=== PATIENT | male | born 1955 | race Caucasian/White ===

== ENCOUNTER 2020-11-17 18:41 | Inpatient (IN) | payer MEDICARE ==
[~2020-11-17] VITALS: Ht 175.3 cm; Wt 82.9 kg
[2020-11-17] VITALS (9 sets, daily range): BP systolic 76–121; BP diastolic 55–73
--- NOTE | 2020-11-17 18:48 | PDOC1 ---
History and Physical Date of Admission Date of Admission DATE: 11/17/20 TIME: 18:47 Identification/Chief Complaint Chief Complaint , short of breath , nausea weakness Source Source: Chart review, Patient History of Present Illness History of Present Illness Mr. Galindo, is a 64-year-old male transferred here from [facility], He went there for new dizziness, weakness, short of breath. He now complains of nausea. [facility] Patients son reports that he MIGHT not taken his meds in 2 weeks and is unsure as to why. Patient denies chest pain. Patient has 3+ pitting edema on bilateral legs and reports that his doctor had increased his lasix, and Dave seems positive that he was taking his meds when talkgin to me. . . Patient's feet are cool to the touch, purple, pulses able to be palpable, irreg. . Denies fever, cough. Past Medical History Past Medical History hypertension, CHF, CABG, GERD, hyperlipidemia, A. fib. Family History Family History: Heart Disease Social History Smoke: Quit ALCOHOL: rare Drugs: None Allergies Allergies: Coded Allergies: No Known Drug Allergies (Unverified , 11/17/20) ROS General: YES: Chills, Fatigue, Malaise PSYCHOLOGICAL ROS: YES: Anxiety; No: Behavioral Disorder, Concentration difficultie, Decreased libido, Depression, Disorientation, Hallucinations, Hostility, Irritablity, Memory difficulties, Mood Swings, Obsessive thoughts, Physical abuse, Sexual abuse, Sleep disturbances, Suicidal ideation, Other Eyes: No Blurry vision, No Decreased vision, No Double vision, No Dry eyes, No Excessive tearing, No Eye Pain, No Itchy Eyes, No Loss of vision, No Photophobia, No Scotomata, No Uses contacts, No Uses glasses, No Other HEENT: No: Heacaches, Visual Changes, Hearing change, Nasal congestion, Nasal discharge, Oral lesions, Sinus pain, Sore Throat, Epistaxis, Sneezing, Snoring, Tinnitus, Vertigo, Vocal changes, Other Respiratory: YES: Shortness of breath, SOB with excertion Cardiovascular: yes Chest Pain; No Palpitations, No Orthopnea, No Paroxysmal Noc. Dyspnea, No Edema, No Lt Headedness, No Other Gastrointestinal: Yes Nausea; No Vomiting, No Abdominal Pain, No Diarrhea, No Constipation, No Melena, No Hematochezia, No Other Genitourinary: No Dysuria, No Frequency, No Incontinence, No Hematuria, No Retention, No Discharge, No Urgency, No Pain, No Flank Pain, No Other, No , No , No , No , No , No , No Musculoskeletal: Yes Joint Pain, Yes Joint Stiffness; No Gait Disturbance, No Joint Swelling, No Muscle Pain, No Muscular Weakness, No Pain In:, No Swelling In:, No Other Neurological: No Behavorial Changes, No Bowel/Bladder ControlChng, No Confusion, No Dizziness, No Gait Disturbance, No Headaches, No Impaired Coord/balance, No Memory Loss, No Numbness/Tingling, No Seizures, No Speech Problems, No Tremors, No Visual Changes, No Weakness, No Other Skin: Yes Dry Skin; No Eczema, No Hair Changes, No Lumps, No Mole Changes, No Mottling, No Nail Changes, No Pruritus, No Rash, No Skin Lesion Changes, No Other, No Acne Physical Exam General: Alert, Cooperative, moderate distress HEENT: PERRLA Heart: no murmurs, irregularly irregular, other Abdomen: Normal bowel sounds, No tenderness Rectal Exam: not examined Extremities: Other (4+ edema, cold feet and swollen, pulses palpable but faint, cyanosis, ) Skin: Other Neuro: Normal speech, Sensation intact VTE Prophylaxis Ordered VTE Prophylaxis Devices: No VTE Pharmacological Prophylaxi: Yes Assessment/Plan Assessment/Plan acute bilateral Pulmonary embolism acute pneumonia, SIRS, sepsis acute hypoxic respiratory failure CAD , s/p CABG 1993 acute on chronic systolic CHF with prior known 3+ pitting edema for months, BNP 15k atrial fibrillation, chronic diastolic CHF Medtr[employer] pacer interrogated at [facility] creatinine 1.4 , bili is elevated at 4.6. INR 1.9 PVD, US artery LUE neg at [facility], poor pulses, cool feet, consult vasc, admit to ICU, 40 min Justifications for Admission Other Justification DALI TAYLOR MD November 17, 2020 18:48
[2020-11-17] MEDS: ONDANSETRON PF 4 MG/2 ML VIAL. IVP PRN (19:40)
[2020-11-18] VITALS (24 sets, daily range): BP systolic 94–115; BP diastolic 55–78
--- NOTE | 2020-11-18 04:23 | RAD ---
XR CHEST 1V Clinical History: Reason: pneumonia 111 / Spl. Instructions: / History: Technique: AP view of the chest was obtained at 11/18/2020 3:54 AM. Comparison: None. Findings: The heart size is not well seen. There is density in the lower left lung and there is hazy opacity in the mid right lung and density along the pleural margin laterally in the right lung base. The pulmon anthony vessels are top normal limits in size. There is left-sided defibrillator and median sternotomy wi res. Impression: Large left effusion with adjacent infiltrate and small right pleural effusion. This could be secondar y to CHF or pneumonia. Electronically signed by: Eduardo Ramos III, MD (11/18/2020 4:20 AM) [facility]ESS[facility]
[2020-11-18 05:58] LABS: BASO % 0 % (0-3); EOS % 0 % (0-3); HEMATOCRIT 49.4 % (39.0-53.0); HEMOGLOBIN 15.4 g/dL (13.0-17.5); LYMPH # 0.3 x10^3/uL (1.0-4.8); LYMPH % 3 % (24-48); MEAN CORPUSCULAR HEMOGLOBIN 28 pg (25-35); MEAN CORPUSCULAR HGB CONC 31 g/dL (31-37); MEAN CORPUSCULAR VOLUME 90 fL (79-100); MONO % 10 % (0-9); NEUT # 8.4 x10^3/uL (1.8-7.7); NEUT % 87 % (31-73); PLATELET COUNT 199 x10^3/uL (140-400); RED BLOOD COUNT 5.52 x10^6/uL (4.30-5.70); RED CELL DISTRIBUTION WIDTH 20.3 % (11.5-14.5); WHITE BLOOD COUNT 9.7 x10^3/uL (4.0-11.0)
[2020-11-18 06:17] LABS: ALBUMIN 3.4 g/dL (3.4-5.0); ALBUMIN/GLOBULIN RATIO 1.4 (1.0-1.7); CALCIUM 8.4 mg/dL (8.5-10.1); CREATININE 1.5 mg/dL (0.7-1.3); GFR 47.4; POTASSIUM 4.7 mmol/L (3.5-5.1); TOTAL BILIRUBIN 4.1 mg/dL (0.2-1.0); TOTAL PROTEIN 5.8 g/dL (6.4-8.2)
[2020-11-18 06:20] LABS: PROTHROMBIN TIME PATIENT 23.8 SEC (11.7-14.0)
--- NOTE | 2020-11-18 08:39 | PDOC ---
[employer] PROGRESS NOTE Date of Service DOS: DATE: 11/18/20 TIME: 08:35 Chief Complaint Chief Complaint A/P: acute bilateral Pulmonary embolism acute pneumonia Sepsis Acute hypoxic respiratory failure CAD , s/p CABG 1993 Acute on chronic systolic CHF with prior known 3+ pitting edema for months, B [employer]IAN 15k. S/p AICD Atrial fibrillation - Medtronic pacer interrogated at [facility] DOE - creatinine 1.4 - likely vasomotor nephropathy Transaminits - likely congestive hepatopathy, no ETOH or cirrhosis per patient. Bilirubin is elevated at 4.6. INR 1.9 PVD, US artery LUE neg at [facility], poor pulses, cool feet, consult vasc, Nausea and vomiting - KUB ordered. NGT offered FEN - Cardiac PPX - lovenox FULL CODE Dispo - ICU CC time 42 minutes History of Present Illness History of Present Illness Mr Galindo is a 64-year-old male visiting from [place] w/ PMHx A-Fib, GERD, High Cholesterol, Hypertension, Hypothyroid, CHF s/p AICD placement presents with dizziness, weakness, short of breath. Patient son brought him in and he has been staying with his son. Son states patient has not taken his medications for 2 weeks. Patient denies chest pain. Patient states "I feel like my pacemaker is firing". Patient has 3+ pitting edema on bilateral legs. Patient's left arm is cool to the touch, red. Denies fever, cough. Found on CTPA with multiple left lower lobe pulmonary emboli and moderate large pleural effusion on left and multifocal pneumonia. Accepted for transfer to ICU [facility]. Afebrile. Vomiting this morning. States he feels a little better today. Bilirubin up to 4. INR 2.1. COVID negative. BP low Vitals/I&O Vitals/I&O: Vital Signs Date Time Temp Pulse Resp B/P (MAP) Pulse Ox O2 Delivery O2 Flow Rate FiO2 11/18/20 07:00 67 26 101/59 (73) 100 Nasal Cannula 2.0 11/18/20 05:00 97.6 97.6 I & O 11/17/20 11/17/20 11/18/20 15:00 23:00 07:00 Output Total 180 ml 235 ml Balance -180 ml -235 ml Physical Exam General: Alert, Cooperative, moderate distress Abdomen: Normal bowel sounds, No tenderness Extremities: Other (4+ edema, cold feet and swollen, pulses palpable but faint, cyanosis, ) Skin: Other Labs Labs: Laboratory Tests Test 11/18/20 05:30 White Blood Count 9.7 x10^3/uL (4.0-11.0) Red Blood Count 5.52 x10^6/uL (4.30-5.70) Hemoglobin 15.4 g/dL (13.0-17.5) Hematocrit 49.4 % (39.0-53.0) Mean Corpuscular Volume 90 fL (79-100) Mean Corpuscular Hemoglobin 28 pg (25-35) Mean Corpuscular Hemoglobin Concent 31 g/dL (31-37) Red Cell Distribution Width 20.3 % (11.5-14.5) Platelet Count 199 x10^3/uL (140-400) Neutrophils (%) (Auto) 87 % (31-73) Lymphocytes (%) (Auto) 3 % (24-48) Monocytes (%) (Auto) 10 % (0-9) Eosinophils (%) (Auto) 0 % (0-3) Basophils (%) (Auto) 0 % (0-3) Neutrophils # (Auto) 8.4 x10^3/uL (1.8-7.7) Lymphocytes # (Auto) 0.3 x10^3/uL (1.0-4.8) Monocytes # (Auto) 1.0 x10^3/uL (0.0-1.1) Eosinophils # (Auto) 0.0 x10^3/uL (0.0-0.7) Basophils # (Auto) 0.0 x10^3/uL (0.0-0.2) Prothrombin Time 23.8 SEC (11.7-14.0) Prothromb Time International Ratio 2.1 (0.8-1.1) Sodium Level 137 mmol/L (136-145) Potassium Level 4.7 mmol/L (3.5-5.1) Chloride Level 99 mmol/L (98-107) Carbon Dioxide Level 27 mmol/L (21-32) Anion Gap 11 (6-14) Blood Urea Nitrogen 27 mg/dL (8-26) Creatinine 1.5 mg/dL (0.7-1.3) Estimated GFR (Cockcroft-Gault) 47.4 BUN/Creatinine Ratio 18 (6-20) Glucose Level 117 mg/dL (70-99) Calcium Level 8.4 mg/dL (8.5-10.1) Total Bilirubin 4.1 mg/dL (0.2-1.0) Aspartate Amino Transf (AST/SGOT) 32 U/L (15-37) Alanine Aminotransferase (ALT/SGPT) 40 U/L (16-63) Alkaline Phosphatase 212 U/L (46-116) Troponin I Quantitative 0.021 ng/mL (0.000-0.055) Total Protein 5.8 g/dL (6.4-8.2) Albumin 3.4 g/dL (3.4-5.0) Albumin/Globulin Ratio 1.4 (1.0-1.7) Comment Review of Relevant I have reviewed the following items florecita (where applicable) has been applied. Medications: Current Medications Medications (Trade) Dose Ordered Sig/Grace Route PRN Reason Start Time Stop Time Status Last Admin Dose Admin Ondansetron HCl (Zofran) 4 mg PRN Q8HRS PRN IVP NAUSEA/VOMITING 11/17/20 19:00 11/17/20 19:40 Enoxaparin Sodium (Lovenox 100mg Syringe) 90 mg Q12H SQ 11/18/20 06:00 11/18/20 06:04 Images: CT angiography of the chest, abdomen and pelvis with intravenous contrast. Chest: There are left lower lobe, lingular and right middle lobe pulmonary emboli. There may also be distal right lower lobe pulmonary emboli, difficult to confirm given respiratory motion in this location. There are moderate bilateral pleural effusions. There is associated fluid tracking within the pleural fissures. There is partial left lower lobe consolidation with surrounding groundglass infiltrate. There is right basilar interstitial infiltrate. There is partially consolidated lingular and medial right middle lobe infiltrate with superimposed pleural parenchymal scarring. There is cardiomegaly. There is evidence of prior CABG. There is a cardiac pacemaker. There are prominent mediastinal and hilar lymph nodes. There is no evidence of right heart strain. There is emphysema. There is body wall edema. There is a small hiatal hernia. There are degenerative changes throughout the spine. Abdomen and pelvis: No hepatic lesion is seen. The gallbladder is absent. The pancreas and spleen are unremarkable. There is a 2.4 cm left adrenal nodule. There is also slight nodular thickening of the nhung of the left adrenal gland, without a discrete nodule. There is bilateral renal cortical thinning and lobulation due to scarring. There is a simple left renal cysts. There is moderate abdominal ascites. There is a 2.4 cm left adrenal nodule. There is also nodular thickening of the nhung of the left adrenal gland. There is a small to moderate abdominal ascites. There is diffuse colonic wall thickening. This can be seen in the setting of ascites. There is diffuse mesenteric stranding. There is no bowel obstruction. There is no lymphadenopathy. The abdominal aorta is normal in caliber. There is partially calcified atherosclerotic plaque within the aorta and main aortic branch vessels. No hemodynamically significant stenosis is seen. There is no aneurysm or dissection. There is mild bladder wall thickening. The prostate is mildly enlarged. There is body wall edema. There are degenerative changes throughout the spine. There is no acute osseous finding. IMPRESSION: 1. Left lower lobe, lingular, right middle lobe and possibly right lower lobe pu lmonary emboli. No saddle embolus is seen. 2. Multifocal consolidated infiltrate primarily involving the left lower lobe, medial right middle lobe and lingula. The superimposed on diffuse interstitial infiltrate. Follow-up to confirm resolution. 3. Moderate pleural effusions. 4. Small moderate ascites. 5. Emphysema. 6. Colonic wall thickening. This can be seen in the presence of ascites. Correlate with symptomatology to exclude colitis. 7. Mild prostatomegaly. 8. 2.4 cm left adrenal nodule. This can be better assessed with adrenal protocol CT or MRI. 9. Simple appearing left renal cyst. Follow-up is not routinely performed for simple cysts. 10. Cardiomegaly. 11. Prominent mediastinal and hilar lymph nodes, likely reactive in etiology. US DPLX VENOUS EXTREMITY UPPER LT Degraded evaluation due to difficult mobility. The subcutaneous edema. Patent left internal jugular, subclavian, axilla, brachial, ulnar and radial veins. Patent basilic and cephalic veins. No definite thrombus. IMPRESSION: 1. No evidence of left upper extremity deep venous thrombosis. Chest Radiograph: A frontal view of the chest is obtained. There are small bilateral pleural effusions. There is diffuse interstitial infiltrate. There is an enlarged cardiac silhouette. There is no pneumothorax. There are findings consistent with CABG. There is a cardiac pacemaker defibrillator in expected position. IMPRESSION: 1. Diffuse interstitial infiltrate with small pleural effusions. 2. Prominent cardiac silhouette and postoperative mediastinal changes. Justifications for Admission Other Justification MARIO LAST MD November 18, 2020 08:39
[2020-11-18] MEDS ORDERED: AZITHROMYCIN 250 MG TABLET. PO SCH (09:00)
[2020-11-18] MEDS ORDERED: DOXYCYCLINE HYCLATE 100 MG TABLET PO SCH (09:00)
[2020-11-18] MEDS ORDERED: PANTOPRAZOLE 40 MG TABLET.DR. PO SCH (09:00)
[2020-11-18] MEDS: ONDANSETRON PF 4 MG/2 ML VIAL. IVP PRN (09:05)
[2020-11-18] MEDS: DOXYCYCLINE HYCLATE 100 MG in IV DEXTROSE 5% 100ML 100 ML IV SCH ×2 (09:28→20:37)
--- NOTE | 2020-11-18 09:29 | CONS ---
REASON FOR CONSULTATION: I was asked to see this 64-year-old gentleman for acute respiratory failure, pulmonary embolism. HISTORY OF PRESENT ILLNESS: He does have history of [id number] smoking, continues to smoke about 1 pack per day. He lives in [place]. He has been in his son's for the past 2 weeks in [facility]. He has not taken his medication. He has significant history of heart disease including AICD; atrial fibrillation, on Eliquis, although he has not taken it for the past 2 weeks; coronary artery disease, CABG; and COPD. He stated that he has not taken his medication for the past 2 weeks, including Eliquis. He has had increased shortness of breath, lower extremity edema. He presented to [facility] and had a CT angiogram, which did show pulmonary embolism. He was transferred to [facility] for further evaluation and treatment. He has shortness of breath, lower extremity edema. He appears tachypneic. He denies chest pain. He has been tired, has felt dizzy and weak. Has had nausea. PAST MEDICAL HISTORY: COPD, CHF, CABG, gastroesophageal reflux disease, atrial fibrillation, hypertension. ALLERGIES: No known drug allergies. MEDICATIONS: Currently, he is on Rocephin, azithromycin, Lovenox. SOCIAL HISTORY: History of [id number] smoking, continues to smoke 1 pack per day. FAMILY HISTORY: Hypertension. REVIEW OF SYSTEMS: As mentioned as above. He does have sleep apnea, does not use his CPAP machine. Other systems otherwise negative. PHYSICAL EXAMINATION: GENERAL: This is an overweight gentleman. He appears tachypneic. His O2 saturation on 2 liters of oxygen is 98%, respiratory rate 26, heart rate 67, blood pressure 101/59, temperature 97.6. HEENT: Normocephalic, atraumatic. Pupils equal, round, reactive to light. Throat is clear. There is shallow oropharynx. Nose is clear. NECK: Positive JVD. No lymphadenopathy. CARDIOVASCULAR: Irregular rate and rhythm. Chest inspection, he appears tachypneic. LUNGS: There are bibasilar crackles, dullness at the bases. ABDOMEN: Obese. Bowel sounds are good. EXTREMITIES: There is 3-4+ edema. SKIN: Chronic changes. NEUROLOGIC: Alert and oriented. LABORATORY DATA: I reviewed the following lab data. Chest x-ray done here showed bilateral effusion, left more than right; bilateral infiltrate. His CT did show left lower lobe lingula, right middle lobe and possibly right lower lobe pulmonary embolism. No saddle embolism. Multifocal consolidation, bilateral pleural effusion, moderate ascites, COPD changes, colonic wall thickening, mild prostatomegaly, adrenal nodule, renal cyst, cardiomegaly, mediastinal and hilar lymphadenopathy. Left upper extremity venous Doppler did not show DVT. Sodium 137, potassium 4.7, chloride 99, CO2 of 27, BUN 27, creatinine 1.5. Troponin 0.021. WBC 9.7, hemoglobin 15.4, platelet 199. INR 2.1. AST 32, ALT 40. IMPRESSION: 1. Acute hypoxemic respiratory failure, multifactorial in etiology including acute pulmonary embolism; acute congestive heart failure, systolic versus diastolic; COPD, rule out pneumonia; rule out COVID infection. 2. Abnormal chest x-ray. 3. Acute ulmonary embolism. 4. Chronic obstructive pulmonary disease. 5. Acute systolic versus diastolic congestive heart failure. 6. Obstructive sleep apnea/hypopnea syndrome. 7. Tobacco habituation. 8. Atrial fibrillation. 9. Coronary artery disease, status post CABG. PLAN AND RECOMMENDATIONS: 1. I had a long discussion with him regarding smoking cessation. I have advised him to stop smoking forever. 2. Monitor in ICU for now. 3. Lower extremity venous Doppler. 4. Continue Lovenox. 5. Add Protonix for stress ulcer prophylaxis. 6. Start bronchodilator and inhaled corticosteroid. 7. Continue antibiotic. 8. COVID testing. 9. Consider Cardiology consultation and echocardiogram. 10. Continue Lovenox. 11. The findings and recommendations were discussed with the patient, RN and Dr. Mary, attending physician. Thank you very much for allowing me to participate in care of this very nice gentleman. TELMA/HALIMA DR: Jaspreet TID: [id number] ANUP
[2020-11-18] MEDS ORDERED: AMINO AC 3%/ELECTROLYTE/GLYCER 1,000 ML IV ONE (09:30)
[2020-11-18] MEDS ORDERED: BUDESONIDE 0.5 MG/2 ML NEBU. NEB ONE (09:30)
[2020-11-18] MEDS: PANTOPRAZOLE IV PUSH 40 MG VIAL. IVP SCH (09:43)
[2020-11-18] MEDS: FUROSEMIDE 100 MG/10 ML VIAL. IVP SCH (10:37)
[2020-11-18 10:52] LABS: % LYMPHS 7 % (24-48); % MONOS 4 % (0-10); % SEGS 89 % (35-66); PLT ESTIMATE ADEQUATE (ADEQUATE)
[2020-11-18] MEDS ORDERED: LACTULOSE 20 GM/30 ML SOLUTION. PO PRN (11:00)
[2020-11-18] MEDS ORDERED: ONDANSETRON PF 4 MG/2 ML VIAL. IVP PRN (11:30)
[2020-11-18] MEDS ORDERED: METOCLOPRAMIDE HCL 10 MG/2 ML VIAL. IVP PRN (11:30)
[2020-11-18] MEDS: IPRATRPIUM/ALBUTEROL 0.5/2.5MG 3 ML NEBU. NEB SCH ×3 (12:39→20:24)
--- NOTE | 2020-11-18 12:48 | PDOC2 ---
CONSULT Date of Consult Date of Consult DATE: 11/18/20 TIME: 12:41 Reason for Consult Reason for Consult: Pulmonary embolism, heart failure Referring Physician Referring Physician: Dr. Perez Identification/Chief Complaint Chief Complaint Shortness of breath and weakness Source Source: Chart review, Patient History of Present Illness Reason for Visit: The patient is a 64-year-old male who initially presented to [facility] with chief complaints of increasing shortness of breath and weakness. His work- up there included a CTA of the chest that showed bilateral pulmonary emboli. The patient was started on anticoagulation and transferred to [facility]. He has an extensive medical history including previous bypass surgery, hypertension, heart failure, a probable AICD and atrial fibrillation. The patient had been on Eliquis but by family report he is not taking his medications for least 2 weeks. After evaluation here the patient was continued on anticoagulation. He is also being treated for probable pneumonia as well as heart failure. This morning he reports feeling better. He is mildly lethargic. He reports his shortness of breath has improved. He denies chest pain. Past Medical History Cardiovascular: AFIB, CAD, CHF, HTN, Hyperlipidemia, Other (Probable AICD) Pulmonary: Bronchitis, COPD GI: GERD Musculoskeletal: Osteoarthritis Past Surgical History Past Surgical History: CABG, Other (AICD.) Family History Family History: Heart Disease Social History Quit ALCOHOL: occassional Drugs: None Current Medications Current Medications Current Medications Enoxaparin Sodium (Lovenox Per Pharmacy Treatment Dosing) 1 each PRN DAILY PRN MC SEE COMMENTS; Start 11/17/20 at 19:00 Ondansetron HCl (Zofran) 4 mg PRN Q8HRS PRN IVP NAUSEA/VOMITING Last administered on 11/18/20at 09:05; Start 11/17/20 at 19:00; Stop 11/18/20 at 11:29; Status DC Ceftriaxone Sodium (Rocephin) 2 gm Q24H IVP ; Start 11/18/20 at 14:00 Azithromycin (Zithromax) 250 mg DAILY PO ; Start 11/18/20 at 09:00; Stop 11/18/20 at 08:37; Status DC Enoxaparin Sodium (Lovenox 100mg Syringe) 90 mg Q12H SQ Last administered on 11/18/20at 06:04; Start 11/18/20 at 06:00 Doxycycline Hyclate (Vibra-Tab) 100 mg BID PO ; Start 11/18/20 at 09:00; Stop 11/18/20 at 09:13; Status DC Pantoprazole Sodium (Protonix) 40 mg DAILYAC PO ; Start 11/18/20 at 09:00; Stop 11/18/20 at 09:21; Status DC Albuterol/ Ipratropium (Duoneb) 3 ml RTQID NEB ; Start 11/18/20 at 12:00 Budesonide (Pulmicort) 0.5 mg RTBID NEB ; Start 11/18/20 at 20:00 Budesonide (Pulmicort) 0.5 mg 1X ONCE NEB ; Start 11/18/20 at 09:30; Stop 11/18/20 at 09:31; Status DC Doxycycline Hyclate 100 mg/ Dextrose 100 ml @ 50 mls/hr Q12HR IV Last administered on 11/18/20at 09:28; Start 11/18/20 at 10:00 Pantoprazole Sodium (PROTONIX VIAL for IV PUSH) 40 mg DAILYAC IVP Last administered on 11/18/20at 09:43; Start 11/18/20 at 10:00 Amino Acids/ Glycerin/ Electrolytes 1,000 ml @ 80 mls/hr [id number] ONCE IV Last administered on 11/18/20at 09:44; Start 11/18/20 at 09:30; Stop 11/18/20 at 21:59 Furosemide (Lasix) 80 mg DAILY IVP Last administered on 11/18/20at 10:37; Start 11/18/20 at 11:00 Lactulose (Lactulose) 20 gm PRN DAILY PRN PO CONSTIPATION; Start 11/18/20 at 11:00 Metoclopramide HCl (Reglan Vial) 10 mg PRN Q6HRS PRN IVP NAUSEA/VOMITING Last administered on 11/18/20at 11:40; Start 11/18/20 at 11:30 Ondansetron HCl (Zofran) 4 mg PRN Q4HRS PRN IVP NAUSEA/VOMITING; Start 11/18/20 at 11:30 Allergies Allergies: Coded Allergies: No Known Drug Allergies (Unverified , 11/17/20) ROS General: YES: Fatigue, Malaise Respiratory: YES: Shortness of breath, SOB with excertion Physical Exam General: mild distress HEENT: Atraumatic Lungs: Other (Decreased breath sounds) Heart: Other (Irregularly irregular) Abdomen: Normal bowel sounds Vitals VITALS Vital Signs Date Time Temp Pulse Resp B/P (MAP) Pulse Ox O2 Delivery O2 Flow Rate FiO2 11/18/20 12:00 Nasal Cannula 2.0 11/18/20 12:00 97.8 65 22 105/67 (80) 100 97.8 Labs Labs Laboratory Tests Test 11/18/20 05:30 11/18/20 08:41 White Blood Count 9.7 x10^3/uL (4.0-11.0) Red Blood Count 5.52 x10^6/uL (4.30-5.70) Hemoglobin 15.4 g/dL (13.0-17.5) Hematocrit 49.4 % (39.0-53.0) Mean Corpuscular Volume 90 fL (79-100) Mean Corpuscular Hemoglobin 28 pg (25-35) Mean Corpuscular Hemoglobin Concent 31 g/dL (31-37) Red Cell Distribution Width 20.3 % (11.5-14.5) Platelet Count 199 x10^3/uL (140-400) Neutrophils (%) (Auto) 87 % (31-73) Lymphocytes (%) (Auto) 3 % (24-48) Monocytes (%) (Auto) 10 % (0-9) Eosinophils (%) (Auto) 0 % (0-3) Basophils (%) (Auto) 0 % (0-3) Neutrophils # (Auto) 8.4 x10^3/uL (1.8-7.7) Lymphocytes # (Auto) 0.3 x10^3/uL (1.0-4.8) Monocytes # (Auto) 1.0 x10^3/uL (0.0-1.1) Eosinophils # (Auto) 0.0 x10^3/uL (0.0-0.7) Basophils # (Auto) 0.0 x10^3/uL (0.0-0.2) Segmented Neutrophils % 89 % (35-66) Lymphocytes % 7 % (24-48) Monocytes % 4 % (0-10) Platelet Estimate Adequate (ADEQUATE) Prothrombin Time 23.8 SEC (11.7-14.0) Prothromb Time International Ratio 2.1 (0.8-1.1) Sodium Level 137 mmol/L (136-145) Potassium Level 4.7 mmol/L (3.5-5.1) Chloride Level 99 mmol/L (98-107) Carbon Dioxide Level 27 mmol/L (21-32) Anion Gap 11 (6-14) Blood Urea Nitrogen 27 mg/dL (8-26) Creatinine 1.5 mg/dL (0.7-1.3) Estimated GFR (Cockcroft-Gault) 47.4 BUN/Creatinine Ratio 18 (6-20) Glucose Level 117 mg/dL (70-99) Calcium Level 8.4 mg/dL (8.5-10.1) Total Bilirubin 4.1 mg/dL (0.2-1.0) Aspartate Amino Transf (AST/SGOT) 32 U/L (15-37) Alanine Aminotransferase (ALT/SGPT) 40 U/L (16-63) Alkaline Phosphatase 212 U/L (46-116) Troponin I Quantitative 0.021 ng/mL (0.000-0.055) Total Protein 5.8 g/dL (6.4-8.2) Albumin 3.4 g/dL (3.4-5.0) Albumin/Globulin Ratio 1.4 (1.0-1.7) SARS-CoV-2 Antigen (Rapid) Negative (NEGATIVE) Laboratory Tests Test 11/18/20 05:30 11/18/20 08:41 White Blood Count 9.7 x10^3/uL (4.0-11.0) Red Blood Count 5.52 x10^6/uL (4.30-5.70) Hemoglobin 15.4 g/dL (13.0-17.5) Hematocrit 49.4 % (39.0-53.0) Mean Corpuscular Volume 90 fL (79-100) Mean Corpuscular Hemoglobin 28 pg (25-35) Mean Corpuscular Hemoglobin Concent 31 g/dL (31-37) Red Cell Distribution Width 20.3 % (11.5-14.5) Platelet Count 199 x10^3/uL (140-400) Neutrophils (%) (Auto) 87 % (31-73) Lymphocytes (%) (Auto) 3 % (24-48) Monocytes (%) (Auto) 10 % (0-9) Eosinophils (%) (Auto) 0 % (0-3) Basophils (%) (Auto) 0 % (0-3) Neutrophils # (Auto) 8.4 x10^3/uL (1.8-7.7) Lymphocytes # (Auto) 0.3 x10^3/uL (1.0-4.8) Monocytes # (Auto) 1.0 x10^3/uL (0.0-1.1) Eosinophils # (Auto) 0.0 x10^3/uL (0.0-0.7) Basophils # (Auto) 0.0 x10^3/uL (0.0-0.2) Segmented Neutrophils % 89 % (35-66) Lymphocytes % 7 % (24-48) Monocytes % 4 % (0-10) Platelet Estimate Adequate (ADEQUATE) Prothrombin Time 23.8 SEC (11.7-14.0) Prothromb Time International Ratio 2.1 (0.8-1.1) Sodium Level 137 mmol/L (136-145) Potassium Level 4.7 mmol/L (3.5-5.1) Chloride Level 99 mmol/L (98-107) Carbon Dioxide Level 27 mmol/L (21-32) Anion Gap 11 (6-14) Blood Urea Nitrogen 27 mg/dL (8-26) Creatinine 1.5 mg/dL (0.7-1.3) Estimated GFR (Cockcroft-Gault) 47.4 BUN/Creatinine Ratio 18 (6-20) Glucose Level 117 mg/dL (70-99) Calcium Level 8.4 mg/dL (8.5-10.1) Total Bilirubin 4.1 mg/dL (0.2-1.0) Aspartate Amino Transf (AST/SGOT) 32 U/L (15-37) Alanine Aminotransferase (ALT/SGPT) 40 U/L (16-63) Alkaline Phosphatase 212 U/L (46-116) Troponin I Quantitative 0.021 ng/mL (0.000-0.055) Total Protein 5.8 g/dL (6.4-8.2) Albumin 3.4 g/dL (3.4-5.0) Albumin/Globulin Ratio 1.4 (1.0-1.7) SARS-CoV-2 Antigen (Rapid) Negative (NEGATIVE) Images Images Chest x-ray with a large left effusion. Outside CTA showed multiple pulmonary emboli. Assessment/Plan Assessment/Plan 1. Pulmonary emboli, acute. Outside studies show multiple areas of PEs. Patient has been started on anticoagulation. He had been on Eliquis for his atrial fibrillation but by report has not taken it for over 2 weeks. We will continue present medications. Pulmonary is evaluating the patient. 2. Pneumonia. Pulmonary treatments and antibiotics as per the primary service. 3. History of bypass surgery. Probable superimposed heart failure. No significant elevation thus far in troponin. We will continue baseline medications and attempt to obtain old records. Echo for LV function and right- sided pressures. 4. Atrial fibrillation. Had been on Eliquis but no medications for 2 weeks. Anticoagulation as above restart and adjust rate control medications as needed. 5. Hypertension. Continuing medical treatment. JIM GRAFF MD November 18, 2020 12:48
--- NOTE | 2020-11-18 13:03 | RAD ---
Portable AP supine view of the abdomen Clinical indications: Vomiting. FINDINGS: No obstructive bowel pattern is seen. Air is seen within small bowel and colon and down int o the rectosigmoid region. There are mildly dilated loops of small bowel which may be seen with enter itis. Cholecystectomy clips are apparent. IMPRESSION: No obstructive bowel pattern. Mildly dilated loops of small bowel which may be seen with enteritis. Small right-sided pleural effusion is seen. There is left lung base consolidation which could be due to pleural effusion and/or lung infiltrate. Electronically signed by: Dru Callahan MD (11/18/2020 1:01 PM) [id number]
[2020-11-18] MEDS: cefTRIAXone IV Push 2 GM VIAL. IVP SCH (14:16)
--- NOTE | 2020-11-18 16:19 | NUR ---
PICC Pre-Insertion: Allergies and reactions NKDA INR 2.1 BUN 27 Cr 1.5 Platelets 199 Blood culture done n/a blood culture results Order Verified yes Consent signed yes Previous PICC placement unknown Past Medical/Surgical history and current diagnosis reviewed yes Patient Medical /Surgical History Related to PICC line placement Arrhythmias Automatic Implantable Cardioverter Defibrillator (AICD) Pacemaker Pulmonary Embolism (PE) Special considerations for PICC line placement Anticoagulation therapy PICC placement indication intermission coordinator antibiotic usage, Multiple/ Frequent blood draws, PICC Nurse Maria De Jesus Sandoval RN Addendum: 11/18/20 at 1713 by MAI SANDOVAL RN Amended: Links added.
--- NOTE | 2020-11-18 16:50 | RAD ---
Bilateral lower extremity venous duplex study 11/18/2020 Clinical History: Bilateral leg swelling.. Technique: Using a combination of real time ultrasound imaging and color-flow and pulse Doppler imagi ng techniques along with graded compression and augmentation, duplex evaluation of the deep venous sy stem of the both lower extremities was performed. Multiple images were obtained. Findings: The study is limited due to diffuse bilateral leg edema. Partially occlusive thrombus is seen involving the posterior tibial veins within the right calf. The right popliteal, superficial femoral and common femoral veins are patent. There is no sonographic evidence of deep venous thrombosis involving the visualized deep venous struc tures of the left lower extremity. IMPRESSION: Partially occlusive DVT is seen involving the posterior tibial veins within the right matteo f. Electronically signed by: Anoop Benitez MD (11/18/2020 4:47 PM) [id number]
--- NOTE | 2020-11-18 16:52 | NUR ---
PICC Insertion Note Procedure: Following complete explanation of the PICC procedure including the indications, risks, and potential complications, informed consent was obtained. The possibility for infection was discussed along with signs, symptoms, and prevention. All the questions were answered. Written and verbal patient education was provided. Hand hygiene performed. Standardized central line checklist was utilized. The patient was placed in the supine position, the arm was prepped with chlorhexidine and patient draped with maximum sterile barrier. 3 mL 1% lidocaine was infiltrated into the skin to provide local anesthesia. A thorough assessment of right upper extremity completed. Using real-time ultrasound guidance and standardized micro puncture set, the brachial vein was punctured and a peel away sheath was placed using the modified Seldinger technique. A tip location device was used to ensure adequate catheter placement. The catheter was secured using a securement device and an antimicrobial patch was applied directly on the insertion site followed by a transparent dressing. All ports withdraw blood and flush without resistance. Patient tolerated the procedure without apparent complication(s). Double Lumen Power PICC placement successful and uncomplicated. Placement verified by EKG tip confirmation system and/or chest x-ray. Tip located in the CAJ/SVC. Complications: none Catheter trimmed at 39cm with 0cm visible at insertion site.
--- NOTE | 2020-11-18 17:21 | RAD ---
XR CHEST 1V Clinical History: Reason: line placement / Spl. Instructions: / History: Technique: AP view of the chest was obtained at 11/18/2020 4:53 PM. Comparison: 4:03 AM. Findings: There is been interval placement of right PICC with its tip directed downward in the mid SVC. The lef t-sided defibrillator and median sternotomy wires are again seen. The heart is moderately enlarged. There is increased reticular opacities of the lungs and there is friedman zy opacity in the left lung base and obscuration left hemidiaphragm. Mild patchy opacities bilaterall y appear improved. The pulmonary vessels appear normal. IMPRESSION: 1. Right PICC well-positioned. 2. Moderate left effusion and bilateral infiltrates likely secondary to CHF appears mildly improved. Electronically signed by: Eduardo Ramos III, MD (11/18/2020 5:19 PM) [email or web address]
[2020-11-18] MEDS: BUDESONIDE 0.5 MG/2 ML NEBU. NEB SCH (20:24)
[2020-11-18] MEDS: LACTOBACILLUS RHAMNOSUS GG 1 CAPSULE. PO SCH (20:32)
[2020-11-18] MEDS ORDERED: AMINO AC 3%/ELECTROLYTE/GLYCER 1,000 ML IV SCH (22:15)
[2020-11-19] VITALS (24 sets, daily range): BP systolic 92–114; BP diastolic 56–79
[2020-11-19] MEDS: BUDESONIDE 0.5 MG/2 ML NEBU. NEB SCH ×2 (07:55→20:29)
[2020-11-19] MEDS: IPRATRPIUM/ALBUTEROL 0.5/2.5MG 3 ML NEBU. NEB SCH ×4 (07:55→20:29)
[2020-11-19] MEDS: FUROSEMIDE 100 MG/10 ML VIAL. IVP SCH (08:05)
[2020-11-19] MEDS: PANTOPRAZOLE IV PUSH 40 MG VIAL. IVP SCH (08:05)
[2020-11-19] MEDS: LACTOBACILLUS RHAMNOSUS GG 1 CAPSULE. PO SCH ×2 (08:05→20:52)
[2020-11-19] MEDS: DOXYCYCLINE HYCLATE 100 MG in IV DEXTROSE 5% 100ML 100 ML IV SCH ×2 (09:00→20:53)
--- NOTE | 2020-11-19 09:07 | PDOC ---
[employer] PROGRESS NOTE Date of Service DOS: DATE: 11/19/20 TIME: 08:55 Chief Complaint Chief Complaint A/P: Acute bilateral Pulmonary embolism - will transition from lovenox to heparin GTT in anticipation of consideration of thoracentesis Acute pneumonia - rocephin + doxy Sepsis - due to above Acute hypoxic respiratory failure - due to PE, CHF CAD s/p CABG 1993 Acute on chronic systolic CHF with prior known 3+ pitting edema for months, BNP 15k. S/p AICD - cont diuresis Atrial fibrillation - [employer] pacer interrogated at [facility]. Was on eliquis but had been off for 2 weeks prior to admit DOE - creatinine 1.4 - likely vasomotor nephropathy Transaminits - likely congestive hepatopathy, no ETOH or cirrhosis per patient. Bilirubin is elevated at 4.6. INR 1.9 PVD, US artery LUE neg at [facility], poor pulses, cool feet, consult vasc, Nausea and vomiting - KUB ordered, no SBO, reglan helped FEN - Cardiac PPX - lovenox FULL CODE Dispo - ICU CC time 42 minutes History of Present Illness History of Present Illness Mr Galindo is a 64-year-old male visiting from [place] w/ PMHx A-Fib, GERD, High Cholesterol, Hypertension, Hypothyroid, CHF s/p AICD placement presents with dizziness, weakness, short of breath. Patient son brought him in and he has been staying with his son. Son states patient has not taken his medications for 2 weeks. Patient denies chest pain. Patient states "I feel like my pacemaker is firing". Patient has 3+ pitting edema on bilateral legs. Patient's left arm is cool to the touch, red. Denies fever, cough. Found on CTPA with multiple left lower lobe pulmonary emboli and moderate large pleural effusion on left and multifocal pneumonia. Accepted for transfer to ICU [facility]. 11/18: Afebrile. Vomiting this morning. States he feels a little better today. Bilirubin up to 4. INR 2.1. COVID negative. BP low Afebrile. Still weak. Sitting in chair. PICC placed for IV access. K 4.7, BUN 27, Cr 1.5, Alk phos 21, Bili 4.1. BP improved. Vitals/I&O Vitals/I&O: Vital Signs Date Time Temp Pulse Resp B/P (MAP) Pulse Ox O2 Delivery O2 Flow Rate FiO2 11/19/20 08:00 98.0 80 30 107/73 (84) 100 Nasal Cannula 3.0 98.0 I & O 11/18/20 11/18/20 11/19/20 14:59 22:59 06:59 Intake Total 300 ml 562 ml 1175 ml Output Total 275 ml 570 ml 235 ml Balance 25 ml -8 ml 940 ml Physical Exam General: Alert, Oriented X3, Cooperative, mild distress Heart: Other (Irregularly irregular) Lungs: Wheezing Abdomen: Normal bowel sounds Extremities: Other (4+ edema, cold feet and swollen, pulses palpable but faint, cyanosis, ) Skin: Other Comment Review of Relevant I have reviewed the following items florecita (where applicable) has been applied. Medications: Current Medications Medications (Trade) Dose Ordered Sig/Grace Route PRN Reason Start Time Stop Time Status Last Admin Dose Admin Ceftriaxone Sodium (Rocephin) 2 gm Q24H IVP 11/18/20 14:00 11/18/20 14:16 Albuterol/ Ipratropium (Duoneb) 3 ml RTQID NEB 11/18/20 12:00 11/19/20 07:55 Budesonide (Pulmicort) 0.5 mg RTBID NEB 11/18/20 20:00 11/19/20 07:55 Budesonide (Pulmicort) 0.5 mg 1X ONCE NEB 11/18/20 09:30 11/18/20 09:31 DC 11/18/20 12:39 Doxycycline Hyclate 100 mg/ Dextrose 100 ml @ 50 mls/hr Q12HR IV 11/18/20 10:00 11/18/20 20:37 Pantoprazole Sodium (PROTONIX VIAL for IV PUSH) 40 mg DAILYAC IVP 11/18/20 10:00 11/19/20 08:05 Amino Acids/ Glycerin/ Electrolytes 1,000 ml @ 80 mls/hr [id number] ONCE IV 11/18/20 09:30 11/18/20 21:59 DC 11/18/20 09:44 Furosemide (Lasix) 80 mg DAILY IVP 11/18/20 11:00 11/19/20 08:05 Metoclopramide HCl (Reglan Vial) 10 mg PRN Q6HRS PRN IVP NAUSEA/VOMITING, 2ND CHOICE 11/18/20 11:30 11/18/20 11:40 Enoxaparin Sodium (Lovenox 80mg Syringe) 80 mg Q12HR SQ 11/18/20 21:00 11/19/20 08:05 Lactobacillus Rhamnosus (Culturelle) 1 cap BID PO 11/18/20 21:00 11/19/20 08:05 Amino Acids/ Glycerin/ Electrolytes 1,000 ml @ 80 mls/hr [id number] IV 11/18/20 22:15 11/18/20 23:04 Justifications for Admission Other Justification MARIO LAST MD November 19, 2020 09:07
--- NOTE | 2020-11-19 09:33 | PDOC ---
PULMONARY PROGRESS NOTES DATE: 11/19/20 TIME: 09:23 Subjective on 02 2 lpm. didnt tolerate bipap sob better has cough no sputum Vitals Vital Signs Date Time Temp Pulse Resp B/P (MAP) Pulse Ox O2 Delivery O2 Flow Rate FiO2 11/19/20 08:00 98.0 80 30 107/73 (84) 100 Nasal Cannula 3.0 98.0 Comments ros as mentioned as above other sys otherwise neg ROS: No Nausea, No Chest Pain General: Alert, Oriented X4 HEENT: Other (nc at perrl nose throat clear neck no lad no thyromegaly ) Lungs: Wheezing, Crackles, Other (dull at bases ) Cardiovascular: S1, S2 Abdomen: Soft, Non-tender, Other (obese no mass) Neuro Exam: Alert Extremities: Other (edema ) Skin: Warm Labs Laboratory Tests Test 11/18/20 05:30 11/18/20 08:41 White Blood Count 9.7 x10^3/uL (4.0-11.0) Red Blood Count 5.52 x10^6/uL (4.30-5.70) Hemoglobin 15.4 g/dL (13.0-17.5) Hematocrit 49.4 % (39.0-53.0) Mean Corpuscular Volume 90 fL (79-100) Mean Corpuscular Hemoglobin 28 pg (25-35) Mean Corpuscular Hemoglobin Concent 31 g/dL (31-37) Red Cell Distribution Width 20.3 % (11.5-14.5) Platelet Count 199 x10^3/uL (140-400) Neutrophils (%) (Auto) 87 % (31-73) Lymphocytes (%) (Auto) 3 % (24-48) Monocytes (%) (Auto) 10 % (0-9) Eosinophils (%) (Auto) 0 % (0-3) Basophils (%) (Auto) 0 % (0-3) Neutrophils # (Auto) 8.4 x10^3/uL (1.8-7.7) Lymphocytes # (Auto) 0.3 x10^3/uL (1.0-4.8) Monocytes # (Auto) 1.0 x10^3/uL (0.0-1.1) Eosinophils # (Auto) 0.0 x10^3/uL (0.0-0.7) Basophils # (Auto) 0.0 x10^3/uL (0.0-0.2) Segmented Neutrophils % 89 % (35-66) Lymphocytes % 7 % (24-48) Monocytes % 4 % (0-10) Platelet Estimate Adequate (ADEQUATE) Prothrombin Time 23.8 SEC (11.7-14.0) Prothromb Time International Ratio 2.1 (0.8-1.1) Sodium Level 137 mmol/L (136-145) Potassium Level 4.7 mmol/L (3.5-5.1) Chloride Level 99 mmol/L (98-107) Carbon Dioxide Level 27 mmol/L (21-32) Anion Gap 11 (6-14) Blood Urea Nitrogen 27 mg/dL (8-26) Creatinine 1.5 mg/dL (0.7-1.3) Estimated GFR (Cockcroft-Gault) 47.4 BUN/Creatinine Ratio 18 (6-20) Glucose Level 117 mg/dL (70-99) Calcium Level 8.4 mg/dL (8.5-10.1) Total Bilirubin 4.1 mg/dL (0.2-1.0) Aspartate Amino Transf (AST/SGOT) 32 U/L (15-37) Alanine Aminotransferase (ALT/SGPT) 40 U/L (16-63) Alkaline Phosphatase 212 U/L (46-116) Troponin I Quantitative 0.021 ng/mL (0.000-0.055) Total Protein 5.8 g/dL (6.4-8.2) Albumin 3.4 g/dL (3.4-5.0) Albumin/Globulin Ratio 1.4 (1.0-1.7) SARS-CoV-2 Antigen (Rapid) Negative (NEGATIVE) Comments 11/18 cxr reviewed Moderate left effusion and bilateral infiltrates likely secondary to CHF appears mildly improved. Impression . IMPRESSION: 1. Acute hypoxemic respiratory failure, multifactorial in etiology including acute pulmonary embolism; acute congestive heart failure, systolic versus diastolic; COPD, rule out pneumonia; rule out COVID infection. 2. Abnormal chest x-ray. 3. Acute pulmonary embolism. 4. Chronic obstructive pulmonary disease. 5. Acute systolic versus diastolic congestive heart failure. 6. Obstructive sleep apnea/hypopnea syndrome. 7. Tobacco habituation. 8. Atrial fibrillation. 9. Coronary artery disease, status post CABG. Plan . PLAN AND RECOMMENDATIONS: 1. I had a long discussion with him regarding smoking cessation. I have advised him to stop smoking forever. 2. 02 titration 3. Lower extremity venous Doppler. Partially occlusive DVT is seen involving the posterior tibial veins within the right calf. 4. Continue Lovenox. 5. Protonix for stress ulcer prophylaxis. 6. bronchodilator and inhaled corticosteroid. 7. Continue antibiotic. 8. COVID testing. neg 9. Cardiology consulted and echocardiogram ordered 10. agree to change Lovenox to hep gtt for possible thoracentesis cont aggressive chf tx (iv lasix) l effusion slightly better, will repeat cxr in am 11. The findings and recommendations were discussed with the patient, RN and Dr. Mary, attending physician. HOA ALLEN MD November 19, 2020 09:33
--- NOTE | 2020-11-19 13:18 | PDOC ---
PROGRESS NOTES Date of Service DATE: 11/19/20 TIME: 13:15 Subjective Subjective Patient seen and examined Objective Objective Vital Signs Date Time Temp Pulse Resp B/P (MAP) Pulse Ox O2 Delivery O2 Flow Rate FiO2 11/19/20 12:00 Nasal Cannula 3.0 11/19/20 12:00 98.2 79 22 106/74 (85) 100 98.2 Intake and Output 11/19/20 07:00 Intake Total 2037 ml Output Total 1080 ml Balance 957 ml Intake Oral 300 ml IV Total 1275 ml Other 462 ml Output Urine Total 1080 ml Physical Exam Abdomen: Normal bowel sounds Heart: Other (Irregularly irregular) General: mild distress Lungs: Other (Mildly decreased breath sounds) Assessment Assessment 1. Pulmonary emboli, acute. The patient is feeling mildly better. Outside studies show multiple areas of PEs. Patient has been started on anticoagulation which is being modified in case the patient needs a thoracentesis. He had been on Eliquis for his atrial fibrillation but by report has not taken it for over 2 weeks. We will continue other present medications. Echo pending. 2. Pneumonia. Pulmonary treatments and antibiotics as per the primary and pulmonary services. 3. History of bypass surgery. Probable superimposed heart failure. No significant elevation thus far in troponin. We will continue baseline medications and attempt to obtain old records. Echo for LV function and right- sided pressures. 4. Atrial fibrillation. Had been on Eliquis but no medications for 2 weeks. Anticoagulation as above restart and adjust rate control medications as needed. 5. Hypertension. Continuing medical treatment. Comment Review of Relevant I have reviewed the following items florecita (where applicable) has been applied. Labs Laboratory Tests Test 11/18/20 05:30 11/18/20 08:41 White Blood Count 9.7 x10^3/uL (4.0-11.0) Red Blood Count 5.52 x10^6/uL (4.30-5.70) Hemoglobin 15.4 g/dL (13.0-17.5) Hematocrit 49.4 % (39.0-53.0) Mean Corpuscular Volume 90 fL (79-100) Mean Corpuscular Hemoglobin 28 pg (25-35) Mean Corpuscular Hemoglobin Concent 31 g/dL (31-37) Red Cell Distribution Width 20.3 % (11.5-14.5) Platelet Count 199 x10^3/uL (140-400) Neutrophils (%) (Auto) 87 % (31-73) Lymphocytes (%) (Auto) 3 % (24-48) Monocytes (%) (Auto) 10 % (0-9) Eosinophils (%) (Auto) 0 % (0-3) Basophils (%) (Auto) 0 % (0-3) Neutrophils # (Auto) 8.4 x10^3/uL (1.8-7.7) Lymphocytes # (Auto) 0.3 x10^3/uL (1.0-4.8) Monocytes # (Auto) 1.0 x10^3/uL (0.0-1.1) Eosinophils # (Auto) 0.0 x10^3/uL (0.0-0.7) Basophils # (Auto) 0.0 x10^3/uL (0.0-0.2) Segmented Neutrophils % 89 % (35-66) Lymphocytes % 7 % (24-48) Monocytes % 4 % (0-10) Platelet Estimate Adequate (ADEQUATE) Prothrombin Time 23.8 SEC (11.7-14.0) Prothromb Time International Ratio 2.1 (0.8-1.1) Sodium Level 137 mmol/L (136-145) Potassium Level 4.7 mmol/L (3.5-5.1) Chloride Level 99 mmol/L (98-107) Carbon Dioxide Level 27 mmol/L (21-32) Anion Gap 11 (6-14) Blood Urea Nitrogen 27 mg/dL (8-26) Creatinine 1.5 mg/dL (0.7-1.3) Estimated GFR (Cockcroft-Gault) 47.4 BUN/Creatinine Ratio 18 (6-20) Glucose Level 117 mg/dL (70-99) Calcium Level 8.4 mg/dL (8.5-10.1) Total Bilirubin 4.1 mg/dL (0.2-1.0) Aspartate Amino Transf (AST/SGOT) 32 U/L (15-37) Alanine Aminotransferase (ALT/SGPT) 40 U/L (16-63) Alkaline Phosphatase 212 U/L (46-116) Troponin I Quantitative 0.021 ng/mL (0.000-0.055) Total Protein 5.8 g/dL (6.4-8.2) Albumin 3.4 g/dL (3.4-5.0) Albumin/Globulin Ratio 1.4 (1.0-1.7) SARS-CoV-2 Antigen (Rapid) Negative (NEGATIVE) Medications Current Medications Enoxaparin Sodium (Lovenox Per Pharmacy Treatment Dosing) 1 each PRN DAILY PRN MC SEE COMMENTS; Start 11/17/20 at 19:00; Stop 11/19/20 at 09:23; Status DC Ondansetron HCl (Zofran) 4 mg PRN Q8HRS PRN IVP NAUSEA/VOMITING Last administered on 11/18/20at 09:05; Start 11/17/20 at 19:00; Stop 11/18/20 at 11:29; Status DC Ceftriaxone Sodium (Rocephin) 2 gm Q24H IVP Last administered on 11/18/20at 14:16; Start 11/18/20 at 14:00 Azithromycin (Zithromax) 250 mg DAILY PO ; Start 11/18/20 at 09:00; Stop 10/22 03/13 at 08:37; Status DC Enoxaparin Sodium (Lovenox 100mg Syringe) 90 mg Q12H SQ Last administered on 11/18/20at 06:04; Start 11/18/20 at 06:00; Stop 11/18/20 at 13:34; Status DC Doxycycline Hyclate (Vibra-Tab) 100 mg BID PO ; Start 11/18/20 at 09:00; Stop 11/18/20 at 09:13; Status DC Pantoprazole Sodium (Protonix) 40 mg DAILYAC PO ; Start 11/18/20 at 09:00; Stop 11/18/20 at 09:21; Status DC Albuterol/ Ipratropium (Duoneb) 3 ml RTQID NEB Last administered on 11/19/20at 11:52; Start 11/18/20 at 12:00 Budesonide (Pulmicort) 0.5 mg RTBID NEB Last administered on 11/19/20at 07:55; Start 11/18/20 at 20:00 Budesonide (Pulmicort) 0.5 mg 1X ONCE NEB Last administered on 11/18/20at 12:39; Start 11/18/20 at 09:30; Stop 11/18/20 at 09:31; Status DC Doxycycline Hyclate 100 mg/ Dextrose 100 ml @ 50 mls/hr Q12HR IV Last administered on 11/19/20at 09:00; Start 11/18/20 at 10:00 Pantoprazole Sodium (PROTONIX VIAL for IV PUSH) 40 mg DAILYAC IVP Last administered on 11/19/20at 08:05; Start 11/18/20 at 10:00 Amino Acids/ Glycerin/ Electrolytes 1,000 ml @ 80 mls/hr [id number] ONCE IV Last administered on 11/18/20at 09:44; Start 11/18/20 at 09:30; Stop 11/18/20 at 21:59; Status DC Furosemide (Lasix) 80 mg DAILY IVP Last administered on 11/19/20at 08:05; Start 11/18/20 at 11:00 Lactulose (Lactulose) 20 gm PRN DAILY PRN PO CONSTIPATION; Start 11/18/20 at 11:00 Metoclopramide HCl (Reglan Vial) 10 mg PRN Q6HRS PRN IVP NAUSEA/VOMITING, 2ND CHOICE Last administered on 11/18/20at 11:40; Start 11/18/20 at 11:30 Ondansetron HCl (Zofran) 4 mg PRN Q4HRS PRN IVP NAUSEA/VOMITING, 1ST CHOICE; Start 11/18/20 at 11:30 Enoxaparin Sodium (Lovenox 80mg Syringe) 80 mg Q12HR SQ Last administered on 11/19/20at 08:05; Start 11/18/20 at 21:00; Stop 11/19/20 at 09:23; Status DC Lactobacillus Rhamnosus (Culturelle) 1 cap BID PO Last administered on 11/19/20at 08:05; Start 11/18/20 at 21:00 Amino Acids/ Glycerin/ Electrolytes 1,000 ml @ 80 mls/hr [id number] IV Last administered on 11/18/20at 23:04; Start 11/18/20 at 22:15; Stop 11/19/20 at 09:01; Status DC Heparin Sodium/ Dextrose 250 ml @ 0 mls/hr CONT PRN IV PER PROTOCOL; Start 11/19/20 at 21:00 Heparin Sodium (Porcine) (Heparin Sodium) 2,600 unit PRN Q6HRS PRN IV FOR UFH LEVEL LESS THAN 0.2; Start 11/19/20 at 21:00 Heparin Sodium (Porcine) (Heparin Sodium) 1,300 unit PRN Q6HRS PRN IV FOR UFH LEVEL 0.2 - 0.29; Start 11/19/20 at 21:00 Vitals/I & O Vital Sign - Last 24 Hours 11/18/20 11/18/20 11/18/20 11/18/20 14:00 15:00 16:00 16:04 Temp 97.8 97.8 Pulse 62 68 67 Resp 27 26 B/P (MAP) 115/74 (88) 105/66 (79) 106/68 (81) Pulse Ox 99 99 97 O2 Delivery Nasal Cannula Nasal Cannula Nasal Cannula Nasal Cannula O2 Flow Rate 2.0 2.0 2.0 2.0 11/18/20 11/18/20 11/18/20 11/18/20 17:00 17:07 18:00 19:00 Pulse 57 60 63 Resp 28 B/P (MAP) 106/68 (81) 106/69 (81) 113/70 (84) Pulse Ox 96 99 96 O2 Delivery Nasal Cannula Nasal Cannula Nasal Cannula Nasal Cannula O2 Flow Rate 2.0 3.0 2.0 3.0 11/18/20 11/18/20 11/18/20 11/18/20 20:00 20:00 20:24 21:00 Temp 96.7 96.7 Pulse 61 62 Resp 25 B/P (MAP) 110/68 (82) 94/72 (79) Pulse Ox 98 97 100 O2 Delivery Nasal Cannula Nasal Cannula Nasal Cannula Nasal Cannula O2 Flow Rate 3.0 3.0 2.0 3.0 11/18/20 11/18/20 11/18/20 11/19/20 22:00 23:00 23:45 00:00 Pulse 60 61 Resp 28 B/P (MAP) 103/78 (86) 108/70 (83) Pulse Ox 100 97 98 O2 Delivery Nasal Cannula Nasal Cannula BiPAP/CPAP Bi-pap O2 Flow Rate 3.0 3.0 11/19/20 11/19/20 11/19/20 11/19/20 00:00 01:00 02:00 03:00 Temp 98.5 98.5 Pulse 61 68 64 68 Resp 30 26 B/P (MAP) 105/72 (83) 104/71 (82) 103/72 (82) 104/74 (84) Pulse Ox 97 95 99 99 O2 Delivery BiPAP/CPAP Nasal Cannula Nasal Cannula Nasal Cannula O2 Flow Rate 3.0 3.0 3.0 11/19/20 11/19/20 11/19/20 11/19/20 04:00 04:00 05:00 06:00 Temp 97.4 97.4 Pulse 63 78 76 Resp 30 B/P (MAP) 104/56 (72) 107/77 (87) 96/74 (81) Pulse Ox 98 99 100 O2 Delivery Nasal Cannula Nasal Cannula Nasal Cannula Nasal Cannula O2 Flow Rate 3.0 3.0 3.0 3.0 11/19/20 11/19/20 11/19/20 11/19/20 07:00 07:55 08:00 08:00 Temp 98.0 98.0 Pulse 76 80 Resp 30 B/P (MAP) 112/79 (90) 107/73 (84) Pulse Ox 100 97 100 O2 Delivery Nasal Cannula Nasal Cannula Nasal Cannula Nasal Cannula O2 Flow Rate 3.0 3.0 3.0 3.0 11/19/20 11/19/20 11/19/20 11/19/20 09:00 10:00 11:00 11:52 Pulse 76 73 78 Resp B/P (MAP) 106/68 (81) 105/78 (87) 100/75 (83) Pulse Ox 100 100 100 97 O2 Delivery Nasal Cannula Nasal Cannula Nasal Cannula Nasal Cannula O2 Flow Rate 3.0 3.0 3.0 3.0 11/19/20 11/19/20 12:00 12:00 Temp 98.2 98.2 Pulse 79 Resp 22 B/P (MAP) 106/74 (85) Pulse Ox 100 O2 Delivery Nasal Cannula Nasal Cannula O2 Flow Rate 3.0 3.0 Intake and Output 0 11/18/20 11/18/20 11/19/20 15:00 23:00 07:00 Intake Total 300 ml 1112 ml 625 ml Output Total 275 ml 570 ml 235 ml Balance 25 ml 542 ml 390 ml Justifications for Admission Other Justification JIM GRAFF MD November 19, 2020 13:18
[2020-11-19] MEDS: cefTRIAXone IV Push 2 GM VIAL. IVP SCH (14:00)
--- NOTE | 2020-11-19 14:48 | CARD ---
MR#: [id number] Date of Study: 11/19/2020 Ordering Physician: JIM MA, Referring Physician: JIM MA, Tech: Diamante Anderson, [facility] APPROVED REPORT EXAM: Two-dimensional and M-mode echocardiogram with Doppler and color Doppler. Other Information Quality : AverageHR: 82bpm INDICATION Dizziness and Vertigo Dyspnea Atrial Fibrillation Congestive Heart Failure Surgery/Intervention ICD/Pacemaker: RISK FACTORS Hyperlipidemia 2D DIMENSIONS Left Atrium(2D)4.1 (1.6-4.0cm)IVSd1.0 (0.7-1.1cm) Aortic Root(2D)3.2 (2.0-3.7cm)LVDd5.4 (3.9-5.9cm) LVOT Diameter2.0 (1.8-2.4cm)PWd1.2 (0.7-1.1cm) LVDs4.7 (2.5-4.0cm)FS (%) 12.8 % SV38.4 ml Aortic Valve AoV Peak Don.120.1cm/sAoV VTI13.0cm AO Peak GR.5.8mmHgLVOT VTI 6.18cm AO Mean GR.2mmHg Mitral Valve MV E Peak Gr.68mmHg TDI Lateral E' P. V9.87cm/sMedial E' P. V4.57cm/s Tricuspid Valve TR P. [id number] TR Peak [id number] LEFT VENTRICLE The Left Ventricle is borderline dilated. There is borderline to mild concentric left ventricular hyp ertrophy. The systolic function is severely impaired. The Ejection Fraction is estimated at 20%. Ther e is severe global hypokinesis of the left ventricle. Diastology indeterminent due to atrial fibrilat ion RIGHT VENTRICLE The right ventricle is mildly dilated. There is normal right ventricular wall thickness. Systolic fun ction is mildly reduced. There is a device lead in the right ventricle. ATRIA The left atrium is mild to moderately dilated. The right atrium is mild to moderately dilated. The in teratrial septum is intact with no evidence for an atrial septal defect or patent foramen ovale as no naomi on 2-D or Doppler imaging. AORTIC VALVE The aortic valve is normal in structure and function. Doppler and Color Flow revealed no significant aortic regurgitation. There is no significant aortic valvular stenosis. Calculated aortic valve area is 1.47 cm2 with maximum pressure gradient of 5 mmHg and mean pressure gradient of 3 mmHg. MITRAL VALVE The mitral valve is normal in structure and function. There is no evidence of mitral valve prolapse. There is no mitral valve stenosis. Doppler and Color-flow revealed mild mitral regurgitation. TRICUSPID VALVE The tricuspid valve is normal in structure and function. Doppler and Color Flow revealed mild tricusp id regurgitation with an estimated PAP of 46 mmHg. There is no tricuspid valve stenosis. PULMONIC VALVE The pulmonic valve is not well visualized. Doppler and Color Flow revealed trace pulmonic valvular re gurgitation. GREAT VESSELS The aortic root is normal in size. The IVC is normal in size and collapses <50% with inspiration. PERICARDIAL EFFUSION There is a trace pericardial effusion. Critical Notification Critical Value: No <Conclusion> The Left Ventricle is borderline dilated. The systolic function is severely impaired. The Ejection Fraction is estimated at 20%. There is severe global hypokinesis of the left ventricle. There is borderline to mild concentric left ventricular hypertrophy. There is a device lead in the right ventricle. Doppler and Color Flow revealed no significant aortic regurgitation. There is no significant aortic valvular stenosis. Doppler and Color-flow revealed mild mitral regurgitation. Doppler and Color Flow revealed mild tricuspid regurgitation with an estimated PAP of 46 mmHg. Signed by : Jim Ma MD Electronically Approved : 11/19/2020 14:48:20
[2020-11-19] MEDS: AMINO AC 3%/ELECTROLYTE/GLYCER 1,000 ML IV SCH (17:39)
[2020-11-19] MEDS ORDERED: HEPARIN for IV BOLUS 10,000 UNIT/10 ML VIAL. IV PRN (21:00)
[2020-11-19] MEDS: HEPARIN 25,000UTS/250ML PREMIX 250 ML IV PRN (21:03)
[2020-11-20] VITALS (24 sets, daily range): BP systolic 97–131; BP diastolic 69–88
[2020-11-20] MEDS: AMINO AC 3%/ELECTROLYTE/GLYCER 1,000 ML IV SCH ×2 (05:46→18:15)
[2020-11-20 05:57] LABS: BASO % 0 % (0-3); EOS % 0 % (0-3); HEMATOCRIT 45.9 % (39.0-53.0); HEMOGLOBIN 14.8 g/dL (13.0-17.5); LYMPH # 0.2 x10^3/uL (1.0-4.8); LYMPH % 2 % (24-48); MEAN CORPUSCULAR HEMOGLOBIN 28 pg (25-35); MEAN CORPUSCULAR HGB CONC 32 g/dL (31-37); MEAN CORPUSCULAR VOLUME 87 fL (79-100); MONO # 0.9 x10^3/uL (0.0-1.1); MONO % 9 % (0-9); NEUT # 8.5 x10^3/uL (1.8-7.7); NEUT % 89 % (31-73); PLATELET COUNT 160 x10^3/uL (140-400); RED BLOOD COUNT 5.29 x10^6/uL (4.30-5.70); RED CELL DISTRIBUTION WIDTH 19.6 % (11.5-14.5); WHITE BLOOD COUNT 9.6 x10^3/uL (4.0-11.0)
[2020-11-20 06:12] LABS: CALCIUM 8.2 mg/dL (8.5-10.1); CREATININE 1.3 mg/dL (0.7-1.3); GFR 55.9; POTASSIUM 3.6 mmol/L (3.5-5.1)
--- NOTE | 2020-11-20 07:31 | RAD ---
XR CHEST 1V INDICATION: Reason: please do up right fu effusion 111 / Spl. Instructions: / History: . COMPARISON STUDY: 11/18/2020. FINDINGS: Life Support Devices: Stable right PICC. Left pectoral ICD/pacemaker. Lungs: Low lung volume. Stable patchy bilateral opacities. Pleura: Stable large left pleural effusion. Heart and Mediastinum: Stable cardiomediastinal silhouette and great vessels. IMPRESSION: 1. Stable life support devices. 2. Stable patchy bilateral opacities. 3. Stable large left pleural effusion. Electronically signed by: Vijay Wellington MD (11/20/2020 7:29 AM) [id number]
[2020-11-20] MEDS: BUDESONIDE 0.5 MG/2 ML NEBU. NEB SCH ×2 (07:45→20:00)
[2020-11-20] MEDS: IPRATRPIUM/ALBUTEROL 0.5/2.5MG 3 ML NEBU. NEB SCH ×4 (07:45→20:00)
--- NOTE | 2020-11-20 08:37 | PDOC ---
PROGRESS NOTES Date of Service: DATE: 11/20/20 TIME: 08:37 Chief Complaint Chief Complaint impression Acute bilateral Pulmonary embolism - will transition from lovenox to heparin GTT in anticipation of consideration of thoracentesis Acute pneumonia - rocephin + doxy acute metabolic encephalopathy Sepsis - due to above Acute hypoxic respiratory failure - due to PE, CHF Stable large left pleural effusion CAD s/p CABG 1993 Acute on chronic systolic CHF with prior known 3+ pitting edema for months, BNP 15k. S/p AICD - cont diuresis Atrial fibrillation - [employer] pacer interrogated at [facility]. Was on eliquis but had been off for 2 weeks prior to admit DOE - creatinine 1.4 - likely vasomotor nephropathy Transaminits - likely congestive hepatopathy, no ETOH or cirrhosis per patient. Bilirubin is elevated at 4.6. INR 1.9 PVD, US artery LUE neg at [facility], poor pulses, cool feet, consult vasc, Nausea and vomiting - KUB ordered, no SBO, reglan helped microhematuria FEN - Cardiac PPX - lovenox FULL CODE Dispo - ICU pulm consult renal sono CC time 42 minutes History of Present Illness History of Present Illness Mr Silver is a 64-year-old male visiting from [place] w/ PMHx A-Fib, GERD, High Cholesterol, Hypertension, Hypothyroid, CHF s/p AICD placement presents with dizziness, weakness, short of breath. Patient son brought him in and he has been staying with his son. Son states patient has not taken his medications for 2 weeks. Patient denies chest pain. Patient states "I feel like my pacemaker is firing". Patient has 3+ pitting edema on bilateral legs. Patient's left arm is cool to the touch, red. Denies fever, cough. Found on CTPA with multiple left lower lobe pulmonary emboli and moderate large pleural effusion on left and multifocal pneumonia. Accepted for transfer to ICU [facility]. 11/18: Afebrile. Vomiting this morning. States he feels a little better today. Bilirubin up to 4. INR 2.1. COVID negative. BP low Afebrile. Still weak. Sitting in chair. PICC placed for IV access. K 4.7, BUN 27, Cr 1.5, Alk phos 21, Bili 4.1. BP improved. 5-31 PPX - lovenox FULL CODE Dispo - ICU History of bypass surgery. Probable superimposed heart failure. Acute bilateral Pulmonary embolism - will transition from lovenox to heparin GTT in anticipation of consideration of thoracentesis Acute pneumonia - rocephin + doxy Sepsis - due to above Acute hypoxic respiratory failure - due to PE, CHF CAD s/p CABG 1993 pulm consult elevated lft's , sono and GI consult PSA Acute on chronic systolic CHF with prior known 3+ pitting edema for months, BNP 15k. S/p AICD - cont diuresis Atrial fibrillation - [employer] pacer interrogated at [facility]. Was on eliquis but had been off for 2 weeks prior to admit, cardiology consulted DOE - creatinine 1.4 - likely vasomotor nephropathy microhematuria , renal sono, follow ua The Ejection Fraction is estimated at 20%. severe global hypokinesis of the left ventricle. mild concentric left ventricular hypertrophy. mild tricuspid regurg itation with an estimated PAP of 46 mmHg. H/o biliary stone disease so retained stone possible. ABD SONO PENDING CC time 34 minutes Vitals Vitals Vital Signs Date Time Temp Pulse Resp B/P (MAP) Pulse Ox O2 Delivery O2 Flow Rate FiO2 11/20/20 07:46 97 Nasal Cannula 3.0 11/20/20 07:00 88 29 109/73 (85) 11/20/20 04:00 97.4 97.4 Physical Exam Physical Exam HEENT: PERRLA Heart: no murmurs, irregularly irregular, other Abdomen: Normal bowel sounds, No tenderness Rectal Exam: not examined Extremities: Other (4+ edema, cold feet and swollen, pulses palpable but faint, cyanosis, ) Skin: Other Neuro: Normal speech, Sensation intact General: Alert, Oriented X3, Cooperative, mild distress, Other (mild confusion ) Heart: Other (Irregularly irregular) Lungs: Wheezing, Crackles, Other (dull at bases ) Abdomen: Normal bowel sounds, No tenderness Extremities: Other (4+ edema, cold feet and swollen, pulses palpable but faint, cyanosis, ) Skin: Other Labs LABS Signed PATIENT: EZEQUIEL SILVER ACCOUNT: [id number] : 1955 LOCATION: 1 WEST ICU AGE: 64 SEX: M EXAM STATUS: ADM IN ORD. PHYSICIAN: MICHELLE KANG MD REASON: transaminitis; micro hematuria PROCEDURE: ABDOMEN COMPLETE STUDY: US Abdomen Complete INDICATION: Transaminitis. Microhematuria. COMPARISON: CT abdomen/pelvis 11/17/2020 TECHNIQUE: Real-time grayscale and color Doppler sonographic evaluation of the abdomen. Findings: Technically difficult study. Poorly evaluated pancreas Pancreas: Incompletely assessed. Liver: Within normal limits for size at 15 cm longitudinal. No focal parenchymal abnormality. Aorta/IVC/Main Portal Vein: The proximal aorta is nonaneurysmal. Normal caliber of the IVC at the liver. The main portal vein is patent. Hepatofugal flow within the hepatic veins. Gall Bladder: Surgically absent. Common Bile Duct: Nondilated at 0.3 cm. Right Kidney: Measures 11 cm in length. No complex cyst or mass. No hydronephrosis. Left Kidney: Measures 11 cm in length. Simple cyst at the lower aspect of the kidney measuring up to 3.3 cm by ultrasound. No hydronephrosis. Spleen: Within normal limits for size at 10 cm. Miscellaneous: Bilateral pleural effusions. Small volume ascites. Impression: 1. No focal sonographic abnormality of the liver. Patent hepatic vasculature. 2. Surgically absent gallbladder. Unremarkable common duct. 3. No hydronephrosis. Simple left renal cyst. 4. Bilateral pleural effusions and somewhat small volume ascites. 5. Incompletely evaluated pancreas. Electronically signed by: JENNY GUTIERREZ MD (11/20/2020 5:05 PM) [id number] DICTATED and SIGNED BY: JENNY GUTIERREZ MD DATE: 11/20/20 [id number] 0 XR CHEST 1V INDICATION: Reason: please do up right fu effusion 111 / Spl. Instructions: / History: . COMPARISON STUDY: 11/18/2020. FINDINGS: Life Support Devices: Stable right PICC. Left pectoral ICD/pacemaker. Lungs: Low lung volume. Stable patchy bilateral opacities. Pleura: Stable large left pleural effusion. Heart and Mediastinum: Stable cardiomediastinal silhouette and great vessels. IMPRESSION: 1. Stable life support devices. 2. Stable patchy bilateral opacities. 3. Stable large left pleural effusion. Electronically signed by: Jt Douglas MD (11/20/2020 7:29 AM) [id number] DICTATED and SIGNED BY: JT DOUGLAS MD DATE: 11/20/20 [id number] 0 Portable AP supine view of the abdomen Clinical indications: Vomiting. FINDINGS: No obstructive bowel pattern is seen. Air is seen within small bowel and colon and down into the rectosigmoid region. There are mildly dilated loops of small bowel which may be seen with enteritis. Cholecystectomy clips are apparent. IMPRESSION: No obstructive bowel pattern. Mildly dilated loops of small bowel which may be seen with enteritis. Small right-sided pleural effusion is seen. There is left lung base consolidation which could be due to pleural effusion and/or lung infiltrate. Electronically signed by: Dru Callahan MD (11/18/2020 1:01 PM) [id number] DICTATED and SIGNED BY: DRU CALLAHAN MD DATE: 11/18/20 [id number] Mitral Valve MV E Peak Gr. 68mmHg TDI Lateral E' P. V 9.87cm/s Medial E' P. V 4.57cm/s Tricuspid Valve TR P. Velocity 326cm/s RAP ESTIMATE 3mmHg TR Peak Gr. 43mmHg RVSP 46mmHg LEFT VENTRICLE The Left Ventricle is borderline dilated. There is borderline to mild concentric left ventricular hypertrophy. The systolic function is severely impaired. The Ejection Fraction is estimated at 20%. There is severe global hypokinesis of the left ventricle. Diastology indeterminent due to atrial fibrilation RIGHT VENTRICLE The right ventricle is mildly dilated. There is normal right ventricular wall thickness. Systolic function is mildly reduced. There is a device lead in the right ventricle. ATRIA The left atrium is mild to moderately dilated. The right atrium is mild to moderately dilated. The interatrial septum is intact with no evidence for an atrial septal defect or patent foramen ovale as noted on 2-D or Doppler imaging. AORTIC VALVE The aortic valve is normal in structure and function. Doppler and Color Flow revealed no significant aortic regurgitation. There is no significant aortic valvular stenosis. Calculated aortic valve area is 1.47 cm2 with maximum pressure gradient of 5 mmHg and mean pressure gradient of 3 mmHg. MITRAL VALVE The mitral valve is normal in structure and function. There is no evidence of mitral valve prolapse. There is no mitral valve stenosis. Doppler and Color-flow revealed mild mitral regurgitation. TRICUSPID VALVE The tricuspid valve is normal in structure and function. Doppler and Color Flow revealed mild tricuspid regurgitation with an estimated PAP of 46 mmHg. There is no tricuspid valve stenosis. PULMONIC VALVE The pulmonic valve is not well visualized. Doppler and Color Flow revealed trace pulmonic valvular regurgitation. GREAT VESSELS The aortic root is normal in size. The IVC is normal in size and collapses <50% with inspiration. PERICARDIAL EFFUSION There is a trace pericardial effusion. Critical Notification Critical Value: No <Conclusion> The Left Ventricle is borderline dilated. The systolic function is severely impaired. The Ejection Fraction is estimated at 20%. There is severe global hypokinesis of the left ventricle. There is borderline to mild concentric left ventricular hypertrophy. There is a device lead in the right ventricle. Doppler and Color Flow revealed no significant aortic regurgitation. There is no significant aortic valvular stenosis. Doppler and Color-flow revealed mild mitral regurgitation. Doppler and Color Flow revealed mild tricuspid regurgitation with an estimated PAP of 46 mmHg. Signed by : Jim Ma MD Electronically Approved : 11/19/2020 14:48:20 DICTATED and SIGNED BY: JIM MA MD DATE: 11/19/20 [id number] 0 Laboratory Tests Test 11/20/20 03:00 11/20/20 05:35 Heparin Anti-Xa Act, Unfractionated > 1.10 IU/mL (0.30-0.70) White Blood Count 9.6 x10^3/uL (4.0-11.0) Red Blood Count 5.29 x10^6/uL (4.30-5.70) Hemoglobin 14.8 g/dL (13.0-17.5) Hematocrit 45.9 % (39.0-53.0) Mean Corpuscular Volume 87 fL (79-100) Mean Corpuscular Hemoglobin 28 pg (25-35) Mean Corpuscular Hemoglobin Concent 32 g/dL (31-37) Red Cell Distribution Width 19.6 % (11.5-14.5) Platelet Count 160 x10^3/uL (140-400) Neutrophils (%) (Auto) 89 % (31-73) Lymphocytes (%) (Auto) 2 % (24-48) Monocytes (%) (Auto) 9 % (0-9) Eosinophils (%) (Auto) 0 % (0-3) Basophils (%) (Auto) 0 % (0-3) Neutrophils # (Auto) 8.5 x10^3/uL (1.8-7.7) Lymphocytes # (Auto) 0.2 x10^3/uL (1.0-4.8) Monocytes # (Auto) 0.9 x10^3/uL (0.0-1.1) Eosinophils # (Auto) 0.0 x10^3/uL (0.0-0.7) Basophils # (Auto) 0.0 x10^3/uL (0.0-0.2) Sodium Level 134 mmol/L (136-145) Potassium Level 3.6 mmol/L (3.5-5.1) Chloride Level 95 mmol/L (98-107) Carbon Dioxide Level 33 mmol/L (21-32) Anion Gap 6 (6-14) Blood Urea Nitrogen 32 mg/dL (8-26) Creatinine 1.3 mg/dL (0.7-1.3) Estimated GFR (Cockcroft-Gault) 55.9 Glucose Level 136 mg/dL (70-99) Calcium Level 8.2 mg/dL (8.5-10.1) Comment Review of Relevant I have reviewed the following items florecita (where applicable) has been applied. Labs Laboratory Tests Test 11/18/20 08:41 11/20/20 03:00 11/20/20 05:35 SARS-CoV-2 Antigen (Rapid) Negative (NEGATIVE) Heparin Anti-Xa Act, Unfractionated > 1.10 IU/mL (0.30-0.70) White Blood Count 9.6 x10^3/uL (4.0-11.0) Red Blood Count 5.29 x10^6/uL (4.30-5.70) Hemoglobin 14.8 g/dL (13.0-17.5) Hematocrit 45.9 % (39.0-53.0) Mean Corpuscular Volume 87 fL (79-100) Mean Corpuscular Hemoglobin 28 pg (25-35) Mean Corpuscular Hemoglobin Concent 32 g/dL (31-37) Red Cell Distribution Width 19.6 % (11.5-14.5) Platelet Count 160 x10^3/uL (140-400) Neutrophils (%) (Auto) 89 % (31-73) Lymphocytes (%) (Auto) 2 % (24-48) Monocytes (%) (Auto) 9 % (0-9) Eosinophils (%) (Auto) 0 % (0-3) Basophils (%) (Auto) 0 % (0-3) Neutrophils # (Auto) 8.5 x10^3/uL (1.8-7.7) Lymphocytes # (Auto) 0.2 x10^3/uL (1.0-4.8) Monocytes # (Auto) 0.9 x10^3/uL (0.0-1.1) Eosinophils # (Auto) 0.0 x10^3/uL (0.0-0.7) Basophils # (Auto) 0.0 x10^3/uL (0.0-0.2) Sodium Level 134 mmol/L (136-145) Potassium Level 3.6 mmol/L (3.5-5.1) Chloride Level 95 mmol/L (98-107) Carbon Dioxide Level 33 mmol/L (21-32) Anion Gap 6 (6-14) Blood Urea Nitrogen 32 mg/dL (8-26) Creatinine 1.3 mg/dL (0.7-1.3) Estimated GFR (Cockcroft-Gault) 55.9 Glucose Level 136 mg/dL (70-99) Calcium Level 8.2 mg/dL (8.5-10.1) Laboratory Tests Test 11/20/20 03:00 11/20/20 05:35 Heparin Anti-Xa Act, Unfractionated > 1.10 IU/mL (0.30-0.70) White Blood Count 9.6 x10^3/uL (4.0-11.0) Red Blood Count 5.29 x10^6/uL (4.30-5.70) Hemoglobin 14.8 g/dL (13.0-17.5) Hematocrit 45.9 % (39.0-53.0) Mean Corpuscular Volume 87 fL (79-100) Mean Corpuscular Hemoglobin 28 pg (25-35) Mean Corpuscular Hemoglobin Concent 32 g/dL (31-37) Red Cell Distribution Width 19.6 % (11.5-14.5) Platelet Count 160 x10^3/uL (140-400) Neutrophils (%) (Auto) 89 % (31-73) Lymphocytes (%) (Auto) 2 % (24-48) Monocytes (%) (Auto) 9 % (0-9) Eosinophils (%) (Auto) 0 % (0-3) Basophils (%) (Auto) 0 % (0-3) Neutrophils # (Auto) 8.5 x10^3/uL (1.8-7.7) Lymphocytes # (Auto) 0.2 x10^3/uL (1.0-4.8) Monocytes # (Auto) 0.9 x10^3/uL (0.0-1.1) Eosinophils # (Auto) 0.0 x10^3/uL (0.0-0.7) Basophils # (Auto) 0.0 x10^3/uL (0.0-0.2) Sodium Level 134 mmol/L (136-145) Potassium Level 3.6 mmol/L (3.5-5.1) Chloride Level 95 mmol/L (98-107) Carbon Dioxide Level 33 mmol/L (21-32) Anion Gap 6 (6-14) Blood Urea Nitrogen 32 mg/dL (8-26) Creatinine 1.3 mg/dL (0.7-1.3) Estimated GFR (Cockcroft-Gault) 55.9 Glucose Level 136 mg/dL (70-99) Calcium Level 8.2 mg/dL (8.5-10.1) Medications Current Medications Enoxaparin Sodium (Lovenox Per Pharmacy Treatment Dosing) 1 each PRN DAILY PRN MC SEE COMMENTS; Start 11/17/20 at 19:00; Stop 11/19/20 at 09:23; Status DC Ondansetron HCl (Zofran) 4 mg PRN Q8HRS PRN IVP NAUSEA/VOMITING Last administered on 11/18/20at 09:05; Start 11/17/20 at 19:00; Stop 11/18/20 at 11:29; Status DC Ceftriaxone Sodium (Rocephin) 2 gm Q24H IVP Last administered on 11/19/20at 14:00; Start 11/18/20 at 14:00 Azithromycin (Zithromax) 250 mg DAILY PO ; Start 11/18/20 at 09:00; Stop 11/18/20 at 08:37; Status DC Enoxaparin Sodium (Lovenox 100mg Syringe) 90 mg Q12H SQ Last administered on 11/18/20at 06:04; Start 11/18/20 at 06:00; Stop 11/18/20 at 13:34; Status DC Doxycycline Hyclate (Vibra-Tab) 100 mg BID PO ; Start 11/18/20 at 09:00; Stop 11/18/20 at 09:13; Status DC Pantoprazole Sodium (Protonix) 40 mg DAILYAC PO ; Start 11/18/20 at 09:00; Stop 11/18/20 at 09:21; Status DC Albuterol/ Ipratropium (Duoneb) 3 ml RTQID NEB Last administered on 11/20/20at 07:45; Start 11/18/20 at 12:00 Budesonide (Pulmicort) 0.5 mg RTBID NEB Last administered on 11/20/20at 07:45; Start 11/18/20 at 20:00 Budesonide (Pulmicort) 0.5 mg 1X ONCE NEB Last administered on 11/18/20at 12:39; Start 11/18/20 at 09:30; Stop 11/18/20 at 09:31; Status DC Doxycycline Hyclate 100 mg/ Dextrose 100 ml @ 50 mls/hr Q12HR IV Last administered on 11/19/20at 20:53; Start 11/18/20 at 10:00 Pantoprazole Sodium (PROTONIX VIAL for IV PUSH) 40 mg DAILYAC IVP Last administered on 11/19/20at 08:05; Start 11/18/20 at 10:00 Amino Acids/ Glycerin/ Electrolytes 1,000 ml @ 80 mls/hr [id number] ONCE IV Last administered on 11/18/20at 09:44; Start 11/18/20 at 09:30; Stop 11/18/20 at 21:59; Status DC Furosemide (Lasix) 80 mg DAILY IVP Last administered on 11/19/20at 08:05; Start 11/18/20 at 11:00 Lactulose (Lactulose) 20 gm PRN DAILY PRN PO CONSTIPATION; Start 11/18/20 at 11:00 Metoclopramide HCl (Reglan Vial) 10 mg PRN Q6HRS PRN IVP NAUSEA/VOMITING, 2ND CHOICE Last administered on 11/18/20at 11:40; Start 11/18/20 at 11:30 Ondansetron HCl (Zofran) 4 mg PRN Q4HRS PRN IVP NAUSEA/VOMITING, 1ST CHOICE; Start 11/18/20 at 11:30 Enoxaparin Sodium (Lovenox 80mg Syringe) 80 mg Q12HR SQ Last administered on 11/19/20at 08:05; Start 11/18/20 at 21:00; Stop 11/19/20 at 09:23; Status DC Lactobacillus Rhamnosus (Culturelle) 1 cap BID PO Last administered on 11/19/20at 20:52; Start 11/18/20 at 21:00 Amino Acids/ Glycerin/ Electrolytes 1,000 ml @ 80 mls/hr [id number] IV Last administered on 11/18/20at 23:04; Start 11/18/20 at 22:15; Stop 11/19/20 at 09:01; Status DC Heparin Sodium/ Dextrose 250 ml @ 0 mls/hr CONT PRN IV PER PROTOCOL Last administered on 11/19/20at 21:03; Start 11/19/20 at 21:00 Heparin Sodium (Porcine) (Heparin Sodium) 2,600 unit PRN Q6HRS PRN IV FOR UFH LEVEL LESS THAN 0.2; Start 11/19/20 at 21:00 Heparin Sodium (Porcine) (Heparin Sodium) 1,300 unit PRN Q6HRS PRN IV FOR UFH LEVEL 0.2 - 0.29; Start 11/19/20 at 21:00 Amino Acids/ Glycerin/ Electrolytes 1,000 ml @ 80 mls/hr [id number] IV Last administered on 11/20/20at 05:46; Start 11/19/20 at 17:15 Vitals/I & O Vital Sign - Last 24 Hours 11/19/20 11/19/20 11/19/20 11/19/20 09:00 10:00 11:00 11:52 Pulse 76 73 78 Resp 30 25 28 B/P (MAP) 106/68 (81) 105/78 (87) 100/75 (83) Pulse Ox 100 100 100 97 O2 Delivery Nasal Cannula Nasal Cannula Nasal Cannula Nasal Cannula O2 Flow Rate 3.0 3.0 3.0 3.0 5/11/19/20 11/19/20 11/19/20 12:00 12:00 13:00 14:00 Temp 98.2 98.2 Pulse 79 84 78 Resp B/P (MAP) 106/74 (85) 114/70 (85) 104/70 (81) Pulse Ox 100 100 100 O2 Delivery Nasal Cannula Nasal Cannula Nasal Cannula Nasal Cannula O2 Flow Rate 3.0 3.0 3.0 3.0 11/19/20 11/19/20 11/19/20 11/19/20 15:00 16:00 16:00 16:12 Temp 98.0 98.0 Pulse 73 73 Resp B/P (MAP) 104/70 (81) 98/62 (74) Pulse Ox 100 100 98 O2 Delivery Nasal Cannula Nasal Cannula Nasal Cannula Nasal Cannula O2 Flow Rate 3.0 3.0 3.0 3.0 11/19/20 11/19/20 11/19/20 11/19/20 17:00 18:00 19:00 20:00 Pulse 100 72 85 Resp B/P (MAP) 103/72 (82) 97/72 (80) 92/75 (81) Pulse Ox 100 100 100 O2 Delivery Nasal Cannula Nasal Cannula Nasal Cannula Nasal Cannula O2 Flow Rate 3.0 3.0 3.0 2.0 11/19/20 11/19/20 11/19/20 11/19/20 20:00 20:29 20:29 21:00 Temp 97.6 97.6 Pulse 82 80 Resp B/P (MAP) 92/68 (76) 111/67 (82) Pulse Ox 96 98 98 98 O2 Delivery Nasal Cannula Nasal Cannula Nasal Cannula Nasal Cannula O2 Flow Rate 2.0 3.0 3.0 2.0 11/19/20 11/19/20 11/20/20 11/20/20 22:00 23:00 00:00 00:00 Temp 98.2 98.2 Pulse 75 78 79 Resp B/P (MAP) 105/69 (81) 101/79 (86) 109/72 (84) Pulse Ox 92 95 97 O2 Delivery Nasal Cannula Nasal Cannula Nasal Cannula Nasal Cannula O2 Flow Rate 3.0 3.0 3.0 3.0 11/20/20 11/20/20 11/20/20 11/20/20 01:00 02:00 03:00 04:00 Pulse 76 76 81 Resp 26 28 B/P (MAP) 102/75 (84) 112/69 (83) 97/74 (82) Pulse Ox 97 98 99 O2 Delivery Nasal Cannula Nasal Cannula Nasal Cannula Nasal Cannula O2 Flow Rate 3.0 3.0 3.0 3.0 11/20/20 11/20/20 11/20/20 11/20/20 04:00 05:00 06:00 07:00 Temp 97.4 97.4 Pulse 76 77 80 88 Resp 24 25 29 B/P (MAP) 100/79 (86) 104/74 (84) 103/69 (80) 109/73 (85) Pulse Ox 98 99 99 97 O2 Delivery Nasal Cannula Nasal Cannula Nasal Cannula Nasal Cannula O2 Flow Rate 3.0 3.0 3.0 3.0 11/20/20 07:46 Pulse Ox 97 O2 Delivery Nasal Cannula O2 Flow Rate 3.0 Intake and Output 11/19/20 11/19/20 11/20/20 15:00 23:00 07:00 Intake Total 900 ml 764 ml Output Total 410 ml 875 ml 665 ml Balance -410 ml 25 ml 99 ml Justicifation of Admission Dx: Justifications for Admission: Justification of Admission Dx: Yes Altered Mental Status: Altered Mental Status MICHELLE KANG MD November 20, 2020 08:37
[2020-11-20] MEDS: PANTOPRAZOLE IV PUSH 40 MG VIAL. IVP SCH (09:23)
[2020-11-20] MEDS: LACTOBACILLUS RHAMNOSUS GG 1 CAPSULE. PO SCH ×2 (09:23→20:34)
[2020-11-20] MEDS: FUROSEMIDE 100 MG/10 ML VIAL. IVP SCH (09:23)
[2020-11-20] MEDS: DOXYCYCLINE HYCLATE 100 MG in IV DEXTROSE 5% 100ML 100 ML IV SCH ×2 (09:23→20:34)
--- NOTE | 2020-11-20 09:31 | PDOC ---
PULMONARY PROGRESS NOTES DATE: 11/20/20 TIME: 09:31 Subjective Patient sitting up in a chair, did not tolerate BiPAP Feels better not short of air appetite is adequate Vitals Vital Signs Date Time Temp Pulse Resp B/P (MAP) Pulse Ox O2 Delivery O2 Flow Rate FiO2 11/20/20 08:00 98.3 79 30 114/83 (93) 98 Nasal Cannula 3.0 98.3 Comments ros as mentioned as above other sys otherwise neg ROS: No Nausea, No Chest Pain, No Abdominal Pain, No Increase Cough General: Alert, Oriented X4 Lungs: Wheezing, Crackles Cardiovascular: S1, S2 Abdomen: Soft, Non-tender, Other (obese no mass) Neuro Exam: Alert Extremities: Other (edema ) Skin: Warm Labs Laboratory Tests Test 11/20/20 03:00 11/20/20 05:35 Heparin Anti-Xa Act, Unfractionated > 1.10 IU/mL (0.30-0.70) White Blood Count 9.6 x10^3/uL (4.0-11.0) Red Blood Count 5.29 x10^6/uL (4.30-5.70) Hemoglobin 14.8 g/dL (13.0-17.5) Hematocrit 45.9 % (39.0-53.0) Mean Corpuscular Volume 87 fL (79-100) Mean Corpuscular Hemoglobin 28 pg (25-35) Mean Corpuscular Hemoglobin Concent 32 g/dL (31-37) Red Cell Distribution Width 19.6 % (11.5-14.5) Platelet Count 160 x10^3/uL (140-400) Neutrophils (%) (Auto) 89 % (31-73) Lymphocytes (%) (Auto) 2 % (24-48) Monocytes (%) (Auto) 9 % (0-9) Eosinophils (%) (Auto) 0 % (0-3) Basophils (%) (Auto) 0 % (0-3) Neutrophils # (Auto) 8.5 x10^3/uL (1.8-7.7) Lymphocytes # (Auto) 0.2 x10^3/uL (1.0-4.8) Monocytes # (Auto) 0.9 x10^3/uL (0.0-1.1) Eosinophils # (Auto) 0.0 x10^3/uL (0.0-0.7) Basophils # (Auto) 0.0 x10^3/uL (0.0-0.2) Sodium Level 134 mmol/L (136-145) Potassium Level 3.6 mmol/L (3.5-5.1) Chloride Level 95 mmol/L (98-107) Carbon Dioxide Level 33 mmol/L (21-32) Anion Gap 6 (6-14) Blood Urea Nitrogen 32 mg/dL (8-26) Creatinine 1.3 mg/dL (0.7-1.3) Estimated GFR (Cockcroft-Gault) 55.9 Glucose Level 136 mg/dL (70-99) Calcium Level 8.2 mg/dL (8.5-10.1) Laboratory Tests Test 11/20/20 03:00 11/20/20 05:35 Heparin Anti-Xa Act, Unfractionated > 1.10 IU/mL (0.30-0.70) White Blood Count 9.6 x10^3/uL (4.0-11.0) Red Blood Count 5.29 x10^6/uL (4.30-5.70) Hemoglobin 14.8 g/dL (13.0-17.5) Hematocrit 45.9 % (39.0-53.0) Mean Corpuscular Volume 87 fL (79-100) Mean Corpuscular Hemoglobin 28 pg (25-35) Mean Corpuscular Hemoglobin Concent 32 g/dL (31-37) Red Cell Distribution Width 19.6 % (11.5-14.5) Platelet Count 160 x10^3/uL (140-400) Neutrophils (%) (Auto) 89 % (31-73) Lymphocytes (%) (Auto) 2 % (24-48) Monocytes (%) (Auto) 9 % (0-9) Eosinophils (%) (Auto) 0 % (0-3) Basophils (%) (Auto) 0 % (0-3) Neutrophils # (Auto) 8.5 x10^3/uL (1.8-7.7) Lymphocytes # (Auto) 0.2 x10^3/uL (1.0-4.8) Monocytes # (Auto) 0.9 x10^3/uL (0.0-1.1) Eosinophils # (Auto) 0.0 x10^3/uL (0.0-0.7) Basophils # (Auto) 0.0 x10^3/uL (0.0-0.2) Sodium Level 134 mmol/L (136-145) Potassium Level 3.6 mmol/L (3.5-5.1) Chloride Level 95 mmol/L (98-107) Carbon Dioxide Level 33 mmol/L (21-32) Anion Gap 6 (6-14) Blood Urea Nitrogen 32 mg/dL (8-26) Creatinine 1.3 mg/dL (0.7-1.3) Estimated GFR (Cockcroft-Gault) 55.9 Glucose Level 136 mg/dL (70-99) Calcium Level 8.2 mg/dL (8.5-10.1) Comments Chest x-ray reviewed bilateral infiltrates stable left-sided opacity questionable effusion Impression . IMPRESSION: 1. Acute hypoxemic respiratory failure, multifactorial 2. Abnormal chest x-ray. Left-sided effusion 3. Acute pulmonary embolism. 4. Chronic obstructive pulmonary disease. 5. Acute systolic versus diastolic congestive heart failure. 6. Obstructive sleep apnea/hypopnea syndrome. 7. Tobacco habituation. 8. Atrial fibrillation. 9. Coronary artery disease, status post CABG. 10. Negative SARS Covid 2 Bilateral lower extremity venous Dopplers 11/18 IMPRESSION: Partially occlusive DVT is seen involving the posterior tibial veins within the right calf. Plan . Updated November 20 Patient currently on IV heparin, scheduled to undergo thoracentesis in the a.m. Continue antibiotics Follow cardiology input Up to chair Advance diet PLAN AND RECOMMENDATIONS: 1. I had a long discussion with him regarding smoking cessation. I have advised him to stop smoking forever. 2. 02 titration 3. Lower extremity venous Doppler. Partially occlusive DVT is seen involving the posterior tibial veins within the right calf. 4. Continue Lovenox. 5. Protonix for stress ulcer prophylaxis. 6. bronchodilator and inhaled corticosteroid. 7. Continue antibiotic. 8. COVID testing. neg 9. Cardiology consulted and echocardiogram ordered 10. agree to change Lovenox to hep gtt for possible thoracentesis cont aggressive chf tx (iv lasix) l effusion slightly better, will repeat cxr in am 11. The findings and recommendations were discussed with the patient, RN and Dr. Mary, attending physician. OMID CLINE MD November 20, 2020 09:31
[2020-11-20 10:11] LABS: BILIRUBIN,URINE SMALL (NEG); CLARITY,URINE CLEAR; COLOR,URINE AMBER; NITRITE,URINE NEGATIVE (NEG); PROTEIN,URINE NEGATIVE (NEG-TRACE)
[2020-11-20 10:22] LABS: BACTERIA,URINE 0 /HPF (0-FEW); RBC,URINE >40 /HPF (0-2); WBC,URINE RARE /HPF (0-4)
[2020-11-20 10:23] LABS: HYALINE CASTS, URINE FEW /HPF
--- NOTE | 2020-11-20 12:03 | PDOC2 ---
GI CONSULT Date of Service: DATE: 11/20/20 TIME: 11:50 Reason For Consult: Jaundice HPI: HPI: 64 y/o male from [place], [place], visiting son and became SOB. Presented to [facility] where bilateral PE's noted and transferred here. Noted to have elevated bilirubin and we are asked to see. Not the best historian, but denies any h/o liver disease. Never big drinker. No IVDU, tattoos. Assume transfused in past as post-CABG. Prior cholecystectomy for stones. Significant cardiac history and stopped meds for 2 weeks prior to presentation. H/o GERD though denies heartburn or dysphagia. No PUD. Thinks he has a hiatal hernia. No EGD he will admit to. No pancreatic history. Smoker. Denies diarrhea, constipation, overt GI bleeding. No prior colonoscopy. On CT C/A/P at [facility], ascites noted as well as generalized anasarca, pleural effusions, cardiomegaly. PMH: PMH: COPD, CAD, Afib, HTN. S/p CABG. Social History: Smoke: Quit (recently?) ALCOHOL: occassional Drugs: None ROS: GEN: Denies fevers, chills, sweats HEENT: Denies blurred vision, sore throat CV: Denies chest pain RESP: Presented with shortness of air, cough GI: Per HPI : Denies hematuria, dysuria ENDO: Denies weight changes NEURO: Denies confusion, dizziness MSK: Denies weakness, joint pain/swelling SKIN: Denies jaundice, pruritus Vitals: Vitals: Vital Signs Date Time Temp Pulse Resp B/P (MAP) Pulse Ox O2 Delivery O2 Flow Rate FiO2 11/20/20 11:42 97 Nasal Cannula 3.0 11/20/20 11:00 84 24 125/87 (100) 11/20/20 08:00 98.3 98.3 Labs: Labs: Laboratory Tests Test 11/20/20 03:00 11/20/20 05:35 11/20/20 09:07 11/20/20 10:30 Heparin Anti-Xa Act, Unfractionated > 1.10 IU/mL (0.30-0.70) > 1.10 IU/mL (0.30-0.70) White Blood Count 9.6 x10^3/uL (4.0-11.0) Red Blood Count 5.29 x10^6/uL (4.30-5.70) Hemoglobin 14.8 g/dL (13.0-17.5) Hematocrit 45.9 % (39.0-53.0) Mean Corpuscular Volume 87 fL (79-100) Mean Corpuscular Hemoglobin 28 pg (25-35) Mean Corpuscular Hemoglobin Concent 32 g/dL (31-37) Red Cell Distribution Width 19.6 % (11.5-14.5) Platelet Count 160 x10^3/uL (140-400) Neutrophils (%) (Auto) 89 % (31-73) Lymphocytes (%) (Auto) 2 % (24-48) Monocytes (%) (Auto) 9 % (0-9) Eosinophils (%) (Auto) 0 % (0-3) Basophils (%) (Auto) 0 % (0-3) Neutrophils # (Auto) 8.5 x10^3/uL (1.8-7.7) Lymphocytes # (Auto) 0.2 x10^3/uL (1.0-4.8) Monocytes # (Auto) 0.9 x10^3/uL (0.0-1.1) Eosinophils # (Auto) 0.0 x10^3/uL (0.0-0.7) Basophils # (Auto) 0.0 x10^3/uL (0.0-0.2) Sodium Level 134 mmol/L (136-145) Potassium Level 3.6 mmol/L (3.5-5.1) Chloride Level 95 mmol/L (98-107) Carbon Dioxide Level 33 mmol/L (21-32) Anion Gap 6 (6-14) Blood Urea Nitrogen 32 mg/dL (8-26) Creatinine 1.3 mg/dL (0.7-1.3) Estimated GFR (Cockcroft-Gault) 55.9 Glucose Level 136 mg/dL (70-99) Calcium Level 8.2 mg/dL (8.5-10.1) Urine Collection Type Unknown Urine Color Earlene Urine Clarity Clear Urine pH 6.0 (<5.0-8.0) Urine Specific [place] 1.025 (1.000-1.030) Urine Protein Negative mg/dL (NEG-TRACE) Urine Glucose (UA) Negative mg/dL (NEG) Urine Ketones (Stick) Negative mg/dL (NEG) Urine Blood Large (NEG) Urine Nitrite Negative (NEG) Urine Bilirubin Small (NEG) Urine Urobilinogen Dipstick 2.0 mg/dL (0.2 mg/dL) Urine Leukocyte Esterase Negative (NEG) Urine RBC >40 /HPF (0-2) Urine WBC Rare /HPF (0-4) Urine Bacteria 0 /HPF (0-FEW) Urine Hyaline Casts Few /HPF Allergies: Coded Allergies: No Known Drug Allergies (Unverified , 11/17/20) Medications: Current Medications Medications (Trade) Dose Ordered Sig/Grace Route PRN Reason Start Time Stop Time Status Last Admin Dose Admin Heparin Sodium/ Dextrose 250 ml @ 0 mls/hr CONT PRN IV PER PROTOCOL 11/19/20 21:00 11/19/20 21:03 Amino Acids/ Glycerin/ Electrolytes 1,000 ml @ 80 mls/hr [id number] IV 11/19/20 17:15 11/20/20 05:46 Imaging: Imaging: No GI imaging here. PE: GEN: NAD HEENT: Atraumatic, PERRLA LUNGS: CTA anteriorly. HEART: IRRR, no murmurs ABD: NABS, S/ND/NT, no masses EXTREMITY: Pitting lower extremity edema SKIN: No rashes, mild jaundice NEURO/PSYCH: A & O 3 A/P: A/P: IMP: Elevated bilirubin with only mildly elevated alk phos and normal transaminases. Likely non-specific and related to other ongoing issues (CHF) or meds. H/o biliary stone disease so retained stone possible. H/o GERD S/p cholecystectomy. CRC screening; apparently none. Ascites; suspect related to general volume overload and not portal HTN. REC: Sonogram. Continue anticoags, diuresis. Monitor bili, LFT's. Hepatitis serologies. Thanks. BRITTANY MCDERMOTT MD November 20, 2020 12:03
--- NOTE | 2020-11-20 12:24 | PDOC ---
PROGRESS NOTES Date of Service DATE: 11/20/20 TIME: 12:20 Subjective Subjective Patient seen and examined Objective Objective Vital Signs Date Time Temp Pulse Resp B/P (MAP) Pulse Ox O2 Delivery O2 Flow Rate FiO2 11/20/20 11:42 97 Nasal Cannula 3.0 11/20/20 11:00 84 24 125/87 (100) 11/20/20 08:00 98.3 98.3 Intake and Output 11/20/20 07:00 Intake Total 1664 ml Output Total 1950 ml Balance -286 ml IV Total 1664 ml Output Urine Total 1950 ml Physical Exam Abdomen: Normal bowel sounds Heart: Regular rate General: mild distress Lungs: Other (Mildly decreased breath sounds) Assessment Assessment 1. Pulmonary emboli, acute. The patient is feeling mildly better. Outside studies show multiple areas of PEs. Patient has been started on anticoagulation which is being modified in case the patient needs a thoracentesis. He had been on Eliquis for his atrial fibrillation but by report has not taken it for over 2 weeks. We will continue other present medications. Echo shows severely decreased LV function with an ejection fraction of 20%, mild mitral regurgitati on and mild tricuspid regurgitation with a pulmonary artery pressure of 46 mmHg. 2. Pneumonia. Pulmonary treatments and antibiotics as per the primary and pulmonary services. 3. History of bypass surgery. LV ejection fraction is above at 20%. We will continue baseline medications and attempt to obtain old records. 4. Atrial fibrillation. Had been on Eliquis but no medications for 2 weeks. Anticoagulation as above restart and adjust rate control medications as needed. 5. Hypertension. Continuing medical treatment. Comment Review of Relevant I have reviewed the following items florecita (where applicable) has been applied. Labs Laboratory Tests Test 11/20/20 03:00 11/20/20 05:35 11/20/20 09:07 11/20/20 10:30 Heparin Anti-Xa Act, Unfractionated > 1.10 IU/mL (0.30-0.70) > 1.10 IU/mL (0.30-0.70) White Blood Count 9.6 x10^3/uL (4.0-11.0) Red Blood Count 5.29 x10^6/uL (4.30-5.70) Hemoglobin 14.8 g/dL (13.0-17.5) Hematocrit 45.9 % (39.0-53.0) Mean Corpuscular Volume 87 fL (79-100) Mean Corpuscular Hemoglobin 28 pg (25-35) Mean Corpuscular Hemoglobin Concent 32 g/dL (31-37) Red Cell Distribution Width 19.6 % (11.5-14.5) Platelet Count 160 x10^3/uL (140-400) Neutrophils (%) (Auto) 89 % (31-73) Lymphocytes (%) (Auto) 2 % (24-48) Monocytes (%) (Auto) 9 % (0-9) Eosinophils (%) (Auto) 0 % (0-3) Basophils (%) (Auto) 0 % (0-3) Neutrophils # (Auto) 8.5 x10^3/uL (1.8-7.7) Lymphocytes # (Auto) 0.2 x10^3/uL (1.0-4.8) Monocytes # (Auto) 0.9 x10^3/uL (0.0-1.1) Eosinophils # (Auto) 0.0 x10^3/uL (0.0-0.7) Basophils # (Auto) 0.0 x10^3/uL (0.0-0.2) Sodium Level 134 mmol/L (136-145) Potassium Level 3.6 mmol/L (3.5-5.1) Chloride Level 95 mmol/L (98-107) Carbon Dioxide Level 33 mmol/L (21-32) Anion Gap 6 (6-14) Blood Urea Nitrogen 32 mg/dL (8-26) Creatinine 1.3 mg/dL (0.7-1.3) Estimated GFR (Cockcroft-Gault) 55.9 Glucose Level 136 mg/dL (70-99) Calcium Level 8.2 mg/dL (8.5-10.1) Urine Collection Type Unknown Urine Color Earlene Urine Clarity Clear Urine pH 6.0 (<5.0-8.0) Urine Specific [place] 1.025 (1.000-1.030) Urine Protein Negative mg/dL (NEG-TRACE) Urine Glucose (UA) Negative mg/dL (NEG) Urine Ketones (Stick) Negative mg/dL (NEG) Urine Blood Large (NEG) Urine Nitrite Negative (NEG) Urine Bilirubin Small (NEG) Urine Urobilinogen Dipstick 2.0 mg/dL (0.2 mg/dL) Urine Leukocyte Esterase Negative (NEG) Urine RBC >40 /HPF (0-2) Urine WBC Rare /HPF (0-4) Urine Bacteria 0 /HPF (0-FEW) Urine Hyaline Casts Few /HPF Laboratory Tests Test 11/20/20 03:00 11/20/20 05:35 11/20/20 09:07 11/20/20 10:30 Heparin Anti-Xa Act, Unfractionated > 1.10 IU/mL (0.30-0.70) > 1.10 IU/mL (0.30-0.70) White Blood Count 9.6 x10^3/uL (4.0-11.0) Red Blood Count 5.29 x10^6/uL (4.30-5.70) Hemoglobin 14.8 g/dL (13.0-17.5) Hematocrit 45.9 % (39.0-53.0) Mean Corpuscular Volume 87 fL (79-100) Mean Corpuscular Hemoglobin 28 pg (25-35) Mean Corpuscular Hemoglobin Concent 32 g/dL (31-37) Red Cell Distribution Width 19.6 % (11.5-14.5) Platelet Count 160 x10^3/uL (140-400) Neutrophils (%) (Auto) 89 % (31-73) Lymphocytes (%) (Auto) 2 % (24-48) Monocytes (%) (Auto) 9 % (0-9) Eosinophils (%) (Auto) 0 % (0-3) Basophils (%) (Auto) 0 % (0-3) Neutrophils # (Auto) 8.5 x10^3/uL (1.8-7.7) Lymphocytes # (Auto) 0.2 x10^3/uL (1.0-4.8) Monocytes # (Auto) 0.9 x10^3/uL (0.0-1.1) Eosinophils # (Auto) 0.0 x10^3/uL (0.0-0.7) Basophils # (Auto) 0.0 x10^3/uL (0.0-0.2) Sodium Level 134 mmol/L (136-145) Potassium Level 3.6 mmol/L (3.5-5.1) Chloride Level 95 mmol/L (98-107) Carbon Dioxide Level 33 mmol/L (21-32) Anion Gap 6 (6-14) Blood Urea Nitrogen 32 mg/dL (8-26) Creatinine 1.3 mg/dL (0.7-1.3) Estimated GFR (Cockcroft-Gault) 55.9 Glucose Level 136 mg/dL (70-99) Calcium Level 8.2 mg/dL (8.5-10.1) Urine Collection Type Unknown Urine Color Earlene Urine Clarity Clear Urine pH 6.0 (<5.0-8.0) Urine Specific [place] 1.025 (1.000-1.030) Urine Protein Negative mg/dL (NEG-TRACE) Urine Glucose (UA) Negative mg/dL (NEG) Urine Ketones (Stick) Negative mg/dL (NEG) Urine Blood Large (NEG) Urine Nitrite Negative (NEG) Urine Bilirubin Small (NEG) Urine Urobilinogen Dipstick 2.0 mg/dL (0.2 mg/dL) Urine Leukocyte Esterase Negative (NEG) Urine RBC >40 /HPF (0-2) Urine WBC Rare /HPF (0-4) Urine Bacteria 0 /HPF (0-FEW) Urine Hyaline Casts Few /HPF Medications Current Medications Enoxaparin Sodium (Lovenox Per Pharmacy Treatment Dosing) 1 each PRN DAILY PRN MC SEE COMMENTS; Start 11/17/20 at 19:00; Stop 11/19/20 at 09:23; Status DC Ondansetron HCl (Zofran) 4 mg PRN Q8HRS PRN IVP NAUSEA/VOMITING Last administered on 11/18/20at 09:05; Start 11/17/20 at 19:00; Stop 11/18/20 at 11:29; Status DC Ceftriaxone Sodium (Rocephin) 2 gm Q24H IVP Last administered on 11/19/20at 14:00; Start 11/18/20 at 14:00 Azithromycin (Zithromax) 250 mg DAILY PO ; Start 11/18/20 at 09:00; Stop 11/18/20 at 08:37; Status DC Enoxaparin Sodium (Lovenox 100mg Syringe) 90 mg Q12H SQ Last administered on 11/18/20at 06:04; Start 11/18/20 at 06:00; Stop 11/18/20 at 13:34; Status DC Doxycycline Hyclate (Vibra-Tab) 100 mg BID PO ; Start 11/18/20 at 09:00; Stop 11/18/20 at 09:13; Status DC Pantoprazole Sodium (Protonix) 40 mg DAILYAC PO ; Start 11/18/20 at 09:00; Stop 11/18/20 at 09:21; Status DC Albuterol/ Ipratropium (Duoneb) 3 ml RTQID NEB Last administered on 11/20/20at 11:41; Start 11/18/20 at 12:00 Budesonide (Pulmicort) 0.5 mg RTBID NEB Last administered on 11/20/20at 07:45; Start 11/18/20 at 20:00 Budesonide (Pulmicort) 0.5 mg 1X ONCE NEB Last administered on 11/18/20at 12:39; Start 11/18/20 at 09:30; Stop 11/18/20 at 09:31; Status DC Doxycycline Hyclate 100 mg/ Dextrose 100 ml @ 50 mls/hr Q12HR IV Last administered on 11/20/20at 09:23; Start 11/18/20 at 10:00 Pantoprazole Sodium (PROTONIX VIAL for IV PUSH) 40 mg DAILYAC IVP Last administered on 11/20/20 09:23; Start 11/18/20 at 10:00 Amino Acids/ Glycerin/ Electrolytes 1,000 ml @ 80 mls/hr [id number] ONCE IV Last administered on 11/18/20at 09:44; Start 11/18/20 at 09:30; Stop 11/18/20 at 21:59; Status DC Furosemide (Lasix) 80 mg DAILY IVP Last administered on 11/20/20at 09:23; Start 11/18/20 at 11:00 Lactulose (Lactulose) 20 gm PRN DAILY PRN PO CONSTIPATION; Start 11/18/20 at 11:00 Metoclopramide HCl (Reglan Vial) 10 mg PRN Q6HRS PRN IVP NAUSEA/VOMITING, 2ND CHOICE Last administered on 11/18/20at 11:40; Start 11/18/20 at 11:30 Ondansetron HCl (Zofran) 4 mg PRN Q4HRS PRN IVP NAUSEA/VOMITING, 1ST CHOICE; Start 11/18/20 at 11:30 Enoxaparin Sodium (Lovenox 80mg Syringe) 80 mg Q12HR SQ Last administered on 11/19/20at 08:05; Start 11/18/20 at 21:00; Stop 11/19/20 at 09:23; Status DC Lactobacillus Rhamnosus (Culturelle) 1 cap BID PO Last administered on 11/20/20at 09:23; Start 11/18/20 at 21:00 Amino Acids/ Glycerin/ Electrolytes 1,000 ml @ 80 mls/hr [id number] IV Last administered on 11/18/20at 23:04; Start 11/18/20 at 22:15; Stop 11/19/20 at 09:01; Status DC Heparin Sodium/ Dextrose 250 ml @ 0 mls/hr CONT PRN IV PER PROTOCOL Last administered on 11/19/20at 21:03; Start 11/19/20 at 21:00 Heparin Sodium (Porcine) (Heparin Sodium) 2,600 unit PRN Q6HRS PRN IV FOR UFH LEVEL LESS THAN 0.2; Start 11/19/20 at 21:00 Heparin Sodium (Porcine) (Heparin Sodium) 1,300 unit PRN Q6HRS PRN IV FOR UFH LEVEL 0.2 - 0.29; Start 11/19/20 at 21:00 Amino Acids/ Glycerin/ Electrolytes 1,000 ml @ 80 mls/hr [id number] IV Last administered on 11/20/20at 05:46; Start 11/19/20 at 17:15 Vitals/I & O Vital Sign - Last 24 Hours 11/19/20 11/19/20 11/19/20 11/19/20 13:00 14:00 15:00 16:00 Pulse 84 78 73 Resp 22 25 25 B/P (MAP) 114/70 (85) 104/70 (81) 104/70 (81) Pulse Ox 100 100 100 O2 Delivery Nasal Cannula Nasal Cannula Nasal Cannula Nasal Cannula O2 Flow Rate 3.0 3.0 3.0 3.0 11/19/20 11/19/20 11/19/20 11/19/20 16:00 16:12 17:00 18:00 Temp 98.0 98.0 Pulse 73 100 72 Resp 25 25 28 B/P (MAP) 98/62 (74) 103/72 (82) 97/72 (80) Pulse Ox 100 98 100 100 O2 Delivery Nasal Cannula Nasal Cannula Nasal Cannula Nasal Cannula O2 Flow Rate 3.0 3.0 3.0 3.0 11/19/20 11/19/20 11/19/20 11/19/20 19:00 20:00 20:00 20:29 Temp 97.6 97.6 Pulse 85 82 Resp 28 B/P (MAP) 92/75 (81) 92/68 (76) Pulse Ox 100 96 98 O2 Delivery Nasal Cannula Nasal Cannula Nasal Cannula Nasal Cannula O2 Flow Rate 3.0 2.0 2.0 3.0 11/19/20 11/19/20 11/19/20 11/19/20 20:29 21:00 22:00 23:00 Temp Pulse 80 75 78 Resp 30 B/P (MAP) 111/67 (82) 105/69 (81) 101/79 (86) Pulse Ox 98 98 92 95 O2 Delivery Nasal Cannula Nasal Cannula Nasal Cannula Nasal Cannula O2 Flow Rate 3.0 2.0 3.0 3.0 11/20/20 11/20/20 11/20/20 11/20/20 00:00 00:00 01:00 02:00 Temp 98.2 98.2 Pulse 79 76 76 Resp 26 B/P (MAP) 109/72 (84) 102/75 (84) 112/69 (83) Pulse Ox 97 97 98 O2 Delivery Nasal Cannula Nasal Cannula Nasal Cannula Nasal Cannula O2 Flow Rate 3.0 3.0 3.0 3.0 11/20/20 11/20/20 11/20/20 11/20/20 03:00 04:00 04:00 05:00 Temp 97.4 97.4 Pulse 81 76 77 Resp 24 B/P (MAP) 97/74 (82) 100/79 (86) 104/74 (84) Pulse Ox 99 98 99 O2 Delivery Nasal Cannula Nasal Cannula Nasal Cannula Nasal Cannula O2 Flow Rate 3.0 3.0 3.0 3.0 11/20/20 11/20/20 11/20/20 11/20/20 06:00 07:00 07:46 08:00 Pulse 80 88 Resp 29 B/P (MAP) 103/69 (80) 109/73 (85) Pulse Ox 99 97 97 O2 Delivery Nasal Cannula Nasal Cannula Nasal Cannula Nasal Cannula O2 Flow Rate 3.0 3.0 3.0 3.0 11/20/20 11/20/20 11/20/20 11/20/20 08:00 09:00 10:00 11:00 Temp 98.3 98.3 Pulse 79 74 84 84 Resp 30 27 24 24 B/P (MAP) 114/83 (93) 109/84 (92) 108/85 (93) 125/87 (100) Pulse Ox 98 98 98 98 O2 Delivery Nasal Cannula Nasal Cannula Nasal Cannula Nasal Cannula O2 Flow Rate 3.0 3.0 3.0 3.0 11/20/20 11:42 Pulse Ox 97 O2 Delivery Nasal Cannula O2 Flow Rate 3.0 Intake and Output 11/19/20 11/19/20 11/20/20 15:00 23:00 07:00 Intake Total 900 ml 764 ml Output Total 410 ml 875 ml 665 ml Balance -410 ml 25 ml 99 ml Justifications for Admission Other Justification JIM GRAFF MD November 20, 2020 12:24
[2020-11-20] MEDS: cefTRIAXone IV Push 2 GM VIAL. IVP SCH (14:42)
--- NOTE | 2020-11-20 15:51 | PDOC2 ---
CONSULT Date of Consult Date of Consult DATE: 11/20/20 TIME: 15:28 Reason for Consult Reason for Consult: DOE Referring Physician Referring Physician: Dr Hyman Source Source: Chart review History of Present Illness Reason for Visit: Pt is a 64-year-old CM , visiting from [place] w/ PMHx A-Fib, GERD, Hypertension, Hypothyroid, CHF s/p AICD placement presents with dizziness, weakness, short of breath admitted on 11/17 . At presentation it was reported by the son that patient did not take his medications for 2 weeks denies chest pain, Patient states "I feel like my pacemaker is firing". No F/C . Per nursing pt has had multiple hospitalizations in [place] for LE edema nephrology Consulted today for DOE- Cr at presentation was 1.5(on 11/18) , today 1.3 , Micr hematuria (Vinson sample, On Heparin) CTPA with multiple left lower lobe pulmonary emboli and moderate large pleural effusion on left and multifocal pneumonia. Past Medical History Cardiovascular: AFIB, CAD, CHF, HTN, Hyperlipidemia, Other (Probable AICD) Pulmonary: Bronchitis, COPD GI: GERD Musculoskeletal: Osteoarthritis Past Surgical History Past Surgical History: CABG, Other (AICD.) Family History Family History: Heart Disease Social History Quit (recently?) ALCOHOL: occassional Drugs: None Current Medications Current Medications Current Medications Enoxaparin Sodium (Lovenox Per Pharmacy Treatment Dosing) 1 each PRN DAILY PRN MC SEE COMMENTS; Start 11/17/20 at 19:00; Stop 11/19/20 at 09:23; Status DC Ondansetron HCl (Zofran) 4 mg PRN Q8HRS PRN IVP NAUSEA/VOMITING Last administered on 11/18/20at 09:05; Start 11/17/20 at 19:00; Stop 11/18/20 at 11:29; Status DC Ceftriaxone Sodium (Rocephin) 2 gm Q24H IVP Last administered on 11/20/20at 14:42; Start 11/18/20 at 14:00 Azithromycin (Zithromax) 250 mg DAILY PO ; Start 11/18/20 at 09:00; Stop 11/18/20 at 08:37; Status DC Enoxaparin Sodium (Lovenox 100mg Syringe) 90 mg Q12H SQ Last administered on 11/18/20at 06:04; Start 11/18/20 at 06:00; Stop 11/18/20 at 13:34; Status DC Doxycycline Hyclate (Vibra-Tab) 100 mg BID PO ; Start 11/18/20 at 09:00; Stop 11/18/20 at 09:13; Status DC Pantoprazole Sodium (Protonix) 40 mg DAILYAC PO ; Start 11/18/20 at 09:00; Stop 11/18/20 at 09:21; Status DC Albuterol/ Ipratropium (Duoneb) 3 ml RTQID NEB Last administered on 11/20/20at 14:52; Start 11/18/20 at 12:00 Budesonide (Pulmicort) 0.5 mg RTBID NEB Last administered on 11/20/20at 07:45; Start 11/18/20 at 20:00 Budesonide (Pulmicort) 0.5 mg 1X ONCE NEB Last administered on 11/18/20at 12:39; Start 11/18/20 at 09:30; Stop 11/18/20 at 09:31; Status DC Doxycycline Hyclate 100 mg/ Dextrose 100 ml @ 50 mls/hr Q12HR IV Last administered on 11/20/20at 09:23; Start 11/18/20 at 10:00 Pantoprazole Sodium (PROTONIX VIAL for IV PUSH) 40 mg DAILYAC IVP Last administered on 11/20/20at 09:23; Start 11/18/20 at 10:00 Amino Acids/ Glycerin/ Electrolytes 1,000 ml @ 80 mls/hr [id number] ONCE IV Last administered on 11/18/20at 09:44; Start 11/18/20 at 09:30; Stop 11/18/20 at 21:59; Status DC Furosemide (Lasix) 80 mg DAILY IVP Last administered on 11/20/20at 09:23; Start 11/18/20 at 11:00 Lactulose (Lactulose) 20 gm PRN DAILY PRN PO CONSTIPATION; Start 11/18/20 at 11:00 Metoclopramide HCl (Reglan Vial) 10 mg PRN Q6HRS PRN IVP NAUSEA/VOMITING, 2ND CHOICE Last administered on 11/18/20at 11:40; Start 11/18/20 at 11:30 Ondansetron HCl (Zofran) 4 mg PRN Q4HRS PRN IVP NAUSEA/VOMITING, 1ST CHOICE; Start 11/18/20 at 11:30 Enoxaparin Sodium (Lovenox 80mg Syringe) 80 mg Q12HR SQ Last administered on 11/19/20at 08:05; Start 11/18/20 at 21:00; Stop 11/19/20 at 09:23; Status DC Lactobacillus Rhamnosus (Culturelle) 1 cap BID PO Last administered on 11/20/20at 09:23; Start 11/18/20 at 21:00 Amino Acids/ Glycerin/ Electrolytes 1,000 ml @ 80 mls/hr [id number] IV Last administered on 11/18/20at 23:04; Start 11/18/20 at 22:15; Stop 11/19/20 at 09:01; Status DC Heparin Sodium/ Dextrose 250 ml @ 0 mls/hr CONT PRN IV PER PROTOCOL Last administered on 11/19/20at 21:03; Start 11/19/20 at 21:00 Heparin Sodium (Porcine) (Heparin Sodium) 2,600 unit PRN Q6HRS PRN IV FOR UFH LEVEL LESS THAN 0.2; Start 11/19/20 at 21:00 Heparin Sodium (Porcine) (Heparin Sodium) 1,300 unit PRN Q6HRS PRN IV FOR UFH LEVEL 0.2 - 0.29; Start 11/19/20 at 21:00 Amino Acids/ Glycerin/ Electrolytes 1,000 ml @ 80 mls/hr [id number] IV Last administered on 11/20/20at 05:46; Start 11/19/20 at 17:15 Allergies Allergies: Coded Allergies: No Known Drug Allergies (Unverified , 11/17/20) ROS Review of System As per HPI, rest of the ROS is negative Physical Exam Physical Exam General NAD HEEN OM moist, On o2 by [place] Neck supple Lungs cta, non labored CV S1S2 Abd soft, NT Neuro Grossly normal, baseline confusion/dementia Skin No rash No CVA or SP tenderness , Vinson + Ext Rooke Boots + , per nursing discolored LE , 3 + Edema (Chronic) Vital Signs Vital Signs Date Time Temp Pulse Resp B/P (MAP) Pulse Ox O2 Delivery O2 Flow Rate FiO2 11/20/20 15:00 79 25 118/80 (93) 94 Nasal Cannula 3.0 11/20/20 12:00 98.3 98.3 Assessment & Plan DOE - ATN,/Sepsis Non oliguric, resolving Cr from 1.5-->1.3 , CTA done at [facility] - bilateral renal cortical thinning and lobulation due to scarring. There is a simple left renal cysts. Supportive care , Avoid nephrotoxins , CKD- suspected , based on Ct Kidney findings, No prior labs Hematuria Microscopic- UA ordered today by primary , Vinson sample ? Trauma, On Heparin as well . No QUIÑONES/Urinary retention at presentation per nursing . Monitor . CT scan mild bladder wall thickening. The prostate is mildly enlarged. US ordered by Dr. Hyman, report pending Acute bilateral Pulmonary embolism - from Lovenox to heparin GTT now . CoVid Negative Acute pneumonia On Abx Sepsis - due to above Acute hypoxic respiratory failure - due to PE, CHF- On o2 by NC , stable CAD s/p CABG 1993 Acute on chronic systolic CHF with prior known 3+ pitting edema for months, S/p AICD , On IV Lasix - management per cardiology Atrial fibrillation - Was on eliquis stopped taking it for 2 weeks prior to admit Transaminits - likely congestive hepatopathy, no ETOH or cirrhosis per patient. Bilirubin is elevated at 4.6. PVD, US artery LUE neg at [facility], poor pulses, cool feet, per vascular Labs Labs Laboratory Tests Test 11/20/20 03:00 11/20/20 05:35 11/20/20 09:07 11/20/20 10:30 Heparin Anti-Xa Act, Unfractionated > 1.10 IU/mL (0.30-0.70) > 1.10 IU/mL (0.30-0.70) White Blood Count 9.6 x10^3/uL (4.0-11.0) Red Blood Count 5.29 x10^6/uL (4.30-5.70) Hemoglobin 14.8 g/dL (13.0-17.5) Hematocrit 45.9 % (39.0-53.0) Mean Corpuscular Volume 87 fL (79-100) Mean Corpuscular Hemoglobin 28 pg (25-35) Mean Corpuscular Hemoglobin Concent 32 g/dL (31-37) Red Cell Distribution Width 19.6 % (11.5-14.5) Platelet Count 160 x10^3/uL (140-400) Neutrophils (%) (Auto) 89 % (31-73) Lymphocytes (%) (Auto) 2 % (24-48) Monocytes (%) (Auto) 9 % (0-9) Eosinophils (%) (Auto) 0 % (0-3) Basophils (%) (Auto) 0 % (0-3) Neutrophils # (Auto) 8.5 x10^3/uL (1.8-7.7) Lymphocytes # (Auto) 0.2 x10^3/uL (1.0-4.8) Monocytes # (Auto) 0.9 x10^3/uL (0.0-1.1) Eosinophils # (Auto) 0.0 x10^3/uL (0.0-0.7) Basophils # (Auto) 0.0 x10^3/uL (0.0-0.2) Sodium Level 134 mmol/L (136-145) Potassium Level 3.6 mmol/L (3.5-5.1) Chloride Level 95 mmol/L (98-107) Carbon Dioxide Level 33 mmol/L (21-32) Anion Gap 6 (6-14) Blood Urea Nitrogen 32 mg/dL (8-26) Creatinine 1.3 mg/dL (0.7-1.3) Estimated GFR (Cockcroft-Gault) 55.9 Glucose Level 136 mg/dL (70-99) Calcium Level 8.2 mg/dL (8.5-10.1) Hepatitis A IgM Antibody Nonreactive (Nonreactive) Hepatitis B Surface Antigen Nonreactive (Nonreactive) Hepatitis B Core IgM Antibody Nonreactive (Nonreactive) Hepatitis C IgG Antibody Nonreactive (Nonreactive) Urine Collection Type Unknown Urine Color Earlene Urine Clarity Clear Urine pH 6.0 (<5.0-8.0) Urine Specific [place] 1.025 (1.000-1.030) Urine Protein Negative mg/dL (NEG-TRACE) Urine Glucose (UA) Negative mg/dL (NEG) Urine Ketones (Stick) Negative mg/dL (NEG) Urine Blood Large (NEG) Urine Nitrite Negative (NEG) Urine Bilirubin Small (NEG) Urine Urobilinogen Dipstick 2.0 mg/dL (0.2 mg/dL) Urine Leukocyte Esterase Negative (NEG) Urine RBC >40 /HPF (0-2) Urine WBC Rare /HPF (0-4) Urine Bacteria 0 /HPF (0-FEW) Urine Hyaline Casts Few /HPF Laboratory Tests Test 11/20/20 03:00 11/20/20 05:35 11/20/20 09:07 11/20/20 10:30 Heparin Anti-Xa Act, Unfractionated > 1.10 IU/mL (0.30-0.70) > 1.10 IU/mL (0.30-0.70) White Blood Count 9.6 x10^3/uL (4.0-11.0) Red Blood Count 5.29 x10^6/uL (4.30-5.70) Hemoglobin 14.8 g/dL (13.0-17.5) Hematocrit 45.9 % (39.0-53.0) Mean Corpuscular Volume 87 fL (79-100) Mean Corpuscular Hemoglobin 28 pg (25-35) Mean Corpuscular Hemoglobin Concent 32 g/dL (31-37) Red Cell Distribution Width 19.6 % (11.5-14.5) Platelet Count 160 x10^3/uL (140-400) Neutrophils (%) (Auto) 89 % (31-73) Lymphocytes (%) (Auto) 2 % (24-48) Monocytes (%) (Auto) 9 % (0-9) Eosinophils (%) (Auto) 0 % (0-3) Basophils (%) (Auto) 0 % (0-3) Neutrophils # (Auto) 8.5 x10^3/uL (1.8-7.7) Lymphocytes # (Auto) 0.2 x10^3/uL (1.0-4.8) Monocytes # (Auto) 0.9 x10^3/uL (0.0-1.1) Eosinophils # (Auto) 0.0 x10^3/uL (0.0-0.7) Basophils # (Auto) 0.0 x10^3/uL (0.0-0.2) Sodium Level 134 mmol/L (136-145) Potassium Level 3.6 mmol/L (3.5-5.1) Chloride Level 95 mmol/L (98-107) Carbon Dioxide Level 33 mmol/L (21-32) Anion Gap 6 (6-14) Blood Urea Nitrogen 32 mg/dL (8-26) Creatinine 1.3 mg/dL (0.7-1.3) Estimated GFR (Cockcroft-Gault) 55.9 Glucose Level 136 mg/dL (70-99) Calcium Level 8.2 mg/dL (8.5-10.1) Hepatitis A IgM Antibody Nonreactive (Nonreactive) Hepatitis B Surface Antigen Nonreactive (Nonreactive) Hepatitis B Core IgM Antibody Nonreactive (Nonreactive) Hepatitis C IgG Antibody Nonreactive (Nonreactive) Urine Collection Type Unknown Urine Color Earlene Urine Clarity Clear Urine pH 6.0 (<5.0-8.0) Urine Specific [place] 1.025 (1.000-1.030) Urine Protein Negative mg/dL (NEG-TRACE) Urine Glucose (UA) Negative mg/dL (NEG) Urine Ketones (Stick) Negative mg/dL (NEG) Urine Blood Large (NEG) Urine Nitrite Negative (NEG) Urine Bilirubin Small (NEG) Urine Urobilinogen Dipstick 2.0 mg/dL (0.2 mg/dL) Urine Leukocyte Esterase Negative (NEG) Urine RBC >40 /HPF (0-2) Urine WBC Rare /HPF (0-4) Urine Bacteria 0 /HPF (0-FEW) Urine Hyaline Casts Few /HPF Review All relevant outside records, renal labs, imaging studies, telemetry/EKG's were reviewed. Images Images XR CHEST 1V INDICATION: Reason: please do up right fu effusion 111 / Spl. Instructions: / History: . COMPARISON STUDY: 11/18/2020. FINDINGS: Life Support Devices: Stable right PICC. Left pectoral ICD/pacemaker. Lungs: Low lung volume. Stable patchy bilateral opacities. Pleura: Stable large left pleural effusion. Heart and Mediastinum: Stable cardiomediastinal silhouette and great vessels. IMPRESSION: 1. Stable life support devices. 2. Stable patchy bilateral opacities. 3. Stable large left pleural effusion. CT angiography of the chest, abdomen and pelvis with intravenous contrast. Chest: There are left lower lobe, lingular and right middle lobe pulmonary emboli. There may also be distal right lower lobe pulmonary emboli, difficult to confirm given respiratory motion in this location. There are moderate bilateral pleural effusions. There is associated fluid tracking within the pleural fissures. There is partial left lower lobe consolidation with surrounding groundglass infiltrate. There is right basilar interstitial infiltrate. There is partially consolidated lingular and medial right middle lobe infiltrate with superimposed pleural parenchymal scarring. There is cardiomegaly. There is evidence of prior CABG. There is a cardiac pacemaker. There are prominent mediastinal and hilar lymph nodes. There is no evidence of right heart strain. There is emphysema. There is body wall edema. There is a small hiatal hernia. There are degenerative changes throughout the spine. Abdomen and pelvis: No hepatic lesion is seen. The gallbladder is absent. The pancreas and spleen are unremarkable. There is a 2.4 cm left adrenal nodule. There is also slight nodular thickening of the nhung of the left adrenal gland, without a discrete nodule. There is bilateral renal cortical thinning and lobulation due to scarring. There is a simple left renal cysts. There is moderate abdominal ascites. There is a 2.4 cm left adrenal nodule. There is also nodular thickening of the nhung of the left adrenal gland. There is a small to moderate abdominal ascites. There is diffuse colonic wall thickening. This can be seen in the setting of ascites. There is diffuse mesenteric stranding. There is no bowel obstruction. There is no lymphadenopathy. The abdominal aorta is normal in caliber. There is partially calcified ather osclerotic plaque within the aorta and main aortic branch vessels. No hemodynamically significant stenosis is seen. There is no aneurysm or dissection. There is mild bladder wall thickening. The prostate is mildly enlarged. There is body wall edema. There are degenerative changes throughout the spine. There is no acute osseous finding. IMPRESSION: 1. Left lower lobe, lingular, right middle lobe and possibly right lower lobe pulmonary emboli. No saddle embolus is seen. 2. Multifocal consolidated infiltrate primarily involving the left lower lobe, medial right middle lobe and lingula. The superimposed on diffuse interstitial infiltrate. Follow-up to confirm resolution. 3. Moderate pleural effusions. 4. Small moderate ascites. 5. Emphysema. 6. Colonic wall thickening. This can be seen in the presence of ascites. Correlate with symptomatology to exclude colitis. 7. Mild prostatomegaly. 8. 2.4 cm left adrenal nodule. This can be better assessed with adrenal protocol CT or MRI. 9. Simple appearing left renal cyst. Follow-up is not routinely performed for simple cysts. 10. Cardiomegaly. 11. Prominent mediastinal and hilar lymph nodes, likely reactive in etiology. US DPLX VENOUS EXTREMITY UPPER LT Degraded evaluation due to difficult mobility. The subcutaneous edema. Patent left internal jugular, subclavian, axilla, brachial, ulnar and radial veins. Patent basilic and cephalic veins. No definite thrombus. IMPRESSION: 1. No evidence of left upper extremity deep venous thrombosis. WOODY ARAGON MD November 20, 2020 15:51
--- NOTE | 2020-11-20 17:07 | RAD ---
STUDY: US Abdomen Complete INDICATION: Transaminitis. Microhematuria. COMPARISON: CT abdomen/pelvis 11/17/2020 TECHNIQUE: Real-time grayscale and color Doppler sonographic evaluation of the abdomen. Findings: Technically difficult study. Poorly evaluated pancreas Pancreas: Incompletely assessed. Liver: Within normal limits for size at 15 cm longitudinal. No focal parenchymal abnormality. Aorta/IVC/Main Portal Vein: The proximal aorta is nonaneurysmal. Normal caliber of the IVC at the melissa er. The main portal vein is patent. Hepatofugal flow within the hepatic veins. Gall Bladder: Surgically absent. Common Bile Duct: Nondilated at 0.3 cm. Right Kidney: Measures 11 cm in length. No complex cyst or mass. No hydronephrosis. Left Kidney: Measures 11 cm in length. Simple cyst at the lower aspect of the kidney measuring up to 3.3 cm by ultrasound. No hydronephrosis. Spleen: Within normal limits for size at 10 cm. Miscellaneous: Bilateral pleural effusions. Small volume ascites. Impression: 1. No focal sonographic abnormality of the liver. Patent hepatic vasculature. 2. Surgically absent gallbladder. Unremarkable common duct. 3. No hydronephrosis. Simple left renal cyst. 4. Bilateral pleural effusions and somewhat small volume ascites. 5. Incompletely evaluated pancreas. Electronically signed by: JENNY GUTIERREZ MD (11/20/2020 5:05 PM) [facility] [place]
[2020-11-21] VITALS (19 sets, daily range): BP systolic 99–123; BP diastolic 69–96
[2020-11-21] MEDS: HEPARIN 25,000UTS/250ML PREMIX 250 ML IV PRN (05:02)
[2020-11-21 05:52] LABS: BASO % 0 % (0-3); EOS % 0 % (0-3); HEMATOCRIT 45.1 % (39.0-53.0); HEMOGLOBIN 14.6 g/dL (13.0-17.5); LYMPH # 0.1 x10^3/uL (1.0-4.8); LYMPH % 2 % (24-48); MEAN CORPUSCULAR HEMOGLOBIN 28 pg (25-35); MEAN CORPUSCULAR HGB CONC 32 g/dL (31-37); MEAN CORPUSCULAR VOLUME 87 fL (79-100); MONO # 0.6 x10^3/uL (0.0-1.1); MONO % 8 % (0-9); NEUT # 6.9 x10^3/uL (1.8-7.7); NEUT % 90 % (31-73); PLATELET COUNT 134 x10^3/uL (140-400); RED BLOOD COUNT 5.19 x10^6/uL (4.30-5.70); RED CELL DISTRIBUTION WIDTH 19.4 % (11.5-14.5); WHITE BLOOD COUNT 7.7 x10^3/uL (4.0-11.0)
[2020-11-21 06:09] LABS: ALBUMIN 2.5 g/dL (3.4-5.0); ALBUMIN/GLOBULIN RATIO 0.8 (1.0-1.7); CALCIUM 8.3 mg/dL (8.5-10.1); CREATININE 1.3 mg/dL (0.7-1.3); GFR 55.9; POTASSIUM 3.4 mmol/L (3.5-5.1); TOTAL BILIRUBIN 2.6 mg/dL (0.2-1.0); TOTAL PROTEIN 5.6 g/dL (6.4-8.2)
[2020-11-21] MEDS: AMINO AC 3%/ELECTROLYTE/GLYCER 1,000 ML IV SCH ×2 (06:16→18:47)
[2020-11-21] MEDS: BUDESONIDE 0.5 MG/2 ML NEBU. NEB SCH ×2 (08:10→20:20)
[2020-11-21] MEDS: IPRATRPIUM/ALBUTEROL 0.5/2.5MG 3 ML NEBU. NEB SCH ×4 (08:10→20:20)
[2020-11-21] MEDS: LACTOBACILLUS RHAMNOSUS GG 1 CAPSULE. PO SCH ×2 (08:24→21:15)
[2020-11-21] MEDS: PANTOPRAZOLE IV PUSH 40 MG VIAL. IVP SCH (08:24)
[2020-11-21] MEDS: DOXYCYCLINE HYCLATE 100 MG in IV DEXTROSE 5% 100ML 100 ML IV SCH ×2 (08:25→21:15)
[2020-11-21] MEDS: FUROSEMIDE 100 MG/10 ML VIAL. IVP SCH (08:25)
--- NOTE | 2020-11-21 09:14 | PDOC ---
DATE OF SERVICE DATE: 11/21/20 TIME: 09:04 SUBJECTIVE ROS No new concerns by nursing, LE edema much better , Urine clear , No gross hematuria OBJECTIVE Vital Signs Vital Signs Date Time Temp Pulse Resp B/P (MAP) Pulse Ox O2 Delivery O2 Flow Rate FiO2 11/21/20 08:04 99 Nasal Cannula 2.0 11/21/20 08:00 96.4 73 25 120/80 (93) 96.4 I & 0 Intake and Output 11/21/20 07:00 Intake Total 2299 ml Output Total 2460 ml Balance -161 ml Intake Oral 70 ml IV Total 2229 ml Output Urine Total 2460 ml PHYSICAL EXAM Physical Exam General NAD HEEN OM moist, On o2 by [place] Neck supple Lungs cta, non labored CV S1S2 Abd soft, NT Neuro Grossly normal, baseline confusion/dementia Skin No rash No CVA or SP tenderness , Vinson + Ext Rooke Boots + , per nursing discolored LE , 3 + Edema (Chronic) DIAGNOSIS/ASSESSMENT Assessment & Plan DOE - ATN,/Sepsis Non oliguric, Stable, Cr from 1.5-->1.3 , CTA done at [facility] - bilateral renal cortical thinning and lobulation due to scarring. There is a simple left renal cysts. Supportive care , Avoid nephrotoxins , CKD- suspected , based on Ct Kidney findings, No prior labs Hyponatremia - Mild, Monitor, currently on Procalamine Hematuria Microscopic- UA ordered on 11/20 per primary , Vinson sample ? Trauma, On Heparin as well . No QUIÑONES/Urinary retention at presentation per nursing . Monitor . CT scan mild bladder wall thickening. The prostate is mildly enlarged. US ordered by Dr. Hyman- Kidneys unremarkable, Bladder not reported Acute bilateral Pulmonary embolism - from Lovenox to heparin GTT now . CoVid Negative Acute pneumonia On Abx Sepsis - due to above Acute hypoxic respiratory failure - due to PE, CHF- On o2 by MA , stable CAD s/p CABG 1993 Acute on chronic systolic CHF with prior known 3+ pitting edema for months, S/p AICD , On IV Lasix - management per cardiology Atrial fibrillation - Was on eliquis stopped taking it for 2 weeks prior to admit Transaminits - likely congestive hepatopathy, no ETOH or cirrhosis per patient. Bilirubin is elevated at 4.6. PVD, US artery LUE neg at [facility], poor pulses, cool feet, per vascular COMMENT/RELEVANT DATA Meds Current Medications Medications (Trade) Dose Ordered Sig/Grace Start Time Stop Time Status Last Admin Dose Admin Albuterol/ Ipratropium (Duoneb) 3 ml RTQID 11/18/20 12:00 11/21/20 08:10 3 ML Amino Acids/ Glycerin/ Electrolytes 1,000 ml @ 80 mls/hr [id number] 11/19/20 17:15 11/21/20 06:16 80 MLS/HR Azithromycin (Zithromax) 250 mg DAILY 11/18/20 09:00 11/18/20 08:37 DC Budesonide (Pulmicort) 0.5 mg 1X ONCE 11/18/20 09:30 11/18/20 09:31 DC 11/18/20 12:39 0.5 MG Ceftriaxone Sodium (Rocephin) 2 gm Q24H 11/18/20 14:00 11/20/20 14:42 2 GM Doxycycline Hyclate (Vibra-Tab) 100 mg BID 11/18/20 09:00 11/18/20 09:13 DC Doxycycline Hyclate 100 mg/ Dextrose 100 ml @ 50 mls/hr Q12HR 11/18/20 10:00 11/21/20 08:25 50 MLS/HR Enoxaparin Sodium (Lovenox 100mg Syringe) 90 mg Q12H 11/18/20 06:00 11/18/20 13:34 DC 11/18/20 06:04 90 MG Enoxaparin Sodium (Lovenox 80mg Syringe) 80 mg Q12HR 11/18/20 21:00 11/19/20 09:23 DC 11/19/20 08:05 80 MG Enoxaparin Sodium (Lovenox Per Pharmacy Treatment Dosing) 1 each PRN DAILY PRN 11/17/20 19:00 11/19/20 09:23 DC Furosemide (Lasix) 80 mg DAILY 11/18/20 11:00 11/21/20 08:25 80 MG Heparin Sodium (Porcine) (Heparin Sodium) 1,300 unit PRN Q6HRS PRN 11/19/20 21:00 Heparin Sodium/ Dextrose 250 ml @ 0 mls/hr CONT PRN 11/19/20 21:00 11/21/20 05:02 4.3 MLS/HR Lactobacillus Rhamnosus (Culturelle) 1 cap BID 11/18/20 21:00 11/21/20 08:24 1 CAP Lactulose (Lactulose) 20 gm PRN DAILY PRN 11/18/20 11:00 Metoclopramide HCl (Reglan Vial) 10 mg PRN Q6HRS PRN 11/18/20 11:30 11/18/20 11:40 10 MG Ondansetron HCl (Zofran) 4 mg PRN Q4HRS PRN 11/18/20 11:30 Pantoprazole Sodium (PROTONIX VIAL for IV PUSH) 40 mg DAILYAC 11/18/20 10:00 11/21/20 08:24 40 MG Pantoprazole Sodium (Protonix) 40 mg DAILYAC 11/18/20 09:00 11/18/20 09:21 DC Lab Laboratory Tests Test 11/20/20 09:07 11/20/20 10:30 11/20/20 16:54 11/20/20 23:00 Urine Collection Type Unknown Urine Color Earlene Urine Clarity Clear Urine pH 6.0 (<5.0-8.0) Urine Specific [place] 1.025 (1.000-1.030) Urine Protein Negative mg/dL (NEG-TRACE) Urine Glucose (UA) Negative mg/dL (NEG) Urine Ketones (Stick) Negative mg/dL (NEG) Urine Blood Large (NEG) Urine Nitrite Negative (NEG) Urine Bilirubin Small (NEG) Urine Urobilinogen Dipstick 2.0 mg/dL (0.2 mg/dL) Urine Leukocyte Esterase Negative (NEG) Urine RBC >40 /HPF (0-2) Urine WBC Rare /HPF (0-4) Urine Bacteria 0 /HPF (0-FEW) Urine Hyaline Casts Few /HPF Heparin Anti-Xa Act, Unfractionated > 1.10 IU/mL (0.30-0.70) 1.07 IU/mL (0.30-0.70) 0.92 IU/mL (0.30-0.70) Test 11/21/20 05:30 White Blood Count 7.7 x10^3/uL (4.0-11.0) Red Blood Count 5.19 x10^6/uL (4.30-5.70) Hemoglobin 14.6 g/dL (13.0-17.5) Hematocrit 45.1 % (39.0-53.0) Mean Corpuscular Volume 87 fL (79-100) Mean Corpuscular Hemoglobin 28 pg (25-35) Mean Corpuscular Hemoglobin Concent 32 g/dL (31-37) Red Cell Distribution Width 19.4 % (11.5-14.5) Platelet Count 134 x10^3/uL (140-400) Neutrophils (%) (Auto) 90 % (31-73) Lymphocytes (%) (Auto) 2 % (24-48) Monocytes (%) (Auto) 8 % (0-9) Eosinophils (%) (Auto) 0 % (0-3) Basophils (%) (Auto) 0 % (0-3) Neutrophils # (Auto) 6.9 x10^3/uL (1.8-7.7) Lymphocytes # (Auto) 0.1 x10^3/uL (1.0-4.8) Monocytes # (Auto) 0.6 x10^3/uL (0.0-1.1) Eosinophils # (Auto) 0.0 x10^3/uL (0.0-0.7) Basophils # (Auto) 0.0 x10^3/uL (0.0-0.2) Heparin Anti-Xa Act, Unfractionated 0.66 IU/mL (0.30-0.70) Sodium Level 132 mmol/L (136-145) Potassium Level 3.4 mmol/L (3.5-5.1) Chloride Level 94 mmol/L (98-107) Carbon Dioxide Level 32 mmol/L (21-32) Anion Gap 6 (6-14) Blood Urea Nitrogen 35 mg/dL (8-26) Creatinine 1.3 mg/dL (0.7-1.3) Estimated GFR (Cockcroft-Gault) 55.9 BUN/Creatinine Ratio 27 (6-20) Glucose Level 136 mg/dL (70-99) Calcium Level 8.3 mg/dL (8.5-10.1) Total Bilirubin 2.6 mg/dL (0.2-1.0) Aspartate Amino Transf (AST/SGOT) 27 U/L (15-37) Alanine Aminotransferase (ALT/SGPT) 32 U/L (16-63) Alkaline Phosphatase 217 U/L (46-116) Total Protein 5.6 g/dL (6.4-8.2) Albumin 2.5 g/dL (3.4-5.0) Albumin/Globulin Ratio 0.8 (1.0-1.7) Results All relevant outside records, renal labs, imaging studies, telemetry/EKG's were reviewed. Justicifation of Admission Dx: Justifications for Admission: Justification of Admission Dx: Yes Altered Mental Status: Altered Mental Status WOODY ARAGON MD Nov 21, 2020 09:14
[2020-11-21] MEDS ORDERED: ANTI-COAG MONITOR BY PHARMACY. MC PRN (09:15)
--- NOTE | 2020-11-21 10:30 | PDOC ---
PULMONARY PROGRESS NOTES DATE: 11/21/20 TIME: 10:24 Subjective Patient is resting comfortably on 2 L nasal cannula, reports some shortness of breath with exertion also reports a nonproductive cough Planned for thoracentesis today Remains on heparin drip Overnight concerns from nursing Vitals Vital Signs Date Time Temp Pulse Resp B/P (MAP) Pulse Ox O2 Delivery O2 Flow Rate FiO2 11/21/20 10:00 87 30 115/81 (92) 95 Nasal Cannula 2.0 11/21/20 08:00 96.4 96.4 Comments ros as mentioned as above other sys otherwise neg ROS: No Nausea, No Chest Pain, No Abdominal Pain, No Increase Cough General: Alert, Oriented X4 Lungs: Wheezing, Crackles Cardiovascular: S1, S2 Abdomen: Soft, Non-tender, Other (obese no mass) Neuro Exam: Alert Extremities: Other (edema, and erythema bilateral lower extremities) Skin: Warm Labs Laboratory Tests Test 11/20/20 03:00 11/20/20 05:35 11/20/20 09:07 11/20/20 10:30 Heparin Anti-Xa Act, Unfractionated > 1.10 IU/mL (0.30-0.70) > 1.10 IU/mL (0.30-0.70) White Blood Count 9.6 x10^3/uL (4.0-11.0) Red Blood Count 5.29 x10^6/uL (4.30-5.70) Hemoglobin 14.8 g/dL (13.0-17.5) Hematocrit 45.9 % (39.0-53.0) Mean Corpuscular Volume 87 fL (79-100) Mean Corpuscular Hemoglobin 28 pg (25-35) Mean Corpuscular Hemoglobin Concent 32 g/dL (31-37) Red Cell Distribution Width 19.6 % (11.5-14.5) Platelet Count 160 x10^3/uL (140-400) Neutrophils (%) (Auto) 89 % (31-73) Lymphocytes (%) (Auto) 2 % (24-48) Monocytes (%) (Auto) 9 % (0-9) Eosinophils (%) (Auto) 0 % (0-3) Basophils (%) (Auto) 0 % (0-3) Neutrophils # (Auto) 8.5 x10^3/uL (1.8-7.7) Lymphocytes # (Auto) 0.2 x10^3/uL (1.0-4.8) Monocytes # (Auto) 0.9 x10^3/uL (0.0-1.1) Eosinophils # (Auto) 0.0 x10^3/uL (0.0-0.7) Basophils # (Auto) 0.0 x10^3/uL (0.0-0.2) Sodium Level 134 mmol/L (136-145) Potassium Level 3.6 mmol/L (3.5-5.1) Chloride Level 95 mmol/L (98-107) Carbon Dioxide Level 33 mmol/L (21-32) Anion Gap 6 (6-14) Blood Urea Nitrogen 32 mg/dL (8-26) Creatinine 1.3 mg/dL (0.7-1.3) Estimated GFR (Cockcroft-Gault) 55.9 Glucose Level 136 mg/dL (70-99) Calcium Level 8.2 mg/dL (8.5-10.1) Hepatitis A IgM Antibody Nonreactive (Nonreactive) Hepatitis B Surface Antigen Nonreactive (Nonreactive) Hepatitis B Core IgM Antibody Nonreactive (Nonreactive) Hepatitis C IgG Antibody Nonreactive (Nonreactive) Urine Collection Type Unknown Urine Color Earlene Urine Clarity Clear Urine pH 6.0 (<5.0-8.0) Urine Specific [place] 1.025 (1.000-1.030) Urine Protein Negative mg/dL (NEG-TRACE) Urine Glucose (UA) Negative mg/dL (NEG) Urine Ketones (Stick) Negative mg/dL (NEG) Urine Blood Large (NEG) Urine Nitrite Negative (NEG) Urine Bilirubin Small (NEG) Urine Urobilinogen Dipstick 2.0 mg/dL (0.2 mg/dL) Urine Leukocyte Esterase Negative (NEG) Urine RBC >40 /HPF (0-2) Urine WBC Rare /HPF (0-4) Urine Bacteria 0 /HPF (0-FEW) Urine Hyaline Casts Few /HPF Test 11/20/20 16:54 11/20/20 23:00 11/21/20 05:30 Heparin Anti-Xa Act, Unfractionated 1.07 IU/mL (0.30-0.70) 0.92 IU/mL (0.30-0.70) 0.66 IU/mL (0.30-0.70) White Blood Count 7.7 x10^3/uL (4.0-11.0) Red Blood Count 5.19 x10^6/uL (4.30-5.70) Hemoglobin 14.6 g/dL (13.0-17.5) Hematocrit 45.1 % (39.0-53.0) Mean Corpuscular Volume 87 fL (79-100) Mean Corpuscular Hemoglobin 28 pg (25-35) Mean Corpuscular Hemoglobin Concent 32 g/dL (31-37) Red Cell Distribution Width 19.4 % (11.5-14.5) Platelet Count 134 x10^3/uL (140-400) Neutrophils (%) (Auto) 90 % (31-73) Lymphocytes (%) (Auto) 2 % (24-48) Monocytes (%) (Auto) 8 % (0-9) Eosinophils (%) (Auto) 0 % (0-3) Basophils (%) (Auto) 0 % (0-3) Neutrophils # (Auto) 6.9 x10^3/uL (1.8-7.7) Lymphocytes # (Auto) 0.1 x10^3/uL (1.0-4.8) Monocytes # (Auto) 0.6 x10^3/uL (0.0-1.1) Eosinophils # (Auto) 0.0 x10^3/uL (0.0-0.7) Basophils # (Auto) 0.0 x10^3/uL (0.0-0.2) Sodium Level 132 mmol/L (136-145) Potassium Level 3.4 mmol/L (3.5-5.1) Chloride Level 94 mmol/L (98-107) Carbon Dioxide Level 32 mmol/L (21-32) Anion Gap 6 (6-14) Blood Urea Nitrogen 35 mg/dL (8-26) Creatinine 1.3 mg/dL (0.7-1.3) Estimated GFR (Cockcroft-Gault) 55.9 BUN/Creatinine Ratio 27 (6-20) Glucose Level 136 mg/dL (70-99) Calcium Level 8.3 mg/dL (8.5-10.1) Total Bilirubin 2.6 mg/dL (0.2-1.0) Aspartate Amino Transf (AST/SGOT) 27 U/L (15-37) Alanine Aminotransferase (ALT/SGPT) 32 U/L (16-63) Alkaline Phosphatase 217 U/L (46-116) Total Protein 5.6 g/dL (6.4-8.2) Albumin 2.5 g/dL (3.4-5.0) Albumin/Globulin Ratio 0.8 (1.0-1.7) Prostate Specific Antigen 0.17 ng/mL (0.00-4.00) Laboratory Tests Test 11/20/20 10:30 11/20/20 16:54 11/20/20 23:00 11/21/20 05:30 Heparin Anti-Xa Act, Unfractionated > 1.10 IU/mL (0.30-0.70) 1.07 IU/mL (0.30-0.70) 0.92 IU/mL (0.30-0.70) 0.66 IU/mL (0.30-0.70) White Blood Count 7.7 x10^3/uL (4.0-11.0) Red Blood Count 5.19 x10^6/uL (4.30-5.70) Hemoglobin 14.6 g/dL (13.0-17.5) Hematocrit 45.1 % (39.0-53.0) Mean Corpuscular Volume 87 fL (79-100) Mean Corpuscular Hemoglobin 28 pg (25-35) Mean Corpuscular Hemoglobin Concent 32 g/dL (31-37) Red Cell Distribution Width 19.4 % (11.5-14.5) Platelet Count 134 x10^3/uL (140-400) Neutrophils (%) (Auto) 90 % (31-73) Lymphocytes (%) (Auto) 2 % (24-48) Monocytes (%) (Auto) 8 % (0-9) Eosinophils (%) (Auto) 0 % (0-3) Basophils (%) (Auto) 0 % (0-3) Neutrophils # (Auto) 6.9 x10^3/uL (1.8-7.7) Lymphocytes # (Auto) 0.1 x10^3/uL (1.0-4.8) Monocytes # (Auto) 0.6 x10^3/uL (0.0-1.1) Eosinophils # (Auto) 0.0 x10^3/uL (0.0-0.7) Basophils # (Auto) 0.0 x10^3/uL (0.0-0.2) Sodium Level 132 mmol/L (136-145) Potassium Level 3.4 mmol/L (3.5-5.1) Chloride Level 94 mmol/L (98-107) Carbon Dioxide Level 32 mmol/L (21-32) Anion Gap 6 (6-14) Blood Urea Nitrogen 35 mg/dL (8-26) Creatinine 1.3 mg/dL (0.7-1.3) Estimated GFR (Cockcroft-Gault) 55.9 BUN/Creatinine Ratio 27 (6-20) Glucose Level 136 mg/dL (70-99) Calcium Level 8.3 mg/dL (8.5-10.1) Total Bilirubin 2.6 mg/dL (0.2-1.0) Aspartate Amino Transf (AST/SGOT) 27 U/L (15-37) Alanine Aminotransferase (ALT/SGPT) 32 U/L (16-63) Alkaline Phosphatase 217 U/L (46-116) Total Protein 5.6 g/dL (6.4-8.2) Albumin 2.5 g/dL (3.4-5.0) Albumin/Globulin Ratio 0.8 (1.0-1.7) Prostate Specific Antigen 0.17 ng/mL (0.00-4.00) Comments Chest x-ray reviewed bilateral infiltrates stable left-sided opacity questionable effusion ECHO <Conclusion> The Left Ventricle is borderline dilated. The systolic function is severely impaired. The Ejection Fraction is estimated at 20%. There is severe global hypokinesis of the left ventricle. There is borderline to mild concentric left ventricular hypertrophy. There is a device lead in the right ventricle. Doppler and Color Flow revealed no significant aortic regurgitation. There is no significant aortic valvular stenosis. Doppler and Color-flow revealed mild mitral regurgitation. Doppler and Color Flow revealed mild tricuspid regurgitation with an estimated PAP of 46 mmHg. Impression . IMPRESSION: 1. Acute hypoxemic respiratory failure, multifactorial 2. Abnormal chest x-ray. Left-sided effusion--plan for thoracentesis today 3. Acute pulmonary embolism. 4. Chronic obstructive pulmonary disease. 5. Acute systolic versus diastolic congestive heart failure. 6. Obstructive sleep apnea/hypopnea syndrome. 7. Tobacco habituation. 8. Atrial fibrillation. 9. Coronary artery disease, status post CABG. 10. Negative SARS Covid 2 Bilateral lower extremity venous Dopplers 11/18 IMPRESSION: Partially occlusive DVT is seen involving the posterior tibial veins within the right calf. Plan . UPDATED 11/21/2020 Continue supplemental oxygen to keep oxygen saturations greater than 92%, currently on 2 L nasal cannula Okay to pause heparin 3 hours prior to left-sided thoracentesis Continue bronchodilators including Pulmicort IR consulted, plan for left-sided thoracentesis today Continue antibiotics: marilyn Lund Follow cardiology recommendations---The Ejection Fraction is estimated at 20%. Follow nephrology recommendations DVT/GI prophylaxis Physical therapy/Occupational Therapy Discussed with RN Updated November 20 Patient currently on IV heparin, scheduled to undergo thoracentesis in the a.m. Continue antibiotics Follow cardiology input Up to chair Advance diet PLAN AND RECOMMENDATIONS: 1. I had a long discussion with him regarding smoking cessation. I have advised him to stop smoking forever. 2. 02 titration 3. Lower extremity venous Doppler. Partially occlusive DVT is seen involving the posterior tibial veins within the right calf. 4. Continue Lovenox. 5. Protonix for stress ulcer prophylaxis. 6. bronchodilator and inhaled corticosteroid. 7. Continue antibiotic. 8. COVID testing. neg 9. Cardiology consulted and echocardiogram ordered 10. agree to change Lovenox to hep gtt for possible thoracentesis cont aggressive chf tx (iv lasix) l effusion slightly better, will repeat cxr in am 11. The findings and recommendations were discussed with the patient, RN and Dr. Mary, attending physician. OMID CLINE MD Nov 21, 2020 10:30
--- NOTE | 2020-11-21 10:41 | PDOC ---
PROGRESS NOTES Date of Service: DATE: 11/21/20 TIME: 10:40 Chief Complaint Chief Complaint impression Acute bilateral Pulmonary embolism - will transition from lovenox to heparin GTT in anticipation of consideration of thoracentesis Acute pneumonia - rocephin + doxy acute metabolic encephalopathy Sepsis - due to above Acute hypoxic respiratory failure - due to PE, CHF Stable large left pleural effusion CAD s/p CABG 1993 Acute on chronic systolic CHF with prior known 3+ pitting edema for months, BNP 15k. S/p AICD - cont diuresis Atrial fibrillation - [employer] pacer interrogated at [facility]. Was on eliquis but had been off for 2 weeks prior to admit DOE - creatinine 1.4 - likely vasomotor nephropathy Transaminits - likely congestive hepatopathy, no ETOH or cirrhosis per patient. Bilirubin is elevated at 4.6. INR 1.9 PVD, US artery LUE neg at [facility], poor pulses, cool feet, consult vasc, Nausea and vomiting - KUB ordered, no SBO, reglan helped microhematuria FEN - Cardiac PPX - lovenox FULL CODE Dispo - ICU pulm consult renal sono CC time 42 minutes History of Present Illness History of Present Illness Mr Galindo is a 64-year-old male visiting from [place] w/ PMHx A-Fib, GERD, High Cholesterol, Hypertension, Hypothyroid, CHF s/p AICD placement presents with dizziness, weakness, short of breath. Patient son brought him in and he has been staying with his son. Son states patient has not taken his medications for 2 weeks. Patient denies chest pain. Patient states "I feel like my pacemaker is firing". Patient has 3+ pitting edema on bilateral legs. Patient's left arm is cool to the touch, red. Denies fever, cough. Found on CTPA with multiple left lower lobe pulmonary emboli and moderate large pleural effusion on left and multifocal pneumonia. Accepted for transfer to ICU [facility]. 11/18: Afebrile. Vomiting this morning. States he feels a little better today. Bilirubin up to 4. INR 2.1. COVID negative. BP low Afebrile. Still weak. Sitting in chair. PICC placed for IV access. K 4.7, BUN 27, Cr 1.5, Alk phos 21, Bili 4.1. BP improved. 5-31 PPX - lovenox FULL CODE Dispo - ICU History of bypass surgery. Probable superimposed heart failure. Acute bilateral Pulmonary embolism - will transition from lovenox to heparin GTT in anticipation of consideration of thoracentesis Acute pneumonia - rocephin + doxy Sepsis - due to above Acute hypoxic respiratory failure - due to PE, CHF CAD s/p CABG 1993 pulm consult elevated lft's , sono and GI consult PSA Acute on chronic systolic CHF with prior known 3+ pitting edema for months, BNP 15k. S/p AICD - cont diuresis Atrial fibrillation - [employer] pacer interrogated at [facility]. Was on eliquis but had been off for 2 weeks prior to admit, cardiology consulted DOE - creatinine 1.4 - likely vasomotor nephropathy microhematuria , renal sono, follow ua The Ejection Fraction is estimated at 20%. severe global hypokinesis of the left ventricle. mild concentric left ventricular hypertrophy. mild tricuspid regurgi tation with an estimated PAP of 46 mmHg. H/o biliary stone disease so retained stone possible. ABD SONO PENDING CC time 34 minutes 11/21 PPX - lovenox FULL CODE Dispo - ICU History of bypass surgery. Probable superimposed heart failure. Acute bilateral Pulmonary embolism - will transition from lovenox to heparin GTT in anticipation of consideration of thoracentesis Acute pneumonia - rocephin + doxy Sepsis - due to above Acute hypoxic respiratory failure - due to PE, CHF CAD s/p CABG 1993 pulm consult elevated lft's , sono and GI consult PSA Acute on chronic systolic CHF with prior known 3+ pitting edema for months, BNP 15k. S/p AICD - cont diuresis Atrial fibrillation - [employer]tr[employer] pacer interrogated at [facility]. Was on eliquis but had been off for 2 weeks prior to admit, cardiology consulted DOE - creatinine 1.4 - likely vasomotor nephropathy microhematuria , renal sono, follow ua The Ejection Fraction is estimated at 20%. severe global hypokinesis of the left ventricle. mild concentric left ventricular hypertrophy. mild tricuspid regurgitation with an estimated PAP of 46 mmHg. H/o biliary stone disease so retained stone possible. ABD SONO reviewed CC time 35 minutes Vitals Vitals Vital Signs Date Time Temp Pulse Resp B/P (MAP) Pulse Ox O2 Delivery O2 Flow Rate FiO2 11/21/20 10:00 87 30 115/81 (92) 95 Nasal Cannula 2.0 11/21/20 08:00 96.4 96.4 Physical Exam Physical Exam HEENT: PERRLA Heart: no murmurs, irregularly irregular, other Abdomen: Normal bowel sounds, No tenderness Rectal Exam: not examined Extremities: Other (4+ edema, cold feet and swollen, pulses palpable but faint, cyanosis, ) Skin: Other Neuro: Normal speech, Sensation intact General: mild distress Heart: Regular rate Lungs: Wheezing, Crackles Abdomen: Normal bowel sounds Extremities: Other (4+ edema, cold feet and swollen, pulses palpable but faint, cyanosis, ) Skin: Other Labs LABS PATIENT: EZEQUIEL GALINDO ACCOUNT: [id number] : 1955 LOCATION: [address] [place] [address] AGE: 64 SEX: M EXAM STATUS: ADM IN ORD. PHYSICIAN: MICHELLE KANG MD REASON: transaminitis; micro hematuria PROCEDURE: ABDOMEN COMPLETE STUDY: US Abdomen Complete INDICATION: Transaminitis. Microhematuria. COMPARISON: CT abdomen/pelvis 11/17/2020 TECHNIQUE: Real-time grayscale and color Doppler sonographic evaluation of the abdomen. Findings: Technically difficult study. Poorly evaluated pancreas Pancreas: Incompletely assessed. Liver: Within normal limits for size at 15 cm longitudinal. No focal parenchymal abnormality. Aorta/IVC/Main Portal Vein: The proximal aorta is nonaneurysmal. Normal caliber of the IVC at the liver. The main portal vein is patent. Hepatofugal flow within the hepatic veins. Gall Bladder: Surgically absent. Common Bile Duct: Nondilated at 0.3 cm. Right Kidney: Measures 11 cm in length. No complex cyst or mass. No hydronephrosis. Left Kidney: Measures 11 cm in length. Simple cyst at the lower aspect of the kidney measuring up to 3.3 cm by ultrasound. No hydronephrosis. Spleen: Within normal limits for size at 10 cm. Miscellaneous: Bilateral pleural effusions. Small volume ascites. Impression: 1. No focal sonographic abnormality of the liver. Patent hepatic vasculature. 2. Surgically absent gallbladder. Unremarkable common duct. 3. No hydronephrosis. Simple left renal cyst. 4. Bilateral pleural effusions and somewhat small volume ascites. 5. Incompletely evaluated pancreas. Electronically signed by: JENNY GUTIERREZ MD (11/20/2020 5:05 PM) [facility] DICTATED and SIGNED BY: JENNY GUTIERREZ MD DATE: 11/20/20 [id number] Laboratory Tests Test 11/20/20 16:54 11/20/20 23:00 11/21/20 05:30 Heparin Anti-Xa Act, Unfractionated 1.07 IU/mL (0.30-0.70) 0.92 IU/mL (0.30-0.70) 0.66 IU/mL (0.30-0.70) White Blood Count 7.7 x10^3/uL (4.0-11.0) Red Blood Count 5.19 x10^6/uL (4.30-5.70) Hemoglobin 14.6 g/dL (13.0-17.5) Hematocrit 45.1 % (39.0-53.0) Mean Corpuscular Volume 87 fL (79-100) Mean Corpuscular Hemoglobin 28 pg (25-35) Mean Corpuscular Hemoglobin Concent 32 g/dL (31-37) Red Cell Distribution Width 19.4 % (11.5-14.5) Platelet Count 134 x10^3/uL (140-400) Neutrophils (%) (Auto) 90 % (31-73) Lymphocytes (%) (Auto) 2 % (24-48) Monocytes (%) (Auto) 8 % (0-9) Eosinophils (%) (Auto) 0 % (0-3) Basophils (%) (Auto) 0 % (0-3) Neutrophils # (Auto) 6.9 x10^3/uL (1.8-7.7) Lymphocytes # (Auto) 0.1 x10^3/uL (1.0-4.8) Monocytes # (Auto) 0.6 x10^3/uL (0.0-1.1) Eosinophils # (Auto) 0.0 x10^3/uL (0.0-0.7) Basophils # (Auto) 0.0 x10^3/uL (0.0-0.2) Sodium Level 132 mmol/L (136-145) Potassium Level 3.4 mmol/L (3.5-5.1) Chloride Level 94 mmol/L (98-107) Carbon Dioxide Level 32 mmol/L (21-32) Anion Gap 6 (6-14) Blood Urea Nitrogen 35 mg/dL (8-26) Creatinine 1.3 mg/dL (0.7-1.3) Estimated GFR (Cockcroft-Gault) 55.9 BUN/Creatinine Ratio 27 (6-20) Glucose Level 136 mg/dL (70-99) Calcium Level 8.3 mg/dL (8.5-10.1) Total Bilirubin 2.6 mg/dL (0.2-1.0) Aspartate Amino Transf (AST/SGOT) 27 U/L (15-37) Alanine Aminotransferase (ALT/SGPT) 32 U/L (16-63) Alkaline Phosphatase 217 U/L (46-116) Total Protein 5.6 g/dL (6.4-8.2) Albumin 2.5 g/dL (3.4-5.0) Albumin/Globulin Ratio 0.8 (1.0-1.7) Prostate Specific Antigen 0.17 ng/mL (0.00-4.00) Comment Review of Relevant I have reviewed the following items florecita (where applicable) has been applied. Labs Laboratory Tests Test 11/20/20 03:00 11/20/20 05:35 11/20/20 09:07 11/20/20 10:30 Heparin Anti-Xa Act, Unfractionated > 1.10 IU/mL (0.30-0.70) > 1.10 IU/mL (0.30-0.70) White Blood Count 9.6 x10^3/uL (4.0-11.0) Red Blood Count 5.29 x10^6/uL (4.30-5.70) Hemoglobin 14.8 g/dL (13.0-17.5) Hematocrit 45.9 % (39.0-53.0) Mean Corpuscular Volume 87 fL (79-100) Mean Corpuscular Hemoglobin 28 pg (25-35) Mean Corpuscular Hemoglobin Concent 32 g/dL (31-37) Red Cell Distribution Width 19.6 % (11.5-14.5) Platelet Count 160 x10^3/uL (140-400) Neutrophils (%) (Auto) 89 % (31-73) Lymphocytes (%) (Auto) 2 % (24-48) Monocytes (%) (Auto) 9 % (0-9) Eosinophils (%) (Auto) 0 % (0-3) Basophils (%) (Auto) 0 % (0-3) Neutrophils # (Auto) 8.5 x10^3/uL (1.8-7.7) Lymphocytes # (Auto) 0.2 x10^3/uL (1.0-4.8) Monocytes # (Auto) 0.9 x10^3/uL (0.0-1.1) Eosinophils # (Auto) 0.0 x10^3/uL (0.0-0.7) Basophils # (Auto) 0.0 x10^3/uL (0.0-0.2) Sodium Level 134 mmol/L (136-145) Potassium Level 3.6 mmol/L (3.5-5.1) Chloride Level 95 mmol/L (98-107) Carbon Dioxide Level 33 mmol/L (21-32) Anion Gap 6 (6-14) Blood Urea Nitrogen 32 mg/dL (8-26) Creatinine 1.3 mg/dL (0.7-1.3) Estimated GFR (Cockcroft-Gault) 55.9 Glucose Level 136 mg/dL (70-99) Calcium Level 8.2 mg/dL (8.5-10.1) Hepatitis A IgM Antibody Nonreactive (Nonreactive) Hepatitis B Surface Antigen Nonreactive (Nonreactive) Hepatitis B Core IgM Antibody Nonreactive (Nonreactive) Hepatitis C IgG Antibody Nonreactive (Nonreactive) Urine Collection Type Unknown Urine Color Earlene Urine Clarity Clear Urine pH 6.0 (<5.0-8.0) Urine Specific [place] 1.025 (1.000-1.030) Urine Protein Negative mg/dL (NEG-TRACE) Urine Glucose (UA) Negative mg/dL (NEG) Urine Ketones (Stick) Negative mg/dL (NEG) Urine Blood Large (NEG) Urine Nitrite Negative (NEG) Urine Bilirubin Small (NEG) Urine Urobilinogen Dipstick 2.0 mg/dL (0.2 mg/dL) Urine Leukocyte Esterase Negative (NEG) Urine RBC >40 /HPF (0-2) Urine WBC Rare /HPF (0-4) Urine Bacteria 0 /HPF (0-FEW) Urine Hyaline Casts Few /HPF Test 11/20/20 16:54 11/20/20 23:00 11/21/20 05:30 Heparin Anti-Xa Act, Unfractionated 1.07 IU/mL (0.30-0.70) 0.92 IU/mL (0.30-0.70) 0.66 IU/mL (0.30-0.70) White Blood Count 7.7 x10^3/uL (4.0-11.0) Red Blood Count 5.19 x10^6/uL (4.30-5.70) Hemoglobin 14.6 g/dL (13.0-17.5) Hematocrit 45.1 % (39.0-53.0) Mean Corpuscular Volume 87 fL (79-100) Mean Corpuscular Hemoglobin 28 pg (25-35) Mean Corpuscular Hemoglobin Concent 32 g/dL (31-37) Red Cell Distribution Width 19.4 % (11.5-14.5) Platelet Count 134 x10^3/uL (140-400) Neutrophils (%) (Auto) 90 % (31-73) Lymphocytes (%) (Auto) 2 % (24-48) Monocytes (%) (Auto) 8 % (0-9) Eosinophils (%) (Auto) 0 % (0-3) Basophils (%) (Auto) 0 % (0-3) Neutrophils # (Auto) 6.9 x10^3/uL (1.8-7.7) Lymphocytes # (Auto) 0.1 x10^3/uL (1.0-4.8) Monocytes # (Auto) 0.6 x10^3/uL (0.0-1.1) Eosinophils # (Auto) 0.0 x10^3/uL (0.0-0.7) Basophils # (Auto) 0.0 x10^3/uL (0.0-0.2) Sodium Level 132 mmol/L (136-145) Potassium Level 3.4 mmol/L (3.5-5.1) Chloride Level 94 mmol/L (98-107) Carbon Dioxide Level 32 mmol/L (21-32) Anion Gap 6 (6-14) Blood Urea Nitrogen 35 mg/dL (8-26) Creatinine 1.3 mg/dL (0.7-1.3) Estimated GFR (Cockcroft-Gault) 55.9 BUN/Creatinine Ratio 27 (6-20) Glucose Level 136 mg/dL (70-99) Calcium Level 8.3 mg/dL (8.5-10.1) Total Bilirubin 2.6 mg/dL (0.2-1.0) Aspartate Amino Transf (AST/SGOT) 27 U/L (15-37) Alanine Aminotransferase (ALT/SGPT) 32 U/L (16-63) Alkaline Phosphatase 217 U/L (46-116) Total Protein 5.6 g/dL (6.4-8.2) Albumin 2.5 g/dL (3.4-5.0) Albumin/Globulin Ratio 0.8 (1.0-1.7) Prostate Specific Antigen 0.17 ng/mL (0.00-4.00) Laboratory Tests Test 11/20/20 16:54 11/20/20 23:00 11/21/20 05:30 Heparin Anti-Xa Act, Unfractionated 1.07 IU/mL (0.30-0.70) 0.92 IU/mL (0.30-0.70) 0.66 IU/mL (0.30-0.70) White Blood Count 7.7 x10^3/uL (4.0-11.0) Red Blood Count 5.19 x10^6/uL (4.30-5.70) Hemoglobin 14.6 g/dL (13.0-17.5) Hematocrit 45.1 % (39.0-53.0) Mean Corpuscular Volume 87 fL (79-100) Mean Corpuscular Hemoglobin 28 pg (25-35) Mean Corpuscular Hemoglobin Concent 32 g/dL (31-37) Red Cell Distribution Width 19.4 % (11.5-14.5) Platelet Count 134 x10^3/uL (140-400) Neutrophils (%) (Auto) 90 % (31-73) Lymphocytes (%) (Auto) 2 % (24-48) Monocytes (%) (Auto) 8 % (0-9) Eosinophils (%) (Auto) 0 % (0-3) Basophils (%) (Auto) 0 % (0-3) Neutrophils # (Auto) 6.9 x10^3/uL (1.8-7.7) Lymphocytes # (Auto) 0.1 x10^3/uL (1.0-4.8) Monocytes # (Auto) 0.6 x10^3/uL (0.0-1.1) Eosinophils # (Auto) 0.0 x10^3/uL (0.0-0.7) Basophils # (Auto) 0.0 x10^3/uL (0.0-0.2) Sodium Level 132 mmol/L (136-145) Potassium Level 3.4 mmol/L (3.5-5.1) Chloride Level 94 mmol/L (98-107) Carbon Dioxide Level 32 mmol/L (21-32) Anion Gap 6 (6-14) Blood Urea Nitrogen 35 mg/dL (8-26) Creatinine 1.3 mg/dL (0.7-1.3) Estimated GFR (Cockcroft-Gault) 55.9 BUN/Creatinine Ratio 27 (6-20) Glucose Level 136 mg/dL (70-99) Calcium Level 8.3 mg/dL (8.5-10.1) Total Bilirubin 2.6 mg/dL (0.2-1.0) Aspartate Amino Transf (AST/SGOT) 27 U/L (15-37) Alanine Aminotransferase (ALT/SGPT) 32 U/L (16-63) Alkaline Phosphatase 217 U/L (46-116) Total Protein 5.6 g/dL (6.4-8.2) Albumin 2.5 g/dL (3.4-5.0) Albumin/Globulin Ratio 0.8 (1.0-1.7) Prostate Specific Antigen 0.17 ng/mL (0.00-4.00) Medications Current Medications Enoxaparin Sodium (Lovenox Per Pharmacy Treatment Dosing) 1 each PRN DAILY PRN MC SEE COMMENTS; Start 11/17/20 at 19:00; Stop 11/19/20 at 09:23; Status DC Ondansetron HCl (Zofran) 4 mg PRN Q8HRS PRN IVP NAUSEA/VOMITING Last administered on 11/18/20at 09:05; Start 11/17/20 at 19:00; Stop 11/18/20 at 11:29; Status DC Ceftriaxone Sodium (Rocephin) 2 gm Q24H IVP Last administered on 11/20/20at 14:42; Start 11/18/20 at 14:00 Azithromycin (Zithromax) 250 mg DAILY PO ; Start 11/18/20 at 09:00; Stop 11/18/20 at 08:37; Status DC Enoxaparin Sodium (Lovenox 100mg Syringe) 90 mg Q12H SQ Last administered on 11/18/20at 06:04; Start 11/18/20 at 06:00; Stop 11/18/20 at 13:34; Status DC Doxycycline Hyclate (Vibra-Tab) 100 mg BID PO ; Start 11/18/20 at 09:00; Stop 11/18/20 at 09:13; Status DC Pantoprazole Sodium (Protonix) 40 mg DAILYAC PO ; Start 11/18/20 at 09:00; Stop 11/18/20 at 09:21; Status DC Albuterol/ Ipratropium (Duoneb) 3 ml RTQID NEB Last administered on 11/21/20at 08:10; Start 11/18/20 at 12:00 Budesonide (Pulmicort) 0.5 mg RTBID NEB Last administered on 11/21/20at 08:10; Start 11/18/20 at 20:00 Budesonide (Pulmicort) 0.5 mg 1X ONCE NEB Last administered on 11/18/20at 12:39; Start 11/18/20 at 09:30; Stop 11/18/20 at 09:31; Status DC Doxycycline Hyclate 100 mg/ Dextrose 100 ml @ 50 mls/hr Q12HR IV Last administered on 11/21/20at 08:25; Start 11/18/20 at 10:00 Pantoprazole Sodium (PROTONIX VIAL for IV PUSH) 40 mg DAILYAC IVP Last administered on 11/21/20at 08:24; Start 11/18/20 at 10:00 Amino Acids/ Glycerin/ Electrolytes 1,000 ml @ 80 mls/hr [id number] ONCE IV Last administered on 11/18/20at 09:44; Start 11/18/20 at 09:30; Stop 11/18/20 at 21:59; Status DC Furosemide (Lasix) 80 mg DAILY IVP Last administered on 11/21/20at 08:25; Start 11/18/20 at 11:00 Lactulose (Lactulose) 20 gm PRN DAILY PRN PO CONSTIPATION; Start 11/18/20 at 11:00 Metoclopramide HCl (Reglan Vial) 10 mg PRN Q6HRS PRN IVP NAUSEA/VOMITING, 2ND CHOICE Last administered on 11/18/20at 11:40; Start 11/18/20 at 11:30 Ondansetron HCl (Zofran) 4 mg PRN Q4HRS PRN IVP NAUSEA/VOMITING, 1ST CHOICE; Start 11/18/20 at 11:30 Enoxaparin Sodium (Lovenox 80mg Syringe) 80 mg Q12HR SQ Last administered on at 08:05; Start 11/18/20 at 21:00; Stop 11/19/20 at 09:23; Status DC Lactobacillus Rhamnosus (Culturelle) 1 cap BID PO Last administered on 11/21/20at 08:24; Start 11/18/20 at 21:00 Amino Acids/ Glycerin/ Electrolytes 1,000 ml @ 80 mls/hr [id number] IV Last administered on 11/18/20at 23:04; Start 11/18/20 at 22:15; Stop 11/19/20 at 09:01; Status DC Heparin Sodium/ Dextrose 250 ml @ 0 mls/hr CONT PRN IV PER PROTOCOL Last administered on 11/21/20at 05:02; Start 11/19/20 at 21:00 Heparin Sodium (Porcine) (Heparin Sodium) 2,600 unit PRN Q6HRS PRN IV FOR UFH LEVEL LESS THAN 0.2; Start 11/19/20 at 21:00 Heparin Sodium (Porcine) (Heparin Sodium) 1,300 unit PRN Q6HRS PRN IV FOR UFH LEVEL 0.2 - 0.29; Start 11/19/20 at 21:00 Amino Acids/ Glycerin/ Electrolytes 1,000 ml @ 80 mls/hr [id number] IV Last administered on 11/21/20at 06:16; Start 11/19/20 at 17:15 Info (Anti-Coagulation Monitoring By Pharmacy) 1 each PRN DAILY PRN MC PER PROTOCOL Last administered on 11/21/20at 09:06; Start 11/21/20 at 09:15 Vitals/I & O Vital Sign - Last 24 Hours 11/20/20 11/20/20 11/20/20 11/20/20 11:00 11:42 12:00 12:00 Temp 98.3 98.3 Pulse 84 84 Resp B/P (MAP) 125/87 (100) 111/84 (93) Pulse Ox 98 97 98 O2 Delivery Nasal Cannula Nasal Cannula Nasal Cannula Nasal Cannula O2 Flow Rate 3.0 3.0 3.0 3.0 11/20/20 11/20/20 11/20/20 11/20/20 13:00 14:00 14:52 15:00 Pulse 88 77 79 Resp B/P (MAP) 131/81 (98) 110/81 (91) 118/80 (93) Pulse Ox 90 94 94 94 O2 Delivery Nasal Cannula Nasal Cannula Nasal Cannula Nasal Cannula O2 Flow Rate 3.0 3.0 3.0 3.0 11/20/20 11/20/20 11/20/20 11/20/20 16:00 16:00 17:00 18:00 Temp 97.8 97.8 Pulse 74 78 72 Resp B/P (MAP) 110/88 (95) 109/77 (88) 104/72 (83) Pulse Ox 92 99 99 O2 Delivery Nasal Cannula Nasal Cannula Nasal Cannula Nasal Cannula O2 Flow Rate 3.0 3.0 3.0 3.0 11/20/20 11/20/20 11/20/20 11/20/20 19:00 20:00 20:00 20:00 Temp 97.6 97.6 Pulse 64 82 Resp B/P (MAP) 108/83 (91) 101/77 (85) Pulse Ox 96 94 94 O2 Delivery Nasal Cannula Nasal Cannula Nasal Cannula Nasal Cannula O2 Flow Rate 2.0 2.0 2.0 2.0 11/20/20 11/20/20 11/20/20 11/21/20 21:00 22:00 23:00 00:00 Pulse 74 80 77 Resp B/P (MAP) 107/74 (85) 104/74 (84) 113/77 (89) Pulse Ox 97 91 92 O2 Delivery Nasal Cannula Nasal Cannula Nasal Cannula Nasal Cannula O2 Flow Rate 2.0 2.0 2.0 2.0 11/21/20 11/21/20 11/21/20 11/21/20 00:00 01:00 02:00 03:00 Temp 97.0 97.0 Pulse 72 75 75 67 Resp 26 26 25 B/P (MAP) 99/78 (85) 108/73 (85) 104/76 (85) 109/77 (88) Pulse Ox 96 96 95 95 O2 Delivery Nasal Cannula Nasal Cannula Nasal Cannula Nasal Cannula O2 Flow Rate 2.0 2.0 2.0 2.0 11/21/20 11/21/20 11/21/20 11/21/20 04:00 04:00 05:00 06:00 Temp 96.4 96.4 Pulse 73 75 67 Resp 28 26 B/P (MAP) 104/75 (85) 114/78 (90) 110/82 (91) Pulse Ox 93 94 94 O2 Delivery Nasal Cannula Nasal Cannula Nasal Cannula Nasal Cannula O2 Flow Rate 2.0 2.0 2.0 2.0 11/21/20 11/21/20 11/21/20 11/21/20 07:00 08:00 08:00 08:04 Temp 96.4 96.4 Pulse 76 73 Resp 27 25 B/P (MAP) 105/73 (84) 120/80 (93) Pulse Ox 94 96 99 O2 Delivery Nasal Cannula Nasal Cannula Nasal Cannula Nasal Cannula O2 Flow Rate 2.0 2.0 2.0 2.0 11/21/20 11/21/20 09:00 10:00 Pulse 82 87 Resp 27 30 B/P (MAP) 123/96 (105) 115/81 (92) Pulse Ox 97 95 O2 Delivery Nasal Cannula Nasal Cannula O2 Flow Rate 2.0 2.0 Intake and Output 11/20/20 11/20/20 11/21/20 15:00 23:00 07:00 Intake Total 20 ml 1113 ml 1166 ml Output Total 775 ml 1370 ml 315 ml Balance -755 ml -257 ml 851 ml Justicifation of Admission Dx: Justifications for Admission: Justification of Admission Dx: Yes Altered Mental Status: Altered Mental Status MICHELLE KANG MD Nov 21, 2020 10:40
[2020-11-21 11:42] LABS: PROTHROMBIN TIME PATIENT 21.2 SEC (11.7-14.0)
--- NOTE | 2020-11-21 13:05 | PDOC ---
Date of Service: DATE: 11/21/20 TIME: 12:58 Subjective: Subjective: Says "nah" to all questions. Objective: Objective: I saw him earlier this morning - d/w nurse - no appetite, on PPN, possible thoracentesis today. Vital Signs: Vital Signs Date Time Temp Pulse Resp B/P (MAP) Pulse Ox O2 Delivery O2 Flow Rate FiO2 11/21/20 12:00 Nasal Cannula 2.0 11/21/20 12:00 97.3 68 25 99/71 (80) 96 97.3 Labs: Laboratory Tests Test 11/20/20 16:54 11/20/20 23:00 11/21/20 05:30 11/21/20 11:15 Heparin Anti-Xa Act, Unfractionated 1.07 IU/mL 0.92 IU/mL 0.66 IU/mL 0.55 IU/mL White Blood Count 7.7 x10^3/uL Red Blood Count 5.19 x10^6/uL Hemoglobin 14.6 g/dL Hematocrit 45.1 % Mean Corpuscular Volume 87 fL Mean Corpuscular Hemoglobin 28 pg Mean Corpuscular Hemoglobin Concent 32 g/dL Red Cell Distribution Width 19.4 % Platelet Count 134 x10^3/uL Neutrophils (%) (Auto) 90 % Lymphocytes (%) (Auto) 2 % Monocytes (%) (Auto) 8 % Eosinophils (%) (Auto) 0 % Basophils (%) (Auto) 0 % Neutrophils # (Auto) 6.9 x10^3/uL Lymphocytes # (Auto) 0.1 x10^3/uL Monocytes # (Auto) 0.6 x10^3/uL Eosinophils # (Auto) 0.0 x10^3/uL Basophils # (Auto) 0.0 x10^3/uL Sodium Level 132 mmol/L Potassium Level 3.4 mmol/L Chloride Level 94 mmol/L Carbon Dioxide Level 32 mmol/L Anion Gap 6 Blood Urea Nitrogen 35 mg/dL Creatinine 1.3 mg/dL Estimated GFR (Cockcroft-Gault) 55.9 BUN/Creatinine Ratio 27 Glucose Level 136 mg/dL Calcium Level 8.3 mg/dL Total Bilirubin 2.6 mg/dL Aspartate Amino Transf (AST/SGOT) 27 U/L Alanine Aminotransferase (ALT/SGPT) 32 U/L Alkaline Phosphatase 217 U/L Total Protein 5.6 g/dL Albumin 2.5 g/dL Albumin/Globulin Ratio 0.8 Prostate Specific Antigen 0.17 ng/mL Prothrombin Time 21.2 SEC Prothromb Time International Ratio 1.9 Imaging: Abd US Impression: 1. No focal sonographic abnormality of the liver. Patent hepatic vasculature. 2. Surgically absent gallbladder. Unremarkable common duct. 3. No hydronephrosis. Simple left renal cyst. 4. Bilateral pleural effusions and somewhat small volume ascites. 5. Incompletely evaluated pancreas. PE: GEN: ill LUNGS: NC 2L, diminished HEART: RR ABD: soft, non-tender SKIN: +jaundice EXTREM: BLE edema NEURO/PSYCH: confused A/P: PEs, DVT, CHF Decreased appetite Elevated bilirubin and Alk Phos - better/stable - Hep panel negative, normal liver and CBD on US, small ascites, s/p angelina GERD - on PPI -- Continue support per GI. Justicifation of Admission Dx: Justifications for Admission: Justification of Admission Dx: Yes Altered Mental Status: Altered Mental Status LUIS MIGUEL HUGHES Nov 21, 2020 13:05
[2020-11-21] MEDS: cefTRIAXone IV Push 2 GM VIAL. IVP SCH (15:04)
--- NOTE | 2020-11-21 15:08 | RAD ---
Left Thoracentesis 11/20/2020 1:52 PM Clinical History: Left pleural effusion. Technique: Relative benefits risks and alternatives were discussed with the patient and/or their rep resentative. Written informed consent was obtained. The patient was placed in seated position. A rosana eout procedure was performed. Sonographic assessment demonstrates a large pleural effusion. A site for skin entry was selected, and subsequently prepped and draped using sterile barrier technique. 1% lidocaine without epinepherine was administered for local anesthesia to the skin and subcutaenous tissues. A 5 Q[place] sheathed needle was passed into the pleural space. Clear yellow fluid was aspirated and t he catheter was connected to a vacuum. Approximately 1.5 liters of fluid were drained. The catheter w as removed and adequate hemostasis was obtained. A sterile dressing was applied. The patient tolerat ed the procedure well, without complications. Impression: Successful ultrasound guided left thoracentesis with removal 1.3 liters of fluid. Electronically signed by: Toni Trinidad MD (11/21/2020 3:06 PM) [id number]
--- NOTE | 2020-11-21 15:12 | PDOC ---
Exam [employer]els [employer] Vivi Pre-Procedure Diagnosis Pre-Procedure Diagnosis Left pleural effusion Post-Procedure Diagnosis Post-Procedure Diagnosis Same Procedure Performed Procedure Performed Left thoracentesis Type of Anesthesia Type of Anesthesia none Estimated Blood Loss EBL: 3 Specimens Specimans Fluid aspirate Drain/Tubes Drains/Tubes none Condition of Patient Condition of Patient critically ill, but unchanged Disposition Disposition ICU YOLI HOLLAND MD Nov 21, 2020 15:12
--- NOTE | 2020-11-21 16:29 | NUR ---
SS following for discharge planning. SS reviewed pt chart and discussed with pt RN. Pt is from home in [place] and was visiting his son and daughter in law and [place]. COVID19 negative. Pt on PPN, IV Rocephin, and IV Doxycycline. Pt on Heparin drip and IV Lasix. Pt had Thoracentesis today. PT/OT recommended longterm unit. Pt is BPCI. SS met with pt and contacted pt's son and provided detailed explanation of BPCI and provided in network provider list. Pt's family requesting referral to [facility], ; fax [phone], at this time. SS phoned and faxed referral as requested. SS will continue to follow for discharge planning.
--- NOTE | 2020-11-21 16:56 | PDOC ---
PROGRESS NOTES Date of Service DATE: 11/21/20 TIME: 16:54 Subjective Subjective Patient seen and examined Objective Objective Vital Signs Date Time Temp Pulse Resp B/P (MAP) Pulse Ox O2 Delivery O2 Flow Rate FiO2 11/21/20 16:00 97.6 75 24 104/74 (84) 94 Nasal Cannula 2.0 97.6 Intake and Output 11/21/20 07:00 Intake Total 2299 ml Output Total 2460 ml Balance -161 ml Intake Oral 70 ml IV Total 2229 ml Output Urine Total 2460 ml Physical Exam Abdomen: Normal bowel sounds Heart: Regular rate General: mild distress Lungs: Other (Decreased breath sounds left greater than right) Assessment Assessment 1. Pulmonary emboli, acute. The patient is feeling mildly better. Outside studies show multiple areas of PEs. The patient continues on anticoagulation. He had been on Eliquis for his atrial fibrillation but by report has not taken it for over 2 weeks. We will continue other present medications. Echo shows severely decreased LV function with an ejection fraction of 20%, mild mitral regurgitation and mild tricuspid regurgitation with a pulmonary artery pressure of 46 mmHg. Thoracentesis pending for later today. 2. Pneumonia. Pulmonary treatments and antibiotics as per the primary and pulmonary services. Thoracentesis as above 3. History of bypass surgery. LV ejection fraction is above at 20%. We will continue baseline medications and attempt to obtain old records. 4. Atrial fibrillation. Had been on Eliquis but no medications for 2 weeks. Anticoagulation as above restart and adjust rate control medications as needed. 5. Hypertension. Continuing medical treatment. Comment Review of Relevant I have reviewed the following items florecita (where applicable) has been applied. Labs Laboratory Tests Test 11/20/20 03:00 11/20/20 05:35 11/20/20 09:07 11/20/20 10:30 Heparin Anti-Xa Act, Unfractionated > 1.10 IU/mL (0.30-0.70) > 1.10 IU/mL (0.30-0.70) White Blood Count 9.6 x10^3/uL (4.0-11.0) Red Blood Count 5.29 x10^6/uL (4.30-5.70) Hemoglobin 14.8 g/dL (13.0-17.5) Hematocrit 45.9 % (39.0-53.0) Mean Corpuscular Volume 87 fL (79-100) Mean Corpuscular Hemoglobin 28 pg (25-35) Mean Corpuscular Hemoglobin Concent 32 g/dL (31-37) Red Cell Distribution Width 19.6 % (11.5-14.5) Platelet Count 160 x10^3/uL (140-400) Neutrophils (%) (Auto) 89 % (31-73) Lymphocytes (%) (Auto) 2 % (24-48) Monocytes (%) (Auto) 9 % (0-9) Eosinophils (%) (Auto) 0 % (0-3) Basophils (%) (Auto) 0 % (0-3) Neutrophils # (Auto) 8.5 x10^3/uL (1.8-7.7) Lymphocytes # (Auto) 0.2 x10^3/uL (1.0-4.8) Monocytes # (Auto) 0.9 x10^3/uL (0.0-1.1) Eosinophils # (Auto) 0.0 x10^3/uL (0.0-0.7) Basophils # (Auto) 0.0 x10^3/uL (0.0-0.2) Sodium Level 134 mmol/L (136-145) Potassium Level 3.6 mmol/L (3.5-5.1) Chloride Level 95 mmol/L (98-107) Carbon Dioxide Level 33 mmol/L (21-32) Anion Gap 6 (6-14) Blood Urea Nitrogen 32 mg/dL (8-26) Creatinine 1.3 mg/dL (0.7-1.3) Estimated GFR (Cockcroft-Gault) 55.9 Glucose Level 136 mg/dL (70-99) Calcium Level 8.2 mg/dL (8.5-10.1) Hepatitis A IgM Antibody Nonreactive (Nonreactive) Hepatitis B Surface Antigen Nonreactive (Nonreactive) Hepatitis B Core IgM Antibody Nonreactive (Nonreactive) Hepatitis C IgG Antibody Nonreactive (Nonreactive) Urine Collection Type Unknown Urine Color Earlene Urine Clarity Clear Urine pH 6.0 (<5.0-8.0) Urine Specific [place] 1.025 (1.000-1.030) Urine Protein Negative mg/dL (NEG-TRACE) Urine Glucose (UA) Negative mg/dL (NEG) Urine Ketones (Stick) Negative mg/dL (NEG) Urine Blood Large (NEG) Urine Nitrite Negative (NEG) Urine Bilirubin Small (NEG) Urine Urobilinogen Dipstick 2.0 mg/dL (0.2 mg/dL) Urine Leukocyte Esterase Negative (NEG) Urine RBC >40 /HPF (0-2) Urine WBC Rare /HPF (0-4) Urine Bacteria 0 /HPF (0-FEW) Urine Hyaline Casts Few /HPF Test 11/20/20 16:54 11/20/20 23:00 11/21/20 05:30 11/21/20 11:15 Heparin Anti-Xa Act, Unfractionated 1.07 IU/mL (0.30-0.70) 0.92 IU/mL (0.30-0.70) 0.66 IU/mL (0.30-0.70) 0.55 IU/mL (0.30-0.70) White Blood Count 7.7 x10^3/uL (4.0-11.0) Red Blood Count 5.19 x10^6/uL (4.30-5.70) Hemoglobin 14.6 g/dL (13.0-17.5) Hematocrit 45.1 % (39.0-53.0) Mean Corpuscular Volume 87 fL (79-100) Mean Corpuscular Hemoglobin 28 pg (25-35) Mean Corpuscular Hemoglobin Concent 32 g/dL (31-37) Red Cell Distribution Width 19.4 % (11.5-14.5) Platelet Count 134 x10^3/uL (140-400) Neutrophils (%) (Auto) 90 % (31-73) Lymphocytes (%) (Auto) 2 % (24-48) Monocytes (%) (Auto) 8 % (0-9) Eosinophils (%) (Auto) 0 % (0-3) Basophils (%) (Auto) 0 % (0-3) Neutrophils # (Auto) 6.9 x10^3/uL (1.8-7.7) Lymphocytes # (Auto) 0.1 x10^3/uL (1.0-4.8) Monocytes # (Auto) 0.6 x10^3/uL (0.0-1.1) Eosinophils # (Auto) 0.0 x10^3/uL (0.0-0.7) Basophils # (Auto) 0.0 x10^3/uL (0.0-0.2) Sodium Level 132 mmol/L (136-145) Potassium Level 3.4 mmol/L (3.5-5.1) Chloride Level 94 mmol/L (98-107) Carbon Dioxide Level 32 mmol/L (21-32) Anion Gap 6 (6-14) Blood Urea Nitrogen 35 mg/dL (8-26) Creatinine 1.3 mg/dL (0.7-1.3) Estimated GFR (Cockcroft-Gault) 55.9 BUN/Creatinine Ratio 27 (6-20) Glucose Level 136 mg/dL (70-99) Calcium Level 8.3 mg/dL (8.5-10.1) Total Bilirubin 2.6 mg/dL (0.2-1.0) Aspartate Amino Transf (AST/SGOT) 27 U/L (15-37) Alanine Aminotransferase (ALT/SGPT) 32 U/L (16-63) Alkaline Phosphatase 217 U/L (46-116) Total Protein 5.6 g/dL (6.4-8.2) Albumin 2.5 g/dL (3.4-5.0) Albumin/Globulin Ratio 0.8 (1.0-1.7) Prostate Specific Antigen 0.17 ng/mL (0.00-4.00) Prothrombin Time 21.2 SEC (11.7-14.0) Prothromb Time International Ratio 1.9 (0.8-1.1) Test 11/21/20 14:10 Body Fluid pH 7.45 Laboratory Tests Test 11/20/20 23:00 11/21/20 05:30 11/21/20 11:15 11/21/20 14:10 Heparin Anti-Xa Act, Unfractionated 0.92 IU/mL (0.30-0.70) 0.66 IU/mL (0.30-0.70) 0.55 IU/mL (0.30-0.70) White Blood Count 7.7 x10^3/uL (4.0-11.0) Red Blood Count 5.19 x10^6/uL (4.30-5.70) Hemoglobin 14.6 g/dL (13.0-17.5) Hematocrit 45.1 % (39.0-53.0) Mean Corpuscular Volume 87 fL (79-100) Mean Corpuscular Hemoglobin 28 pg (25-35) Mean Corpuscular Hemoglobin Concent 32 g/dL (31-37) Red Cell Distribution Width 19.4 % (11.5-14.5) Platelet Count 134 x10^3/uL (140-400) Neutrophils (%) (Auto) 90 % (31-73) Lymphocytes (%) (Auto) 2 % (24-48) Monocytes (%) (Auto) 8 % (0-9) Eosinophils (%) (Auto) 0 % (0-3) Basophils (%) (Auto) 0 % (0-3) Neutrophils # (Auto) 6.9 x10^3/uL (1.8-7.7) Lymphocytes # (Auto) 0.1 x10^3/uL (1.0-4.8) Monocytes # (Auto) 0.6 x10^3/uL (0.0-1.1) Eosinophils # (Auto) 0.0 x10^3/uL (0.0-0.7) Basophils # (Auto) 0.0 x10^3/uL (0.0-0.2) Sodium Level 132 mmol/L (136-145) Potassium Level 3.4 mmol/L (3.5-5.1) Chloride Level 94 mmol/L (98-107) Carbon Dioxide Level 32 mmol/L (21-32) Anion Gap 6 (6-14) Blood Urea Nitrogen 35 mg/dL (8-26) Creatinine 1.3 mg/dL (0.7-1.3) Estimated GFR (Cockcroft-Gault) 55.9 BUN/Creatinine Ratio 27 (6-20) Glucose Level 136 mg/dL (70-99) Calcium Level 8.3 mg/dL (8.5-10.1) Total Bilirubin 2.6 mg/dL (0.2-1.0) Aspartate Amino Transf (AST/SGOT) 27 U/L (15-37) Alanine Aminotransferase (ALT/SGPT) 32 U/L (16-63) Alkaline Phosphatase 217 U/L (46-116) Total Protein 5.6 g/dL (6.4-8.2) Albumin 2.5 g/dL (3.4-5.0) Albumin/Globulin Ratio 0.8 (1.0-1.7) Prostate Specific Antigen 0.17 ng/mL (0.00-4.00) Prothrombin Time 21.2 SEC (11.7-14.0) Prothromb Time International Ratio 1.9 (0.8-1.1) Body Fluid pH 7.45 Medications Current Medications Enoxaparin Sodium (Lovenox Per Pharmacy Treatment Dosing) 1 each PRN DAILY PRN MC SEE COMMENTS; Start 11/17/20 at 19:00; Stop 11/19/20 at 09:23; Status DC Ondansetron HCl (Zofran) 4 mg PRN Q8HRS PRN IVP NAUSEA/VOMITING Last administ ered on 11/18/20at 09:05; Start 11/17/20 at 19:00; Stop 11/18/20 at 11:29; Status DC Ceftriaxone Sodium (Rocephin) 2 gm Q24H IVP Last administered on 11/21/20at 15:04; Start 11/18/20 at 14:00 Azithromycin (Zithromax) 250 mg DAILY PO ; Start 11/18/20 at 09:00; Stop 11/18/20 at 08:37; Status DC Enoxaparin Sodium (Lovenox 100mg Syringe) 90 mg Q12H SQ Last administered on 11/18/20at 06:04; Start 11/18/20 at 06:00; Stop 11/18/20 at 13:34; Status DC Doxycycline Hyclate (Vibra-Tab) 100 mg BID PO ; Start 11/18/20 at 09:00; Stop 11/18/20 at 09:13; Status DC Pantoprazole Sodium (Protonix) 40 mg DAILYAC PO ; Start 11/18/20 at 09:00; Stop 11/18/20 at 09:21; Status DC Albuterol/ Ipratropium (Duoneb) 3 ml RTQID NEB Last administered on 11/21/20at 15:14; Start 11/18/20 at 12:00 Budesonide (Pulmicort) 0.5 mg RTBID NEB Last administered on 11/21/20at 08:10; Start 11/18/20 at 20:00 Budesonide (Pulmicort) 0.5 mg 1X ONCE NEB Last administered on 11/18/20at 12:39; Start 11/18/20 at 09:30; Stop 11/18/20 at 09:31; Status DC Doxycycline Hyclate 100 mg/ Dextrose 100 ml @ 50 mls/hr Q12HR IV Last administered on 11/21/20at 08:25; Start 11/18/20 at 10:00 Pantoprazole Sodium (PROTONIX VIAL for IV PUSH) 40 mg DAILYAC IVP Last administered on 11/21/20at 08:24; Start 11/18/20 at 10:00 Amino Acids/ Glycerin/ Electrolytes 1,000 ml @ 80 mls/hr [id number] ONCE IV Last administered on 11/18/20at 09:44; Start 11/18/20 at 09:30; Stop 11/18/20 at 21:59; Status DC Furosemide (Lasix) 80 mg DAILY IVP Last administered on 11/21/20at 08:25; Start 11/18/20 at 11:00 Lactulose (Lactulose) 20 gm PRN DAILY PRN PO CONSTIPATION; Start 11/18/20 at 11:00 Metoclopramide HCl (Reglan Vial) 10 mg PRN Q6HRS PRN IVP NAUSEA/VOMITING, 2ND CHOICE Last administered on 11/18/20at 11:40; Start 11/18/20 at 11:30 Ondansetron HCl (Zofran) 4 mg PRN Q4HRS PRN IVP NAUSEA/VOMITING, 1ST CHOICE; Start 11/18/20 at 11:30 Enoxaparin Sodium (Lovenox 80mg Syringe) 80 mg Q12HR SQ Last administered on 11/19/20at 08:05; Start 11/18/20 at 21:00; Stop 11/19/20 at 09:23; Status DC Lactobacillus Rhamnosus (Culturelle) 1 cap BID PO Last administered on 11/21/20at 08:24; Start 11/18/20 at 21:00 Amino Acids/ Glycerin/ Electrolytes 1,000 ml @ 80 mls/hr [id number] IV Last administered on 11/18/20at 23:04; Start 11/18/20 at 22:15; Stop 11/19/20 at 09:01; Status DC Heparin Sodium/ Dextrose 250 ml @ 0 mls/hr CONT PRN IV PER PROTOCOL Last administered on 11/21/20at 05:02; Start 11/19/20 at 21:00 Heparin Sodium (Porcine) (Heparin Sodium) 2,600 unit PRN Q6HRS PRN IV FOR UFH LEVEL LESS THAN 0.2; Start 11/19/20 at 21:00 Heparin Sodium (Porcine) (Heparin Sodium) 1,300 unit PRN Q6HRS PRN IV FOR UFH LEVEL 0.2 - 0.29; Start 11/19/20 at 21:00 Amino Acids/ Glycerin/ Electrolytes 1,000 ml @ 80 mls/hr [id number] IV Last administered on 11/21/20at 06:16; Start 11/19/20 at 17:15 Info (Anti-Coagulation Monitoring By Pharmacy) 1 each PRN DAILY PRN MC PER PROTOCOL Last administered on 11/21/20at 09:06; Start 11/21/20 at 09:15 Vitals/I & O Vital Sign - Last 24 Hours 11/20/20 11/20/20 11/20/20 11/20/20 17:00 18:00 19:00 20:00 Pulse 78 72 64 Resp 24 B/P (MAP) 109/77 (88) 104/72 (83) 108/83 (91) Pulse Ox 99 99 96 O2 Delivery Nasal Cannula Nasal Cannula Nasal Cannula Nasal Cannula O2 Flow Rate 3.0 3.0 2.0 2.0 11/20/20 11/20/20 11/20/20 11/20/20 20:00 20:00 21:00 22:00 Temp 97.6 97.6 Pulse 82 74 80 Resp 28 B/P (MAP) 101/77 (85) 107/74 (85) 104/74 (84) Pulse Ox 94 94 97 91 O2 Delivery Nasal Cannula Nasal Cannula Nasal Cannula Nasal Cannula O2 Flow Rate 2.0 2.0 2.0 2.0 11/20/20 11/21/20 11/21/20 11/21/20 23:00 00:00 00:00 01:00 Temp 97.0 97.0 Pulse 77 72 75 Resp 26 B/P (MAP) 113/77 (89) 99/78 (85) 108/73 (85) Pulse Ox 92 96 96 O2 Delivery Nasal Cannula Nasal Cannula Nasal Cannula Nasal Cannula O2 Flow Rate 2.0 2.0 2.0 2.0 11/21/20 11/21/20 11/21/20/1/21 02:00 03:00 04:00 04:00 Temp 96.4 96.4 Pulse 75 67 73 Resp 26 B/P (MAP) 104/76 (85) 109/77 (88) 104/75 (85) Pulse Ox 95 95 93 O2 Delivery Nasal Cannula Nasal Cannula Nasal Cannula Nasal Cannula O2 Flow Rate 2.0 2.0 2.0 2.0 11/21/20 11/21/20 11/21/20 11/21/20 05:00 06:00 07:00 08:00 Pulse 75 67 76 Resp 28 27 B/P (MAP) 114/78 (90) 110/82 (91) 105/73 (84) Pulse Ox 94 94 94 O2 Delivery Nasal Cannula Nasal Cannula Nasal Cannula Nasal Cannula O2 Flow Rate 2.0 2.0 2.0 2.0 11/21/20 11/21/20 11/21/20 11/21/20 08:00 08:04 09:00 10:00 Temp 96.4 96.4 Pulse 73 82 87 Resp 30 B/P (MAP) 120/80 (93) 123/96 (105) 115/81 (92) Pulse Ox 96 99 97 95 O2 Delivery Nasal Cannula Nasal Cannula Nasal Cannula Nasal Cannula O2 Flow Rate 2.0 2.0 2.0 2.0 11/21/20 11/21/20 11/21/20 11/21/20 11:00 11:40 12:00 12:00 Temp 97.3 97.3 Pulse 78 68 Resp 25 B/P (MAP) 116/84 (95) 99/71 (80) Pulse Ox 96 96 O2 Delivery Nasal Cannula Nasal Cannula Nasal Cannula Nasal Cannula O2 Flow Rate 2.0 2.0 2.0 2.0 11/21/20 11/21/20 11/21/20 11/21/20 13:00 14:00 15:00 15:14 Pulse 70 74 70 Resp 22 25 B/P (MAP) 105/72 (83) 99/76 (84) 106/71 (83) Pulse Ox 97 94 100 O2 Delivery Nasal Cannula Nasal Cannula Nasal Cannula Nasal Cannula O2 Flow Rate 2.0 2.0 2.0 2.0 11/21/20 11/21/20 16:00 16:00 Temp 97.6 97.6 Pulse 75 Resp 24 B/P (MAP) 104/74 (84) Pulse Ox 94 O2 Delivery Nasal Cannula Nasal Cannula O2 Flow Rate 2.0 2.0 Intake and Output 11/20/20 11/20/20 11/21/20 15:00 23:00 07:00 Intake Total 20 ml 1113 ml 1166 ml Output Total 775 ml 1370 ml 315 ml Balance -755 ml -257 ml 851 ml Justifications for Admission Other Justification Nutrition Consultation Dietary Evaluation: Recommendations by RD: Dietary education by RD, PPN/TPN Comments: continue Cardiac diet, honor food preferencs and offer snacks/ supplements from unit prn. REC continue PPN for short term non - oral nutrition until appetite/ po intake improves Expected Outcomes/Goals: to meet >50% est nutr needs via po intake Malnutrition Findings: Weight Status: Appropriate Fluid Accumulation (Non-Severe: Mild depletion JIM GRAFF MD Nov 21, 2020 16:56
[2020-11-22] VITALS (7 sets, daily range): BP systolic 97–104; BP diastolic 66–81
[2020-11-22 04:08] LABS: CREATININE 1.1 mg/dL (0.7-1.3); GFR 67.8
[2020-11-22] MEDS: AMINO AC 3%/ELECTROLYTE/GLYCER 1,000 ML IV SCH ×2 (07:29→19:27)
[2020-11-22] MEDS: PANTOPRAZOLE IV PUSH 40 MG VIAL. IVP SCH (07:29)
[2020-11-22] MEDS: BUDESONIDE 0.5 MG/2 ML NEBU. NEB SCH ×2 (07:58→20:35)
[2020-11-22] MEDS: IPRATRPIUM/ALBUTEROL 0.5/2.5MG 3 ML NEBU. NEB SCH ×4 (07:58→20:35)
[2020-11-22] MEDS: DOXYCYCLINE HYCLATE 100 MG in IV DEXTROSE 5% 100ML 100 ML IV SCH ×2 (08:44→20:30)
[2020-11-22] MEDS: LACTOBACILLUS RHAMNOSUS GG 1 CAPSULE. PO SCH ×2 (08:45→20:31)
[2020-11-22] MEDS: POTASSIUM CHLORIDE 20MEQ 100 ML IV SCH ×4 (09:43→14:05)
--- NOTE | 2020-11-22 09:56 | PDOC ---
PROGRESS NOTES Date of Service: DATE: 11/22/20 TIME: 09:55 Chief Complaint Chief Complaint impression Acute bilateral Pulmonary embolism - will transition from lovenox to heparin GTT in anticipation of consideration of thoracentesis Acute pneumonia - rocephin + doxy acute metabolic encephalopathy Sepsis - due to above Acute hypoxic respiratory failure - due to PE, CHF Stable large left pleural effusion CAD s/p CABG 1993 Acute on chronic systolic CHF with prior known 3+ pitting edema for months, BNP 15k. S/p AICD - cont diuresis Atrial fibrillation - [employer] pacer interrogated at [facility]. Was on eliquis but had been off for 2 weeks prior to admit DOE - creatinine 1.4 - likely vasomotor nephropathy Transaminits - likely congestive hepatopathy, no ETOH or cirrhosis per patient. Bilirubin is elevated at 4.6. INR 1.9 PVD, US artery LUE neg at [facility], poor pulses, cool feet, consult vasc, Nausea and vomiting - KUB ordered, no SBO, reglan helped microhematuria FEN - Cardiac PPX - lovenox FULL CODE Dispo - ICU pulm consult renal sono CC time 42 minutes History of Present Illness History of Present Illness Mr Galindo is a 64-year-old male visiting from [place] w/ PMHx A-Fib, GERD, High Cholesterol, Hypertension, Hypothyroid, CHF s/p AICD placement presents with dizziness, weakness, short of breath. Patient son brought him in and he has been staying with his son. Son states patient has not taken his medications for 2 weeks. Patient denies chest pain. Patient states "I feel like my pacemaker is firing". Patient has 3+ pitting edema on bilateral legs. Patient's left arm is cool to the touch, red. Denies fever, cough. Found on CTPA with multiple left lower lobe pulmonary emboli and moderate large pleural effusion on left and multifocal pneumonia. Accepted for transfer to ICU [facility]. 11/18: Afebrile. Vomiting this morning. States he feels a little better today. Bilirubin up to 4. INR 2.1. COVID negative. BP low Afebrile. Still weak. Sitting in chair. PICC placed for IV access. K 4.7, BUN 27, Cr 1.5, Alk phos 21, Bili 4.1. BP improved. 5-31 PPX - lovenox FULL CODE Dispo - ICU History of bypass surgery. Probable superimposed heart failure. Acute bilateral Pulmonary embolism - will transition from lovenox to heparin GTT in anticipation of consideration of thoracentesis Acute pneumonia - rocephin + doxy Sepsis - due to above Acute hypoxic respiratory failure - due to PE, CHF CAD s/p CABG 1993 pulm consult elevated lft's , sono and GI consult PSA Acute on chronic systolic CHF with prior known 3+ pitting edema for months, BNP 15k. S/p AICD - cont diuresis Atrial fibrillation - [employer] pacer interrogated at [facility]. Was on eliquis but had been off for 2 weeks prior to admit, cardiology consulted DOE - creatinine 1.4 - likely vasomotor nephropathy microhematuria , renal sono, follow ua The Ejection Fraction is estimated at 20%. severe global hypokinesis of the left ventricle. mild concentric left ventricular hypertrophy. mild tricuspid regurgi tation with an estimated PAP of 46 mmHg. H/o biliary stone disease so retained stone possible. ABD SONO PENDING CC time 34 minutes 11/21 PPX - lovenox FULL CODE Dispo - ICU History of bypass surgery. Probable superimposed heart failure. Acute bilateral Pulmonary embolism - will transition from lovenox to heparin GTT in anticipation of consideration of thoracentesis Acute pneumonia - rocephin + doxy Sepsis - due to above Acute hypoxic respiratory failure - due to PE, CHF CAD s/p CABG 1993 pulm consult elevated lft's , sono and GI consult PSA Acute on chronic systolic CHF with prior known 3+ pitting edema for months, BNP 15k. S/p AICD - cont diuresis Atrial fibrillation - [employer] pacer interrogated at [facility]. Was on eliquis but had been off for 2 weeks prior to admit, cardiology consulted DOE - creatinine 1.4 - likely vasomotor nephropathy microhematuria , renal sono, follow ua The Ejection Fraction is estimated at 20%. severe global hypokinesis of the left ventricle. mild concentric left ventricular hypertrophy. mild tricuspid regurgitation with an estimated PAP of 46 mmHg. H/o biliary stone disease so retained stone possible. ABD SONO reviewed CC time 35 minutes 11/22 PPX - lovenox FULL CODE Dispo - ICU History of bypass surgery. Probable superimposed heart failure. Acute bilateral Pulmonary embolism - will transition from lovenox to heparin GTT in anticipation of consideration of thoracentesis Acute pneumonia - rocephin + doxy Sepsis - due to above Acute hypoxic respiratory failure - due to PE, CHF CAD s/p CABG 1993 pulm consult elevated lft's , sono and GI consult PSA Acute on chronic systolic CHF with prior known 3+ pitting edema for months, BNP 15k. S/p AICD - cont diuresis Atrial fibrillation - [employer] pacer interrogated at [facility]. Was on eliquis but had been off for 2 weeks prior to admit, cardiology consulted DOE - creatinine 1.4 - likely vasomotor nephropathy microhematuria , renal sono, follow ua The Ejection Fraction is estimated at 20%. severe global hypokinesis of the left ventricle. mild concentric left ventricular hypertrophy. mild tricuspid regurgitation with an estimated PAP of 46 mmHg. H/o biliary stone disease so retained stone possible. ABD SONO reviewed CC time 33 minutes Vitals Vitals Vital Signs Date Time Temp Pulse Resp B/P (MAP) Pulse Ox O2 Delivery O2 Flow Rate FiO2 11/22/20 08:00 Nasal Cannula 2.0 11/22/20 07:58 96 11/22/20 07:00 98.0 65 27 98/67 (77) 98.0 Physical Exam Physical Exam HEENT: PERRLA Heart: no murmurs, irregularly irregular, other Abdomen: Normal bowel sounds, No tenderness Rectal Exam: not examined Extremities: Other (4+ edema, cold feet and swollen, pulses palpable but faint, cyanosis, ) Skin: Other Neuro: Normal speech, Sensation intact General: mild distress Heart: Regular rate Lungs: Wheezing, Crackles Abdomen: Normal bowel sounds Extremities: Other (4+ edema, cold feet and swollen, pulses palpable but faint, cyanosis, ) Skin: Other Labs LABS Signed PATIENT: EZEQUIEL GALINDO ACCOUNT: [id number] : 1955 LOCATION: [address] [place] [address] AGE: 64 SEX: M EXAM STATUS: ADM IN ORD. PHYSICIAN: MICHELLE KANG MD REASON: transaminitis; micro hematuria PROCEDURE: ABDOMEN COMPLETE STUDY: US Abdomen Complete INDICATION: Transaminitis. Microhematuria. COMPARISON: CT abdomen/pelvis 11/17/2020 TECHNIQUE: Real-time grayscale and color Doppler sonographic evaluation of the abdomen. Findings: Technically difficult study. Poorly evaluated pancreas Pancreas: Incompletely assessed. Liver: Within normal limits for size at 15 cm longitudinal. No focal parenchymal abnormality. Aorta/IVC/Main Portal Vein: The proximal aorta is nonaneurysmal. Normal caliber of the IVC at the liver. The main portal vein is patent. Hepatofugal flow within the hepatic veins. Gall Bladder: Surgically absent. Common Bile Duct: Nondilated at 0.3 cm. Right Kidney: Measures 11 cm in length. No complex cyst or mass. No hydronephrosis. Left Kidney: Measures 11 cm in length. Simple cyst at the lower aspect of the kidney measuring up to 3.3 cm by ultrasound. No hydronephrosis. Spleen: Within normal limits for size at 10 cm. Miscellaneous: Bilateral pleural effusions. Small volume ascites. Impression: 1. No focal sonographic abnormality of the liver. Patent hepatic vasculature. 2. Surgically absent gallbladder. Unremarkable common duct. 3. No hydronephrosis. Simple left renal cyst. 4. Bilateral pleural effusions and somewhat small volume ascites. 5. Incompletely evaluated pancreas. Electronically signed by: JENNY GUTIERREZ MD (11/20/2020 5:05 PM) [facility] Laboratory Tests Test 11/21/20 11:15 11/21/20 14:10 11/21/20 21:15 11/22/20 03:35 Prothrombin Time 21.2 SEC (11.7-14.0) Prothromb Time International Ratio 1.9 (0.8-1.1) Heparin Anti-Xa Act, Unfractionated 0.55 IU/mL (0.30-0.70) 0.36 IU/mL (0.30-0.70) 0.34 IU/mL (0.30-0.70) Body Fluid pH 7.45 Sodium Level 135 mmol/L (136-145) Potassium Level 3.0 mmol/L (3.5-5.1) Chloride Level 93 mmol/L (98-107) Carbon Dioxide Level 37 mmol/L (21-32) Anion Gap 5 (6-14) Blood Urea Nitrogen 34 mg/dL (8-26) Creatinine 1.1 mg/dL (0.7-1.3) Estimated GFR (Cockcroft-Gault) 67.8 Glucose Level 120 mg/dL (70-99) Calcium Level 8.0 mg/dL (8.5-10.1) Comment Review of Relevant I have reviewed the following items florecita (where applicable) has been applied. Labs Laboratory Tests Test 11/20/20 10:30 11/20/20 16:54 11/20/20 23:00 11/21/20 05:30 Heparin Anti-Xa Act, Unfractionated > 1.10 IU/mL (0.30-0.70) 1.07 IU/mL (0.30-0.70) 0.92 IU/mL (0.30-0.70) 0.66 IU/mL (0.30-0.70) White Blood Count 7.7 x10^3/uL (4.0-11.0) Red Blood Count 5.19 x10^6/uL (4.30-5.70) Hemoglobin 14.6 g/dL (13.0-17.5) Hematocrit 45.1 % (39.0-53.0) Mean Corpuscular Volume 87 fL (79-100) Mean Corpuscular Hemoglobin 28 pg (25-35) Mean Corpuscular Hemoglobin Concent 32 g/dL (31-37) Red Cell Distribution Width 19.4 % (11.5-14.5) Platelet Count 134 x10^3/uL (140-400) Neutrophils (%) (Auto) 90 % (31-73) Lymphocytes (%) (Auto) 2 % (24-48) Monocytes (%) (Auto) 8 % (0-9) Eosinophils (%) (Auto) 0 % (0-3) Basophils (%) (Auto) 0 % (0-3) Neutrophils # (Auto) 6.9 x10^3/uL (1.8-7.7) Lymphocytes # (Auto) 0.1 x10^3/uL (1.0-4.8) Monocytes # (Auto) 0.6 x10^3/uL (0.0-1.1) Eosinophils # (Auto) 0.0 x10^3/uL (0.0-0.7) Basophils # (Auto) 0.0 x10^3/uL (0.0-0.2) Sodium Level 132 mmol/L (136-145) Potassium Level 3.4 mmol/L (3.5-5.1) Chloride Level 94 mmol/L (98-107) Carbon Dioxide Level 32 mmol/L (21-32) Anion Gap 6 (6-14) Blood Urea Nitrogen 35 mg/dL (8-26) Creatinine 1.3 mg/dL (0.7-1.3) Estimated GFR (Cockcroft-Gault) 55.9 BUN/Creatinine Ratio 27 (6-20) Glucose Level 136 mg/dL (70-99) Calcium Level 8.3 mg/dL (8.5-10.1) Total Bilirubin 2.6 mg/dL (0.2-1.0) Aspartate Amino Transf (AST/SGOT) 27 U/L (15-37) Alanine Aminotransferase (ALT/SGPT) 32 U/L (16-63) Alkaline Phosphatase 217 U/L (46-116) Total Protein 5.6 g/dL (6.4-8.2) Albumin 2.5 g/dL (3.4-5.0) Albumin/Globulin Ratio 0.8 (1.0-1.7) Prostate Specific Antigen 0.17 ng/mL (0.00-4.00) Test 11/21/20 11:15 11/21/20 14:10 11/21/20 21:15 11/22/20 03:35 Prothrombin Time 21.2 SEC (11.7-14.0) Prothromb Time International Ratio 1.9 (0.8-1.1) Heparin Anti-Xa Act, Unfractionated 0.55 IU/mL (0.30-0.70) 0.36 IU/mL (0.30-0.70) 0.34 IU/mL (0.30-0.70) Body Fluid pH 7.45 Sodium Level 135 mmol/L (136-145) Potassium Level 3.0 mmol/L (3.5-5.1) Chloride Level 93 mmol/L (98-107) Carbon Dioxide Level 37 mmol/L (21-32) Anion Gap 5 (6-14) Blood Urea Nitrogen 34 mg/dL (8-26) Creatinine 1.1 mg/dL (0.7-1.3) Estimated GFR (Cockcroft-Gault) 67.8 Glucose Level 120 mg/dL (70-99) Calcium Level 8.0 mg/dL (8.5-10.1) Laboratory Tests Test 11/21/20 11:15 11/21/20 14:10 11/21/20 21:15 11/22/20 03:35 Prothrombin Time 21.2 SEC (11.7-14.0) Prothromb Time International Ratio 1.9 (0.8-1.1) Heparin Anti-Xa Act, Unfractionated 0.55 IU/mL (0.30-0.70) 0.36 IU/mL (0.30-0.70) 0.34 IU/mL (0.30-0.70) Body Fluid pH 7.45 Sodium Level 135 mmol/L (136-145) Potassium Level 3.0 mmol/L (3.5-5.1) Chloride Level 93 mmol/L (98-107) Carbon Dioxide Level 37 mmol/L (21-32) Anion Gap 5 (6-14) Blood Urea Nitrogen 34 mg/dL (8-26) Creatinine 1.1 mg/dL (0.7-1.3) Estimated GFR (Cockcroft-Gault) 67.8 Glucose Level 120 mg/dL (70-99) Calcium Level 8.0 mg/dL (8.5-10.1) Medications Current Medications Enoxaparin Sodium (Lovenox Per Pharmacy Treatment Dosing) 1 each PRN DAILY PRN MC SEE COMMENTS; Start 11/17/20 at 19:00; Stop 11/19/20 at 09:23; Status DC Ondansetron HCl (Zofran) 4 mg PRN Q8HRS PRN IVP NAUSEA/VOMITING Last administered on 11/18/20at 09:05; Start 11/17/20 at 19:00; Stop 11/18/20 at 11: 29; Status DC Ceftriaxone Sodium (Rocephin) 2 gm Q24H IVP Last administered on 11/21/20at 15:04; Start 11/18/20 at 14:00 Azithromycin (Zithromax) 250 mg DAILY PO ; Start 11/18/20 at 09:00; Stop 11/18/20 at 08:37; Status DC Enoxaparin Sodium (Lovenox 100mg Syringe) 90 mg Q12H SQ Last administered on 11/18/20at 06:04; Start 11/18/20 at 06:00; Stop 11/18/20 at 13:34; Status DC Doxycycline Hyclate (Vibra-Tab) 100 mg BID PO ; Start 11/18/20 at 09:00; Stop 11/18/20 at 09:13; Status DC Pantoprazole Sodium (Protonix) 40 mg DAILYAC PO ; Start 11/18/20 at 09:00; Stop 11/18/20 at 09:21; Status DC Albuterol/ Ipratropium (Duoneb) 3 ml RTQID NEB Last administered on 11/22/20at 07:58; Start 11/18/20 at 12:00 Budesonide (Pulmicort) 0.5 mg RTBID NEB Last administered on 11/22/20at 07:58; Start 11/18/20 at 20:00 Budesonide (Pulmicort) 0.5 mg 1X ONCE NEB Last administered on 11/18/20at 12:39; Start 11/18/20 at 09:30; Stop 11/18/20 at 09:31; Status DC Doxycycline Hyclate 100 mg/ Dextrose 100 ml @ 50 mls/hr Q12HR IV Last ad ministered on 11/22/20at 08:44; Start 11/18/20 at 10:00 Pantoprazole Sodium (PROTONIX VIAL for IV PUSH) 40 mg DAILYAC IVP Last ad ministered on 11/22/20at 07:29; Start 11/18/20 at 10:00 Amino Acids/ Glycerin/ Electrolytes 1,000 ml @ 80 mls/hr [id number] ONCE IV Last administered on 11/18/20at 09:44; Start 11/18/20 at 09:30; Stop 11/18/20 at 21:59; Status DC Furosemide (Lasix) 80 mg DAILY IVP Last administered on 11/21/20at 08:25; Start 11/18/20 at 11:00 Lactulose (Lactulose) 20 gm PRN DAILY PRN PO CONSTIPATION; Start 11/18/20 at 11:00 Metoclopramide HCl (Reglan Vial) 10 mg PRN Q6HRS PRN IVP NAUSEA/VOMITING, 2ND CHOICE Last administered on 11/18/20at 11:40; Start 11/18/20 at 11:30 Ondansetron HCl (Zofran) 4 mg PRN Q4HRS PRN IVP NAUSEA/VOMITING, 1ST CHOICE; Start 11/18/20 at 11:30 Enoxaparin Sodium (Lovenox 80mg Syringe) 80 mg Q12HR SQ Last administered on 11/19/20at 08:05; Start 11/18/20 at 21:00; Stop 11/19/20 at 09:23; Status DC Lactobacillus Rhamnosus (Culturelle) 1 cap BID PO Last administered on 11/22/20at 08:45; Start 11/18/20 at 21:00 Amino Acids/ Glycerin/ Electrolytes 1,000 ml @ 80 mls/hr [id number] IV Last administered on 11/18/20at 23:04; Start 11/18/20 at 22:15; Stop 11/19/20 at 09:01; Status DC Heparin Sodium/ Dextrose 250 ml @ 0 mls/hr CONT PRN IV PER PROTOCOL Last administered on 11/21/20at 05:02; Start 11/19/20 at 21:00 Heparin Sodium (Porcine) (Heparin Sodium) 2,600 unit PRN Q6HRS PRN IV FOR UFH LEVEL LESS THAN 0.2; Start 11/19/20 at 21:00 Heparin Sodium (Porcine) (Heparin Sodium) 1,300 unit PRN Q6HRS PRN IV FOR UFH LEVEL 0.2 - 0.29; Start 11/19/20 at 21:00 Amino Acids/ Glycerin/ Electrolytes 1,000 ml @ 80 mls/hr [id number] IV Last administered on 11/22/20at 07:29; Start 11/19/20 at 17:15 Info (Anti-Coagulation Monitoring By Pharmacy) 1 each PRN DAILY PRN MC PER PROTOCOL Last administered on 11/21/20at 09:06; Start 11/21/20 at 09:15 Potassium Chloride/Water 100 ml @ 100 mls/hr Q1H IV Last administered on 11/22/20at 09:43; Start 11/22/20 at 10:00; Stop 11/22/20 at 13:59 Vitals/I & O Vital Sign - Last 24 Hours 11/21/20 11/21/20 11/21/20 11/21/20 10:00 11:00 11:40 12:00 Temp 97.3 97.3 Pulse 87 78 68 Resp 30 24 25 B/P (MAP) 115/81 (92) 116/84 (95) 99/71 (80) Pulse Ox 95 96 96 O2 Delivery Nasal Cannula Nasal Cannula Nasal Cannula Nasal Cannula O2 Flow Rate 2.0 2.0 2.0 2.0 11/21/20 11/21/20 11/21/20 11/21/20 12:00 13:00 14:00 15:00 Pulse 70 74 70 Resp 27 22 25 B/P (MAP) 105/72 (83) 99/76 (84) 106/71 (83) Pulse Ox 97 94 100 O2 Delivery Nasal Cannula Nasal Cannula Nasal Cannula Nasal Cannula O2 Flow Rate 2.0 2.0 2.0 2.0 11/21/20 11/21/20 11/21/20 11/21/20 15:14 16:00 16:00 19:00 Temp 97.6 96.6 97.6 96.6 Pulse 75 65 Resp 24 18 B/P (MAP) 104/74 (84) 105/72 (83) Pulse Ox 94 93 O2 Delivery Nasal Cannula Nasal Cannula Nasal Cannula Nasal Cannula O2 Flow Rate 2.0 2.0 2.0 2.0 11/21/20 11/21/20 11/21/20 11/22/20 20:00 20:19 23:00 03:00 Temp 97.7 97.8 97.7 97.8 Pulse 62 67 Resp 24 24 B/P (MAP) 100/69 (79) 98/69 (79) Pulse Ox 94 94 96 O2 Delivery Nasal Cannula Nasal Cannula Nasal Cannula Nasal Cannula O2 Flow Rate 2.0 2.0 2.0 2.0 11/22/20 11/22/20 11/22/20 07:00 07:58 08:00 Temp 98.0 98.0 Pulse 65 Resp 27 B/P (MAP) 98/67 (77) Pulse Ox 95 96 O2 Delivery Nasal Cannula Nasal Cannula Nasal Cannula O2 Flow Rate 2.0 2.0 2.0 Intake and Output 11/21/20 11/21/20 11/22/20 15:00 23:00 07:00 Intake Total 100 ml 997 ml 1120 ml Output Total 2300 ml 790 ml 435 ml Balance -2200 ml 207 ml 685 ml Nutrition Consultation Dietary Evaluation: Recommendations by RD: Dietary education by RD, PPN/TPN Comments: continue Cardiac diet, honor food preferencs and offer snacks/ supplements from unit prn. REC continue PPN for short term non - oral nutrition until appetite/ po intake improves Expected Outcomes/Goals: to meet >50% est nutr needs via po intake Malnutrition Findings: Weight Status: Appropriate Fluid Accumulation (Non-Severe: Mild depletion Justicifation of Admission Dx: Justifications for Admission: Justification of Admission Dx: Yes Altered Mental Status: Altered Mental Status MICHELLE KANG MD Nov 22, 2020 09:55
--- NOTE | 2020-11-22 10:05 | PDOC ---
DATE OF SERVICE DATE: 11/22/20 TIME: 10:00 SUBJECTIVE ROS stable , s/p Thoracentesis Lt Poor appetite OBJECTIVE Vital Signs Vital Signs Date Time Temp Pulse Resp B/P (MAP) Pulse Ox O2 Delivery O2 Flow Rate FiO2 11/22/20 08:00 Nasal Cannula 2.0 11/22/20 07:58 96 11/22/20 07:00 98.0 65 27 98/67 (77) 98.0 I & 0 Intake and Output 11/22/20 07:00 Intake Total 2217 ml Output Total 3525 ml Balance -1308 ml Intake Oral 0 ml IV Total 2217 ml Output Urine Total 2275 ml Drainage Total 1250 ml PHYSICAL EXAM Physical Exam General NAD HEEN OM moist, On o2 by [facility] Neck supple Lungs cta, non labored CV S1S2 Abd soft, NT Neuro Grossly normal, baseline confusion/dementia Skin No rash No CVA or SP tenderness , Vinson + Ext Rooke Boots + discolored LE , 2 + Edema (Chronic) DIAGNOSIS/ASSESSMENT Assessment & Plan DOE - ATN,/Sepsis Non oliguric, Improving renal function , CTA done at [facility] - bilateral renal cortical thinning and lobulation due to scarring. There is a simple left renal cysts.Supportive care , Avoid nephrotoxins , CKD- suspected , based on Ct Kidney findings, No prior labs Hyponatremia - Mild, Monitor, currently on Procalamine Hematuria Microscopic- UA ordered on 11/20 per primary , Vinson sample ? Trauma, On Heparin as well . No QUIÑONES/Urinary retention at presentation per nursing . Monitor . CT scan mild bladder wall thickening. The prostate is mildly enlarged. US ordered by Dr. Hyman- Kidneys unremarkable, Bladder not reported Acute bilateral Pulmonary embolism - from Lovenox to heparin GTT now . CoVid Negative Acute pneumonia On Abx Sepsis - due to above Acute hypoxic respiratory failure - due to PE, CHF- On o2 by [facility] , stable S/P Lt thoracentesis 11/21-1.3 lts drained CAD s/p CABG 1993 Acute on chronic systolic CHF with prior known 3+ pitting edema for months, S/p AICD , On IV Lasix - management per cardiology Atrial fibrillation - Was on eliquis stopped taking it for 2 weeks prior to admit Transaminits - likely congestive hepatopathy, no ETOH or cirrhosis per patient. Bilirubin is elevated at 4.6. PVD, US artery LUE neg at [facility], poor pulses, cool feet, per vascular COMMENT/RELEVANT DATA Meds Current Medications Medications (Trade) Dose Ordered Sig/Grace Start Time Stop Time Status Last Admin Dose Admin Albuterol/ Ipratropium (Duoneb) 3 ml RTQID 11/18/20 12:00 11/22/20 07:58 3 ML Amino Acids/ Glycerin/ Electrolytes 1,000 ml @ 80 mls/hr [id number] 11/19/20 17:15 11/22/20 07:29 80 MLS/HR Azithromycin (Zithromax) 250 mg DAILY 11/18/20 09:00 11/18/20 08:37 DC Budesonide (Pulmicort) 0.5 mg 1X ONCE 11/18/20 09:30 11/18/20 09:31 DC 11/18/20 12:39 0.5 MG Ceftriaxone Sodium (Rocephin) 2 gm Q24H 11/18/20 14:00 11/21/20 15:04 2 GM Doxycycline Hyclate (Vibra-Tab) 100 mg BID 11/18/20 09:00 11/18/20 09:13 DC Doxycycline Hyclate 100 mg/ Dextrose 100 ml @ 50 mls/hr Q12HR 11/18/20 10:00 11/22/20 08:44 50 MLS/HR Enoxaparin Sodium (Lovenox 100mg Syringe) 90 mg Q12H 11/18/20 06:00 11/18/20 13:34 DC 11/18/20 06:04 90 MG Enoxaparin Sodium (Lovenox 80mg Syringe) 80 mg Q12HR 11/18/20 21:00 11/19/20 09:23 DC 11/19/20 08:05 80 MG Enoxaparin Sodium (Lovenox Per Pharmacy Treatment Dosing) 1 each PRN DAILY PRN 11/17/20 19:00 11/19/20 09:23 DC Furosemide (Lasix) 80 mg DAILY 11/18/20 11:00 11/21/20 08:25 80 MG Heparin Sodium (Porcine) (Heparin Sodium) 1,300 unit PRN Q6HRS PRN 11/19/20 21:00 Heparin Sodium/ Dextrose 250 ml @ 0 mls/hr CONT PRN 11/19/20 21:00 11/21/20 05:02 4.3 MLS/HR Info (Anti-Coagulation Monitoring By Pharmacy) 1 each PRN DAILY PRN 11/21/20 09:15 11/21/20 09:06 1 EACH Lactobacillus Rhamnosus (Culturelle) 1 cap BID 11/18/20 21:00 11/22/20 08:45 1 CAP Lactulose (Lactulose) 20 gm PRN DAILY PRN 11/18/20 11:00 Metoclopramide HCl (Reglan Vial) 10 mg PRN Q6HRS PRN 11/18/20 11:30 11/18/20 11:40 10 MG Ondansetron HCl (Zofran) 4 mg PRN Q4HRS PRN 11/18/20 11:30 Pantoprazole Sodium (PROTONIX VIAL for IV PUSH) 40 mg DAILYAC 11/18/20 10:00 11/22/20 07:29 40 MG Pantoprazole Sodium (Protonix) 40 mg DAILYAC 11/18/20 09:00 11/18/20 09:21 DC Potassium Chloride/Water 100 ml @ 100 mls/hr Q1H 11/22/20 10:00 11/22/20 13:59 11/22/20 09:43 100 MLS/HR Lab Laboratory Tests Test 11/21/20 11:15 11/21/20 14:10 11/21/20 21:15 11/22/20 03:35 Prothrombin Time 21.2 SEC (11.7-14.0) Prothromb Time International Ratio 1.9 (0.8-1.1) Heparin Anti-Xa Act, Unfractionated 0.55 IU/mL (0.30-0.70) 0.36 IU/mL (0.30-0.70) 0.34 IU/mL (0.30-0.70) Body Fluid pH 7.45 Sodium Level 135 mmol/L (136-145) Potassium Level 3.0 mmol/L (3.5-5.1) Chloride Level 93 mmol/L (98-107) Carbon Dioxide Level 37 mmol/L (21-32) Anion Gap 5 (6-14) Blood Urea Nitrogen 34 mg/dL (8-26) Creatinine 1.1 mg/dL (0.7-1.3) Estimated GFR (Cockcroft-Gault) 67.8 Glucose Level 120 mg/dL (70-99) Calcium Level 8.0 mg/dL (8.5-10.1) Results All relevant outside records, renal labs, imaging studies, telemetry/EKG's were reviewed. Justicifation of Admission Dx: Justifications for Admission: Justification of Admission Dx: Yes Altered Mental Status: Altered Mental Status WOODY ARAGON MD Nov 22, 2020 10:05
--- NOTE | 2020-11-22 10:27 | PDOC ---
Date of Service: DATE: 11/22/20 TIME: 10:23 Subjective: Subjective: Didn't eat breakfast because wasn't hungry. Objective: Objective: D/w nurse - stable GI-urias - not eating much, on PPN. S/p thoracentesis yesterday. Vital Signs: Vital Signs Date Time Temp Pulse Resp B/P (MAP) Pulse Ox O2 Delivery O2 Flow Rate FiO2 11/22/20 08:00 Nasal Cannula 2.0 11/22/20 07:58 96 11/22/20 07:00 98.0 65 27 98/67 (77) 98.0 Labs: Laboratory Tests Test 11/21/20 11:15 11/21/20 14:10 11/21/20 21:15 11/22/20 03:35 Prothrombin Time 21.2 SEC Prothromb Time International Ratio 1.9 Heparin Anti-Xa Act, Unfractionated 0.55 IU/mL 0.36 IU/mL 0.34 IU/mL Body Fluid pH 7.45 Sodium Level 135 mmol/L Potassium Level 3.0 mmol/L Chloride Level 93 mmol/L Carbon Dioxide Level 37 mmol/L Anion Gap 5 Blood Urea Nitrogen 34 mg/dL Creatinine 1.1 mg/dL Estimated GFR (Cockcroft-Gault) 67.8 Glucose Level 120 mg/dL Calcium Level 8.0 mg/dL PE: GEN: ill-appearing LUNGS: diminished HEART: RR ABD: non-tender, soft EXTREMITY: upper and lower extrem edema NEURO/PSYCH: confused A/P: PEs, DVT, CHF Decreased appetite Elevated bilirubin and Alk Phos - better/stable w/ treatment of CHF, etc. Hypokalemia GERD - on PPI COVID negative -- Seems could change to PO PPI. Encouraged PO. Can recheck LFTs tomorrow. Justicifation of Admission Dx: Justifications for Admission: Justification of Admission Dx: Yes Altered Mental Status: Altered Mental Status LUIS MIGUEL HUGHES Nov 22, 2020 10:27
--- NOTE | 2020-11-22 10:28 | PDOC ---
PULMONARY PROGRESS NOTES DATE: 11/22/20 TIME: 10:28 Subjective Patient is resting comfortably on 2 L nasal cannula, mild confusion today on exam working with PT/OT S/P thoracentesis 11/21/20 Vitals Vital Signs Date Time Temp Pulse Resp B/P (MAP) Pulse Ox O2 Delivery O2 Flow Rate FiO2 11/22/20 08:00 Nasal Cannula 2.0 11/22/20 07:58 96 11/22/20 07:00 98.0 65 27 98/67 (77) 98.0 ROS: No Nausea, No Chest Pain, No Abdominal Pain, No Increase Cough General: Alert, Oriented X4 Lungs: Crackles Cardiovascular: S1, S2 Abdomen: Soft, Non-tender, Other (obese no mass) Neuro Exam: Alert Extremities: Other (edema, and erythema bilateral lower extremities) Skin: Warm Labs Laboratory Tests Test 11/20/20 10:30 11/20/20 16:54 11/20/20 23:00 11/21/20 05:30 Heparin Anti-Xa Act, Unfractionated > 1.10 IU/mL (0.30-0.70) 1.07 IU/mL (0.30-0.70) 0.92 IU/mL (0.30-0.70) 0.66 IU/mL (0.30-0.70) White Blood Count 7.7 x10^3/uL (4.0-11.0) Red Blood Count 5.19 x10^6/uL (4.30-5.70) Hemoglobin 14.6 g/dL (13.0-17.5) Hematocrit 45.1 % (39.0-53.0) Mean Corpuscular Volume 87 fL (79-100) Mean Corpuscular Hemoglobin 28 pg (25-35) Mean Corpuscular Hemoglobin Concent 32 g/dL (31-37) Red Cell Distribution Width 19.4 % (11.5-14.5) Platelet Count 134 x10^3/uL (140-400) Neutrophils (%) (Auto) 90 % (31-73) Lymphocytes (%) (Auto) 2 % (24-48) Monocytes (%) (Auto) 8 % (0-9) Eosinophils (%) (Auto) 0 % (0-3) Basophils (%) (Auto) 0 % (0-3) Neutrophils # (Auto) 6.9 x10^3/uL (1.8-7.7) Lymphocytes # (Auto) 0.1 x10^3/uL (1.0-4.8) Monocytes # (Auto) 0.6 x10^3/uL (0.0-1.1) Eosinophils # (Auto) 0.0 x10^3/uL (0.0-0.7) Basophils # (Auto) 0.0 x10^3/uL (0.0-0.2) Sodium Level 132 mmol/L (136-145) Potassium Level 3.4 mmol/L (3.5-5.1) Chloride Level 94 mmol/L (98-107) Carbon Dioxide Level 32 mmol/L (21-32) Anion Gap 6 (6-14) Blood Urea Nitrogen 35 mg/dL (8-26) Creatinine 1.3 mg/dL (0.7-1.3) Estimated GFR (Cockcroft-Gault) 55.9 BUN/Creatinine Ratio 27 (6-20) Glucose Level 136 mg/dL (70-99) Calcium Level 8.3 mg/dL (8.5-10.1) Total Bilirubin 2.6 mg/dL (0.2-1.0) Aspartate Amino Transf (AST/SGOT) 27 U/L (15-37) Alanine Aminotransferase (ALT/SGPT) 32 U/L (16-63) Alkaline Phosphatase 217 U/L (46-116) Total Protein 5.6 g/dL (6.4-8.2) Albumin 2.5 g/dL (3.4-5.0) Albumin/Globulin Ratio 0.8 (1.0-1.7) Prostate Specific Antigen 0.17 ng/mL (0.00-4.00) Test 11/21/20 11:15 11/21/20 14:10 11/21/20 21:15 11/22/20 03:35 Prothrombin Time 21.2 SEC (11.7-14.0) Prothromb Time International Ratio 1.9 (0.8-1.1) Heparin Anti-Xa Act, Unfractionated 0.55 IU/mL (0.30-0.70) 0.36 IU/mL (0.30-0.70) 0.34 IU/mL (0.30-0.70) Body Fluid pH 7.45 Sodium Level 135 mmol/L (136-145) Potassium Level 3.0 mmol/L (3.5-5.1) Chloride Level 93 mmol/L (98-107) Carbon Dioxide Level 37 mmol/L (21-32) Anion Gap 5 (6-14) Blood Urea Nitrogen 34 mg/dL (8-26) Creatinine 1.1 mg/dL (0.7-1.3) Estimated GFR (Cockcroft-Gault) 67.8 Glucose Level 120 mg/dL (70-99) Calcium Level 8.0 mg/dL (8.5-10.1) Laboratory Tests Test 11/21/20 11:15 11/21/20 14:10 11/21/20 21:15 11/22/20 03:35 Prothrombin Time 21.2 SEC (11.7-14.0) Prothromb Time International Ratio 1.9 (0.8-1.1) Heparin Anti-Xa Act, Unfractionated 0.55 IU/mL (0.30-0.70) 0.36 IU/mL (0.30-0.70) 0.34 IU/mL (0.30-0.70) Body Fluid pH 7.45 Sodium Level 135 mmol/L (136-145) Potassium Level 3.0 mmol/L (3.5-5.1) Chloride Level 93 mmol/L (98-107) Carbon Dioxide Level 37 mmol/L (21-32) Anion Gap 5 (6-14) Blood Urea Nitrogen 34 mg/dL (8-26) Creatinine 1.1 mg/dL (0.7-1.3) Estimated GFR (Cockcroft-Gault) 67.8 Glucose Level 120 mg/dL (70-99) Calcium Level 8.0 mg/dL (8.5-10.1) Comments Chest x-ray reviewed bilateral infiltrates stable left-sided opacity questionable effusion ECHO <Conclusion> The Left Ventricle is borderline dilated. The systolic function is severely impaired. The Ejection Fraction is estimated at 20%. There is severe global hypokinesis of the left ventricle. There is borderline to mild concentric left ventricular hypertrophy. There is a device lead in the right ventricle. Doppler and Color Flow revealed no significant aortic regurgitation. There is no significant aortic valvular stenosis. Doppler and Color-flow revealed mild mitral regurgitation. Doppler and Color Flow revealed mild tricuspid regurgitation with an estimated PAP of 46 mmHg. Impression . IMPRESSION: 1. Acute hypoxemic respiratory failure, multifactorial 2. Abnormal chest x-ray. Left-sided effusion--S/P thoracentesis 11/21 3. Acute pulmonary embolism. 4. Chronic obstructive pulmonary disease. 5. Acute systolic versus diastolic congestive heart failure. 6. Obstructive sleep apnea/hypopnea syndrome. 7. Tobacco habituation. 8. Atrial fibrillation. 9. Coronary artery disease, status post CABG. 10. Negative SARS Covid 2 Bilateral lower extremity venous Dopplers 11/18 IMPRESSION: Partially occlusive DVT is seen involving the posterior tibial veins within the right calf. Plan . UPDATED 11/22/2020 Continue supplemental oxygen to keep oxygen saturations greater than 92%, currently on 2 L nasal cannula S/P left thoracentesis with removal 1.3 liters of fluid on 11/21/20 Continue bronchodilators including Pulmicort Continue antibiotics: Rocephin, doxy Follow cardiology recommendations---The Ejection Fraction is estimated at 20%. Follow nephrology recommendations DVT/GI prophylaxis Physical therapy/Occupational Therapy Discussed with RN UPDATED 11/21/2020 Continue supplemental oxygen to keep oxygen saturations greater than 92%, currently on 2 L nasal cannula Okay to pause heparin 3 hours prior to left-sided thoracentesis Continue bronchodilators including Pulmicort IR consulted, plan for left-sided thoracentesis today Continue antibiotics: Rocephin, doxy Follow cardiology recommendations---The Ejection Fraction is estimated at 20%. Follow nephrology recommendations DVT/GI prophylaxis Physical therapy/Occupational Therapy Discussed with RN Updated November 20 Patient currently on IV heparin, scheduled to undergo thoracentesis in the a.m. Continue antibiotics Follow cardiology input Up to chair Advance diet PLAN AND RECOMMENDATIONS: 1. I had a long discussion with him regarding smoking cessation. I have advised him to stop smoking forever. 2. 02 titration 3. Lower extremity venous Doppler. Partially occlusive DVT is seen involving the posterior tibial veins within the right calf. 4. Continue Lovenox. 5. Protonix for stress ulcer prophylaxis. 6. bronchodilator and inhaled corticosteroid. 7. Continue antibiotic. 8. COVID testing. neg 9. Cardiology consulted and echocardiogram ordered 10. agree to change Lovenox to hep gtt for possible thoracentesis cont aggressive chf tx (iv lasix) l effusion slightly better, will repeat cxr in am 11. The findings and recommendations were discussed with the patient, RN and Dr. Mary, attending physician. OMID CLINE MD Nov 22, 2020 10:28
--- NOTE | 2020-11-22 13:40 | PDOC ---
FRAN GALVAN CEMENT FINISHING SUPERVISOR 11/22/20 1340: CARDIO Progress Notes Date and Time Date of Service 11/22/20 Time of Evaluation 1300 Subjective Subjective: No Chest Pain, No shortness of breath, No Palpitations Vitals Vitals Vital Signs Date Time Temp Pulse Resp B/P (MAP) Pulse Ox O2 Delivery O2 Flow Rate FiO2 11/22/20 13:13 88 Nasal Cannula 2.0 11/22/20 11:00 97.2 80 26 97/81 (86) 97.2 Weight Weight [ ] Input and Output Intake and Output Intake and Output 11/22/20 06:59 Intake Total 2217 ml Output Total 3525 ml Balance -1308 ml Intake Oral 0 ml IV Total 2217 ml Output Urine Total 2275 ml Drainage Total 1250 ml Laboratory Labs Laboratory Tests Test 11/21/20 14:10 11/21/20 21:15 11/22/20 03:35 Body Fluid pH 7.45 Heparin Anti-Xa Act, Unfractionated 0.36 IU/mL (0.30-0.70) 0.34 IU/mL (0.30-0.70) Sodium Level 135 mmol/L (136-145) Potassium Level 3.0 mmol/L (3.5-5.1) Chloride Level 93 mmol/L (98-107) Carbon Dioxide Level 37 mmol/L (21-32) Anion Gap 5 (6-14) Blood Urea Nitrogen 34 mg/dL (8-26) Creatinine 1.1 mg/dL (0.7-1.3) Estimated GFR (Cockcroft-Gault) 67.8 Glucose Level 120 mg/dL (70-99) Calcium Level 8.0 mg/dL (8.5-10.1) Microbiology Micro Microbiology 11/21/20 Gram Stain - Final, Resulted 11/21/20 Aerobic and Anaerobic Culture, Resulted Pending Physical Exam HEENT: Neck Supple W Full Motion Chest: Symmetric LUNGS: Other (diminished ) Heart: irregularly irregular Abdomen: Soft N/T Extremities: Other (anasarca ) Neurology: alert, oriented, follow commands Assessment Assessment 1. Acute respiratory failure; multifactorial with acute PE, A/c CHF, and pleural effusion- s/p thoracentesis with 1.3L off 2. PAFIB; on Eliquis at home, but has reportedly not taken the last couple of weeks. presently AFIB with controlled rate 3. Acute on chronic systolic CHF 4. Ischemic cardiomyopathy; s/p AICD (Medtronic). Device shows normal function. No VT. Echo with LVEF 20% 5. CAD s/p CABG; Follows with [facility] [place] 6. Hypertension; low end 7. SHILPI 8. DOE; Cr improved 9. Tobaccoism; discussed/ encouraged cessation 10. Hypokalemia, hypomagnesemia Recommendations Secondary prevention ASA- monitor PLTs Lasix therapy Add BB and ACEi when BP consistently adequate Replace Mg Obtain previous cardiac records from the [place] Lung optimization, treatment of PE as per pulm Supportive care Justicifation of Admission Dx: Justifications for Admission: Justification of Admission Dx: Yes Altered Mental Status: Altered Mental Status JIM GRAFF MD 11/22/20 1633: CARDIO Progress Notes Assessment Assessment Patient seen and examined I agree with our nurse practitioners assessment and plan. Acute respiratory failure; multifactorial with acute PE, A/c CHF, and pleural effusion- s/p thoracentesis with 1.3L off. Feeling mildly better. Followed by pulmonary. PAFIB; on Eliquis at home, but has reportedly not taken the last couple of weeks. presently AFIB with controlled rate Acute on chronic systolic CHF Ischemic cardiomyopathy; s/p AICD (Medtronic). Device shows normal function. No VT. Echo with LVEF 20% CAD s/p CABG; Follows with [facility] [place] Hypertension SHILPI DOE; Cr improved FRAN GALVAN APRN Nov 22, 2020 13:40 JIM GRAFF MD Nov 22, 2020 16:33
[2020-11-22] MEDS: cefTRIAXone IV Push 2 GM VIAL. IVP SCH (14:35)
[2020-11-22] MEDS ORDERED: MAGNESIUM SULFATE 2GM 50 ML IV ONE (15:00)
[2020-11-22] MEDS: FUROSEMIDE 100 MG/10 ML VIAL. IVP SCH (15:33)
--- NOTE | 2020-11-22 15:43 | NUR ---
SS following up with discharge planning. SS reviewed pt chart and discussed with pt RN. Pt is currently requiring oxygen at two liters nasal canula. COVID19 negative. Pt on PPN, IV Doxycycline, IV Rocephin, and IV Lasix. Pt on Heparin drip. PT/OT recommended assisted unit. Pt accepted at [facility], ; fax [phone]. Pt transferring to room 244. SS will continue to follow for discharge planning.
--- NOTE | 2020-11-22 16:00 | NUR ---
Patient report called to STEFANO Martinez. Patient to be transferred to [facility] via bed. Patient belongings accounted for.
--- NOTE | 2020-11-22 16:50 | NUR ---
Patient transported via bed with personal belongings, IV Pump, by Bryanna Dudley RN
[2020-11-22] MEDS: ATORVASTATIN CALCIUM 40 MG TABLET. PO SCH (20:31)
[2020-11-23 02:02] VITALS: BP 100/70
[2020-11-23 05:32] LABS: BASO % 1 % (0-3); EOS % 0 % (0-3); HEMATOCRIT 47.8 % (39.0-53.0); HEMOGLOBIN 15.3 g/dL (13.0-17.5); LYMPH # 0.2 x10^3/uL (1.0-4.8); LYMPH % 3 % (24-48); MEAN CORPUSCULAR HEMOGLOBIN 28 pg (25-35); MEAN CORPUSCULAR HGB CONC 32 g/dL (31-37); MEAN CORPUSCULAR VOLUME 86 fL (79-100); MONO # 0.7 x10^3/uL (0.0-1.1); MONO % 9 % (0-9); NEUT # 6.5 x10^3/uL (1.8-7.7); NEUT % 87 % (31-73); PLATELET COUNT 126 x10^3/uL (140-400); RED BLOOD COUNT 5.53 x10^6/uL (4.30-5.70); RED CELL DISTRIBUTION WIDTH 19.4 % (11.5-14.5); WHITE BLOOD COUNT 7.4 x10^3/uL (4.0-11.0)
[2020-11-23 05:47] LABS: CALCIUM 8.4 mg/dL (8.5-10.1); CREATININE 1.1 mg/dL (0.7-1.3); GFR 67.8; POTASSIUM 4.4 mmol/L (3.5-5.1)
[2020-11-23] MEDS: HEPARIN for IV BOLUS 10,000 UNIT/10 ML VIAL. IV PRN (06:38)
[2020-11-23 07:00] VITALS: BP 102/76
[2020-11-23] MEDS: BUDESONIDE 0.5 MG/2 ML NEBU. NEB SCH ×2 (07:28→20:08)
[2020-11-23] MEDS: IPRATRPIUM/ALBUTEROL 0.5/2.5MG 3 ML NEBU. NEB SCH ×4 (07:28→20:08)
[2020-11-23] MEDS: LACTOBACILLUS RHAMNOSUS GG 1 CAPSULE. PO SCH ×2 (08:52→20:29)
[2020-11-23] MEDS: ASPIRIN ENTERIC COATED 81 MG TABLET.DR. PO SCH (08:52)
[2020-11-23] MEDS: PANTOPRAZOLE IV PUSH 40 MG VIAL. IVP SCH (08:52)
[2020-11-23] MEDS: DOXYCYCLINE HYCLATE 100 MG in IV DEXTROSE 5% 100ML 100 ML IV SCH ×2 (08:53→20:29)
[2020-11-23] MEDS: FUROSEMIDE 100 MG/10 ML VIAL. IVP SCH (08:54)
[2020-11-23] MEDS: AMINO AC 3%/ELECTROLYTE/GLYCER 1,000 ML IV SCH (09:02)
--- NOTE | 2020-11-23 09:32 | PDOC ---
FRAN GALVAN PERSONNEL ASSOCIATE 11/23/20 0932: CARDIO Progress Notes Date and Time Date of Service 11/23/20 Time of Evaluation 1015 Subjective Subjective: No Chest Pain, No shortness of breath, No Palpitations Vitals Vitals Vital Signs Date Time Temp Pulse Resp B/P (MAP) Pulse Ox O2 Delivery O2 Flow Rate FiO2 11/23/20 07:29 90 Nasal Cannula 3.5 11/23/20 07:00 96.1 81 22 102/76 (85) 96.1 Weight Weight [ ] Input and Output Intake and Output Intake and Output 11/23/20 07:00 Intake Total 1020 ml Output Total 925 ml Balance 95 ml Intake Oral 570 ml IV Total 450 ml Output Urine Total 925 ml Laboratory Labs Laboratory Tests Test 11/23/20 05:15 White Blood Count 7.4 x10^3/uL (4.0-11.0) Red Blood Count 5.53 x10^6/uL (4.30-5.70) Hemoglobin 15.3 g/dL (13.0-17.5) Hematocrit 47.8 % (39.0-53.0) Mean Corpuscular Volume 86 fL (79-100) Mean Corpuscular Hemoglobin 28 pg (25-35) Mean Corpuscular Hemoglobin Concent 32 g/dL (31-37) Red Cell Distribution Width 19.4 % (11.5-14.5) Platelet Count 126 x10^3/uL (140-400) Neutrophils (%) (Auto) 87 % (31-73) Lymphocytes (%) (Auto) 3 % (24-48) Monocytes (%) (Auto) 9 % (0-9) Eosinophils (%) (Auto) 0 % (0-3) Basophils (%) (Auto) 1 % (0-3) Neutrophils # (Auto) 6.5 x10^3/uL (1.8-7.7) Lymphocytes # (Auto) 0.2 x10^3/uL (1.0-4.8) Monocytes # (Auto) 0.7 x10^3/uL (0.0-1.1) Eosinophils # (Auto) 0.0 x10^3/uL (0.0-0.7) Basophils # (Auto) 0.0 x10^3/uL (0.0-0.2) Heparin Anti-Xa Act, Unfractionated 0.17 IU/mL (0.30-0.70) Sodium Level 130 mmol/L (136-145) Potassium Level 4.4 mmol/L (3.5-5.1) Chloride Level 92 mmol/L (98-107) Carbon Dioxide Level 35 mmol/L (21-32) Anion Gap 3 (6-14) Blood Urea Nitrogen 38 mg/dL (8-26) Creatinine 1.1 mg/dL (0.7-1.3) Estimated GFR (Cockcroft-Gault) 67.8 Glucose Level 138 mg/dL (70-99) Calcium Level 8.4 mg/dL (8.5-10.1) Microbiology Micro Microbiology 11/21/20 Gram Stain - Final, Resulted 11/21/20 Aerobic and Anaerobic Culture, Resulted Pending Physical Exam HEENT: Neck Supple W Full Motion Chest: Symmetric LUNGS: Other (diminished bases) Heart: irregularly irregular Abdomen: Soft N/T Extremities: Other (anasarca) Neurology: alert, oriented, follow commands Assessment Assessment 1. Acute respiratory failure; multifactorial with acute PE, A/c CHF, and pleural effusion- s/p thoracentesis with 1.3L off 2. PAFIB; on Eliquis at home, but has not taken recently. presently AFIB with controlled rate. per record review, previously on Amiodarone for rhythm maintenance, but has not taken in a couple of months 3. Acute on chronic systolic CHF 4. Ischemic cardiomyopathy; s/p AICD (Medtronic). Device shows normal function. No VT. Echo with LVEF 20%. Per record review, echo 02/08 with LVEF 20-25% 5. CAD s/p CABG 1994; Follows with [facility]. Cath 08/31 with Patent SVG to RCA, SVG to diagonal, and BENJAMIN to LAD. SVG to circ occluded, which was known 6. Hypertension; low end 7. SHILPI; non compliant with CPAP 8. DOE on CKD; Cr improved 9. Tobaccoism; discussed/ encouraged cessation 10. Hypokalemia, hypomagnesemia 11. H/o SDH secondary to fall in 2017. 12. Hypothyroidism; has been off therapy Recommendations Check TSH Resume thyroid replacement as per IM Resume amiodarone therapy Secondary prevention ASA- monitor PLTs Lasix therapy Add BB and ACEi when BP consistently adequate Check Mg and replace as warranted Lung optimization, treatment of PE as per pulm Supportive care Justicifation of Admission Dx: Justifications for Admission: Justification of Admission Dx: Yes Altered Mental Status: Altered Mental Status JIM GRAFF MD 11/23/201915: CARDIO Progress Notes Assessment Assessment Patient seen and examined I agree with our nurse practitioners assessment and plan. Acute respiratory failure; multifactorial with acute PE, A/c CHF, and pleural effusion- s/p thoracentesis with 1.3L off . Anticoagulation as per pulmonary. PAFIB; on Eliquis at home, but has not taken recently. presently AFIB with controlled rate. per record review, previously on Amiodarone for rhythm maintenance. We will restart. Acute on chronic systolic CHF. Improved Ischemic cardiomyopathy; s/p AICD ([employer]). Device shows normal function. No VT. Echo with LVEF 20%. Per record review, echo 02/08 with LVEF 20-25% CAD s/p CABG 1994; Follows with [facility]. Cath 08/31 with Patent SVG to RCA, SVG to diagonal, and BENJAMIN to LAD. SVG to circ occluded, which was known SHILPI; non compliant with CPAP DOE on CKD; Cr improved H/o SDH secondary to fall in 2017. FRAN GALVAN APRN Nov 23, 2020 09:32 JIM GRAFF MD Nov 23, 2020 19:16
--- NOTE | 2020-11-23 09:41 | PDOC ---
DATE OF SERVICE DATE: 11/23/20 TIME: 09:38 SUBJECTIVE ROS stable , No SOB at rest OBJECTIVE Vital Signs Vital Signs Date Time Temp Pulse Resp B/P (MAP) Pulse Ox O2 Delivery O2 Flow Rate FiO2 11/23/20 07:29 90 Nasal Cannula 3.5 11/23/20 07:00 96.1 81 22 102/76 (85) 96.1 I & 0 Intake and Output 11/23/20 07:00 Intake Total 1020 ml Output Total 925 ml Balance 95 ml Intake Oral 570 ml IV Total 450 ml Output Urine Total 925 ml PHYSICAL EXAM Physical Exam General NAD HEEN OM moist, On o2 by [facility] Neck supple Lungs cta, non labored CV S1S2 Abd soft, NT Neuro Grossly normal, baseline confusion/dementia Skin No rash No CVA or SP tenderness , Vinson + Ext Rooke Boots + discolored LE , 2 + Edema (Chronic) DIAGNOSIS/ASSESSMENT Assessment & Plan DOE - ATN,/Sepsis Non oliguric, resolved CTA done at [facility] - bilateral renal cortical thinning and lobulation due to scarring. There is a simple left renal cysts.Supportive care , Avoid nephrotoxins , CKD- suspected , based on Ct Kidney findings, No prior labs Hyponatremia - Mild, Monitor, currently on Procalamine. On Lasix 80 mg IV , card managing Hematuria Microscopic- UA ordered on 11/20 per primary , Vinson sample ? Trauma, On Heparin as well . No QUIÑONES/Urinary retention at presentation per nursing . Monitor . CT scan mild bladder wall thickening. The prostate is mildly enlarged. US - Kidneys unremarkable, Bladder not reported . Repeat UA few days after after Folet Dced, If persistent Consult urology Acute bilateral Pulmonary embolism - from Lovenox to heparin GTT now . CoVid Negative Acute pneumonia On Abx Sepsis - due to above Acute hypoxic respiratory failure - due to PE, CHF- [facility] o2 by [facility] , stable S/P Lt thoracentesis 11/21-1.3 lts drained CAD s/p CABG 1993 Acute on chronic systolic CHF with prior known 3+ pitting edema for months, S/p AICD , On IV Lasix - management per cardiology Atrial fibrillation - Was on eliquis stopped taking it for 2 weeks prior to admit Transaminits - likely congestive hepatopathy, no ETOH or cirrhosis per patient. Bilirubin is elevated at 4.6. PVD, US artery LUE neg at [facility], poor pulses, cool feet, per vascular COMMENT/RELEVANT DATA Meds Current Medications Medications (Trade) Dose Ordered Sig/Grace Start Time Stop Time Status Last Admin Dose Admin Albuterol/ Ipratropium (Duoneb) 3 ml RTQID 11/18/20 12:00 11/23/20 07:28 3 ML Amino Acids/ Glycerin/ Electrolytes 1,000 ml @ 80 mls/hr [id number] 11/19/20 17:15 11/23/20 09:02 80 MLS/HR Aspirin (Ecotrin) 81 mg [id number] 11/23/20 08:00 11/23/20 08:52 81 MG Atorvastatin Calcium (Lipitor) 40 mg QHS 11/22/20 21:00 11/22/20 20:31 40 MG Azithromycin (Zithromax) 250 mg DAILY 11/18/20 09:00 11/18/20 08:37 DC Budesonide (Pulmicort) 0.5 mg 1X ONCE 11/18/20 09:30 11/18/20 09:31 DC 11/18/20 12:39 0.5 MG Ceftriaxone Sodium (Rocephin) 2 gm Q24H 11/18/20 14:00 11/22/20 14:35 2 GM Doxycycline Hyclate (Vibra-Tab) 100 mg BID 11/18/20 09:00 11/18/20 09:13 DC Doxycycline Hyclate 100 mg/ Dextrose 100 ml @ 50 mls/hr Q12HR 11/18/20 10:00 11/23/20 08:53 50 MLS/HR Enoxaparin Sodium (Lovenox 100mg Syringe) 90 mg Q12H 11/18/20 06:00 11/18/20 13:34 DC 11/18/20 06:04 90 MG Enoxaparin Sodium (Lovenox 80mg Syringe) 80 mg Q12HR 11/18/20 21:00 11/19/20 09:23 DC 11/19/20 08:05 80 MG Enoxaparin Sodium (Lovenox Per Pharmacy Treatment Dosing) 1 each PRN DAILY PRN 11/17/20 19:00 11/19/20 09:23 DC Furosemide (Lasix) 80 mg DAILY 11/18/20 11:00 11/23/20 08:54 80 MG Heparin Sodium (Porcine) (Heparin Sodium) 1,300 unit PRN Q6HRS PRN 11/19/20 21:00 Heparin Sodium/ Dextrose 250 ml @ 0 mls/hr CONT PRN 11/19/20 21:00 11/21/20 05:02 4.3 MLS/HR Info (Anti-Coagulation Monitoring By Pharmacy) 1 each PRN DAILY PRN 11/21/20 09:15 11/21/20 09:06 1 EACH Lactobacillus Rhamnosus (Culturelle) 1 cap BID 11/18/20 21:00 11/23/20 08:52 1 CAP Lactulose (Lactulose) 20 gm PRN DAILY PRN 11/18/20 11:00 Magnesium Sulfate 50 ml @ 25 mls/hr 1X ONCE 11/22/20 15:00 11/22/20 16:59 DC 11/22/20 15:33 25 MLS/HR Metoclopramide HCl (Reglan Vial) 10 mg PRN Q6HRS PRN 11/18/20 11:30 11/18/20 11:40 10 MG Ondansetron HCl (Zofran) 4 mg PRN Q4HRS PRN 11/18/20 11:30 Pantoprazole Sodium (PROTONIX VIAL for IV PUSH) 40 mg DAILYAC 11/18/20 10:00 11/23/20 08:52 40 MG Pantoprazole Sodium (Protonix) 40 mg DAILYAC 11/18/20 09:00 11/18/20 09:21 DC Potassium Chloride/Water 100 ml @ 100 mls/hr Q1H 11/22/20 10:00 11/22/20 13:59 DC 11/22/20 14:05 100 MLS/HR Lab Laboratory Tests Test 11/23/20 05:15 White Blood Count 7.4 x10^3/uL (4.0-11.0) Red Blood Count 5.53 x10^6/uL (4.30-5.70) Hemoglobin 15.3 g/dL (13.0-17.5) Hematocrit 47.8 % (39.0-53.0) Mean Corpuscular Volume 86 fL (79-100) Mean Corpuscular Hemoglobin 28 pg (25-35) Mean Corpuscular Hemoglobin Concent 32 g/dL (31-37) Red Cell Distribution Width 19.4 % (11.5-14.5) Platelet Count 126 x10^3/uL (140-400) Neutrophils (%) (Auto) 87 % (31-73) Lymphocytes (%) (Auto) 3 % (24-48) Monocytes (%) (Auto) 9 % (0-9) Eosinophils (%) (Auto) 0 % (0-3) Basophils (%) (Auto) 1 % (0-3) Neutrophils # (Auto) 6.5 x10^3/uL (1.8-7.7) Lymphocytes # (Auto) 0.2 x10^3/uL (1.0-4.8) Monocytes # (Auto) 0.7 x10^3/uL (0.0-1.1) Eosinophils # (Auto) 0.0 x10^3/uL (0.0-0.7) Basophils # (Auto) 0.0 x10^3/uL (0.0-0.2) Heparin Anti-Xa Act, Unfractionated 0.17 IU/mL (0.30-0.70) Sodium Level 130 mmol/L (136-145) Potassium Level 4.4 mmol/L (3.5-5.1) Chloride Level 92 mmol/L (98-107) Carbon Dioxide Level 35 mmol/L (21-32) Anion Gap 3 (6-14) Blood Urea Nitrogen 38 mg/dL (8-26) Creatinine 1.1 mg/dL (0.7-1.3) Estimated GFR (Cockcroft-Gault) 67.8 Glucose Level 138 mg/dL (70-99) Calcium Level 8.4 mg/dL (8.5-10.1) Results All relevant outside records, renal labs, imaging studies, telemetry/EKG's were reviewed. Justicifation of Admission Dx: Justifications for Admission: Justification of Admission Dx: Yes Altered Mental Status: Altered Mental Status WOODY ARAGON MD Nov 23, 2020 09:41
--- NOTE | 2020-11-23 10:43 | PDOC ---
PROGRESS NOTES Date of Service: DATE: 11/23/20 TIME: 10:43 Chief Complaint Chief Complaint impression Acute bilateral Pulmonary embolism - will transition from lovenox to heparin GTT in anticipation of consideration of thoracentesis Acute pneumonia - rocephin + doxy acute metabolic encephalopathy Sepsis - due to above Acute hypoxic respiratory failure - due to PE, CHF Stable large left pleural effusion CAD s/p CABG 1993 Acute on chronic systolic CHF with prior known 3+ pitting edema for months, BNP 15k. S/p AICD - cont diuresis Atrial fibrillation - Medtr[employer] pacer interrogated at [facility]. Was on eliquis but had been off for 2 weeks prior to admit DOE - creatinine 1.4 - likely vasomotor nephropathy Transaminits - likely congestive hepatopathy, no ETOH or cirrhosis per patient. Bilirubin is elevated at 4.6. INR 1.9 PVD, US artery LUE neg at [facility], poor pulses, cool feet, consult vasc, Nausea and vomiting - KUB ordered, no SBO, reglan helped microhematuria ECHO systolic function is severely impaired. Ejection Fraction is estimated at 20%. severe global hypokinesis of the left ventricle. FEN - Cardiac PPX - lovenox FULL CODE Dispo - ICU pulm consult renal sono CC time 42 minutes History of Present Illness History of Present Illness Mr Galindo is a 64-year-old male visiting from [place] w/ PMHx A-Fib, GERD, High Cholesterol, Hypertension, Hypothyroid, CHF s/p AICD placement presents with dizziness, weakness, short of breath. Patient son brought him in and he has been staying with his son. Son states patient has not taken his medications for 2 weeks. Patient denies chest pain. Patient states "I feel like my pacemaker is firing". Patient has 3+ pitting edema on bilateral legs. Patient's left arm is cool to the touch, red. Denies fever, cough. Found on CTPA with multiple left lower lobe pulmonary emboli and moderate large pleural effusion on left and multifocal pneumonia. Accepted for transfer to ICU [facility]. 11/18: Afebrile. Vomiting this morning. States he feels a little better today. Bilirubin up to 4. INR 2.1. COVID negative. BP low Afebrile. Still weak. Sitting in chair. PICC placed for IV access. K 4.7, BUN 27, Cr 1.5, Alk phos 21, Bili 4.1. BP improved. 5-31 PPX - lovenox FULL CODE Dispo - ICU History of bypass surgery. Probable superimposed heart failure. Acute bilateral Pulmonary embolism - will transition from lovenox to heparin GTT in anticipation of consideration of thoracentesis Acute pneumonia - rocephin + doxy Sepsis - due to above Acute hypoxic respiratory failure - due to PE, CHF CAD s/p CABG 1993 pulm consult elevated lft's , sono and GI consult PSA Acute on chronic systolic CHF with prior known 3+ pitting edema for months, BNP 15k. S/p AICD - cont diuresis Atrial fibrillation - Medtr[employer] pacer interrogated at [facility]. Was on eliquis but had been off for 2 weeks prior to admit, cardiology consulted DOE - creatinine 1.4 - likely vasomotor nephropathy microhematuria , renal sono, follow ua The Ejection Fraction is estimated at 20%. severe global hypokinesis of the left ventricle. mild concentric left ventricular hypertrophy. mild tricuspid r egurgitation with an estimated PAP of 46 mmHg. H/o biliary stone disease so retained stone possible. ABD SONO PENDING CC time 34 minutes 11/21 PPX - lovenox FULL CODE Dispo - ICU History of bypass surgery. Probable superimposed heart failure. Acute bilateral Pulmonary embolism - will transition from lovenox to heparin GTT in anticipation of consideration of thoracentesis Acute pneumonia - rocephin + doxy Sepsis - due to above Acute hypoxic respiratory failure - due to PE, CHF CAD s/p CABG 1993 pulm consult elevated lft's , sono and GI consult PSA Acute on chronic systolic CHF with prior known 3+ pitting edema for months, BNP 15k. S/p AICD - cont diuresis Atrial fibrillation - Medtr[employer] pacer interrogated at [facility]. Was on eliquis but had been off for 2 weeks prior to admit, cardiology consulted DOE - creatinine 1.4 - likely vasomotor nephropathy microhematuria , renal sono, follow ua The Ejection Fraction is estimated at 20%. severe global hypokinesis of the left ventricle. mild concentric left ventricular hypertrophy. mild tricuspid regurgitation with an estimated PAP of 46 mmHg. H/o biliary stone disease so retained stone possible. ABD SONO reviewed CC time 35 minutes 11/22 PPX - lovenox FULL CODE Dispo - ICU History of bypass surgery. Probable superimposed heart failure. Acute bilateral Pulmonary embolism - will transition from lovenox to heparin GTT in anticipation of consideration of thoracentesis Acute pneumonia - rocephin + doxy Sepsis - due to above Acute hypoxic respiratory failure - due to PE, CHF CAD s/p CABG 1993 pulm consult elevated lft's , sono and GI consult PSA Acute on chronic systolic CHF with prior known 3+ pitting edema for months, BNP 15k. S/p AICD - cont diuresis Atrial fibrillation - Medtr[employer] pacer interrogated at [facility]. Was on eliquis but had been off for 2 weeks prior to admit, cardiology consulted DOE - creatinine 1.4 - likely vasomotor nephropathy microhematuria , renal sono, follow ua The Ejection Fraction is estimated at 20%. severe global hypokinesis of the left ventricle. mild concentric left ventricular hypertrophy. mild tricuspid regurgitation with an estimated PAP of 46 mmHg. H/o biliary stone disease so retained stone possible. ABD SONO reviewed CC time 33 minutes 11/23 PE's, on AC. Jaundice; numbers have improved with diuresis. PPX - lovenox FULL CODE Dispo - ICU History of bypass surgery. Probable superimposed heart failure. Acute bilateral Pulmonary embolism - will transition from lovenox to heparin GTT in anticipation of consideration of thoracentesis Acute pneumonia - rocephin + doxy Sepsis - due to above Acute hypoxic respiratory failure - due to PE, CHF CAD s/p CABG 1993 pulm consult elevated lft's , sono and GI consult PSA Acute on chronic systolic CHF with prior known 3+ pitting edema for months, BNP 15k. S/p AICD - cont diuresis Atrial fibrillation - Medtronic pacer interrogated at [facility]. Was on eliquis but had been off for 2 weeks prior to admit, cardiology consulted DOE - creatinine 1.4 - likely vasomotor nephropathy microhematuria , renal sono, follow ua The Ejection Fraction is estimated at 20%. severe global hypokinesis of the left ventricle. mild concentric left ventricular hypertrophy. mild tricuspid regurgitation with an estimated PAP of 46 mmHg. H/o biliary stone disease so retained stone possible. ABD SONO reviewed remains very weak and confused PPN AT 80 CC / HR, poor oral intake Discharge Recommendations * Shelter Unit Discharge Recommendation - DME * Rolling Walker needed * in order to complete ADLs CC time 32 minutes Vitals Vitals Vital Signs Date Time Temp Pulse Resp B/P (MAP) Pulse Ox O2 Delivery O2 Flow Rate FiO2 11/23/20 07:29 90 Nasal Cannula 3.5 11/23/20 07:00 96.1 81 22 102/76 (85) 96.1 Physical Exam Physical Exam HEENT: PERRLA Heart: no murmurs, irregularly irregular, other Abdomen: Normal bowel sounds, No tenderness Rectal Exam: not examined Extremities: Other (4+ edema, cold feet and swollen, pulses palpable but faint, cyanosis, ) Skin: Other Neuro: Normal speech, Sensation intact General: mild distress Heart: Regular rate Lungs: Crackles Abdomen: Normal bowel sounds Extremities: Other (4+ edema, cold feet and swollen, pulses palpable but faint, cyanosis, ) Skin: Other Labs LABS ransfer Assistive Device * Roller Walker Transfer Comments * Pt stood from EOB with mod assist to initiate stand. Pt then took 6-8 steps to chair with verbal and tactile cues for safe approach and hand placement. Other Information * Pt will need rehab at discharge to address limitations in strength, balance, safety, activity tolerance, coordination, and edema. Learning Preferences * One-on-One Instruction Problem List (body system elements) * Impaired fnctnl mobility * Strength * Cognition * Balance Pt/caregiver agrees with plan of care/goals * Yes Patient condition at conclusion of therapy * Pt in chair * Call light in reach * Phone in reach * PtIn no apparent distress * Pt denies further needs Communicated Patient Care With (Name, Title) * Suhail RN; Angella ZAVALA; Humaira JAY Goal 1 - Bed Mobility Assistance Required * Independent Goal 1 Assessment * Appropriate - Continue Goal 2 - Transfers Assistance Required * Independent Goal 2 - Transfer Type * Stand-Step Goal 2 Assessment * Appropriate - Continue Goal 3 - Ambulation Assistance Required * Independent Goal 3 - Ambulation Distance * 50' Goal 3 - Ambulation Device * Roller Walker Goal 3 Assessment * Appropriate - Continue Treatment Plan * Therapeutic Exercise * Bed Mobility Training * Transfer training * Gait Training * Dynamic Balance Training Frequency of Treatment Expected * 6 visits/week Duration of Treatment Expected * 2 weeks Discharge Recommendations * Shelter Unit Discharge Recommendation - DME * Rolling Walker needed * in order to complete ADLs * and ambulation safely STUDY: US Abdomen Complete INDICATION: Transaminitis. Microhematuria. COMPARISON: CT abdomen/pelvis 11/17/2020 TECHNIQUE: Real-time grayscale and color Doppler sonographic evaluation of the abdomen. Findings: Technically difficult study. Poorly evaluated pancreas Pancreas: Incompletely assessed. Liver: Within normal limits for size at 15 cm longitudinal. No focal parenchymal abnormality. Aorta/IVC/Main Portal Vein: The proximal aorta is nonaneurysmal. Normal caliber of the IVC at the liver. The main portal vein is patent. Hepatofugal flow within the hepatic veins. Gall Bladder: Surgically absent. Common Bile Duct: Nondilated at 0.3 cm. Right Kidney: Measures 11 cm in length. No complex cyst or mass. No hydronephrosis. Left Kidney: Measures 11 cm in length. Simple cyst at the lower aspect of the kidney measuring up to 3.3 cm by ultrasound. No hydronephrosis. Spleen: Within normal limits for size at 10 cm. Miscellaneous: Bilateral pleural effusions. Small volume ascites. Impression: 1. No focal sonographic abnormality of the liver. Patent hepatic vasculature. 2. Surgically absent gallbladder. Unremarkable common duct. 3. No hydronephrosis. Simple left renal cyst. 4. Bilateral pleural effusions and somewhat small volume ascites. 5. Incompletely evaluated pancreas. Electronically signed by: JENNY GUTIERREZ MD (11/20/2020 5:05 PM) [facility] DICTATED and SIGNED BY: JENNY GUTIERREZ MD DATE: 11/20/20 [id number] APPROVED REPORT EXAM: Two-dimensional and M-mode echocardiogram with Doppler and color Doppler. Other Information Quality : Average HR: 82bpm INDICATION Dizziness and Vertigo Dyspnea Atrial Fibrillation Congestive Heart Failure Surgery/Intervention ICD/Pacemaker: RISK FACTORS Hyperlipidemia 2D DIMENSIONS Left Atrium(2D) 4.1 (1.6-4.0cm) IVSd 1.0 (0.7-1.1cm) Aortic Root(2D) 3.2 (2.0-3.7cm) LVDd 5.4 (3.9-5.9cm) LVOT Diameter 2.0 (1.8-2.4cm) PWd 1.2 (0.7-1.1cm) LVDs 4.7 (2.5-4.0cm) FS (%) 12.8 % SV 38.4 ml Aortic Valve AoV Peak Don. 120.1cm/s AoV VTI 13.0cm AO Peak GR. 5.8mmHg LVOT VTI 6.18cm AO Mean GR. 2mmHg Mitral Valve MV E Peak Gr. 68mmHg TDI Lateral E' P. V 9.87cm/s Medial E' P. V 4.57cm/s Tricuspid Valve TR P. Velocity 326cm/s RAP ESTIMATE 3mmHg TR Peak Gr. 43mmHg RVSP 46mmHg LEFT VENTRICLE The Left Ventricle is borderline dilated. There is borderline to mild concentric left ventricular hypertrophy. The systolic function is severely impaired. The Ejection Fraction is estimated at 20%. There is severe global hypokinesis of the left ventricle. Diastology indeterminent due to atrial fibrilation RIGHT VENTRICLE The right ventricle is mildly dilated. There is normal right ventricular wall thickness. Systolic function is mildly reduced. There is a device lead in the right ventricle. ATRIA The left atrium is mild to moderately dilated. The right atrium is mild to moderately dilated. The interatrial septum is intact with no evidence for an atrial septal defect or patent foramen ovale as noted on 2-D or Doppler imaging. AORTIC VALVE The aortic valve is normal in structure and function. Doppler and Color Flow revealed no significant aortic regurgitation. There is no significant aortic valvular stenosis. Calculated aortic valve area is 1.47 cm2 with maximum pressure gradient of 5 mmHg and mean pressure gradient of 3 mmHg. MITRAL VALVE The mitral valve is normal in structure and function. There is no evidence of mitral valve prolapse. There is no mitral valve stenosis. Doppler and Color-flow revealed mild mitral regurgitation. TRICUSPID VALVE The tricuspid valve is normal in structure and function. Doppler and Color Flow revealed mild tricuspid regurgitation with an estimated PAP of 46 mmHg. There is no tricuspid valve stenosis. PULMONIC VALVE The pulmonic valve is not well visualized. Doppler and Color Flow revealed trace pulmonic valvular regurgitation. GREAT VESSELS The aortic root is normal in size. The IVC is normal in size and collapses <50% with inspiration. PERICARDIAL EFFUSION There is a trace pericardial effusion. Critical Notification Critical Value: No <Conclusion> The Left Ventricle is borderline dilated. The systolic function is severely impaired. The Ejection Fraction is estimated at 20%. There is severe global hypokinesis of the left ventricle. There is borderline to mild concentric left ventricular hypertrophy. There is a device lead in the right ventricle. Doppler and Color Flow revealed no significant aortic regurgitation. There is no significant aortic valvular stenosis. Doppler and Color-flow revealed mild mitral regurgitation. Doppler and Color Flow revealed mild tricuspid regurgitation with an estimated PAP of 46 mmHg. Signed by : Jim Ma MD Electronically Approved : 11/19/2020 14:48:20 DICTATED and SIGNED BY: JIM MA MD DATE: 11/19/20 [id number] 0 Laboratory Tests Test 11/23/20 05:15 White Blood Count 7.4 x10^3/uL (4.0-11.0) Red Blood Count 5.53 x10^6/uL (4.30-5.70) Hemoglobin 15.3 g/dL (13.0-17.5) Hematocrit 47.8 % (39.0-53.0) Mean Corpuscular Volume 86 fL (79-100) Mean Corpuscular Hemoglobin 28 pg (25-35) Mean Corpuscular Hemoglobin Concent 32 g/dL (31-37) Red Cell Distribution Width 19.4 % (11.5-14.5) Platelet Count 126 x10^3/uL (140-400) Neutrophils (%) (Auto) 87 % (31-73) Lymphocytes (%) (Auto) 3 % (24-48) Monocytes (%) (Auto) 9 % (0-9) Eosinophils (%) (Auto) 0 % (0-3) Basophils (%) (Auto) 1 % (0-3) Neutrophils # (Auto) 6.5 x10^3/uL (1.8-7.7) Lymphocytes # (Auto) 0.2 x10^3/uL (1.0-4.8) Monocytes # (Auto) 0.7 x10^3/uL (0.0-1.1) Eosinophils # (Auto) 0.0 x10^3/uL (0.0-0.7) Basophils # (Auto) 0.0 x10^3/uL (0.0-0.2) Heparin Anti-Xa Act, Unfractionated 0.17 IU/mL (0.30-0.70) Sodium Level 130 mmol/L (136-145) Potassium Level 4.4 mmol/L (3.5-5.1) Chloride Level 92 mmol/L (98-107) Carbon Dioxide Level 35 mmol/L (21-32) Anion Gap 3 (6-14) Blood Urea Nitrogen 38 mg/dL (8-26) Creatinine 1.1 mg/dL (0.7-1.3) Estimated GFR (Cockcroft-Gault) 67.8 Glucose Level 138 mg/dL (70-99) Calcium Level 8.4 mg/dL (8.5-10.1) Comment Review of Relevant I have reviewed the following items florecita (where applicable) has been applied. Labs Laboratory Tests Test 11/21/20 11:15 11/21/20 14:10 11/21/20 21:15 11/22/20 03:35 Prothrombin Time 21.2 SEC (11.7-14.0) Prothromb Time International Ratio 1.9 (0.8-1.1) Heparin Anti-Xa Act, Unfractionated 0.55 IU/mL (0.30-0.70) 0.36 IU/mL (0.30-0.70) 0.34 IU/mL (0.30-0.70) Body Fluid pH 7.45 Sodium Level 135 mmol/L (136-145) Potassium Level 3.0 mmol/L (3.5-5.1) Chloride Level 93 mmol/L (98-107) Carbon Dioxide Level 37 mmol/L (21-32) Anion Gap 5 (6-14) Blood Urea Nitrogen 34 mg/dL (8-26) Creatinine 1.1 mg/dL (0.7-1.3) Estimated GFR (Cockcroft-Gault) 67.8 Glucose Level 120 mg/dL (70-99) Calcium Level 8.0 mg/dL (8.5-10.1) Magnesium Level 1.6 mg/dL (1.8-2.4) Test 11/23/20 05:15 White Blood Count 7.4 x10^3/uL (4.0-11.0) Red Blood Count 5.53 x10^6/uL (4.30-5.70) Hemoglobin 15.3 g/dL (13.0-17.5) Hematocrit 47.8 % (39.0-53.0) Mean Corpuscular Volume 86 fL (79-100) Mean Corpuscular Hemoglobin 28 pg (25-35) Mean Corpuscular Hemoglobin Concent 32 g/dL (31-37) Red Cell Distribution Width 19.4 % (11.5-14.5) Platelet Count 126 x10^3/uL (140-400) Neutrophils (%) (Auto) 87 % (31-73) Lymphocytes (%) (Auto) 3 % (24-48) Monocytes (%) (Auto) 9 % (0-9) Eosinophils (%) (Auto) 0 % (0-3) Basophils (%) (Auto) 1 % (0-3) Neutrophils # (Auto) 6.5 x10^3/uL (1.8-7.7) Lymphocytes # (Auto) 0.2 x10^3/uL (1.0-4.8) Monocytes # (Auto) 0.7 x10^3/uL (0.0-1.1) Eosinophils # (Auto) 0.0 x10^3/uL (0.0-0.7) Basophils # (Auto) 0.0 x10^3/uL (0.0-0.2) Heparin Anti-Xa Act, Unfractionated 0.17 IU/mL (0.30-0.70) Sodium Level 130 mmol/L (136-145) Potassium Level 4.4 mmol/L (3.5-5.1) Chloride Level 92 mmol/L (98-107) Carbon Dioxide Level 35 mmol/L (21-32) Anion Gap 3 (6-14) Blood Urea Nitrogen 38 mg/dL (8-26) Creatinine 1.1 mg/dL (0.7-1.3) Estimated GFR (Cockcroft-Gault) 67.8 Glucose Level 138 mg/dL (70-99) Calcium Level 8.4 mg/dL (8.5-10.1) Laboratory Tests Test 11/23/20 05:15 White Blood Count 7.4 x10^3/uL (4.0-11.0) Red Blood Count 5.53 x10^6/uL (4.30-5.70) Hemoglobin 15.3 g/dL (13.0-17.5) Hematocrit 47.8 % (39.0-53.0) Mean Corpuscular Volume 86 fL (79-100) Mean Corpuscular Hemoglobin 28 pg (25-35) Mean Corpuscular Hemoglobin Concent 32 g/dL (31-37) Red Cell Distribution Width 19.4 % (11.5-14.5) Platelet Count 126 x10^3/uL (140-400) Neutrophils (%) (Auto) 87 % (31-73) Lymphocytes (%) (Auto) 3 % (24-48) Monocytes (%) (Auto) 9 % (0-9) Eosinophils (%) (Auto) 0 % (0-3) Basophils (%) (Auto) 1 % (0-3) Neutrophils # (Auto) 6.5 x10^3/uL (1.8-7.7) Lymphocytes # (Auto) 0.2 x10^3/uL (1.0-4.8) Monocytes # (Auto) 0.7 x10^3/uL (0.0-1.1) Eosinophils # (Auto) 0.0 x10^3/uL (0.0-0.7) Basophils # (Auto) 0.0 x10^3/uL (0.0-0.2) Heparin Anti-Xa Act, Unfractionated 0.17 IU/mL (0.30-0.70) Sodium Level 130 mmol/L (136-145) Potassium Level 4.4 mmol/L (3.5-5.1) Chloride Level 92 mmol/L (98-107) Carbon Dioxide Level 35 mmol/L (21-32) Anion Gap 3 (6-14) Blood Urea Nitrogen 38 mg/dL (8-26) Creatinine 1.1 mg/dL (0.7-1.3) Estimated GFR (Cockcroft-Gault) 67.8 Glucose Level 138 mg/dL (70-99) Calcium Level 8.4 mg/dL (8.5-10.1) Microbiology 11/21/20 Gram Stain - Final, Resulted 11/21/20 Aerobic and Anaerobic Culture - Preliminary, Resulted Medications Current Medications Enoxaparin Sodium (Lovenox Per Pharmacy Treatment Dosing) 1 each PRN DAILY PRN MC SEE COMMENTS; Start 11/17/20 at 19:00; Stop 11/19/20 at 09:23; Status DC Ondansetron HCl (Zofran) 4 mg PRN Q8HRS PRN IVP NAUSEA/VOMITING Last administered on 11/18/20at 09:05; Start 11/17/20 at 19:00; Stop 11/18/20 at 11:29; Status DC Ceftriaxone Sodium (Rocephin) 2 gm Q24H IVP Last administered on 11/22/20at 14:35 ; Start 11/18/20 at 14:00 Azithromycin (Zithromax) 250 mg DAILY PO ; Start 11/18/20 at 09:00; Stop 11/18/20 at 08:37; Status DC Enoxaparin Sodium (Lovenox 100mg Syringe) 90 mg Q12H SQ Last administered on 11/18/20at 06:04; Start 11/18/20 at 06:00; Stop 11/18/20 at 13:34; Status DC Doxycycline Hyclate (Vibra-Tab) 100 mg BID PO ; Start 11/18/20 at 09:00; Stop 11/18/20 at 09:13; Status DC Pantoprazole Sodium (Protonix) 40 mg DAILYAC PO ; Start 11/18/20 at 09:00; Stop 11/18/20 at 09:21; Status DC Albuterol/ Ipratropium (Duoneb) 3 ml RTQID NEB Last administered on 11/23/20at 07:28; Start 11/18/20 at 12:00 Budesonide (Pulmicort) 0.5 mg RTBID NEB Last administered on 11/23/20at 07:28; Start 11/18/20 at 20:00 Budesonide (Pulmicort) 0.5 mg 1X ONCE NEB Last administered on 11/18/20at 12:39; Start 11/18/20 at 09:30; Stop 11/18/20 at 09:31; Status DC Doxycycline Hyclate 100 mg/ Dextrose 100 ml @ 50 mls/hr Q12HR IV Last administered on 11/23/20at 08:53; Start 11/18/20 at 10:00 Pantoprazole Sodium (PROTONIX VIAL for IV PUSH) 40 mg DAILYAC IVP Last administered on 11/23/20at 08:52; Start 11/18/20 at 10:00 Amino Acids/ Glycerin/ Electrolytes 1,000 ml @ 80 mls/hr [id number] ONCE IV Last administered on 11/18/20 09:44; Start 11/18/20 at 09:30; Stop 11/18/20 at 21:59; Status DC Furosemide (Lasix) 80 mg DAILY IVP Last administered on 11/23/20at 08:54; Start 11/18/20 at 11:00 Lactulose (Lactulose) 20 gm PRN DAILY PRN PO CONSTIPATION; Start 11/18/20 at 11:00 Metoclopramide HCl (Reglan Vial) 10 mg PRN Q6HRS PRN IVP NAUSEA/VOMITING, 2ND CHOICE Last administered on 11/18/20at 11:40; Start 11/18/20 at 11:30 Ondansetron HCl (Zofran) 4 mg PRN Q4HRS PRN IVP NAUSEA/VOMITING, 1ST CHOICE; Start 11/18/20 at 11:30 Enoxaparin Sodium (Lovenox 80mg Syringe) 80 mg Q12HR SQ Last administered on 11/19/20at 08:05; Start 11/18/20 at 21:00; Stop 11/19/20 at 09:23; Status DC Lactobacillus Rhamnosus (Culturelle) 1 cap BID PO Last administered on 11/23/20at 08:52; Start 11/18/20 at 21:00 Amino Acids/ Glycerin/ Electrolytes 1,000 ml @ 80 mls/hr [id number] IV Last administered on 11/18/20at 23:04; Start 11/18/20 at 22:15; Stop 11/19/20 at 09:01; Status DC Heparin Sodium/ Dextrose 250 ml @ 0 mls/hr CONT PRN IV PER PROTOCOL Last administered on 11/21/20at 05:02; Start 11/19/20 at 21:00 Heparin Sodium (Porcine) (Heparin Sodium) 2,600 unit PRN Q6HRS PRN IV FOR UFH LEVEL LESS THAN 0.2 Last administered on 11/23/20at 06:38; Start 11/19/20 at 21:00 Heparin Sodium (Porcine) (Heparin Sodium) 1,300 unit PRN Q6HRS PRN IV FOR UFH LEVEL 0.2 - 0.29; Start 11/19/20 at 21:00 Amino Acids/ Glycerin/ Electrolytes 1,000 ml @ 80 mls/hr [id number] IV Last administered on 11/23/20at 09:02; Start 11/19/20 at 17:15 Info (Anti-Coagulation Monitoring By Pharmacy) 1 each PRN DAILY PRN MC PER PROTOCOL Last administered on 11/21/20at 09:06; Start 11/21/20 at 09:15 Potassium Chloride/Water 100 ml @ 100 mls/hr Q1H IV Last administered on 11/22/20at 14:05; Start 11/22/20 at 10:00; Stop 11/22/20 at 13:59; Status DC Magnesium Sulfate 50 ml @ 25 mls/hr 1X ONCE IV Last administered on 11/22/20at 15:33; Start 11/22/20 at 15:00; Stop 11/22/20 at 16:59; Status DC Atorvastatin Calcium (Lipitor) 40 mg QHS PO Last administered on 11/22/20at 20:31; Start 11/22/20 at 21:00 Aspirin (Ecotrin) 81 mg [id number] PO Last administered on 11/23/20at 08:52; Start 11/23/20 at 08:00 Vitals/I & O Vital Sign - Last 24 Hours 11/22/20 11/22/20 11/22/20 11/22/20 11:00 13:13 15:00 16:01 Temp 97.2 97.7 97.2 97.7 Pulse 80 87 Resp 30 B/P (MAP) 97/81 (86) 104/66 (79) Pulse Ox 95 88 93 90 O2 Delivery Nasal Cannula Nasal Cannula Nasal Cannula Nasal Cannula O2 Flow Rate 2.0 2.0 2.0 3.0 11/22/20 11/22/20 11/22/20 11/22/20 16:45 19:05 19:14 20:35 Temp 97.4 97.5 97.4 97.5 Pulse 83 77 Resp 22 B/P (MAP) 104/75 (85) 101/74 (83) Pulse Ox 94 92 91 O2 Delivery Nasal Cannula Nasal Cannula Nasal Cannula Nasal Cannula O2 Flow Rate 4.0 4.0 4.0 3.0 11/22/20 11/23/20 11/23/20 11/23/20 22:00 02:02 07:00 07:29 Temp 97.5 97.5 96.1 97.5 97.5 96.1 Pulse 73 72 81 Resp 22 22 22 B/P (MAP) 99/69 (79) 100/70 (80) 102/76 (85) Pulse Ox 95 96 95 90 O2 Delivery Nasal Cannula Nasal Cannula Nasal Cannula Nasal Cannula O2 Flow Rate 4.0 4.0 3.5 3.5 Intake and Output 11/22/20 11/22/20 11/23/20 15:00 23:00 07:00 Intake Total 50 ml 640 ml 330 ml Output Total 400 ml 525 ml Balance 50 ml 240 ml -195 ml Nutrition Consultation Dietary Evaluation: Recommendations by RD: Dietary education by RD, PPN/TPN Comments: continue Cardiac diet, honor food preferencs and offer snacks/ supplements from unit prn. REC continue PPN for short term non - oral nutrition until appetite/ po intake improves Expected Outcomes/Goals: to meet >50% est nutr needs via po intake Malnutrition Findings: Weight Status: Appropriate Fluid Accumulation (Non-Severe: Mild depletion Justicifation of Admission Dx: Justifications for Admission: Justification of Admission Dx: Yes Altered Mental Status: Altered Mental Status MICHELLE KANG MD Nov 23, 2020 10:43
[2020-11-23 11:15] VITALS: BP 110/74
--- NOTE | 2020-11-23 13:12 | PDOC ---
PULMONARY PROGRESS NOTES DATE: 11/23/20 TIME: 13:12 Subjective Patient is resting comfortably on 3.5 L nasal cannula, more awake and alert today poor po intake per nursing S/P thoracentesis 11/21/20 Vitals Vital Signs Date Time Temp Pulse Resp B/P (MAP) Pulse Ox O2 Delivery O2 Flow Rate FiO2 11/23/20 11:31 93 Nasal Cannula 3.5 11/23/20 11:15 97.4 77 20 110/74 (86) 97.4 ROS: No Nausea, No Chest Pain, No Abdominal Pain, No Increase Cough General: Alert, Oriented X4 Lungs: Crackles Cardiovascular: S1, S2 Abdomen: Soft, Non-tender, Other (obese no mass) Neuro Exam: Alert Extremities: Other (edema, and erythema bilateral lower extremities) Skin: Warm Labs Laboratory Tests Test 11/21/20 14:10 11/21/20 21:15 11/22/20 03:35 11/23/20 05:15 Body Fluid pH 7.45 Heparin Anti-Xa Act, Unfractionated 0.36 IU/mL (0.30-0.70) 0.34 IU/mL (0.30-0.70) 0.17 IU/mL (0.30-0.70) Sodium Level 135 mmol/L (136-145) 130 mmol/L (136-145) Potassium Level 3.0 mmol/L (3.5-5.1) 4.4 mmol/L (3.5-5.1) Chloride Level 93 mmol/L (98-107) 92 mmol/L (98-107) Carbon Dioxide Level 37 mmol/L (21-32) 35 mmol/L (21-32) Anion Gap 5 (6-14) 3 (6-14) Blood Urea Nitrogen 34 mg/dL (8-26) 38 mg/dL (8-26) Creatinine 1.1 mg/dL (0.7-1.3) 1.1 mg/dL (0.7-1.3) Estimated GFR (Cockcroft-Gault) 67.8 67.8 Glucose Level 120 mg/dL (70-99) 138 mg/dL (70-99) Calcium Level 8.0 mg/dL (8.5-10.1) 8.4 mg/dL (8.5-10.1) Magnesium Level 1.6 mg/dL (1.8-2.4) White Blood Count 7.4 x10^3/uL (4.0-11.0) Red Blood Count 5.53 x10^6/uL (4.30-5.70) Hemoglobin 15.3 g/dL (13.0-17.5) Hematocrit 47.8 % (39.0-53.0) Mean Corpuscular Volume 86 fL (79-100) Mean Corpuscular Hemoglobin 28 pg (25-35) Mean Corpuscular Hemoglobin Concent 32 g/dL (31-37) Red Cell Distribution Width 19.4 % (11.5-14.5) Platelet Count 126 x10^3/uL (140-400) Neutrophils (%) (Auto) 87 % (31-73) Lymphocytes (%) (Auto) 3 % (24-48) Monocytes (%) (Auto) 9 % (0-9) Eosinophils (%) (Auto) 0 % (0-3) Basophils (%) (Auto) 1 % (0-3) Neutrophils # (Auto) 6.5 x10^3/uL (1.8-7.7) Lymphocytes # (Auto) 0.2 x10^3/uL (1.0-4.8) Monocytes # (Auto) 0.7 x10^3/uL (0.0-1.1) Eosinophils # (Auto) 0.0 x10^3/uL (0.0-0.7) Basophils # (Auto) 0.0 x10^3/uL (0.0-0.2) Test 11/23/20 11:45 Heparin Anti-Xa Act, Unfractionated 0.21 IU/mL (0.30-0.70) Laboratory Tests Test 11/23/20 05:15 11/23/20 11:45 White Blood Count 7.4 x10^3/uL (4.0-11.0) Red Blood Count 5.53 x10^6/uL (4.30-5.70) Hemoglobin 15.3 g/dL (13.0-17.5) Hematocrit 47.8 % (39.0-53.0) Mean Corpuscular Volume 86 fL (79-100) Mean Corpuscular Hemoglobin 28 pg (25-35) Mean Corpuscular Hemoglobin Concent 32 g/dL (31-37) Red Cell Distribution Width 19.4 % (11.5-14.5) Platelet Count 126 x10^3/uL (140-400) Neutrophils (%) (Auto) 87 % (31-73) Lymphocytes (%) (Auto) 3 % (24-48) Monocytes (%) (Auto) 9 % (0-9) Eosinophils (%) (Auto) 0 % (0-3) Basophils (%) (Auto) 1 % (0-3) Neutrophils # (Auto) 6.5 x10^3/uL (1.8-7.7) Lymphocytes # (Auto) 0.2 x10^3/uL (1.0-4.8) Monocytes # (Auto) 0.7 x10^3/uL (0.0-1.1) Eosinophils # (Auto) 0.0 x10^3/uL (0.0-0.7) Basophils # (Auto) 0.0 x10^3/uL (0.0-0.2) Heparin Anti-Xa Act, Unfractionated 0.17 IU/mL (0.30-0.70) 0.21 IU/mL (0.30-0.70) Sodium Level 130 mmol/L (136-145) Potassium Level 4.4 mmol/L (3.5-5.1) Chloride Level 92 mmol/L (98-107) Carbon Dioxide Level 35 mmol/L (21-32) Anion Gap 3 (6-14) Blood Urea Nitrogen 38 mg/dL (8-26) Creatinine 1.1 mg/dL (0.7-1.3) Estimated GFR (Cockcroft-Gault) 67.8 Glucose Level 138 mg/dL (70-99) Calcium Level 8.4 mg/dL (8.5-10.1) Comments Chest x-ray reviewed bilateral infiltrates stable left-sided opacity questionable effusion ECHO <Conclusion> The Left Ventricle is borderline dilated. The systolic function is severely impaired. The Ejection Fraction is estimated at 20%. There is severe global hypokinesis of the left ventricle. There is borderline to mild concentric left ventricular hypertrophy. There is a device lead in the right ventricle. Doppler and Color Flow revealed no significant aortic regurgitation. There is no significant aortic valvular stenosis. Doppler and Color-flow revealed mild mitral regurgitation. Doppler and Color Flow revealed mild tricuspid regurgitation with an estimated PAP of 46 mmHg. Impression . IMPRESSION: 1. Acute hypoxemic respiratory failure, multifactorial 2. Abnormal chest x-ray. Left-sided effusion--S/P thoracentesis 11/21 3. Acute pulmonary embolism. 4. Chronic obstructive pulmonary disease. 5. Acute systolic versus diastolic congestive heart failure. 6. Obstructive sleep apnea/hypopnea syndrome. 7. Tobacco habituation. 8. Atrial fibrillation. 9. Coronary artery disease, status post CABG. 10. Negative SARS Covid 2 Bilateral lower extremity venous Dopplers 11/18 IMPRESSION: Partially occlusive DVT is seen involving the posterior tibial veins within the right calf. Plan . UPDATED 11/23/2020 Continue supplemental oxygen to keep oxygen saturations greater than 92%, currently on 2 L nasal cannula Remains on heparin gtt continue, will D/W PCP tomorrow the plan for transition to Oral anticoagulation S/P left thoracentesis with removal 1.3 liters of fluid on 11/21/20 Continue bronchodilators including Pulmicort Continue antibiotics: Rocephin, doxy Follow cardiology recommendations---The Ejection Fraction is estimated at 20%. Follow nephrology recommendations Follow GI recs Continue PPN for nutritional support DVT/GI prophylaxis Physical therapy/Occupational Therapy Social work following-- recs to go to [facility], pt. has been accepted at [facility] Discussed with RN UPDATED 11/22/2020 Continue supplemental oxygen to keep oxygen saturations greater than 92%, currently on 2 L nasal cannula S/P left thoracentesis with removal 1.3 liters of fluid on 11/21/20 Continue bronchodilators including Pulmicort Continue antibiotics: Rocephin, doxy Follow cardiology recommendations---The Ejection Fraction is estimated at 20%. Follow nephrology recommendations DVT/GI prophylaxis Physical therapy/Occupational Therapy Discussed with RN UPDATED 11/21/2020 Continue supplemental oxygen to keep oxygen saturations greater than 92%, currently on 2 L nasal cannula Okay to pause heparin 3 hours prior to left-sided thoracentesis Continue bronchodilators including Pulmicort IR consulted, plan for left-sided thoracentesis today Continue antibiotics: Rocephin, doxy Follow cardiology recommendations---The Ejection Fraction is estimated at 20%. Follow nephrology recommendations DVT/GI prophylaxis Physical therapy/Occupational Therapy Discussed with OMID ZACARIAS MD Nov 23, 2020 13:12
--- NOTE | 2020-11-23 14:19 | NUR ---
SS following up with discharge planning. SS reviewed pt chart and discussed with pt RN. Pt is currently requiring oxygen at 3.5 liters nasal canula. Pt on IV Rocephin and IV Doxycycline. Pt on PPN and Heparin drip. Pt on IV Lasix. COVID19 negative. PT/OT recommended halfway unit. Pt accepted at [facility], ; fax [phone]. SS will continue to follow for discharge planning.
[2020-11-23 14:32] VITALS: BP 111/78
--- NOTE | 2020-11-23 14:33 | PDOC ---
G I PROGRESS NOTE Subjective No specific complaints. Generally reticent. Objective No reports of any GI issues. Apparently not eating well. Physical Exam Lungs clear anteriorly. IRRR Abdomen soft, not tender nor distended. Review of Relevant I have reviewed the following items florecita (where applicable) has been applied. Labs Laboratory Tests Test 11/21/20 21:15 11/22/20 03:35 11/23/20 05:15 11/23/20 11:45 Heparin Anti-Xa Act, Unfractionated 0.36 IU/mL (0.30-0.70) 0.34 IU/mL (0.30-0.70) 0.17 IU/mL (0.30-0.70) 0.21 IU/mL (0.30-0.70) Sodium Level 135 mmol/L (136-145) 130 mmol/L (136-145) Potassium Level 3.0 mmol/L (3.5-5.1) 4.4 mmol/L (3.5-5.1) Chloride Level 93 mmol/L (98-107) 92 mmol/L (98-107) Carbon Dioxide Level 37 mmol/L (21-32) 35 mmol/L (21-32) Anion Gap 5 (6-14) 3 (6-14) Blood Urea Nitrogen 34 mg/dL (8-26) 38 mg/dL (8-26) Creatinine 1.1 mg/dL (0.7-1.3) 1.1 mg/dL (0.7-1.3) Estimated GFR (Cockcroft-Gault) 67.8 67.8 Glucose Level 120 mg/dL (70-99) 138 mg/dL (70-99) Calcium Level 8.0 mg/dL (8.5-10.1) 8.4 mg/dL (8.5-10.1) Magnesium Level 1.6 mg/dL (1.8-2.4) White Blood Count 7.4 x10^3/uL (4.0-11.0) Red Blood Count 5.53 x10^6/uL (4.30-5.70) Hemoglobin 15.3 g/dL (13.0-17.5) Hematocrit 47.8 % (39.0-53.0) Mean Corpuscular Volume 86 fL (79-100) Mean Corpuscular Hemoglobin 28 pg (25-35) Mean Corpuscular Hemoglobin Concent 32 g/dL (31-37) Red Cell Distribution Width 19.4 % (11.5-14.5) Platelet Count 126 x10^3/uL (140-400) Neutrophils (%) (Auto) 87 % (31-73) Lymphocytes (%) (Auto) 3 % (24-48) Monocytes (%) (Auto) 9 % (0-9) Eosinophils (%) (Auto) 0 % (0-3) Basophils (%) (Auto) 1 % (0-3) Neutrophils # (Auto) 6.5 x10^3/uL (1.8-7.7) Lymphocytes # (Auto) 0.2 x10^3/uL (1.0-4.8) Monocytes # (Auto) 0.7 x10^3/uL (0.0-1.1) Eosinophils # (Auto) 0.0 x10^3/uL (0.0-0.7) Basophils # (Auto) 0.0 x10^3/uL (0.0-0.2) Thyroid Stimulating Hormone (TSH) 5.365 uIU/mL (0.358-3.74) Laboratory Tests Test 11/23/20 05:15 11/23/20 11:45 White Blood Count 7.4 x10^3/uL (4.0-11.0) Red Blood Count 5.53 x10^6/uL (4.30-5.70) Hemoglobin 15.3 g/dL (13.0-17.5) Hematocrit 47.8 % (39.0-53.0) Mean Corpuscular Volume 86 fL (79-100) Mean Corpuscular Hemoglobin 28 pg (25-35) Mean Corpuscular Hemoglobin Concent 32 g/dL (31-37) Red Cell Distribution Width 19.4 % (11.5-14.5) Platelet Count 126 x10^3/uL (140-400) Neutrophils (%) (Auto) 87 % (31-73) Lymphocytes (%) (Auto) 3 % (24-48) Monocytes (%) (Auto) 9 % (0-9) Eosinophils (%) (Auto) 0 % (0-3) Basophils (%) (Auto) 1 % (0-3) Neutrophils # (Auto) 6.5 x10^3/uL (1.8-7.7) Lymphocytes # (Auto) 0.2 x10^3/uL (1.0-4.8) Monocytes # (Auto) 0.7 x10^3/uL (0.0-1.1) Eosinophils # (Auto) 0.0 x10^3/uL (0.0-0.7) Basophils # (Auto) 0.0 x10^3/uL (0.0-0.2) Heparin Anti-Xa Act, Unfractionated 0.17 IU/mL (0.30-0.70) 0.21 IU/mL (0.30-0.70) Sodium Level 130 mmol/L (136-145) Potassium Level 4.4 mmol/L (3.5-5.1) Chloride Level 92 mmol/L (98-107) Carbon Dioxide Level 35 mmol/L (21-32) Anion Gap 3 (6-14) Blood Urea Nitrogen 38 mg/dL (8-26) Creatinine 1.1 mg/dL (0.7-1.3) Estimated GFR (Cockcroft-Gault) 67.8 Glucose Level 138 mg/dL (70-99) Calcium Level 8.4 mg/dL (8.5-10.1) Thyroid Stimulating Hormone (TSH) 5.365 uIU/mL (0.358-3.74) Microbiology 11/21/20 Gram Stain - Final, Resulted 11/21/20 Aerobic and Anaerobic Culture - Preliminary, Resulted Vitals/I & O Vital Sign - Last 24 Hours 11/22/20 11/22/20 11/22/20 11/22/20 15:00 16:01 16:45 19:05 Temp 97.7 97.4 97.5 97.7 97.4 97.5 Pulse 87 83 77 Resp 30 22 22 B/P (MAP) 104/66 (79) 104/75 (85) 101/74 (83) Pulse Ox 93 90 94 92 O2 Delivery Nasal Cannula Nasal Cannula Nasal Cannula Nasal Cannula O2 Flow Rate 2.0 3.0 4.0 4.0 11/22/20 11/22/20 11/22/20 11/23/20 19:14 20:35 22:00 02:02 Temp 97.5 97.5 97.5 97.5 Pulse 73 72 Resp 22 22 B/P (MAP) 99/69 (79) 100/70 (80) Pulse Ox 91 95 96 O2 Delivery Nasal Cannula Nasal Cannula Nasal Cannula Nasal Cannula O2 Flow Rate 4.0 3.0 4.0 4.0 11/23/20 11/23/20 11/23/20 11/23/20 07:00 07:29 08:00 11:15 Temp 96.1 97.4 96.1 97.4 Pulse 81 77 Resp 22 20 B/P (MAP) 102/76 (85) 110/74 (86) Pulse Ox 95 90 96 O2 Delivery Nasal Cannula Nasal Cannula Nasal Cannula Nasal Cannula O2 Flow Rate 3.5 3.5 4.0 3.5 11/23/20 11:31 Pulse Ox 93 O2 Delivery Nasal Cannula O2 Flow Rate 3.5 Intake and Output 11/22/20 11/22/20 11/23/20 15:00 23:00 07:00 Intake Total 50 ml 640 ml 330 ml Output Total 400 ml 525 ml Balance 50 ml 240 ml -195 ml Assessment PE's, on AC. Jaundice; numbers have improved with diuresis. Plan of Care Note Continue support as now. Justicifation of Admission Dx: Justifications for Admission: Justification of Admission Dx: Yes Altered Mental Status: Altered Mental Status BRITTANY MCDERMOTT MD Nov 23, 2020 14:33
[2020-11-23] MEDS: AMIODARONE HCL 200 MG TABLET. PO SCH (15:56)
[2020-11-23] MEDS: cefTRIAXone IV Push 2 GM VIAL. IVP SCH (16:05)
--- NOTE | 2020-11-23 17:10 | PATHOLOGY ---
Note [facility] Accession Number: [id number] TESTS RESULT FLAG UNITS REF RANGE LAB Clinician Provided Cytology Information No. of containers..01 Other (Miscellaneous) Source: LEFT PLEURAL FLUID DIAGNOSIS: 02 LEFT PLEURAL FLUID NEGATIVE FOR MALIGNANT CELLS. REACTIVE MESOTHELIAL CELLS PRESENT WITHIN A BACKGROUND OF ACUTE AND CHRONIC INFLAMMATORY CELLS. THIS INTERPRETATION INCLUDES EVALUATION OF A CELL BLOCK. Signed out by: 02 Nestor Morrison MD, Pathologist NPI- [id number] Performed by: Susan Kim, Parts Sales Counterperson ([facility]) Gross description: 01 35ML, CLR DARK YELLOW, 1 TP 1 CB /LCS 11/22/2020 1901 Local FLAG LEGEND: L-Low Normal,H-High Normal,LL-Alert Low,HH-Alert High <-Panic Low,>-Panic High,A-Abnormal,AA-Critical Abnormal Performed at: 01 [facility] [address] [place] [address] Kamar Huerta MD, 02 [facility] [address] [place] [address] Nestor Morrison MD, Specimen Comment: A courtesy copy of this report has been sent to [phone], [phone] Specimen Comment: [id number] Specimen Comment: Report sent to / DR BUCHANAN Specimen Comment: A duplicate report has been generated due to demographic updates. Performed at: 01 [facility] [address], [place], [place] [id number] MD Kamar Huerta MD Phone: [phone]
[2020-11-23] MEDS: HEPARIN 25,000UTS/250ML PREMIX 250 ML IV PRN (18:22)
[2020-11-23 19:00] VITALS: BP 106/71
[2020-11-23] MEDS ORDERED: ATOR80TA72 PO (19:32)
[2020-11-23] MEDS ORDERED: ASPI81TA59 PO (19:32)
[2020-11-23] MEDS ORDERED: ATOR40TA59 PO (19:32)
[2020-11-23] MEDS ORDERED: METF500S5 PO (19:32)
[2020-11-23] MEDS ORDERED: PANT40TA77 PO (19:32)
[2020-11-23] MEDS ORDERED: AMIO200T6 PO (19:32)
[2020-11-23] MEDS ORDERED: RISP0.5T62 PO (19:32)
[2020-11-23] MEDS ORDERED: RANO500T2 PO (19:32)
[2020-11-23] MEDS ORDERED: METO-239 PO (19:32)
[2020-11-23] MEDS ORDERED: WARF2.5T71 PO (19:32)
[2020-11-23] MEDS ORDERED: DULO30CA2 PO (19:32)
[2020-11-23] MEDS ORDERED: POTA20TA4 PO (19:32)
[2020-11-23] MEDS: ATORVASTATIN CALCIUM 40 MG TABLET. PO SCH (20:29)
[2020-11-23 23:02] VITALS: BP 119/83
[2020-11-24] MEDS: AMINO AC 3%/ELECTROLYTE/GLYCER 1,000 ML IV SCH ×2 (00:47→16:51)
[2020-11-24 03:00] VITALS: BP 99/63
[2020-11-24 05:17] LABS: CALCIUM 8.1 mg/dL (8.5-10.1); CREATININE 1.1 mg/dL (0.7-1.3); GFR 67.8
[2020-11-24] MEDS: HEPARIN for IV BOLUS 10,000 UNIT/10 ML VIAL. IV PRN ×2 (05:17→12:40)
[2020-11-24 07:00] VITALS: BP 113/74
[2020-11-24] MEDS: IPRATRPIUM/ALBUTEROL 0.5/2.5MG 3 ML NEBU. NEB SCH ×4 (07:50→20:00)
[2020-11-24] MEDS: BUDESONIDE 0.5 MG/2 ML NEBU. NEB SCH ×2 (07:50→20:19)
[2020-11-24] MEDS: LACTOBACILLUS RHAMNOSUS GG 1 CAPSULE. PO SCH ×2 (08:14→21:30)
[2020-11-24] MEDS: FUROSEMIDE 100 MG/10 ML VIAL. IVP SCH (08:14)
[2020-11-24] MEDS: PANTOPRAZOLE IV PUSH 40 MG VIAL. IVP SCH (08:14)
[2020-11-24] MEDS: ASPIRIN ENTERIC COATED 81 MG TABLET.DR. PO SCH (08:14)
[2020-11-24] MEDS: DOXYCYCLINE HYCLATE 100 MG in IV DEXTROSE 5% 100ML 100 ML IV SCH (08:15)
[2020-11-24] MEDS: AMIODARONE HCL 200 MG TABLET. PO SCH (08:15)
--- NOTE | 2020-11-24 08:31 | PDOC ---
PULMONARY PROGRESS NOTES DATE: 11/24/20 TIME: 08:31 Subjective Remains on 3 liters NC sleepy but easily awaken poor po intake per nursing S/P thoracentesis 11/21/20 Vitals Vital Signs Date Time Temp Pulse Resp B/P (MAP) Pulse Ox O2 Delivery O2 Flow Rate FiO2 11/24/20 08:15 72 113/74 11/24/20 07:50 96 Nasal Cannula 3.5 11/24/20 07:00 97.2 16 97.2 ROS: No Nausea, No Chest Pain, No Abdominal Pain, No Increase Cough General: Alert, Oriented X4 Lungs: Crackles Cardiovascular: S1, S2 Abdomen: Soft, Non-tender, Other (obese no mass) Neuro Exam: Alert Extremities: Other (edema, and erythema bilateral lower extremities) Skin: Warm Labs Laboratory Tests Test 11/23/20 05:15 11/23/20 11:45 11/23/20 20:30 11/24/20 04:45 White Blood Count 7.4 x10^3/uL (4.0-11.0) Red Blood Count 5.53 x10^6/uL (4.30-5.70) Hemoglobin 15.3 g/dL (13.0-17.5) Hematocrit 47.8 % (39.0-53.0) Mean Corpuscular Volume 86 fL (79-100) Mean Corpuscular Hemoglobin 28 pg (25-35) Mean Corpuscular Hemoglobin Concent 32 g/dL (31-37) Red Cell Distribution Width 19.4 % (11.5-14.5) Platelet Count 126 x10^3/uL (140-400) Neutrophils (%) (Auto) 87 % (31-73) Lymphocytes (%) (Auto) 3 % (24-48) Monocytes (%) (Auto) 9 % (0-9) Eosinophils (%) (Auto) 0 % (0-3) Basophils (%) (Auto) 1 % (0-3) Neutrophils # (Auto) 6.5 x10^3/uL (1.8-7.7) Lymphocytes # (Auto) 0.2 x10^3/uL (1.0-4.8) Monocytes # (Auto) 0.7 x10^3/uL (0.0-1.1) Eosinophils # (Auto) 0.0 x10^3/uL (0.0-0.7) Basophils # (Auto) 0.0 x10^3/uL (0.0-0.2) Heparin Anti-Xa Act, Unfractionated 0.17 IU/mL (0.30-0.70) 0.21 IU/mL (0.30-0.70) 0.52 IU/mL (0.30-0.70) 0.13 IU/mL (0.30-0.70) Sodium Level 130 mmol/L (136-145) 134 mmol/L (136-145) Potassium Level 4.4 mmol/L (3.5-5.1) 4.0 mmol/L (3.5-5.1) Chloride Level 92 mmol/L (98-107) 92 mmol/L (98-107) Carbon Dioxide Level 35 mmol/L (21-32) 38 mmol/L (21-32) Anion Gap 3 (6-14) 4 (6-14) Blood Urea Nitrogen 38 mg/dL (8-26) 38 mg/dL (8-26) Creatinine 1.1 mg/dL (0.7-1.3) 1.1 mg/dL (0.7-1.3) Estimated GFR (Cockcroft-Gault) 67.8 67.8 Glucose Level 138 mg/dL (70-99) 122 mg/dL (70-99) Calcium Level 8.4 mg/dL (8.5-10.1) 8.1 mg/dL (8.5-10.1) Magnesium Level 2.0 mg/dL (1.8-2.4) Thyroid Stimulating Hormone (TSH) 5.365 uIU/mL (0.358-3.74) Free Thyroxine 1.16 ng/dL (0.76-1.46) Laboratory Tests Test 11/23/20 11:45 11/23/20 20:30 11/24/20 04:45 Heparin Anti-Xa Act, Unfractionated 0.21 IU/mL (0.30-0.70) 0.52 IU/mL (0.30-0.70) 0.13 IU/mL (0.30-0.70) Sodium Level 134 mmol/L (136-145) Potassium Level 4.0 mmol/L (3.5-5.1) Chloride Level 92 mmol/L (98-107) Carbon Dioxide Level 38 mmol/L (21-32) Anion Gap 4 (6-14) Blood Urea Nitrogen 38 mg/dL (8-26) Creatinine 1.1 mg/dL (0.7-1.3) Estimated GFR (Cockcroft-Gault) 67.8 Glucose Level 122 mg/dL (70-99) Calcium Level 8.1 mg/dL (8.5-10.1) Medications Active Scripts Medications Dose Route/Sig Max Daily Dose Days Date Category Warfarin Sodium 2.5 Mg Tablet 2.5 Mg PO DAILY 11/23/20 Reported Risperidone 0.5 Mg Tablet 1 Tab PO QHS 11/23/20 Reported Ranexa (Ranolazine) 500 Mg Tab.er.12h 500 Mg PO BID 11/23/20 Reported Klor-Con M20 (Potassium Chloride) 20 Meq Tab.er.prt 20 Meq PO DAILY 11/23/20 Reported Pantoprazole Sodium (Pantoprazole Sodium) 40 Mg Tablet.dr 40 Mg PO DAILYAC 11/23/20 Reported Metoprolol Succinate ( Xl ) (Metoprolol Succinate) 25 Mg Tab.er.24h 25 Mg PO HS 11/23/20 Reported Metformin HCl 500 Mg/5 Ml Solution 500 Mg PO BID 11/23/20 Reported Cymbalta (Duloxetine Hcl) 30 Mg Capsule.dr 30 Mg PO DAILY 11/23/20 Reported Atorvastatin Calcium 80 Mg Tablet 80 Mg PO QHS 11/23/20 Reported Atorvastatin Calcium 40 Mg Tablet 1 Tab PO DAILY 11/23/20 Reported Children's Aspirin (Aspirin) 81 Mg Tab.chew 1 Tab PO DAILY 30 11/23/20 Reported Amiodarone Hcl 200 Mg Tablet 1 Tab PO DAILY 11/23/20 Reported Comments Chest x-ray reviewed bilateral infiltrates stable left-sided opacity questionable effusion ECHO <Conclusion> The Left Ventricle is borderline dilated. The systolic function is severely impaired. The Ejection Fraction is estimated at 20%. There is severe global hypokinesis of the left ventricle. There is borderline to mild concentric left ventricular hypertrophy. There is a device lead in the right ventricle. Doppler and Color Flow revealed no significant aortic regurgitation. There is no significant aortic valvular stenosis. Doppler and Color-flow revealed mild mitral regurgitation. Doppler and Color Flow revealed mild tricuspid regurgitation with an estimated PAP of 46 mmHg. Impression . IMPRESSION: 1. Acute hypoxemic respiratory failure, multifactorial --improved 2. Abnormal chest x-ray. Left-sided effusion--S/P thoracentesis 11/21 3. Acute pulmonary embolism. 4. Chronic obstructive pulmonary disease. 5. Acute systolic versus diastolic congestive heart failure. 6. Obstructive sleep apnea/hypopnea syndrome. 7. Tobacco habituation. 8. Atrial fibrillation. 9. Coronary artery disease, status post CABG. 10. Negative SARS Covid 2 11. Encephalopathy--improving Bilateral lower extremity venous Dopplers 11/18 IMPRESSION: Partially occlusive DVT is seen involving the posterior tibial veins within the right calf. Plan . UPDATED 11/24/2020 Continue supplemental oxygen to keep oxygen saturations greater than 92%, currently on 2 L nasal cannula DC heparin gtt transition to Oral anticoagulation with coumadin S/P left thoracentesis with removal 1.3 liters of fluid on 11/21/20 Continue bronchodilators including Pulmicort Continue antibiotics: Rocephin, doxy Follow cardiology recommendations---The Ejection Fraction is estimated at 20%. Follow nephrology recommendations Follow GI recs Continue PPN for nutritional support DVT/GI prophylaxis Physical therapy/Occupational Therapy Social work following-- recs to go to [facility], pt. has been accepted at [facility] Discussed with RN UPDATED 11/23/2020 Continue supplemental oxygen to keep oxygen saturations greater than 92%, currently on 2 L nasal cannula Remains on heparin gtt continue, will D/W PCP tomorrow the plan for transition to Oral anticoagulation S/P left thoracentesis with removal 1.3 liters of fluid on 11/21/20 Continue bronchodilators including Pulmicort Continue antibiotics: Rocephin, doxy Follow cardiology recommendations---The Ejection Fraction is estimated at 20%. Follow nephrology recommendations Follow GI recs Continue PPN for nutritional support DVT/GI prophylaxis Physical therapy/Occupational Therapy Social work following-- [facility], [facility] has been accepted at [facility] Discussed with RN UPDATED 11/22/2020 Continue supplemental oxygen to keep oxygen saturations greater than 92%, currently on 2 L nasal cannula S/P left thoracentesis with removal 1.3 liters of fluid on 11/21/20 Continue bronchodilators including Pulmicort Continue antibiotics: Rocephin, doxy Follow cardiology recommendations---The Ejection Fraction is estimated at 20%. Follow nephrology recommendations DVT/GI prophylaxis Physical therapy/Occupational Therapy Discussed with RN UPDATED 11/21/2020 Continue supplemental oxygen to keep oxygen saturations greater than 92%, currently on 2 L nasal cannula Okay to pause heparin 3 hours prior to left-sided thoracentesis Continue bronchodilators including Pulmicort IR consulted, plan for left-sided thoracentesis today Continue antibiotics: Rocephin, doxy Follow cardiology recommendations---The Ejection Fraction is estimated at 20%. Follow nephrology recommendations DVT/GI prophylaxis Physical therapy/Occupational Therapy Discussed with OMID ZACARIAS MD Nov 24, 2020 08:31
--- NOTE | 2020-11-24 09:31 | PDOC ---
DATE OF SERVICE DATE: 11/24/20 TIME: 09:24 SUBJECTIVE ROS stable , No SOB at rest OBJECTIVE Vital Signs Vital Signs Date Time Temp Pulse Resp B/P (MAP) Pulse Ox O2 Delivery O2 Flow Rate FiO2 11/24/20 08:15 72 113/74 11/24/20 07:50 96 Nasal Cannula 3.5 11/24/20 07:00 97.2 16 97.2 I & 0 Intake and Output 11/24/20 07:03 Intake Total 450 ml Output Total 2420 ml Balance -1970 ml Intake Oral 450 ml Output Urine Total 2420 ml PHYSICAL EXAM Physical Exam General NAD HEEN OM moist, On o2 by PR Neck supple Lungs cta, non labored CV S1S2 Abd soft, NT Neuro Grossly normal, baseline confusion/dementia Skin No rash No CVA or SP tenderness , Vinson + Ext [place]s + discolored LE , 2 + Edema (Chronic) DIAGNOSIS/ASSESSMENT Assessment & Plan DOE - ATN,/Sepsis Non oliguric, resolved CTA done at [facility] - bilateral renal cortical thinning and lobulation due to scarring. There is a simple left renal cysts.Supportive care , Avoid nephrotoxins , CKD- suspected , based on Ct Kidney findings, No prior labs Hyponatremia - Mild, Monitor, currently on Procalamine. On Lasix 80 mg IV , card managing Hematuria Microscopic- UA ordered on 11/20 per primary , Vinson sample ? Trauma, On Heparin as well . No QUIÑONES/Urinary retention at presentation per nursing . Monitor . CT scan mild bladder wall thickening. The prostate is mildly enlarged. US - Kidneys unremarkable, Bladder not reported . Repeat UA few days after after Vinson removal - If persistent Consult urology Acute bilateral Pulmonary embolism - from Lovenox to heparin GTT now . CoVid Negative Acute pneumonia On Abx Sepsis - due to above Acute hypoxic respiratory failure - due to PE, CHF- On o2 by PR , stable S/P Lt thoracentesis 11/21-1.3 lts drained CAD s/p CABG 1993 Acute on chronic systolic CHF with prior known 3+ pitting edema for months, S/p AICD , On IV Lasix - management per cardiology Atrial fibrillation - Was on eliquis stopped taking it for 2 weeks prior to admit Transaminits - likely congestive hepatopathy, no ETOH or cirrhosis per patient. Bilirubin is elevated at 4.6. PVD, US artery LUE neg at [facility], poor pulses, cool feet, per vascular COMMENT/RELEVANT DATA Meds Current Medications Medications (Trade) Dose Ordered Sig/Grace Start Time Stop Time Status Last Admin Dose Admin Albuterol/ Ipratropium (Duoneb) 3 ml RTQID 11/18/20 12:00 11/24/20 07:50 3 ML Amino Acids/ Glycerin/ Electrolytes 1,000 ml @ 80 mls/hr [id number] 11/19/20 17:15 11/24/20 00:47 80 MLS/HR Amiodarone HCl (Cordarone) 200 mg DAILY 11/23/20 15:00 11/24/20 08:15 200 MG Aspirin (Ecotrin) 81 mg [id number] 11/23/20 08:00 11/24/20 08:14 81 MG Atorvastatin Calcium (Lipitor) 40 mg QHS 11/22/20 21:00 11/23/20 20:29 40 MG Azithromycin (Zithromax) 250 mg DAILY 11/18/20 09:00 11/18/20 08:37 DC Budesonide (Pulmicort) 0.5 mg 1X ONCE 11/18/20 09:30 11/18/20 09:31 DC 11/18/20 12:39 0.5 MG Ceftriaxone Sodium (Rocephin) 2 gm Q24H 11/18/20 14:00 11/23/20 16:05 2 GM Doxycycline Hyclate (Vibra-Tab) 100 mg BID 11/18/20 09:00 11/18/20 09:13 DC Doxycycline Hyclate 100 mg/ Dextrose 100 ml @ 50 mls/hr Q12HR 11/18/20 10:00 11/24/20 08:15 50 MLS/HR Enoxaparin Sodium (Lovenox 100mg Syringe) 90 mg Q12H 11/18/20 06:00 11/18/20 13:34 DC 11/18/20 06:04 90 MG Enoxaparin Sodium (Lovenox 80mg Syringe) 80 mg Q12HR 11/18/20 21:00 11/19/20 09:23 DC 11/19/20 08:05 80 MG Enoxaparin Sodium (Lovenox Per Pharmacy Treatment Dosing) 1 each PRN DAILY PRN 11/17/20 19:00 11/19/20 09:23 DC Furosemide (Lasix) 80 mg DAILY 11/18/20 11:00 11/24/20 08:14 80 MG Heparin Sodium (Porcine) (Heparin Sodium) 1,300 unit PRN Q6HRS PRN 11/19/20 21:00 11/23/20 12:45 1,300 UNIT Heparin Sodium/ Dextrose 250 ml @ 0 mls/hr CONT PRN 11/19/20 21:00 11/23/20 18:22 8.4 MLS/HR Info (Anti-Coagulation Monitoring By Pharmacy) 1 each PRN DAILY PRN 11/21/20 09:15 11/21/20 09:06 1 EACH Lactobacillus Rhamnosus (Culturelle) 1 cap BID 11/18/20 21:00 11/24/20 08:14 1 CAP Lactulose (Lactulose) 20 gm PRN DAILY PRN 11/18/20 11:00 Magnesium Sulfate 50 ml @ 25 mls/hr 1X ONCE 11/22/20 15:00 11/22/20 16:59 DC 11/22/20 15:33 25 MLS/HR Metoclopramide HCl (Reglan Vial) 10 mg PRN Q6HRS PRN 11/18/20 11:30 11/18/20 11:40 10 MG Ondansetron HCl (Zofran) 4 mg PRN Q4HRS PRN 11/18/20 11:30 Pantoprazole Sodium (PROTONIX VIAL for IV PUSH) 40 mg DAILYAC 11/18/20 10:00 11/24/20 08:14 40 MG Pantoprazole Sodium (Protonix) 40 mg DAILYAC 11/18/20 09:00 11/18/20 09:21 DC Potassium Chloride/Water 100 ml @ 100 mls/hr Q1H 11/22/20 10:00 11/22/20 13:59 DC 11/22/20 14:05 100 MLS/HR Lab Laboratory Tests Test 11/23/20 11:45 11/23/20 20:30 11/24/20 04:45 Heparin Anti-Xa Act, Unfractionated 0.21 IU/mL (0.30-0.70) 0.52 IU/mL (0.30-0.70) 0.13 IU/mL (0.30-0.70) Sodium Level 134 mmol/L (136-145) Potassium Level 4.0 mmol/L (3.5-5.1) Chloride Level 92 mmol/L (98-107) Carbon Dioxide Level 38 mmol/L (21-32) Anion Gap 4 (6-14) Blood Urea Nitrogen 38 mg/dL (8-26) Creatinine 1.1 mg/dL (0.7-1.3) Estimated GFR (Cockcroft-Gault) 67.8 Glucose Level 122 mg/dL (70-99) Calcium Level 8.1 mg/dL (8.5-10.1) Results All relevant outside records, renal labs, imaging studies, telemetry/EKG's were reviewed. Justicifation of Admission Dx: Justifications for Admission: Justification of Admission Dx: Yes Altered Mental Status: Altered Mental Status WOODY ARAGON MD Nov 24, 2020 09:31
--- NOTE | 2020-11-24 09:32 | PDOC ---
CARDIO Progress Notes Date and Time Date of Service 11/24/2020 Time of Evaluation 0915 Subjective Subjective: No Chest Pain, No shortness of breath, No Palpitations Vitals Vitals Vital Signs Date Time Temp Pulse Resp B/P (MAP) Pulse Ox O2 Delivery O2 Flow Rate FiO2 11/24/20 08:15 72 113/74 11/24/20 07:50 96 Nasal Cannula 3.5 11/24/20 07:00 97.2 16 97.2 Weight Weight [ ] Input and Output Intake and Output Intake and Output 11/24/20 07:00 Intake Total 450 ml Output Total 2420 ml Balance -1970 ml Intake Oral 450 ml Output Urine Total 2420 ml Laboratory Labs Laboratory Tests Test 11/23/20 11:45 11/23/20 20:30 11/24/20 04:45 Heparin Anti-Xa Act, Unfractionated 0.21 IU/mL (0.30-0.70) 0.52 IU/mL (0.30-0.70) 0.13 IU/mL (0.30-0.70) Sodium Level 134 mmol/L (136-145) Potassium Level 4.0 mmol/L (3.5-5.1) Chloride Level 92 mmol/L (98-107) Carbon Dioxide Level 38 mmol/L (21-32) Anion Gap 4 (6-14) Blood Urea Nitrogen 38 mg/dL (8-26) Creatinine 1.1 mg/dL (0.7-1.3) Estimated GFR (Cockcroft-Gault) 67.8 Glucose Level 122 mg/dL (70-99) Calcium Level 8.1 mg/dL (8.5-10.1) Microbiology Micro Microbiology 11/21/20 Gram Stain - Final, Resulted 11/21/20 Aerobic and Anaerobic Culture - Preliminary, Resulted Physical Exam HEENT: Neck Supple W Full Motion Chest: Symmetric LUNGS: Other (diminished bases) Heart: irregularly irregular (AFIB) Abdomen: Soft N/T Extremities: Other (anasarca) Neurology: alert, oriented, follow commands Assessment Assessment 1. Acute respiratory failure; multifactorial with acute PE, A/c CHF, and pleural effusion- s/p thoracentesis with 1.3L off 2. PAFIB; Rate controlled. on Eliquis at home, but has not taken recently. presently AFIB with controlled rate. per record review, previously on Amiodarone for rhythm maintenance, but has not taken in a couple of months 3. Acute on chronic systolic CHF 4. Ischemic cardiomyopathy; s/p AICD ([employer]). Device shows normal function. No VT. Echo with LVEF 20%. Per record review, echo 02/08 with LVEF 20-25% 5. CAD s/p CABG 1994; Follows with [facility]. Cath 08/31 with Patent SVG to RCA, SVG to diagonal, and BENJAMIN to LAD. SVG to circ occluded, which was known 6. Hypertension; low end 7. SHILPI; non compliant with CPAP 8. DOE on CKD; Cr improved 9. Tobaccoism; discussed/ encouraged cessation 10. Hypokalemia, hypomagnesemia 11. H/o SDH secondary to fall in 2017. 12. Hypothyroidism; TSH not on goal per PCP Recommendations Amiodarone therapy Secondary prevention ASA- PLT is stable,Presently on heparin drip, Further anticoagulation per pulmonary Continue Lasix therapy Add BB and ACEi when BP consistently adequate Check Mg and replace as warranted Lung optimization, treatment of PE as per pulm Supportive care. Follow up with [place] cardiology Justicifation of Admission Dx: Justifications for Admission: Justification of Admission Dx: Yes Altered Mental Status: Altered Mental Status PAVAN HAYES [employer] Nov 24, 2020 09:32
[2020-11-24 11:00] VITALS: BP 107/71
--- NOTE | 2020-11-24 11:55 | RAD ---
Single AP view of the chest. Comparison: 11/20/2020. Indication: Follow-up pleural effusion, increasing oxygen Findings: Right-sided PICC line, sternotomy wires, CABG clips and left subclavian pacemaker unchanged. The hear t is enlarged but stable. Interval reaccumulation of left basilar effusion following presumed thorace ntesis on 11/21/2020. Persistent pulmonary vascular congestion. Persistent ovoid opacity of the right l cesilia upper lobe measures approximately 1.8 cm. Impression: 1. Stable examination with persistent, relatively unchanged left basilar effusion. 2. Ovoid opacity in the right upper lobe may represent rib overlying increased pulmonary vascular con gestion, however, a mass cannot be excluded. Further correlation with cross-sectional imaging or repe at plain film imaging once symptoms has resolved as this may be fluid on the fissure. Electronically signed by: Killian Manuel MD (11/24/2020 11:53 AM) [id number]
--- NOTE | 2020-11-24 13:03 | PDOC ---
PROGRESS NOTES Date of Service: DATE: 11/24/20 TIME: 13:10 Chief Complaint Chief Complaint impression Acute bilateral Pulmonary embolism - will transition from lovenox to heparin GTT in anticipation of consideration of thoracentesis Acute pneumonia - rocephin + doxy acute metabolic encephalopathy Sepsis - due to above Acute hypoxic respiratory failure - due to PE, CHF Stable large left pleural effusion CAD s/p CABG 1993 Acute on chronic systolic CHF with prior known 3+ pitting edema for months, BNP 15k. S/p AICD - cont diuresis Atrial fibrillation - [employer] pacer interrogated at [facility]. Was on eliquis but had been off for 2 weeks prior to admit DOE - creatinine 1.4 - likely vasomotor nephropathy Transaminits - likely congestive hepatopathy, no ETOH or cirrhosis per patient. Bilirubin is elevated at 4.6. INR 1.9 PVD, US artery LUE neg at [facility], poor pulses, cool feet, consult vasc, Nausea and vomiting - KUB ordered, no SBO, reglan helped microhematuria ECHO systolic function is severely impaired. Ejection Fraction is estimated at 20%. severe global hypokinesis of the left ventricle. FEN - Cardiac PPX - lovenox FULL CODE Dispo - ICU pulm consult renal sono CC time 42 minutes History of Present Illness History of Present Illness Mr Galindo is a 64-year-old male visiting from [place] w/ PMHx A-Fib, GERD, High Cholesterol, Hypertension, Hypothyroid, CHF s/p AICD placement presents with dizziness, weakness, short of breath. Patient son brought him in and he has been staying with his son. Son states patient has not taken his medications for 2 weeks. Patient denies chest pain. Patient states "I feel like my pacemaker is firing". Patient has 3+ pitting edema on bilateral legs. Patient's left arm is cool to the touch, red. Denies fever, cough. Found on CTPA with multiple left lower lobe pulmonary emboli and moderate large pleural effusion on left and multifocal pneumonia. Accepted for transfer to ICU [facility]. 11/18: Afebrile. Vomiting this morning. States he feels a little better today. Bilirubin up to 4. INR 2.1. COVID negative. BP low Afebrile. Still weak. Sitting in chair. PICC placed for IV access. K 4.7, BUN 27, Cr 1.5, Alk phos 21, Bili 4.1. BP improved. 5-31 PPX - lovenox FULL CODE Dispo - ICU History of bypass surgery. Probable superimposed heart failure. Acute bilateral Pulmonary embolism - will transition from lovenox to heparin GTT in anticipation of consideration of thoracentesis Acute pneumonia - rocephin + doxy Sepsis - due to above Acute hypoxic respiratory failure - due to PE, CHF CAD s/p CABG 1993 pulm consult elevated lft's , sono and GI consult PSA Acute on chronic systolic CHF with prior known 3+ pitting edema for months, BNP 15k. S/p AICD - cont diuresis Atrial fibrillation - [employer] pacer interrogated at [facility]. Was on eliquis but had been off for 2 weeks prior to admit, cardiology consulted DOE - creatinine 1.4 - likely vasomotor nephropathy microhematuria , renal sono, follow ua The Ejection Fraction is estimated at 20%. severe global hypokinesis of the left ventricle. mild concentric left ventricular hypertrophy. mild tricuspid r egurgitation with an estimated PAP of 46 mmHg. H/o biliary stone disease so retained stone possible. ABD SONO PENDING CC time 34 minutes 11/21 PPX - lovenox FULL CODE Dispo - ICU History of bypass surgery. Probable superimposed heart failure. Acute bilateral Pulmonary embolism - will transition from lovenox to heparin GTT in anticipation of consideration of thoracentesis Acute pneumonia - rocephin + doxy Sepsis - due to above Acute hypoxic respiratory failure - due to PE, CHF CAD s/p CABG 1993 pulm consult elevated lft's , sono and GI consult PSA Acute on chronic systolic CHF with prior known 3+ pitting edema for months, BNP 15k. S/p AICD - cont diuresis Atrial fibrillation - [employer] pacer interrogated at [facility]. Was on eliquis but had been off for 2 weeks prior to admit, cardiology consulted DOE - creatinine 1.4 - likely vasomotor nephropathy microhematuria , renal sono, follow ua The Ejection Fraction is estimated at 20%. severe global hypokinesis of the left ventricle. mild concentric left ventricular hypertrophy. mild tricuspid regurgitation with an estimated PAP of 46 mmHg. H/o biliary stone disease so retained stone possible. ABD SONO reviewed CC time 35 minutes 11/22 PPX - lovenox FULL CODE Dispo - ICU History of bypass surgery. Probable superimposed heart failure. Acute bilateral Pulmonary embolism - will transition from lovenox to heparin GTT in anticipation of consideration of thoracentesis Acute pneumonia - rocephin + doxy Sepsis - due to above Acute hypoxic respiratory failure - due to PE, CHF CAD s/p CABG 1993 pulm consult elevated lft's , sono and GI consult PSA Acute on chronic systolic CHF with prior known 3+ pitting edema for months, BNP 15k. S/p AICD - cont diuresis Atrial fibrillation - [employer] pacer interrogated at [facility]. Was on eliquis but had been off for 2 weeks prior to admit, cardiology consulted DOE - creatinine 1.4 - likely vasomotor nephropathy microhematuria , renal sono, follow ua The Ejection Fraction is estimated at 20%. severe global hypokinesis of the left ventricle. mild concentric left ventricular hypertrophy. mild tricuspid regurgitation with an estimated PAP of 46 mmHg. H/o biliary stone disease so retained stone possible. ABD SONO reviewed CC time 33 minutes 11/23 PE's, on AC. Jaundice; numbers have improved with diuresis. PPX - lovenox FULL CODE Dispo - ICU History of bypass surgery. Probable superimposed heart failure. Acute bilateral Pulmonary embolism - will transition from lovenox to heparin GTT in anticipation of consideration of thoracentesis Acute pneumonia - rocephin + doxy Sepsis - due to above Acute hypoxic respiratory failure - due to PE, CHF CAD s/p CABG 1993 pulm consult elevated lft's , sono and GI consult PSA Acute on chronic systolic CHF with prior known 3+ pitting edema for months, BNP 15k. S/p AICD - cont diuresis Atrial fibrillation - [employer] pacer interrogated at [facility]. Was on eliquis but had been off for 2 weeks prior to admit, cardiology consulted DOE - creatinine 1.4 - likely vasomotor nephropathy microhematuria , renal sono, follow ua The Ejection Fraction is estimated at 20%. severe global hypokinesis of the left ventricle. mild concentric left ventricular hypertrophy. mild tricuspid regurgitation with an estimated PAP of 46 mmHg. H/o biliary stone disease so retained stone possible. ABD SONO reviewed remains very weak and confused PPN AT 80 CC / HR, poor oral intake Discharge Recommendations * [facility] Unit Discharge Recommendation - DME * Rolling Walker needed * in order to complete ADLs CC time 32 minutes / less confused, knows year and month, denies alcohol intake will check ct head, abg, consult neurology, for encephalopathy, ammonia level eating 25% of meals acute metabolic encephalopathy, improving PE's, on AC. Jaundice; numbers have improved with diuresis. PPX - lovenox FULL CODE Dispo - ICU History of bypass surgery. Probable superimposed heart failure. Acute bilateral Pulmonary embolism - will transition from lovenox to heparin GTT in anticipation of consideration of thoracentesis Acute pneumonia - rocephin + doxy Successful ultrasound guided left thoracentesis with removal 1.3 liters of fluid. Sepsis - due to above Acute hypoxic respiratory failure - due to PE, CHF CAD s/p CABG 1993 pulm consult elevated lft's , sono and GI consult PSA Acute on chronic systolic CHF with prior known 3+ pitting edema for months, BNP 15k. S/p AICD - cont diuresis Atrial fibrillation - [employer] pacer interrogated at [facility]. Was on eliquis but had been off for 2 weeks prior to admit, cardiology consulted DOE - creatinine 1.4 - likely vasomotor nephropathy microhematuria , renal sono, follow ua The Ejection Fraction is estimated at 20%. severe global hypokinesis of the left ventricle. mild concentric left ventricular hypertrophy. mild tricuspid regurgitation with an estimated PAP of 46 mmHg. H/o biliary stone disease so retained stone possible. ABD SONO reviewed remains weak and less confused PPN AT 80 CC / HR, poor oral intake 6 ovoid opacity in the right upper lobe may represent rib overlying increased pulmonary vascular congestion, mass cannot be excluded. plan cross-sectional imaging or repeat plain film imaging once symptoms has resolved as this may be fluid on the fissure. hopefully to SNF 11-25 Discharge Recommendations * [facility] Unit Discharge Recommendation - DME * Rolling Walker needed * in order to complete ADLs CC time 33 minutes Vitals Vitals Vital Signs Date Time Temp Pulse Resp B/P (MAP) Pulse Ox O2 Delivery O2 Flow Rate FiO2 11/24/20 11:00 97.8 72 16 107/71 (83) 96 Nasal Cannula 3.0 97.8 Physical Exam Physical Exam HEENT: PERRLA Heart: no murmurs, irregularly irregular, other Abdomen: Normal bowel sounds, No tenderness Rectal Exam: not examined Extremities: Other (4+ edema, cold feet and swollen, pulses palpable but faint, cyanosis, ) Skin: Other Neuro: Normal speech, Sensation intact General: mild distress Heart: Regular rate Lungs: Crackles Abdomen: Normal bowel sounds Extremities: Other (4+ edema, cold feet and swollen, pulses palpable but faint, cyanosis, ) Skin: Other Labs LABS Single AP view of the chest. Comparison: 11/20/2020. Indication: Follow-up pleural effusion, increasing oxygen Findings: Right-sided PICC line, sternotomy wires, CABG clips and left subclavian pacemaker unchanged. The heart is enlarged but stable. Interval reaccumulation of left basilar effusion following presumed thoracentesis on 11/21/2020. Per sistent pulmonary vascular congestion. Persistent ovoid opacity of the right lung upper lobe measures approximately 1.8 cm. Impression: 1. Stable examination with persistent, relatively unchanged left basilar effusion. 2. Ovoid opacity in the right upper lobe may represent rib overlying increased pulmonary vascular congestion, however, a mass cannot be excluded. Further correlation with cross-sectional imaging or repeat plain film imaging once symptoms has resolved as this may be fluid on the fissure. Electronically signed by: Killian Manuel MD (11/24/2020 11:53 AM) [id number] DICTATED and SIGNED BY: KILLIAN MANUEL MD DATE: 11/24/20 [id number] 0 Left Thoracentesis 11/20/2020 1:52 PM Clinical History: Left pleural effusion. Technique: Relative benefits risks and alternatives were discussed with the patient and/or their business services sales representative. Written informed consent was obtained. The patient was placed in seated position. A timeout procedure was performed. Sonographic assessment demonstrates a large pleural effusion. A site for skin entry was selected, and subsequently prepped and draped using sterile barrier technique. 1% lidocaine without epinepherine was administered for local anesthesia to the skin and subcutaenous tissues. A 5 Sami sheathed needle was passed into the pleural space. Clear yellow fluid was aspirated and the catheter was connected to a vacuum. Approximately 1.5 liters of fluid were drained. The catheter was removed and adequate hemostasis was obtained. A sterile dressing was applied. The patient tolerated the procedure well, without complications. Impression: Successful ultrasound guided left thoracentesis with removal 1.3 liters of fluid. Electronically signed by: Toni Holland MD (11/21/2020 3:06 PM) [id number] DICTATED and SIGNED BY: TONI HOLLAND MD DATE: 11/21/20 [id number] 0 * * * * * One-on-One Instruction Problem List (body system elements) * Impaired fnctnl mobility * Strength * Cognition * Balance Patient condition at conclusion of therapy * Pt in chair * Personal alarm on * Call light in reach * Phone in reach * PtIn no apparent distress * Pt denies further needs Communicated Patient Care With (Name, Title) * STEFANO Roland Goal 1 - Bed Mobility Assistance Required * Independent Goal 1 Assessment * Appropriate - Continue Goal 2 - Transfers Assistance Required * Independent Goal 2 - Transfer Type * Stand-Step Goal 2 Assessment * Appropriate - Continue Goal 3 - Ambulation Assistance Required * Independent Goal 3 - Ambulation Distance * 50' Goal 3 - Ambulation Device * Roller Walker Goal 3 Assessment * Appropriate - Continue Treatment Plan * Therapeutic Exercise * Bed Mobility Training * Transfer training * Gait Training * Dynamic Balance Training Frequency of Treatment Expected * 6 visits/week Duration of Treatment Expected * 2 weeks Discharge Recommendations * [facility] Unit Discharge Recommendation - DME * Rolling Walker needed * in order to complete ADLs * and ambulation safely Laboratory Tests Test 11/23/20 20:30 11/24/20 04:45 11/24/20 11:59 Heparin Anti-Xa Act, Unfractionated 0.52 IU/mL (0.30-0.70) 0.13 IU/mL (0.30-0.70) 0.11 IU/mL (0.30-0.70) Sodium Level 134 mmol/L (136-145) Potassium Level 4.0 mmol/L (3.5-5.1) Chloride Level 92 mmol/L (98-107) Carbon Dioxide Level 38 mmol/L (21-32) Anion Gap 4 (6-14) Blood Urea Nitrogen 38 mg/dL (8-26) Creatinine 1.1 mg/dL (0.7-1.3) Estimated GFR (Cockcroft-Gault) 67.8 Glucose Level 122 mg/dL (70-99) Calcium Level 8.1 mg/dL (8.5-10.1) Assessment and Plan Assessmemt and Plan Discharge Recommendations * [facility] Unit Discharge Recommendation - DME * Rolling Walker needed * in order to complete ADLs * and ambulation safely Comment Review of Relevant I have reviewed the following items florecita (where applicable) has been applied. Labs Laboratory Tests Test 11/23/20 05:15 11/23/20 11:45 11/23/20 20:30 11/24/20 04:45 White Blood Count 7.4 x10^3/uL (4.0-11.0) Red Blood Count 5.53 x10^6/uL (4.30-5.70) Hemoglobin 15.3 g/dL (13.0-17.5) Hematocrit 47.8 % (39.0-53.0) Mean Corpuscular Volume 86 fL (79-100) Mean Corpuscular Hemoglobin 28 pg (25-35) Mean Corpuscular Hemoglobin Concent 32 g/dL (31-37) Red Cell Distribution Width 19.4 % (11.5-14.5) Platelet Count 126 x10^3/uL (140-400) Neutrophils (%) (Auto) 87 % (31-73) Lymphocytes (%) (Auto) 3 % (24-48) Monocytes (%) (Auto) 9 % (0-9) Eosinophils (%) (Auto) 0 % (0-3) Basophils (%) (Auto) 1 % (0-3) Neutrophils # (Auto) 6.5 x10^3/uL (1.8-7.7) Lymphocytes # (Auto) 0.2 x10^3/uL (1.0-4.8) Monocytes # (Auto) 0.7 x10^3/uL (0.0-1.1) Eosinophils # (Auto) 0.0 x10^3/uL (0.0-0.7) Basophils # (Auto) 0.0 x10^3/uL (0.0-0.2) Heparin Anti-Xa Act, Unfractionated 0.17 IU/mL (0.30-0.70) 0.21 IU/mL (0.30-0.70) 0.52 IU/mL (0.30-0.70) 0.13 IU/mL (0.30-0.70) Sodium Level 130 mmol/L (136-145) 134 mmol/L (136-145) Potassium Level 4.4 mmol/L (3.5-5.1) 4.0 mmol/L (3.5-5.1) Chloride Level 92 mmol/L (98-107) 92 mmol/L (98-107) Carbon Dioxide Level 35 mmol/L (21-32) 38 mmol/L (21-32) Anion Gap 3 (6-14) 4 (6-14) Blood Urea Nitrogen 38 mg/dL (8-26) 38 mg/dL (8-26) Creatinine 1.1 mg/dL (0.7-1.3) 1.1 mg/dL (0.7-1.3) Estimated GFR (Cockcroft-Gault) 67.8 67.8 Glucose Level 138 mg/dL (70-99) 122 mg/dL (70-99) Calcium Level 8.4 mg/dL (8.5-10.1) 8.1 mg/dL (8.5-10.1) Magnesium Level 2.0 mg/dL (1.8-2.4) Thyroid Stimulating Hormone (TSH) 5.365 uIU/mL (0.358-3.74) Free Thyroxine 1.16 ng/dL (0.76-1.46) Test 11/24/20 11:59 Heparin Anti-Xa Act, Unfractionated 0.11 IU/mL (0.30-0.70) Laboratory Tests Test 11/23/20 20:30 11/24/20 04:45 11/24/20 11:59 Heparin Anti-Xa Act, Unfractionated 0.52 IU/mL (0.30-0.70) 0.13 IU/mL (0.30-0.70) 0.11 IU/mL (0.30-0.70) Sodium Level 134 mmol/L (136-145) Potassium Level 4.0 mmol/L (3.5-5.1) Chloride Level 92 mmol/L (98-107) Carbon Dioxide Level 38 mmol/L (21-32) Anion Gap 4 (6-14) Blood Urea Nitrogen 38 mg/dL (8-26) Creatinine 1.1 mg/dL (0.7-1.3) Estimated GFR (Cockcroft-Gault) 67.8 Glucose Level 122 mg/dL (70-99) Calcium Level 8.1 mg/dL (8.5-10.1) Microbiology 11/21/20 Gram Stain - Final, Resulted 11/21/20 Aerobic and Anaerobic Culture - Preliminary, Resulted Medications Current Medications Enoxaparin Sodium (Lovenox Per Pharmacy Treatment Dosing) 1 each PRN DAILY PRN MC SEE COMMENTS; Start 11/17/20 at 19:00; Stop 11/19/20 at 09:23; Status DC Ondansetron HCl (Zofran) 4 mg PRN Q8HRS PRN IVP NAUSEA/VOMITING Last administered on 11/18/20at 09:05; Start 11/17/20 at 19:00; Stop 11/18/20 at 11:29; Status DC Ceftriaxone Sodium (Rocephin) 2 gm Q24H IVP Last administered on 11/23/20at 16:05; Start 11/18/20 at 14:00 Azithromycin (Zithromax) 250 mg DAILY PO ; Start 11/18/20 at 09:00; Stop 1 at 08:37; Status DC Enoxaparin Sodium (Lovenox 100mg Syringe) 90 mg Q12H SQ Last administered on 11/18/20at 06:04; Start 11/18/20 at 06:00; Stop 11/18/20 at 13:34; Status DC Doxycycline Hyclate (Vibra-Tab) 100 mg BID PO ; Start 11/18/20 at 09:00; Stop 11/18/20 at 09:13; Status DC Pantoprazole Sodium (Protonix) 40 mg DAILYAC PO ; Start 11/18/20 at 09:00; Stop 11/18/20 at 09:21; Status DC Albuterol/ Ipratropium (Duoneb) 3 ml RTQID NEB Last administered on 11/24/20at 10:54; Start 11/18/20 at 12:00 Budesonide (Pulmicort) 0.5 mg RTBID NEB Last administered on 11/24/20at 07:50; Start 11/18/20 at 20:00 Budesonide (Pulmicort) 0.5 mg 1X ONCE NEB Last administered on 11/18/20at 12:39; Start 11/18/20 at 09:30; Stop 11/18/20 at 09:31; Status DC Doxycycline Hyclate 100 mg/ Dextrose 100 ml @ 50 mls/hr Q12HR IV Last administered on 11/24/20 08:15; Start 11/18/20 at 10:00 Pantoprazole Sodium (PROTONIX VIAL for IV PUSH) 40 mg DAILYAC IVP Last administered on 11/24/20 08:14; Start 11/18/20 at 10:00 Amino Acids/ Glycerin/ Electrolytes 1,000 ml @ 80 mls/hr [id number] ONCE IV Last administered on 11/18/20 09:44; Start 11/18/20 at 09:30; Stop 11/18/20 at 21:59; Status DC Furosemide (Lasix) 80 mg DAILY IVP Last administered on 11/24/20 08:14; Start 11/18/20 at 11:00 Lactulose (Lactulose) 20 gm PRN DAILY PRN PO CONSTIPATION; Start 11/18/20 at 11:00 Metoclopramide HCl (Reglan Vial) 10 mg PRN Q6HRS PRN IVP NAUSEA/VOMITING, 2ND CHOICE Last administered on 11/18/20at 11:40; Start 11/18/20 at 11:30 Ondansetron HCl (Zofran) 4 mg PRN Q4HRS PRN IVP NAUSEA/VOMITING, 1ST CHOICE; Start 11/18/20 at 11:30 Enoxaparin Sodium (Lovenox 80mg Syringe) 80 mg Q12HR SQ Last administered on 11/19/20 08:05; Start 11/18/20 at 21:00; Stop 11/19/20 at 09:23; Status DC Lactobacillus Rhamnosus (Culturelle) 1 cap BID PO Last administered on 11/24/20 08:14; Start 11/18/20 at 21:00 Amino Acids/ Glycerin/ Electrolytes 1,000 ml @ 80 mls/hr [id number] IV Last administered on 11/18/20 23:04; Start 11/18/20 at 22:15; Stop 11/19/20 at 09:01; Status DC Heparin Sodium/ Dextrose 250 ml @ 0 mls/hr CONT PRN IV PER PROTOCOL Last administered on 11/23/20 18:22; Start 11/19/20 at 21:00 Heparin Sodium (Porcine) (Heparin Sodium) 2,600 unit PRN Q6HRS PRN IV FOR UFH LEVEL LESS THAN 0.2 Last administered on 11/24/20 12:40; Start 11/19/20 at 21:00 Heparin Sodium (Porcine) (Heparin Sodium) 1,300 unit PRN Q6HRS PRN IV FOR UFH LEVEL 0.2 - 0.29 Last administered on 11/23/20at 12:45; Start 11/19/20 at 21:00 Amino Acids/ Glycerin/ Electrolytes 1,000 ml @ 80 mls/hr [id number] IV Last administered on 11/24/20at 00:47; Start 11/19/20 at 17:15 Info (Anti-Coagulation Monitoring By Pharmacy) 1 each PRN DAILY PRN MC PER PROTOCOL Last administered on 11/21/20 09:06; Start 11/21/20 at 09:15 Potassium Chloride/Water 100 ml @ 100 mls/hr Q1H IV Last administered on 11/22/20at 14:05; Start 11/22/20 at 10:00; Stop 11/22/20 at 13:59; Status DC Magnesium Sulfate 50 ml @ 25 mls/hr 1X ONCE IV Last administered on 11/22/20at 15:33; Start 11/22/20 at 15:00; Stop 11/22/20 at 16:59; Status DC Atorvastatin Calcium (Lipitor) 40 mg QHS PO Last administered on 11/23/20at 20:29; Start 11/22/20 at 21:00 Aspirin (Ecotrin) 81 mg [id number] PO Last administered on 11/24/20at 08:14; Start 11/23/20 at 08:00 Amiodarone HCl (Cordarone) 200 mg DAILY PO Last administered on 11/24/20at 08:15; Start 11/23/20 at 15:00 Active Scripts Active Reported Warfarin Sodium 2.5 Mg Tablet 2.5 Mg PO DAILY Risperidone 0.5 Mg Tablet 1 Tab PO QHS Ranexa (Ranolazine) 500 Mg Tab.er.12h 500 Mg PO BID Klor-Con M20 (Potassium Chloride) 20 Meq Tab.er.prt 20 Meq PO DAILY Pantoprazole Sodium (Pantoprazole Sodium) 40 Mg Tablet.dr 40 Mg PO DAILYAC Metoprolol Succinate ( Xl ) (Metoprolol Succinate) 25 Mg Tab.er.24h 25 Mg PO HS Metformin HCl 500 Mg/5 Ml Solution 500 Mg PO BID Cymbalta (Duloxetine Hcl) 30 Mg Capsule.dr 30 Mg PO DAILY Atorvastatin Calcium 80 Mg Tablet 80 Mg PO QHS Atorvastatin Calcium 40 Mg Tablet 1 Tab PO DAILY Children's Aspirin (Aspirin) 81 Mg Tab.chew 1 Tab PO DAILY 30 Days Amiodarone Hcl 200 Mg Tablet 1 Tab PO DAILY Vitals/I & O Vital Sign - Last 24 Hours 11/23/20 11/23/20 11/23/20 11/23/20 14:32 15:33 15:56 19:00 Temp 97.1 98.1 97.1 98.1 Pulse 78 78 66 Resp 20 24 B/P (MAP) 111/78 (89) 111/78 106/71 (83) Pulse Ox 100 97 96 O2 Delivery Nasal Cannula Nasal Cannula Nasal Cannula O2 Flow Rate 3.5 3.5 3.5 11/23/20 11/23/20 11/23/20 11/23/20 19:03 20:09 20:10 23:02 Temp 98.6 98.6 Pulse 76 Resp 24 B/P (MAP) 119/83 (95) Pulse Ox 97 97 97 O2 Delivery Nasal Cannula Nasal Cannula Nasal Cannula Room Air O2 Flow Rate 3.5 3.5 3.5 11/24/20 11/24/20 11/24/20 11/24/20 03:00 07:00 07:50 07:50 Temp 98.6 97.2 98.6 97.2 Pulse 62 66 Resp 16 16 B/P (MAP) 99/63 (75) 113/74 (87) Pulse Ox 94 96 96 O2 Delivery Nasal Cannula Nasal Cannula Nasal Cannula Nasal Cannula O2 Flow Rate 3.0 3.0 3.5 3.0 11/24/20 11/24/20 11/24/20 08:15 10:55 11:00 Temp 97.8 97.8 Pulse 72 72 Resp 16 B/P (MAP) 113/74 107/71 (83) Pulse Ox 94 96 O2 Delivery Nasal Cannula Nasal Cannula O2 Flow Rate 3.0 3.0 Intake and Output 11/23/20 11/23/20 11/24/20 14:52 22:52 06:52 Intake Total 200 ml 250 ml Output Total 800 ml 1020 ml 600 ml Balance -800 ml -820 ml -350 ml Nutrition Consultation Dietary Evaluation: Recommendations by RD: Dietary education by RD, PPN/TPN Comments: continue Cardiac diet, honor food preferencs and offer snacks/ supplements from unit prn. REC continue PPN for short term non - oral nutrition until appetite/ po intake improves 6/3 Will start Ensure TID with meals and fresh fruit with lunch and dinner per food preferences taken. Encourage p.o. intake. Day 5 of PPN (less than 10 days of PPN is recommended) Expected Outcomes/Goals: to meet >50% est nutr needs via po intake Malnutrition Findings: Weight Status: Appropriate Fluid Accumulation (Non-Severe: Mild depletion Justicifation of Admission Dx: Justifications for Admission: Justification of Admission Dx: Yes Altered Mental Status: Altered Mental Status MICHELLE KANG MD Nov 24, 2020 13:03
[2020-11-24 14:16] LABS: BASE EXCESS COOX 11 mmol/L (-3-3); HCO3 COOX 37 mmol/L (21-28); METHEMOGLOBIN 0.4 % (0.0-1.9); OXYHEMOGLOBIN 90.4 %; PCO2 COOX 55 mmHg (35-46); PO2 COOX 60 mmHg (65-108); SAT O2 COOX 92 % (92-99)
[2020-11-24 14:28] LABS: PROTHROMBIN TIME PATIENT 18.5 SEC (11.7-14.0)
--- NOTE | 2020-11-24 14:47 | NUR ---
Pharmacy Warfarin Dosing Note S:Pharmacy consulted to assist with anticoagulation therapy started with target INR: 2 -3 O:EZEQUIEL SILVER is a 64 year old M with NEW DVT AND BILATERAL PE LABS: Last INR: 1.6 Last HGB: 15.3 Last HCT: 47.8 Last PLT: 126 Vitamin K given: N Drug Interaction Changes: Same Interacting Drug Ongoing Drug Interactions: amiodarone A:INR of 1.6 is below desired range. Target range for this patient is: 2 -3 P: Warfarin dose: 2.5 mg Today at 1600 Bridge Therapy: Heparin Therapeutic Next INR due 11/25/20 Pharmacy anticoagulation service will continue to follow. MOON LEMUS [facility], 11/24/20 [id number]
--- NOTE | 2020-11-24 15:23 | RAD ---
CT HEAD/BRAIN WO Date: 11/24/2020 2:16 PM Clinical Indication: confusion Comparison: None. Technique: 5 mm axial tomographic images were obtained of the head without contrast. These were view ed on brain and bone windows. One or more of the following dose reduction techniques were utilized: A utomated exposure control (AEC), Adjustment of mA and/or kV according to patient size, Use of iterati ve reconstruction technique such as ASiR, CT scan done according to ALARA and image gently/image urias ly Findings: Mild generalized cerebral and cerebellar volume loss. Mild nonspecific periventricular hypoattenuatio n, most commonly seen with chronic small vessel ischemic disease. Calcified atherosclerosis of the bi lateral cavernous and paraclinoid internal carotid arteries and intracranial vertebral arteries. No intra- or extra-axial mass or fluid collection. No acute hemorrhage. The ventricles are normal in size, shape, and morphology. The martinez-white matter junction is normal. The subarachnoid cisterns are patent. The visualized paranasal sinuses are normal. The visualized portions of the orbits and globes are no rmal. Trace bilateral mastoid fluid. The fashion artist topogram shows no lytic lesion or fracture. Impression: No acute intracranial process. Mild cerebral volume loss. Mild chronic small vessel ischemic disease. Electronically signed by: Vijay Wellington MD (11/24/2020 3:21 PM) [facility]
--- NOTE | 2020-11-24 15:38 | NUR ---
SS following up with discharge planning. SS reviewed pt chart and discussed with pt RN. Pt is currently requiring oxygen at three liters nasal canula. COVID19 negative. Pt on PPN and Heparin drip. Pt being transitioned to Coumadin. INR 1.6. Pt had head CT and Neurology consulted. PT/OT recommended senior living unit. Pt accepted at [facility], ; fax [phone]. SS will continue to follow for discharge planning.
[2020-11-24] MEDS ORDERED: WARFARIN 2.5 MG TABLET. PO ONE (16:00)
[2020-11-24 19:05] VITALS: BP 100/67
[2020-11-24] MEDS: ATORVASTATIN CALCIUM 40 MG TABLET. PO SCH (21:30)
[2020-11-24 23:20] VITALS: BP 98/66
[2020-11-25 03:15] VITALS: BP 105/67
--- NOTE | 2020-11-25 06:54 | PDOC ---
PULMONARY PROGRESS NOTES DATE: 11/25/20 TIME: 06:46 Subjective Remains on 3 liters NC weak refused bipap poor po intake per nursing S/P thoracentesis 11/21/20 Vitals Vital Signs Date Time Temp Pulse Resp B/P (MAP) Pulse Ox O2 Delivery O2 Flow Rate FiO2 11/25/20 03:15 97.7 59 16 105/67 (80) 96 Nasal Cannula 3.0 97.7 ROS: No Nausea, No Chest Pain, No Abdominal Pain, No Increase Cough General: Alert, Oriented X4 Lungs: Crackles Cardiovascular: S1, S2 Abdomen: Soft, Non-tender, Other (obese no mass) Neuro Exam: Alert Extremities: Other (edema, and erythema bilateral lower extremities) Skin: Warm Labs Laboratory Tests Test 11/23/20 11:45 11/23/20 20:30 11/24/20 04:45 11/24/20 11:59 Heparin Anti-Xa Act, Unfractionated 0.21 IU/mL (0.30-0.70) 0.52 IU/mL (0.30-0.70) 0.13 IU/mL (0.30-0.70) 0.11 IU/mL (0.30-0.70) Sodium Level 134 mmol/L (136-145) Potassium Level 4.0 mmol/L (3.5-5.1) Chloride Level 92 mmol/L (98-107) Carbon Dioxide Level 38 mmol/L (21-32) Anion Gap 4 (6-14) Blood Urea Nitrogen 38 mg/dL (8-26) Creatinine 1.1 mg/dL (0.7-1.3) Estimated GFR (Cockcroft-Gault) 67.8 Glucose Level 122 mg/dL (70-99) Calcium Level 8.1 mg/dL (8.5-10.1) Test 11/24/20 14:10 11/24/20 14:15 11/24/20 18:40 Prothrombin Time 18.5 SEC (11.7-14.0) Prothromb Time International Ratio 1.6 (0.8-1.1) Ammonia < 10 mcmol/L (11-34) O2 Saturation 92 % (92-99) Arterial Blood pH 7.45 (7.35-7.45) Arterial Blood pCO2 at Patient Temp 55 mmHg (35-46) Arterial Blood pO2 at Patient Temp 60 mmHg (65-108) Arterial Blood HCO3 37 mmol/L (21-28) Arterial Blood Base Excess 11 mmol/L (-3-3) Oxyhemoglobin 90.4 % Methemoglobin 0.4 % (0.0-1.9) Carbon Monoxide, Quantitative 1.3 % (0.0-1.9) FiO2 32% Heparin Anti-Xa Act, Unfractionated 0.15 IU/mL (0.30-0.70) Laboratory Tests Test 11/24/20 11:59 11/24/20 14:10 11/24/20 14:15 11/24/20 18:40 Heparin Anti-Xa Act, Unfractionated 0.11 IU/mL (0.30-0.70) 0.15 IU/mL (0.30-0.70) Prothrombin Time 18.5 SEC (11.7-14.0) Prothromb Time International Ratio 1.6 (0.8-1.1) Ammonia < 10 mcmol/L (11-34) O2 Saturation 92 % (92-99) Arterial Blood pH 7.45 (7.35-7.45) Arterial Blood pCO2 at Patient Temp 55 mmHg (35-46) Arterial Blood pO2 at Patient Temp 60 mmHg (65-108) Arterial Blood HCO3 37 mmol/L (21-28) Arterial Blood Base Excess 11 mmol/L (-3-3) Oxyhemoglobin 90.4 % Methemoglobin 0.4 % (0.0-1.9) Carbon Monoxide, Quantitative 1.3 % (0.0-1.9) FiO2 32% Medications Active Scripts Medications Dose Route/Sig Max Daily Dose Days Date Category Warfarin Sodium 2.5 Mg Tablet 2.5 Mg PO DAILY 11/23/20 Reported Risperidone 0.5 Mg Tablet 1 Tab PO QHS 11/23/20 Reported Ranexa (Ranolazine) 500 Mg Tab.er.12h 500 Mg PO BID 11/23/20 Reported Klor-Con M20 (Potassium Chloride) 20 Meq Tab.er.prt 20 Meq PO DAILY 11/23/20 Reported Pantoprazole Sodium (Pantoprazole Sodium) 40 Mg Tablet.dr 40 Mg PO DAILYAC 11/23/20 Reported Metoprolol Succinate ( Xl ) (Metoprolol Succinate) 25 Mg Tab.er.24h 25 Mg PO HS 11/23/20 Reported Metformin HCl 500 Mg/5 Ml Solution 500 Mg PO BID 11/23/20 Reported Cymbalta (Duloxetine Hcl) 30 Mg Capsule.dr 30 Mg PO DAILY 11/23/20 Reported Atorvastatin Calcium 80 Mg Tablet 80 Mg PO QHS 11/23/20 Reported Atorvastatin Calcium 40 Mg Tablet 1 Tab PO DAILY 11/23/20 Reported Children's Aspirin (Aspirin) 81 Mg Tab.chew 1 Tab PO DAILY 30 11/23/20 Reported Amiodarone Hcl 200 Mg Tablet 1 Tab PO DAILY 11/23/20 Reported Comments Chest x-ray reviewed bilateral infiltrates stable left-sided opacity questionable effusion ECHO <Conclusion> The Left Ventricle is borderline dilated. The systolic function is severely impaired. The Ejection Fraction is estimated at 20%. There is severe global hypokinesis of the left ventricle. There is borderline to mild concentric left ventricular hypertrophy. There is a device lead in the right ventricle. Doppler and Color Flow revealed no significant aortic regurgitation. There is no significant aortic valvular stenosis. Doppler and Color-flow revealed mild mitral regurgitation. Doppler and Color Flow revealed mild tricuspid regurgitation with an estimated PAP of 46 mmHg. cytology LEFT PLEURAL FLUID NEGATIVE FOR MALIGNANT CELLS. REACTIVE MESOTHELIAL CELLS PRESENT WITHIN A BACKGROUND OF ACUTE AND CHRONIC INFLAMMATORY CELLS. THIS INTERPRETATION INCLUDES EVALUATION OF A CELL BLOCK. Impression . IMPRESSION: 1. Acute hypoxemic respiratory failure, multifactorial --improved 2. Abnormal chest x-ray. Left-sided effusion--S/P thoracentesis 11/21 3. Acute pulmonary embolism. 4. Chronic obstructive pulmonary disease. 5. Acute systolic versus diastolic congestive heart failure. 6. Obstructive sleep apnea/hypopnea syndrome. 7. Tobacco habituation. 8. Atrial fibrillation. 9. Coronary artery disease, status post CABG. 10. Negative SARS Covid 2 11. Encephalopathy--improving 12. debility Bilateral lower extremity venous Dopplers 11/18 IMPRESSION: Partially occlusive DVT is seen involving the posterior tibial veins within the right calf. Plan . UPDATED 11/25/2020 Continue supplemental oxygen to keep oxygen saturations 90%, currently on 3 L nasal cannula not on home 02 maxim the importance of tx discussed bipap q hs Physical therapy/Occupational Therapy off heparin gtt transition to Oral anticoagulation with coumadin S/P left thoracentesis with removal 1.3 liters of fluid on 11/21/20 cytology neg Continue bronchodilators and ICS, Pulmicort monitor off abx Follow cardiology recommendations---The Ejection Fraction is estimated at 20%. Follow nephrology recommendations Follow GI recs Continue PPN for nutritional support DVT/GI prophylaxis Social work following-- recs to go to [facility], pt. has been accepted at [facility] Discussed with RN, pt UPDATED 11/23/2020 Continue supplemental oxygen to keep oxygen saturations greater than 92%, currently on 2 L nasal cannula Remains on heparin gtt continue, will D/W PCP tomorrow the plan for transition to Oral anticoagulation S/P left thoracentesis with removal 1.3 liters of fluid on 11/21/20 Continue bronchodilators including Pulmicort Continue antibiotics: Rocephin, doxy Follow cardiology recommendations---The Ejection Fraction is estimated at 20%. Follow nephrology recommendations Follow GI recs Continue PPN for nutritional support DVT/GI prophylaxis Physical therapy/Occupational Therapy Social work following-- recs to go to [facility], pt. has been accepted at [facility] Discussed with RN UPDATED 11/22/2020 Continue supplemental oxygen to keep oxygen saturations greater than 92%, currently on 2 L nasal cannula S/P left thoracentesis with removal 1.3 liters of fluid on 11/21/20 Continue bronchodilators including Pulmicort Continue antibiotics: Rocephin, doxy Follow cardiology recommendations---The Ejection Fraction is estimated at 20%. Follow nephrology recommendations DVT/GI prophylaxis Physical therapy/Occupational Therapy Discussed with RN UPDATED 11/21/2020 Continue supplemental oxygen to keep oxygen saturations greater than 92%, currently on 2 L nasal cannula Okay to pause heparin 3 hours prior to left-sided thoracentesis Continue bronchodilators including Pulmicort IR consulted, plan for left-sided thoracentesis today Continue antibiotics: Rocephin, doxy Follow cardiology recommendations---The Ejection Fraction is estimated at 20%. Follow nephrology recommendations DVT/GI prophylaxis Physical therapy/Occupational Therapy Discussed with HOA CALLOWAY MD Nov 25, 2020 06:54
[2020-11-25 07:05] VITALS: BP 110/64
[2020-11-25 07:11] LABS: CALCIUM 8.2 mg/dL (8.5-10.1); CREATININE 0.9 mg/dL (0.7-1.3); GFR 85.5; POTASSIUM 3.8 mmol/L (3.5-5.1)
[2020-11-25 07:13] LABS: PROTHROMBIN TIME PATIENT 18.5 SEC (11.7-14.0)
[2020-11-25] MEDS: BUDESONIDE 0.5 MG/2 ML NEBU. NEB SCH ×2 (07:32→19:40)
[2020-11-25] MEDS: IPRATRPIUM/ALBUTEROL 0.5/2.5MG 3 ML NEBU. NEB SCH ×4 (07:32→19:40)
[2020-11-25] MEDS: PANTOPRAZOLE IV PUSH 40 MG VIAL. IVP SCH (09:53)
[2020-11-25] MEDS: FUROSEMIDE 100 MG/10 ML VIAL. IVP SCH (09:53)
[2020-11-25] MEDS: LACTOBACILLUS RHAMNOSUS GG 1 CAPSULE. PO SCH ×2 (09:53→21:43)
[2020-11-25] MEDS: ASPIRIN ENTERIC COATED 81 MG TABLET.DR. PO SCH (09:53)
[2020-11-25] MEDS: AMIODARONE HCL 200 MG TABLET. PO SCH (09:54)
[2020-11-25 10:28] VITALS: BP 119/75
[2020-11-25] MEDS ORDERED: BARIUM SULFATE 40% (APPLE) 148 GM PWD. PO ONE (11:00)
--- NOTE | 2020-11-25 11:12 | RAD ---
EXAM: Video swallow evaluation. HISTORY: Coughing while drinking thin liquid. Possible aspiration. TECHNIQUE: Fluoroscopic imaging was performed with a speech pathologist during the oral administratio n of barium contrast of varying consistencies. 0 fluoroscopic spot images were obtained. The total fl uoroscopy time was 2 minutes. COMPARISON: None. FINDINGS: There is no evidence of aspiration or penetration. There is poor epiglottic inversion and s light delayed oral bolus formation. IMPRESSION: No evidence of aspiration or penetration. Please refer to the separate report by the [facility] pathologist for clinical recommendations. Electronically signed by: Fernanda Rios MD (11/25/2020 11:10 AM) [id number]
--- NOTE | 2020-11-25 11:43 | PDOC ---
PROGRESS NOTES Date of Service: DATE: 11/25/20 TIME: 11:41 Chief Complaint Chief Complaint impression Acute bilateral Pulmonary embolism - will transition from lovenox to heparin GTT in anticipation of consideration of thoracentesis Acute pneumonia - rocephin + doxy acute metabolic encephalopathy Sepsis - due to above Acute hypoxic respiratory failure - due to PE, CHF Stable large left pleural effusion CAD s/p CABG 1993 Acute on chronic systolic CHF with prior known 3+ pitting edema for months, BNP 15k. S/p AICD - cont diuresis Atrial fibrillation - [employer]tr[employer] pacer interrogated at [facility]. Was on eliquis but had been off for 2 weeks prior to admit DOE - creatinine 1.4 - likely vasomotor nephropathy Transaminits - likely congestive hepatopathy, no ETOH or cirrhosis per patient. Bilirubin is elevated at 4.6. INR 1.9 PVD, US artery LUE neg at [facility], poor pulses, cool feet, consult vasc, Nausea and vomiting - KUB ordered, no SBO, reglan helped microhematuria ECHO systolic function is severely impaired. Ejection Fraction is estimated at 20%. severe global hypokinesis of the left ventricle. FEN - Cardiac PPX - lovenox FULL CODE Dispo - ICU pulm consult renal sono CC time 42 minutes History of Present Illness History of Present Illness Mr Galindo is a 64-year-old male visiting from [place] w/ PMHx A-Fib, GERD, High Cholesterol, Hypertension, Hypothyroid, CHF s/p AICD placement presents with dizziness, weakness, short of breath. Patient son brought him in and he has been staying with his son. Son states patient has not taken his medications for 2 weeks. Patient denies chest pain. Patient states "I feel like my pacemaker is firing". Patient has 3+ pitting edema on bilateral legs. Patient's left arm is cool to the touch, red. Denies fever, cough. Found on CTPA with multiple left lower lobe pulmonary emboli and moderate large pleural effusion on left and multifocal pneumonia. Accepted for transfer to ICU [facility]. 11/18: Afebrile. Vomiting this morning. States he feels a little better today. Bilirubin up to 4. INR 2.1. COVID negative. BP low Afebrile. Still weak. Sitting in chair. PICC placed for IV access. K 4.7, BUN 27, Cr 1.5, Alk phos 21, Bili 4.1. BP improved. 5-31 PPX - lovenox FULL CODE Dispo - ICU History of bypass surgery. Probable superimposed heart failure. Acute bilateral Pulmonary embolism - will transition from lovenox to heparin GTT in anticipation of consideration of thoracentesis Acute pneumonia - rocephin + doxy Sepsis - due to above Acute hypoxic respiratory failure - due to PE, CHF CAD s/p CABG 1993 pulm consult elevated lft's , sono and GI consult PSA Acute on chronic systolic CHF with prior known 3+ pitting edema for months, BNP 15k. S/p AICD - cont diuresis Atrial fibrillation - [employer]tr[employer] pacer interrogated at [facility]. Was on eliquis but had been off for 2 weeks prior to admit, cardiology consulted DOE - creatinine 1.4 - likely vasomotor nephropathy microhematuria , renal sono, follow ua The Ejection Fraction is estimated at 20%. severe global hypokinesis of the left ventricle. mild concentric left ventricular hypertrophy. mild tricuspid r egurgitation with an estimated PAP of 46 mmHg. H/o biliary stone disease so retained stone possible. ABD SONO PENDING CC time 34 minutes 11/21 PPX - lovenox FULL CODE Dispo - ICU History of bypass surgery. Probable superimposed heart failure. Acute bilateral Pulmonary embolism - will transition from lovenox to heparin GTT in anticipation of consideration of thoracentesis Acute pneumonia - rocephin + doxy Sepsis - due to above Acute hypoxic respiratory failure - due to PE, CHF CAD s/p CABG 1993 pulm consult elevated lft's , sono and GI consult PSA Acute on chronic systolic CHF with prior known 3+ pitting edema for months, BNP 15k. S/p AICD - cont diuresis Atrial fibrillation - [employer] pacer interrogated at [facility]. Was on eliquis but had been off for 2 weeks prior to admit, cardiology consulted DOE - creatinine 1.4 - likely vasomotor nephropathy microhematuria , renal sono, follow ua The Ejection Fraction is estimated at 20%. severe global hypokinesis of the left ventricle. mild concentric left ventricular hypertrophy. mild tricuspid regurgitation with an estimated PAP of 46 mmHg. H/o biliary stone disease so retained stone possible. ABD SONO reviewed CC time 35 minutes 11/22 PPX - lovenox FULL CODE Dispo - ICU History of bypass surgery. Probable superimposed heart failure. Acute bilateral Pulmonary embolism - will transition from lovenox to heparin GTT in anticipation of consideration of thoracentesis Acute pneumonia - rocephin + doxy Sepsis - due to above Acute hypoxic respiratory failure - due to PE, CHF CAD s/p CABG 1993 pulm consult elevated lft's , sono and GI consult PSA Acute on chronic systolic CHF with prior known 3+ pitting edema for months, BNP 15k. S/p AICD - cont diuresis Atrial fibrillation - [employer]tr[employer] pacer interrogated at [facility]. Was on eliquis but had been off for 2 weeks prior to admit, cardiology consulted DOE - creatinine 1.4 - likely vasomotor nephropathy microhematuria , renal sono, follow ua The Ejection Fraction is estimated at 20%. severe global hypokinesis of the left ventricle. mild concentric left ventricular hypertrophy. mild tricuspid regurgitation with an estimated PAP of 46 mmHg. H/o biliary stone disease so retained stone possible. ABD SONO reviewed CC time 33 minutes 11/23 PE's, on AC. Jaundice; numbers have improved with diuresis. PPX - lovenox FULL CODE Dispo - ICU History of bypass surgery. Probable superimposed heart failure. Acute bilateral Pulmonary embolism - will transition from lovenox to heparin GTT in anticipation of consideration of thoracentesis Acute pneumonia - rocephin + doxy Sepsis - due to above Acute hypoxic respiratory failure - due to PE, CHF CAD s/p CABG 1993 pulm consult elevated lft's , sono and GI consult PSA Acute on chronic systolic CHF with prior known 3+ pitting edema for months, BNP 15k. S/p AICD - cont diuresis Atrial fibrillation - [employer]tr[employer] pacer interrogated at [facility]. Was on eliquis but had been off for 2 weeks prior to admit, cardiology consulted DOE - creatinine 1.4 - likely vasomotor nephropathy microhematuria , renal sono, follow ua The Ejection Fraction is estimated at 20%. severe global hypokinesis of the left ventricle. mild concentric left ventricular hypertrophy. mild tricuspid regurgitation with an estimated PAP of 46 mmHg. H/o biliary stone disease so retained stone possible. ABD SONO reviewed remains very weak and confused PPN AT 80 CC / HR, poor oral intake Discharge Recommendations * Care Home Unit Discharge Recommendation - DME * Rolling Walker needed * in order to complete ADLs CC time 32 minutes 11/24 less confused, knows year and month, denies alcohol intake will check ct head, abg, consult neurology, for encephalopathy, ammonia level eating 25% of meals acute metabolic encephalopathy, improving PE's, on AC. Jaundice; numbers have improved with diuresis. PPX - lovenox FULL CODE Dispo - ICU History of bypass surgery. Probable superimposed heart failure. Acute bilateral Pulmonary embolism - will transition from lovenox to heparin GTT in anticipation of consideration of thoracentesis Acute pneumonia - rocephin + doxy Successful ultrasound guided left thoracentesis with removal 1.3 liters of fluid. Sepsis - due to above Acute hypoxic respiratory failure - due to PE, CHF CAD s/p CABG 1993 pulm consult elevated lft's , sono and GI consult PSA Acute on chronic systolic CHF with prior known 3+ pitting edema for months, BNP 15k. S/p AICD - cont diuresis Atrial fibrillation - [employer]tr[employer] pacer interrogated at [facility]. Was on eliquis but had been off for 2 weeks prior to admit, cardiology consulted DOE - creatinine 1.4 - likely vasomotor nephropathy microhematuria , renal sono, follow ua The Ejection Fraction is estimated at 20%. severe global hypokinesis of the left ventricle. mild concentric left ventricular hypertrophy. mild tricuspid regurgitation with an estimated PAP of 46 mmHg. H/o biliary stone disease so retained stone possible. ABD SONO reviewed remains weak and less confused PPN AT 80 CC / HR, poor oral intake 11-24 ovoid opacity in the right upper lobe may represent rib overlying increased pulmonary vascular congestion, mass cannot be excluded. plan cross-sectional imaging or repeat plain film imaging once symptoms has resolved as this may be fluid on the fissure. hopefully to SNF 11-25 Discharge Recommendations * Care Home Unit Discharge Recommendation - DME * Rolling Walker needed * in order to complete ADLs CC time 33 minutes 11/25 speech concerned re aspiration, desires videoswallow this AM, passed swallow without berhane aspiration less confused, knows year and month, denies alcohol intake will check ct head, abg, consult neurology, for encephalopathy, ammonia level eating 25% of meals acute metabolic encephalopathy, improving PE's, on AC. Jaundice; numbers have improved with diuresis. PPX - lovenox FULL CODE Dispo - ICU History of bypass surgery. Probable superimposed heart failure. Acute bilateral Pulmonary embolism - will transition from lovenox to heparin GTT in anticipation of consideration of thoracentesis Acute pneumonia - rocephin + doxy Successful ultrasound guided left thoracentesis with removal 1.3 liters of fluid. Sepsis - due to above Acute hypoxic respiratory failure - due to PE, CHF CAD s/p CABG 1993 pulm consult elevated lft's , sono and GI consult PSA Acute on chronic systolic CHF with prior known 3+ pitting edema for months, BNP 15k. S/p AICD - cont diuresis Atrial fibrillation - [employer]tr[employer] pacer interrogated at [facility]. Was on eliquis but had been off for 2 weeks prior to admit, cardiology consulted DOE - creatinine 1.4 - likely vasomotor nephropathy microhematuria , renal sono, follow ua The Ejection Fraction is estimated at 20%. severe global hypokinesis of the left ventricle. mild concentric left ventricular hypertrophy. mild tricuspid regurgitation with an estimated PAP of 46 mmHg. H/o biliary stone disease so retained stone possible. ABD SONO reviewed remains weak and less confused PPN AT 80 CC / HR, poor oral intake 6-04 ovoid opacity in the right upper lobe may represent rib overlying increased pulmonary vascular congestion, mass cannot be excluded. plan cross-sectional imaging or repeat plain film imaging once symptoms has resolved as this may be fluid on the fissure. hopefully to SNF 6-05 d/c planning 36 min Discharge Recommendations * Care Home Unit Discharge Recommendation - DME * Rolling Walker needed * in order to complete ADLs Vitals Vitals Vital Signs Date Time Temp Pulse Resp B/P (MAP) Pulse Ox O2 Delivery O2 Flow Rate FiO2 11/25/20 10:28 97.9 72 16 119/75 (90) 91 Nasal Cannula 3.0 97.9 Physical Exam Physical Exam HEENT: PERRLA Heart: no murmurs, irregularly irregular, other Abdomen: Normal bowel sounds, No tenderness Rectal Exam: not examined Extremities: Other (4+ edema, cold feet and swollen, pulses palpable but faint, cyanosis, ) Skin: Other Neuro: Normal speech, Sensation intact General: Alert, Oriented X3, Cooperative, No acute distress Heart: Regular rate Lungs: Crackles Abdomen: Normal bowel sounds Extremities: Other (4+ edema, cold feet and swollen, pulses palpable but faint, cyanosis, ) Skin: Other Labs LABS Laboratory Tests Test 11/24/20 11:59 11/24/20 14:10 11/24/20 14:15 11/24/20 18:40 Heparin Anti-Xa Act, Unfractionated 0.11 IU/mL (0.30-0.70) 0.15 IU/mL (0.30-0.70) Prothrombin Time 18.5 SEC (11.7-14.0) Prothromb Time International Ratio 1.6 (0.8-1.1) Ammonia < 10 mcmol/L (11-34) O2 Saturation 92 % (92-99) Arterial Blood pH 7.45 (7.35-7.45) Arterial Blood pCO2 at Patient Temp 55 mmHg (35-46) Arterial Blood pO2 at Patient Temp 60 mmHg (65-108) Arterial Blood HCO3 37 mmol/L (21-28) Arterial Blood Base Excess 11 mmol/L (-3-3) Oxyhemoglobin 90.4 % Methemoglobin 0.4 % (0.0-1.9) Carbon Monoxide, Quantitative 1.3 % (0.0-1.9) FiO2 32% Test 11/25/20 06:30 Prothrombin Time 18.5 SEC (11.7-14.0) Prothromb Time International Ratio 1.6 (0.8-1.1) Sodium Level 135 mmol/L (136-145) Potassium Level 3.8 mmol/L (3.5-5.1) Chloride Level 94 mmol/L (98-107) Carbon Dioxide Level 41 mmol/L (21-32) Anion Gap 0 (6-14) Blood Urea Nitrogen 34 mg/dL (8-26) Creatinine 0.9 mg/dL (0.7-1.3) Estimated GFR (Cockcroft-Gault) 85.5 Glucose Level 102 mg/dL (70-99) Calcium Level 8.2 mg/dL (8.5-10.1) Comment Review of Relevant I have reviewed the following items florecita (where applicable) has been applied. Labs Laboratory Tests Test 11/23/20 11:45 11/23/20 20:30 11/24/20 04:45 11/24/20 11:59 Heparin Anti-Xa Act, Unfractionated 0.21 IU/mL (0.30-0.70) 0.52 IU/mL (0.30-0.70) 0.13 IU/mL (0.30-0.70) 0.11 IU/mL (0.30-0.70) Sodium Level 134 mmol/L (136-145) Potassium Level 4.0 mmol/L (3.5-5.1) Chloride Level 92 mmol/L (98-107) Carbon Dioxide Level 38 mmol/L (21-32) Anion Gap 4 (6-14) Blood Urea Nitrogen 38 mg/dL (8-26) Creatinine 1.1 mg/dL (0.7-1.3) Estimated GFR (Cockcroft-Gault) 67.8 Glucose Level 122 mg/dL (70-99) Calcium Level 8.1 mg/dL (8.5-10.1) Test 11/24/20 14:10 11/24/20 14:15 11/24/20 18:40 11/25/20 06:30 Prothrombin Time 18.5 SEC (11.7-14.0) 18.5 SEC (11.7-14.0) Prothromb Time International Ratio 1.6 (0.8-1.1) 1.6 (0.8-1.1) Ammonia < 10 mcmol/L (11-34) O2 Saturation 92 % (92-99) Arterial Blood pH 7.45 (7.35-7.45) Arterial Blood pCO2 at Patient Temp 55 mmHg (35-46) Arterial Blood pO2 at Patient Temp 60 mmHg (65-108) Arterial Blood HCO3 37 mmol/L (21-28) Arterial Blood Base Excess 11 mmol/L (-3-3) Oxyhemoglobin 90.4 % Methemoglobin 0.4 % (0.0-1.9) Carbon Monoxide, Quantitative 1.3 % (0.0-1.9) FiO2 32% Heparin Anti-Xa Act, Unfractionated 0.15 IU/mL (0.30-0.70) Sodium Level 135 mmol/L (136-145) Potassium Level 3.8 mmol/L (3.5-5.1) Chloride Level 94 mmol/L (98-107) Carbon Dioxide Level 41 mmol/L (21-32) Anion Gap 0 (6-14) Blood Urea Nitrogen 34 mg/dL (8-26) Creatinine 0.9 mg/dL (0.7-1.3) Estimated GFR (Cockcroft-Gault) 85.5 Glucose Level 102 mg/dL (70-99) Calcium Level 8.2 mg/dL (8.5-10.1) Laboratory Tests Test 11/24/20 11:59 11/24/20 14:10 11/24/20 14:15 11/24/20 18:40 Heparin Anti-Xa Act, Unfractionated 0.11 IU/mL (0.30-0.70) 0.15 IU/mL (0.30-0.70) Prothrombin Time 18.5 SEC (11.7-14.0) Prothromb Time International Ratio 1.6 (0.8-1.1) Ammonia < 10 mcmol/L (11-34) O2 Saturation 92 % (92-99) Arterial Blood pH 7.45 (7.35-7.45) Arterial Blood pCO2 at Patient Temp 55 mmHg (35-46) Arterial Blood pO2 at Patient Temp 60 mmHg (65-108) Arterial Blood HCO3 37 mmol/L (21-28) Arterial Blood Base Excess 11 mmol/L (-3-3) Oxyhemoglobin 90.4 % Methemoglobin 0.4 % (0.0-1.9) Carbon Monoxide, Quantitative 1.3 % (0.0-1.9) FiO2 32% Test 11/25/20 06:30 Prothrombin Time 18.5 SEC (11.7-14.0) Prothromb Time International Ratio 1.6 (0.8-1.1) Sodium Level 135 mmol/L (136-145) Potassium Level 3.8 mmol/L (3.5-5.1) Chloride Level 94 mmol/L (98-107) Carbon Dioxide Level 41 mmol/L (21-32) Anion Gap 0 (6-14) Blood Urea Nitrogen 34 mg/dL (8-26) Creatinine 0.9 mg/dL (0.7-1.3) Estimated GFR (Cockcroft-Gault) 85.5 Glucose Level 102 mg/dL (70-99) Calcium Level 8.2 mg/dL (8.5-10.1) Microbiology 11/21/20 Gram Stain - Final, Resulted 11/21/20 Aerobic and Anaerobic Culture - Preliminary, Resulted Medications Current Medications Enoxaparin Sodium (Lovenox Per Pharmacy Treatment Dosing) 1 each PRN DAILY PRN MC SEE COMMENTS; Start 11/17/20 at 19:00; Stop 11/19/20 at 09:23; Status DC Ondansetron HCl (Zofran) 4 mg PRN Q8HRS PRN IVP NAUSEA/VOMITING Last administered on 11/18/20at 09:05; Start 11/17/20 at 19:00; Stop 11/18/20 at 11:29; Status DC Ceftriaxone Sodium (Rocephin) 2 gm Q24H IVP Last administered on 11/23/20at 16:05; Start 11/18/20 at 14:00; Stop 11/24/20 at 13:31; Status DC Azithromycin (Zithromax) 250 mg DAILY PO ; Start 11/18/20 at 09:00; Stop 11/18/20 at 08:37; Status DC Enoxaparin Sodium (Lovenox 100mg Syringe) 90 mg Q12H SQ Last administered on 11/18/20at 06:04; Start 11/18/20 at 06:00; Stop 11/18/20 at 13:34; Status DC Doxycycline Hyclate (Vibra-Tab) 100 mg BID PO ; Start 11/18/20 at 09:00; Stop 11/18/20 at 09:13; Status DC Pantoprazole Sodium (Protonix) 40 mg DAILYAC PO ; Start 11/18/20 at 09:00; Stop 11/18/20 at 09:21; Status DC Albuterol/ Ipratropium (Duoneb) 3 ml RTQID NEB Last administered on 11/25/20at 07:32; Start 11/18/20 at 12:00 Budesonide (Pulmicort) 0.5 mg RTBID NEB Last administered on 11/25/20at 07:32; Start 11/18/20 at 20:00 Budesonide (Pulmicort) 0.5 mg 1X ONCE NEB Last administered on 11/18/20at 12:39; Start 11/18/20 at 09:30; Stop 11/18/20 at 09:31; Status DC Doxycycline Hyclate 100 mg/ Dextrose 100 ml @ 50 mls/hr Q12HR IV Last administered on 11/24/20at 08:15; Start 11/18/20 at 10:00; Stop 11/24/20 at 13:31; Status DC Pantoprazole Sodium (PROTONIX VIAL for IV PUSH) 40 mg DAILYAC IVP Last administered on 11/25/20 09:53; Start 11/18/20 at 10:00 Amino Acids/ Glycerin/ Electrolytes 1,000 ml @ 80 mls/hr [id number] ONCE IV Last administered on 11/18/20 09:44; Start 11/18/20 at 09:30; Stop 11/18/20 at 21:59; Status DC Furosemide (Lasix) 80 mg DAILY IVP Last administered on 11/25/20 09:53; Start 11/18/20 at 11:00 Lactulose (Lactulose) 20 gm PRN DAILY PRN PO CONSTIPATION; Start 11/18/20 at 11:00 Metoclopramide HCl (Reglan Vial) 10 mg PRN Q6HRS PRN IVP NAUSEA/VOMITING, 2ND CHOICE Last administered on 11/18/20at 11:40; Start 11/18/20 at 11:30 Ondansetron HCl (Zofran) 4 mg PRN Q4HRS PRN IVP NAUSEA/VOMITING, 1ST CHOICE; Start 11/18/20 at 11:30 Enoxaparin Sodium (Lovenox 80mg Syringe) 80 mg Q12HR SQ Last administered on 11/19/20 08:05; Start 11/18/20 at 21:00; Stop 11/19/20 at 09:23; Status DC Lactobacillus Rhamnosus (Culturelle) 1 cap BID PO Last administered on 11/25/20 09:53; Start 11/18/20 at 21:00 Amino Acids/ Glycerin/ Electrolytes 1,000 ml @ 80 mls/hr [id number] IV Last administered on 11/18/20at 23:04; Start 11/18/20 at 22:15; Stop 11/19/20 at 09:01; Status DC Heparin Sodium/ Dextrose 250 ml @ 0 mls/hr CONT PRN IV PER PROTOCOL Last administered on 11/23/20 18:22; Start 11/19/20 at 21:00; Stop 11/24/20 at 19:49; Status DC Heparin Sodium (Porcine) (Heparin Sodium) 2,600 unit PRN Q6HRS PRN IV FOR UFH LEVEL LESS THAN 0.2 Last administered on 11/24/20 12:40; Start 11/19/20 at 21:00; Stop 11/24/20 at 17:57; Status DC Heparin Sodium (Porcine) (Heparin Sodium) 1,300 unit PRN Q6HRS PRN IV FOR UFH LEVEL 0.2 - 0.29 Last administered on 11/23/20 12:45; Start 11/19/20 at 21:00; Stop 11/24/20 at 17:57; Status DC Amino Acids/ Glycerin/ Electrolytes 1,000 ml @ 40 mls/hr Q24H IV Last administered on 11/24/20 16:51; Start 11/19/20 at 17:15 Info (Anti-Coagulation Monitoring By Pharmacy) 1 each PRN DAILY PRN MC PER PROTOCOL Last administered on 11/21/20 09:06; Start 11/21/20 at 09:15; Stop 11/24/20 at 17:57; Status DC Potassium Chloride/Water 100 ml @ 100 mls/hr Q1H IV Last administered on 11/22/20 14:05; Start 11/22/20 at 10:00; Stop 11/22/20 at 13:59; Status DC Magnesium Sulfate 50 ml @ 25 mls/hr 1X ONCE IV Last administered on 11/22/20 15:33; Start 11/22/20 at 15:00; Stop 11/22/20 at 16:59; Status DC Atorvastatin Calcium (Lipitor) 40 mg QHS PO Last administered on 11/24/20 21:30; Start 11/22/20 at 21:00 Aspirin (Ecotrin) 81 mg [id number] PO Last administered on 11/25/20 09:53; Start 11/23/20 at 08:00 Amiodarone HCl (Cordarone) 200 mg DAILY PO Last administered on 11/25/20 09:54; Start 11/23/20 at 15:00 Warfarin Sodium (Coumadin Per Pharmacy) 1 each PRN DAILY PRN MC SEE COMMENTS Last administered on 11/24/20 14:47; Start 11/24/20 at 13:45 Warfarin Sodium (Coumadin) 2.5 mg 1X WARF ONCE PO Last administered on 11/24/20 16:51; Start 11/24/20 at 16:00; Stop 11/24/20 at 16:01; Status DC Barium Sulfate (Varibar Thin Liquid Apple) 148 gm 1X ONCE PO Last administered on 11/25/20at 10:52; Start 11/25/20 at 11:00; Stop 11/25/20 at 11:01; Status DC Active Scripts Active Reported Warfarin Sodium 2.5 Mg Tablet 2.5 Mg PO DAILY Risperidone 0.5 Mg Tablet 1 Tab PO QHS Ranexa (Ranolazine) 500 Mg Tab.er.12h 500 Mg PO BID Klor-Con M20 (Potassium Chloride) 20 Meq Tab.er.prt 20 Meq PO DAILY Pantoprazole Sodium (Pantoprazole Sodium) 40 Mg Tablet.dr 40 Mg PO DAILYAC Metoprolol Succinate ( Xl ) (Metoprolol Succinate) 25 Mg Tab.er.24h 25 Mg PO HS Metformin HCl 500 Mg/5 Ml Solution 500 Mg PO BID Cymbalta (Duloxetine Hcl) 30 Mg Capsule.dr 30 Mg PO DAILY Atorvastatin Calcium 80 Mg Tablet 80 Mg PO QHS Atorvastatin Calcium 40 Mg Tablet 1 Tab PO DAILY Children's Aspirin (Aspirin) 81 Mg Tab.chew 1 Tab PO DAILY 30 Days Amiodarone Hcl 200 Mg Tablet 1 Tab PO DAILY Vitals/I & O Vital Sign - Last 24 Hours 11/24/20 11/24/20 11/24/20 11/24/20 16:04 19:05 20:00 20:21 Temp 98.0 98.0 Pulse 62 Resp 16 B/P (MAP) 100/67 (78) Pulse Ox 94 92 93 O2 Delivery Nasal Cannula Nasal Cannula Nasal Cannula Nasal Cannula O2 Flow Rate 3.0 3.0 3.0 3.0 11/24/20 11/24/20 11/25/20 11/25/20 20:21 23:20 03:15 07:05 Temp 97.9 97.7 97.6 97.9 97.7 97.6 Pulse 60 59 60 Resp 14 16 16 B/P (MAP) 98/66 (77) 105/67 (80) 110/64 (79) Pulse Ox 93 92 96 96 O2 Delivery Nasal Cannula Nasal Cannula Nasal Cannula Nasal Cannula O2 Flow Rate 3.0 3.0 3.0 3.0 11/25/20 11/25/20 11/25/20 11/25/20 07:32 08:00 09:54 10:28 Temp 97.9 97.9 Pulse 76 72 Resp 16 B/P (MAP) 110/64 119/75 (90) Pulse Ox 95 91 O2 Delivery Nasal Cannula Nasal Cannula Nasal Cannula O2 Flow Rate 3.0 3.0 3.0 Intake and Output 11/24/20 11/24/20 11/25/20 15:00 23:00 07:00 Intake Total 60 ml Output Total 1500 ml 1125 ml 200 ml Balance -1500 ml -1125 ml -140 ml Nutrition Consultation Dietary Evaluation: Recommendations by RD: Dietary education by RD, PPN/TPN Comments: continue Cardiac diet, honor food preferencs and offer snacks/ supplements from unit prn. REC continue PPN for short term non - oral nutrition until appetite/ po intake improves 11/23 Will start Ensure TID with meals and fresh fruit with lunch and dinner per food preferences taken. Encourage p.o. intake. Day 5 of PPN (less than 10 days of PPN is recommended) Expected Outcomes/Goals: to meet >50% est nutr needs via po intake Malnutrition Findings: Weight Status: Appropriate Fluid Accumulation (Non-Severe: Mild depletion Justicifation of Admission Dx: Justifications for Admission: Justification of Admission Dx: Yes Altered Mental Status: Altered Mental Status MICHELLE KANG MD Nov 25, 2020 11:43
--- NOTE | 2020-11-25 11:51 | PDOC3 ---
Discharge Summary Date of Admission: November 17, 2020 Date of Discharge: Nov 25, 2020 Follow-Up: 1-2 days Admitting Diagnosis comment: HPI History of Present Illness History of Present Illness Mr Silver is a 64-year-old male visiting from [place] w/ PMHx A-Fib, GERD, High Cholesterol, Hypertension, Hypothyroid, CHF s/p AICD placement pr esents with dizziness, weakness, short of breath. Patient son brought him in and he has been staying with his son. Son states patient has not taken his medications for 2 weeks. Patient denies chest pain. Patient states "I feel like my pacemaker is firing". Patient has 3+ pitting edema on bilateral legs. Patient's left arm is cool to the touch, red. Denies fever, cough. Found on CTPA with multiple left lower lobe pulmonary emboli and moderate large pleural effusion on left and multifocal pneumonia. Accepted for transfer to ICU [facility] D/C MEDS SEE MAR COMPLICATIONS NONE D/C CONDITION FAIR Prognosis guarded consults PULMONARY, SPEECH, neurology, CARDIOLOGY Procedures videoswallow, ECHO, CT HEAD, THORACENTESIS , cta chest DISCHARGE DX Chief Complaint impression Acute bilateral Pulmonary embolism - will transition from lovenox to heparin GTT in anticipation of consideration of thoracentesis Acute pneumonia - rocephin + doxy acute metabolic encephalopathy Sepsis - due to above Acute hypoxic respiratory failure - due to PE, CHF Stable large left pleural effusion CAD s/p CABG 1993 Acute on chronic systolic CHF with prior known 3+ pitting edema for months, BNP 15k. S/p AICD - cont diuresis Atrial fibrillation - [employer] pacer interrogated at [facility]. Was on eliquis but had been off for 2 weeks prior to admit DOE - creatinine 1.4 - likely vasomotor nephropathy Transaminits - likely congestive hepatopathy, no ETOH or cirrhosis per patient. Bilirubin is elevated at 4.6. INR 1.9 PVD, US artery LUE neg at [facility], poor pulses, cool feet, consult vasc, Nausea and vomiting - KUB ordered, no SBO, reglan helped microhematuria ECHO systolic function is severely impaired. Ejection Fraction is estimated at 20%. severe global hypokinesis of the left ventricle. FEN - Cardiac PPX - lovenox FULL CODE Dispo - ICU pulm consult renal sono CC time 42 minutes History of Present Illness History of Present Illness Mr Silver is a 64-year-old male visiting from [place] w/ PMHx A-Fib, GERD, High Cholesterol, Hypertension, Hypothyroid, CHF s/p AICD placement presents with dizziness, weakness, short of breath. Patient son brought him in and he has been staying with his son. Son states patient has not taken his medications for 2 weeks. Patient denies chest pain. Patient states "I feel like my pacemaker is firing". Patient has 3+ pitting edema on bilateral legs. Patient's left arm is cool to the touch, red. Denies fever, cough. Found on CTPA with multiple left lower lobe pulmonary emboli and moderate large pleural effusion on left and multifocal pneumonia. Accepted for transfer to ICU [facility]. 11/18: Afebrile. Vomiting this morning. States he feels a little better today. Bilirubin up to 4. INR 2.1. COVID negative. BP low Afebrile. Still weak. Sitting in chair. PICC placed for IV access. K 4.7, BUN 27, Cr 1.5, Alk phos 21, Bili 4.1. BP improved. 5-31 PPX - lovenox FULL CODE Dispo - ICU History of bypass surgery. Probable superimposed heart failure. Acute bilateral Pulmonary embolism - will transition from lovenox to heparin GTT in anticipation of consideration of thoracentesis Acute pneumonia - rocephin + doxy Sepsis - due to above Acute hypoxic respiratory failure - due to PE, CHF CAD s/p CABG 1993 pulm consult elevated lft's , sono and GI consult PSA Acute on chronic systolic CHF with prior known 3+ pitting edema for months, BNP 15k. S/p AICD - cont diuresis Atrial fibrillation - [employer] pacer interrogated at [facility]. Was on eliquis but had been off for 2 weeks prior to admit, cardiology consulted DOE - creatinine 1.4 - likely vasomotor nephropathy microhematuria , renal sono, follow ua The Ejection Fraction is estimated at 20%. severe global hypokinesis of the left ventricle. mild concentric left ventricular hypertrophy. mild tricuspid regurgitation with an estimated PAP of 46 mmHg. H/o biliary stone disease so retained stone possible. ABD EDGAR PENDING CC time 34 minutes 11/21 PPX - lovenox FULL CODE Dispo - ICU History of bypass surgery. Probable superimposed heart failure. Acute bilateral Pulmonary embolism - will transition from lovenox to heparin GTT in anticipation of consideration of thoracentesis Acute pneumonia - rocephin + doxy Sepsis - due to above Acute hypoxic respiratory failure - due to PE, CHF CAD s/p CABG 1993 pulm consult elevated lft's , sono and GI consult PSA Acute on chronic systolic CHF with prior known 3+ pitting edema for months, BNP 15k. S/p AICD - cont diuresis Atrial fibrillation - [employer] pacer interrogated at [facility]. Was on eliquis but had been off for 2 weeks prior to admit, cardiology consulted DOE - creatinine 1.4 - likely vasomotor nephropathy microhematuria , renal sono, follow ua The Ejection Fraction is estimated at 20%. severe global hypokinesis of the left ventricle. mild concentric left ventricular hypertrophy. mild tricuspid regurgitation with an estimated PAP of 46 mmHg. H/o biliary stone disease so retained stone possible. CORY HERNÁNDEZ reviewed CC time 35 minutes 11/22 PPX - lovenox FULL CODE Dispo - ICU History of bypass surgery. Probable superimposed heart failure. Acute bilateral Pulmonary embolism - will transition from lovenox to heparin GTT in anticipation of consideration of thoracentesis Acute pneumonia - rocephin + doxy Sepsis - due to above Acute hypoxic respiratory failure - due to PE, CHF CAD s/p CABG 1993 pulm consult elevated lft's , sono and GI consult PSA Acute on chronic systolic CHF with prior known 3+ pitting edema for months, BNP 15k. S/p AICD - cont diuresis Atrial fibrillation - [employer] pacer interrogated at [facility]. Was on eliquis but had been off for 2 weeks prior to admit, cardiology consulted DOE - creatinine 1.4 - likely vasomotor nephropathy microhematuria , renal sono, follow ua The Ejection Fraction is estimated at 20%. severe global hypokinesis of the left ventricle. mild concentric left ventricular hypertrophy. mild tricuspid regurgitation with an estimated PAP of 46 mmHg. H/o biliary stone disease so retained stone possible. ABD SONO reviewed CC time 33 minutes 11/23 PE's, on AC. Jaundice; numbers have improved with diuresis. PPX - lovenox FULL CODE Dispo - ICU History of bypass surgery. Probable superimposed heart failure. Acute bilateral Pulmonary embolism - will transition from lovenox to heparin GTT in anticipation of consideration of thoracentesis Acute pneumonia - rocephin + doxy Sepsis - due to above Acute hypoxic respiratory failure - due to PE, CHF CAD s/p CABG 1993 pulm consult elevated lft's , sono and GI consult PSA Acute on chronic systolic CHF with prior known 3+ pitting edema for months, BNP 15k. S/p AICD - cont diuresis Atrial fibrillation - [employer] pacer interrogated at [facility]. Was on eliquis but had been off for 2 weeks prior to admit, cardiology consulted DOE - creatinine 1.4 - likely vasomotor nephropathy microhematuria , renal sono, follow ua The Ejection Fraction is estimated at 20%. severe global hypokinesis of the left ventricle. mild concentric left ventricular hypertrophy. mild tricuspid regurgitation with an estimated PAP of 46 mmHg. H/o biliary stone disease so retained stone possible. ABD SONO reviewed remains very weak and confused PPN AT 80 CC / HR, poor oral intake Discharge Recommendations * [facility] Unit Discharge Recommendation - DME * Rolling Walker needed * in order to complete ADLs CC time 32 minutes 11/24 less confused, knows year and month, denies alcohol intake will check ct head, abg, consult neurology, for encephalopathy, ammonia level eating 25% of meals acute metabolic encephalopathy, improving PE's, on AC. Jaundice; numbers have improved with diuresis. PPX - lovenox FULL CODE Dispo - ICU History of bypass surgery. Probable superimposed heart failure. Acute bilateral Pulmonary embolism - will transition from lovenox to heparin GTT in anticipation of consideration of thoracentesis Acute pneumonia - rocephin + doxy Successful ultrasound guided left thoracentesis with removal 1.3 liters of fluid. Sepsis - due to above Acute hypoxic respiratory failure - due to PE, CHF CAD s/p CABG 1993 pulm consult elevated lft's , sono and GI consult PSA Acute on chronic systolic CHF with prior known 3+ pitting edema for months, BNP 15k. S/p AICD - cont diuresis Atrial fibrillation - [employer] pacer interrogated at [facility]. Was on eliquis but had been off for 2 weeks prior to admit, cardiology consulted DOE - creatinine 1.4 - likely vasomotor nephropathy microhematuria , renal sono, follow ua The Ejection Fraction is estimated at 20%. severe global hypokinesis of the left ventricle. mild concentric left ventricular hypertrophy. mild tricuspid regurgitation with an estimated PAP of 46 mmHg. H/o biliary stone disease so retained stone possible. ABD SONO reviewed remains weak and less confused PPN AT 80 CC / HR, poor oral intake 11-24 ovoid opacity in the right upper lobe may represent rib overlying increased pulmonary vascular congestion, mass cannot be excluded. plan cross-sectional imaging or repeat plain film imaging once symptoms has resolved as this may be fluid on the fissure. hopefully to SNF 11-25 Discharge Recommendations * [facility] Unit Discharge Recommendation - DME * Rolling Walker needed * in order to complete ADLs CC time 33 minutes 11/25 speech concerned re aspiration, desires videoswallow this AM, passed swallow without berhane aspiration less confused, knows year and month, denies alcohol intake will check ct head, abg, consult neurology, for encephalopathy, ammonia level eating 25% of meals acute metabolic encephalopathy, improving PE's, on AC. Jaundice; numbers have improved with diuresis. PPX - lovenox FULL CODE Dispo - ICU History of bypass surgery. Probable superimposed heart failure. Acute bilateral Pulmonary embolism - will transition from lovenox to heparin GTT in anticipation of consideration of thoracentesis Acute pneumonia - rocephin + doxy Successful ultrasound guided left thoracentesis with removal 1.3 liters of fluid. Sepsis - due to above Acute hypoxic respiratory failure - due to PE, CHF CAD s/p CABG 1993 pulm consult elevated lft's , sono and GI consult PSA Acute on chronic systolic CHF with prior known 3+ pitting edema for months, BNP 15k. S/p AICD - cont diuresis Atrial fibrillation - [employer] pacer interrogated at [facility]. Was on eliquis but had been off for 2 weeks prior to admit, cardiology consulted DOE - creatinine 1.4 - likely vasomotor nephropathy microhematuria , renal sono, follow ua The Ejection Fraction is estimated at 20%. severe global hypokinesis of the left ventricle. mild concentric left ventricular hypertrophy. mild tricuspid regurgitation with an estimated PAP of 46 mmHg. H/o biliary stone disease so retained stone possible. ABD SONO reviewed remains weak and less confused PPN AT 80 CC / HR, poor oral intake 11-24 ovoid opacity in the right upper lobe may represent rib overlying increased pulmonary vascular congestion, mass cannot be excluded. plan cross-sectional imaging or repeat plain film imaging once symptoms has resolved as this may be fluid on the fissure. hopefully to SNF 11-25 d/c planning 36 min PATIENT: EZEQUIEL SILVER ACCOUNT: [id number] : 1955 LOCATION: [address] [place] [address] AGE: 64 SEX: M EXAM STATUS: ADM IN ORD. PHYSICIAN: MICHELLE KANG MD REASON: coughing when drinking thin liquids FLUORO TIME 2.0 MINUTES PROCEDURE: VIDEO SWALLOW STUDY EXAM: Video swallow evaluation. HISTORY: Coughing while drinking thin liquid. Possible aspiration. TECHNIQUE: Fluoroscopic imaging was performed with a speech pathologist during the oral administration of barium contrast of varying consistencies. 0 fluoroscopic spot images were obtained. The total fluoroscopy time was 2 minutes. COMPARISON: None. FINDINGS: There is no evidence of aspiration or penetration. There is poor epiglottic inversion and slight delayed oral bolus formation. IMPRESSION: No evidence of aspiration or penetration. Please refer to the separate report by the speech pathologist for clinical recommendations. Electronically signed by: Fernanda Reynaga MD (11/25/2020 11:10 AM) [id number] DICTATED and SIGNED BY: FERNANDA REYNAGA MD DATE: 11/25/20 [id number] Discharge Recommendations * [facility] Unit Discharge Recommendation - DME * Rolling Walker needed * in order to complete ADLs Vitals Vitals Vital Signs Date Time Temp Pulse Resp B/P (MAP) Pulse Ox O2 Delivery O2 Flow Rate FiO2 11/25/20 10:28 97.9 72 16 119/75 (90) 91 Nasal Cannula 3.0 97.9 Physical Exam Physical Exam HEENT: PERRLA Heart: no murmurs, irregularly irregular, other Abdomen: Normal bowel sounds, No tenderness Rectal Exam: not examined Extremities: Other (4+ edema, cold feet and swollen, pulses palpable but faint, cyanosis, ) Skin: Other Neuro: Normal speech, Sensation intact General: Alert, Oriented X3, Cooperative, No acute distress Heart: Regular rate Lungs: Crackles Abdomen: Normal bowel sounds Extremities: Other (4+ edema, cold feet and swollen, pulses palpable but faint, cyanosis, ) Skin: Other FINAL DIAGNOSIS speech concerned re aspiration, desires videoswallow this AM, passed swallow without berhane aspiration less confused, knows year and month, denies alcohol intake will check ct head, abg, consult neurology, for encephalopathy, ammonia level eating 25% of meals acute metabolic encephalopathy, improving PE's, on AC. Jaundice; numbers have improved with diuresis. PPX - lovenox FULL CODE Dispo - ICU History of bypass surgery. Probable superimposed heart failure. Acute bilateral Pulmonary embolism - will transition from lovenox to heparin GTT in anticipation of consideration of thoracentesis Acute pneumonia - rocephin + doxy Successful ultrasound guided left thoracentesis with removal 1.3 liters of fluid. Sepsis - due to above Acute hypoxic respiratory failure - due to PE, CHF CAD s/p CABG 1993 pulm consult elevated lft's , sono and GI consult PSA Acute on chronic systolic CHF with prior known 3+ pitting edema for months, BNP 15k. S/p AICD - cont diuresis Atrial fibrillation - [employer] pacer interrogated at [facility]. Was on eliquis but had been off for 2 weeks prior to admit, cardiology consulted DOE - creatinine 1.4 - likely vasomotor nephropathy microhematuria , renal sono, follow ua The Ejection Fraction is estimated at 20%. severe global hypokinesis of the left ventricle. mild concentric left ventricular hypertrophy. mild tricuspid regurgitation with an estimated PAP of 46 mmHg. H/o biliary stone disease so retained stone possible. ABD SONO reviewed remains weak and less confused PPN AT 80 CC / HR, poor oral intake 6- ovoid opacity in the right upper lobe may represent rib overlying increased pulmonary vascular congestion, mass cannot be excluded. plan cross-sectional imaging or repeat plain film imaging once symptoms has resolved as this may be fluid on the fissure. hopefully to [facility] 11-25 Brief Hospital Course Mr. Silver is a 64 old [sex] who presented with [ bilateral PE] CONDITION AT DISCHARGE: Improved Discharge Medications Current Medications Enoxaparin Sodium (Lovenox Per Pharmacy Treatment Dosing) 1 each PRN DAILY PRN MC SEE COMMENTS; Start 11/17/20 at 19:00; Stop 11/19/20 at 09:23; Status DC Ondansetron HCl (Zofran) 4 mg PRN Q8HRS PRN IVP NAUSEA/VOMITING Last administered on 11/18/20at 09:05; Start 11/17/20 at 19:00; Stop 11/18/20 at 11:29; Status DC Ceftriaxone Sodium (Rocephin) 2 gm Q24H IVP Last administered on 11/23/20at 16:05; Start 11/18/20 at 14:00; Stop 11/24/20 at 13:31; Status DC Azithromycin (Zithromax) 250 mg DAILY PO ; Start 11/18/20 at 09:00; Stop 11/18/20 at 08:37; Status DC Enoxaparin Sodium (Lovenox 100mg Syringe) 90 mg Q12H SQ Last administered on 11/18/20at 06:04; Start 11/18/20 at 06:00; Stop 11/18/20 at 13:34; Status DC Doxycycline Hyclate (Vibra-Tab) 100 mg BID PO ; Start 11/18/20 at 09:00; Stop 11/18/20 at 09:13; Status DC Pantoprazole Sodium (Protonix) 40 mg DAILYAC PO ; Start 11/18/20 at 09:00; Stop 11/18/20 at 09:21; Status DC Albuterol/ Ipratropium (Duoneb) 3 ml RTQID NEB Last administered on 11/25/20at 07:32; Start 11/18/20 at 12:00 Budesonide (Pulmicort) 0.5 mg RTBID NEB Last administered on 11/25/20at 07:32; Start 11/18/20 at 20:00 Budesonide (Pulmicort) 0.5 mg 1X ONCE NEB Last administered on 11/18/20at 12:39; Start 11/18/20 at 09:30; Stop 11/18/20 at 09:31; Status DC Doxycycline Hyclate 100 mg/ Dextrose 100 ml @ 50 mls/hr Q12HR IV Last administered on 11/24/20at 08:15; Start 11/18/20 at 10:00; Stop 11/24/20 at 13:31; Status DC Pantoprazole Sodium (PROTONIX VIAL for IV PUSH) 40 mg DAILYAC IVP Last administered on 11/25/20 09:53; Start 11/18/20 at 10:00 Amino Acids/ Glycerin/ Electrolytes 1,000 ml @ 80 mls/hr [id number] ONCE IV Last administered on 11/18/20 09:44; Start 11/18/20 at 09:30; Stop 11/18/20 at 21:59; Status DC Furosemide (Lasix) 80 mg DAILY IVP Last administered on 11/25/20 09:53; Start 11/18/20 at 11:00 Lactulose (Lactulose) 20 gm PRN DAILY PRN PO CONSTIPATION; Start 11/18/20 at 11:00 Metoclopramide HCl (Reglan Vial) 10 mg PRN Q6HRS PRN IVP NAUSEA/VOMITING, 2ND CHOICE Last administered on 11/18/20at 11:40; Start 11/18/20 at 11:30 Ondansetron HCl (Zofran) 4 mg PRN Q4HRS PRN IVP NAUSEA/VOMITING, 1ST CHOICE; Start 11/18/20 at 11:30 Enoxaparin Sodium (Lovenox 80mg Syringe) 80 mg Q12HR SQ Last administered on 11/19/20 08:05; Start 11/18/20 at 21:00; Stop 11/19/20 at 09:23; Status DC Lactobacillus Rhamnosus (Culturelle) 1 cap BID PO Last administered on 11/25/20 09:53; Start 11/18/20 at 21:00 Amino Acids/ Glycerin/ Electrolytes 1,000 ml @ 80 mls/hr [id number] IV Last administered on 11/18/20at 23:04; Start 11/18/20 at 22:15; Stop 11/19/20 at 09:01; Status DC Heparin Sodium/ Dextrose 250 ml @ 0 mls/hr CONT PRN IV PER PROTOCOL Last administered on 11/23/20 18:22; Start 11/19/20 at 21:00; Stop 11/24/20 at 19:49; Status DC Heparin Sodium (Porcine) (Heparin Sodium) 2,600 unit PRN Q6HRS PRN IV FOR UFH LEVEL LESS THAN 0.2 Last administered on 6/4/21at 12:40; Start 11/19/20 at 21:00; Stop 11/24/20 at 17:57; Status DC Heparin Sodium (Porcine) (Heparin Sodium) 1,300 unit PRN Q6HRS PRN IV FOR UFH LEVEL 0.2 - 0.29 Last administered on 11/23/20at 12:45; Start 11/19/20 at 21:00; Stop 11/24/20 at 17:57; Status DC Amino Acids/ Glycerin/ Electrolytes 1,000 ml @ 40 mls/hr Q24H IV Last administered on 11/24/20 16:51; Start 11/19/20 at 17:15 Info (Anti-Coagulation Monitoring By Pharmacy) 1 each PRN DAILY PRN MC PER PROTOCOL Last administered on 11/21/20at 09:06; Start 11/21/20 at 09:15; Stop 11/24/20 at 17:57; Status DC Potassium Chloride/Water 100 ml @ 100 mls/hr Q1H IV Last administered on 11/22/20at 14:05; Start 11/22/20 at 10:00; Stop 11/22/20 at 13:59; Status DC Magnesium Sulfate 50 ml @ 25 mls/hr 1X ONCE IV Last administered on 11/22/20at 15:33; Start 11/22/20 at 15:00; Stop 11/22/20 at 16:59; Status DC Atorvastatin Calcium (Lipitor) 40 mg QHS PO Last administered on 11/24/20 21:30; Start 11/22/20 at 21:00 Aspirin (Ecotrin) 81 mg [id number] PO Last administered on 11/25/20 09:53; Start 11/23/20 at 08:00 Amiodarone HCl (Cordarone) 200 mg DAILY PO Last administered on 11/25/20 09:54; Start 11/23/20 at 15:00 Warfarin Sodium (Coumadin Per Pharmacy) 1 each PRN DAILY PRN MC SEE COMMENTS Last administered on 11/24/20 14:47; Start 11/24/20 at 13:45 Warfarin Sodium (Coumadin) 2.5 mg 1X WARF ONCE PO Last administered on 11/24/20 16:51; Start 11/24/20 at 16:00; Stop 11/24/20 at 16:01; Status DC Barium Sulfate (Varibar Thin Liquid Apple) 148 gm 1X ONCE PO Last administered on 11/25/20at 10:52; Start 11/25/20 at 11:00; Stop 11/25/20 at 11:01; Status DC Active Scripts Active Reported Warfarin Sodium 2.5 Mg Tablet 2.5 Mg PO DAILY Risperidone 0.5 Mg Tablet 1 Tab PO QHS Ranexa (Ranolazine) 500 Mg Tab.er.12h 500 Mg PO BID Klor-Con M20 (Potassium Chloride) 20 Meq Tab.er.prt 20 Meq PO DAILY Pantoprazole Sodium (Pantoprazole Sodium) 40 Mg Tablet.dr 40 Mg PO DAILYAC Metoprolol Succinate ( Xl ) (Metoprolol Succinate) 25 Mg Tab.er.24h 25 Mg PO HS Metformin HCl 500 Mg/5 Ml Solution 500 Mg PO BID Cymbalta (Duloxetine Hcl) 30 Mg Capsule.dr 30 Mg PO DAILY Atorvastatin Calcium 80 Mg Tablet 80 Mg PO QHS Atorvastatin Calcium 40 Mg Tablet 1 Tab PO DAILY Children's Aspirin (Aspirin) 81 Mg Tab.chew 1 Tab PO DAILY 30 Days Amiodarone Hcl 200 Mg Tablet 1 Tab PO DAILY Vital Signs Vital Signs Date Time Temp Pulse Resp B/P (MAP) Pulse Ox O2 Delivery O2 Flow Rate FiO2 11/25/20 10:28 97.9 72 16 119/75 (90) 91 Nasal Cannula 3.0 97.9 Labs Laboratory Tests Test 11/23/20 11:45 11/23/20 20:30 11/24/20 04:45 11/24/20 11:59 Heparin Anti-Xa Act, Unfractionated 0.21 IU/mL (0.30-0.70) 0.52 IU/mL (0.30-0.70) 0.13 IU/mL (0.30-0.70) 0.11 IU/mL (0.30-0.70) Sodium Level 134 mmol/L (136-145) Potassium Level 4.0 mmol/L (3.5-5.1) Chloride Level 92 mmol/L (98-107) Carbon Dioxide Level 38 mmol/L (21-32) Anion Gap 4 (6-14) Blood Urea Nitrogen 38 mg/dL (8-26) Creatinine 1.1 mg/dL (0.7-1.3) Estimated GFR (Cockcroft-Gault) 67.8 Glucose Level 122 mg/dL (70-99) Calcium Level 8.1 mg/dL (8.5-10.1) Test 11/24/20 14:10 11/24/20 14:15 11/24/20 18:40 11/25/20 06:30 Prothrombin Time 18.5 SEC (11.7-14.0) 18.5 SEC (11.7-14.0) Prothromb Time International Ratio 1.6 (0.8-1.1) 1.6 (0.8-1.1) Ammonia < 10 mcmol/L (11-34) O2 Saturation 92 % (92-99) Arterial Blood pH 7.45 (7.35-7.45) Arterial Blood pCO2 at Patient Temp 55 mmHg (35-46) Arterial Blood pO2 at Patient Temp 60 mmHg (65-108) Arterial Blood HCO3 37 mmol/L (21-28) Arterial Blood Base Excess 11 mmol/L (-3-3) Oxyhemoglobin 90.4 % Methemoglobin 0.4 % (0.0-1.9) Carbon Monoxide, Quantitative 1.3 % (0.0-1.9) FiO2 32% Heparin Anti-Xa Act, Unfractionated 0.15 IU/mL (0.30-0.70) Sodium Level 135 mmol/L (136-145) Potassium Level 3.8 mmol/L (3.5-5.1) Chloride Level 94 mmol/L (98-107) Carbon Dioxide Level 41 mmol/L (21-32) Anion Gap 0 (6-14) Blood Urea Nitrogen 34 mg/dL (8-26) Creatinine 0.9 mg/dL (0.7-1.3) Estimated GFR (Cockcroft-Gault) 85.5 Glucose Level 102 mg/dL (70-99) Calcium Level 8.2 mg/dL (8.5-10.1) Laboratory Tests Test 11/24/20 11:59 11/24/20 14:10 11/24/20 14:15 11/24/20 18:40 Heparin Anti-Xa Act, Unfractionated 0.11 IU/mL (0.30-0.70) 0.15 IU/mL (0.30-0.70) Prothrombin Time 18.5 SEC (11.7-14.0) Prothromb Time International Ratio 1.6 (0.8-1.1) Ammonia < 10 mcmol/L (11-34) O2 Saturation 92 % (92-99) Arterial Blood pH 7.45 (7.35-7.45) Arterial Blood pCO2 at Patient Temp 55 mmHg (35-46) Arterial Blood pO2 at Patient Temp 60 mmHg (65-108) Arterial Blood HCO3 37 mmol/L (21-28) Arterial Blood Base Excess 11 mmol/L (-3-3) Oxyhemoglobin 90.4 % Methemoglobin 0.4 % (0.0-1.9) Carbon Monoxide, Quantitative 1.3 % (0.0-1.9) FiO2 32% Test 11/25/20 06:30 Prothrombin Time 18.5 SEC (11.7-14.0) Prothromb Time International Ratio 1.6 (0.8-1.1) Sodium Level 135 mmol/L (136-145) Potassium Level 3.8 mmol/L (3.5-5.1) Chloride Level 94 mmol/L (98-107) Carbon Dioxide Level 41 mmol/L (21-32) Anion Gap 0 (6-14) Blood Urea Nitrogen 34 mg/dL (8-26) Creatinine 0.9 mg/dL (0.7-1.3) Estimated GFR (Cockcroft-Gault) 85.5 Glucose Level 102 mg/dL (70-99) Calcium Level 8.2 mg/dL (8.5-10.1) Allergies Allergies Coded Allergies Type Severity Reaction Last Updated Verified No Known Drug Allergies 11/17/20 No Disposition/Orders: Other (D/C TO SNF ) Justicifation of Admission Dx: Justifications for Admission: Justification of Admission Dx: Yes Altered Mental Status: Altered Mental Status MICHELLE KANG MD Nov 25, 2020 11:51
[2020-11-25] MEDS ORDERED: BUDE0.5A NEB (11:56)
[2020-11-25] MEDS ORDERED: LACT1CAP19 PO (11:56)
[2020-11-25] MEDS ORDERED: FURO10VI IVP (11:56)
[2020-11-25] MEDS ORDERED: IPRA3AMP29 NEB (11:56)
[2020-11-25] MEDS ORDERED: LACT20SO PO (11:56)
[2020-11-25] MEDS ORDERED: Warfarin Per Pharmacy MC (11:56)
[2020-11-25] MEDS ORDERED: ENOX80DI SQ (11:58)
--- NOTE | 2020-11-25 12:00 | SNU/HH DC ---
DISCHARGE ORDERS DISCHARGE INFORMATION: DISCHARGE DATE: Nov 25, 2020 CONDITION ON DISCHARGE: Guarded CODE STATUS: Code Status: Full RESIDENTIAL: SNF STAY <30 DAYS: Yes HOSPICE: HOSPICE: No HOSPICE EVAL & TREAT: No LTAC: ADMIT TO LTAC: No POST DISCHARGE ORDERS: ACTIVITY ORDERS: Activity as tolerated DIET AFTER DISCHARGE: Cardiac CHECKS AFTER DISCHARGE: CHECKS AFTER DISCHARGE: Check blood press - daily FOLLOW-UP: PHYSICIAN FOLLOW-UP: cardiology 2 weeks, PCP AT SNF TODAY TREATMENT/EQUIPMENT ORDERS: ADAPTIVE EQUIPMENT NEEDED: Front wheeled walker RESPIRATORY EQUIPMENT NEEDED: Oxygen, Nebulizer Physical Therapy For: Evalulation/Treatment Occupational Therapy For: Evaluation/Treatment Speech Language Pathology For: Evaluation/Treatment DISCHARGE MEDICATIONS: Home Meds Active Scripts Enoxaparin Sodium (LOVENOX) 80 Mg/0.8 Ml Disp.syrin, 85 MG SQ q 12 hrs for ANTI- COAGULANT for 7 Days, #14 DIS.SYR Prov:MICHELLE KANG MD 11/25/20 Lactulose (LACTULOSE) 20 Gm/30 Ml Solution, 20 GM PO PRN DAILY PRN for CONSTIPATION for 30 Days, #120 MISC Prov:MICHELLE KANG MD 11/25/20 Furosemide (FUROSEMIDE) 10 Mg/1 Ml Vial, 80 MG IVP DAILY for chf for 10 Days, #10 EACH Prov:MICHELLE KANG MD 11/25/20 Budesonide (BUDESONIDE) 0.5 Mg/2 Ml Ampul.neb, 0.5 MG NEB RTBID for copd for 30 Days, #60 EACH Prov:MICHELLE KANG MD 11/25/20 Lactobacillus Rhamnosus Gg (CULTURELLE) 1 Each Cap.sprink, 1 CAP PO BID for supplement for 30 Days, #60 CAP Prov:MICHELLE KANG MD 11/25/20 [Warfarin Per Pharmacy] 1 EACH EACH No Conflict Check, 1 EACH MC PRN DAILY PRN for SEE COMMENTS for 10 Days, #14 Prov:MICHELLE KANG MD 11/25/20 Ipratropium/Albuterol Sulfate (DUONEB 0.5-3(2.5) MG/3 ML) 3 Ml Ampul.neb, 3 ML NEB RTQID for copd for 30 Days, #120 EACH Prov:MICHELLE KANG MD 11/25/20 Reported Medications Warfarin Sodium (WARFARIN SODIUM) 2.5 Mg Tablet, 2.5 MG PO DAILY for anticoag, TAB 11/23/20 Ranolazine (RANEXA) 500 Mg Tab.er.12h, 500 MG PO BID for angina, TAB.SR 11/23/20 Pantoprazole Sodium (PANTOPRAZOLE SODIUM ) 40 Mg Tablet.dr, 40 MG PO DAILYAC for GERD, TAB 11/23/20 Atorvastatin Calcium (ATORVASTATIN CALCIUM) 40 Mg Tablet, 1 TAB PO DAILY for cholesterol, #30 TAB 5 Refills 11/23/20 Aspirin (Children's Aspirin) 81 Mg Tab.chew, 1 TAB PO DAILY for anti coag for 30 Days, #30 TAB 0 Refills 11/23/20 Amiodarone Hcl (AMIODARONE HCL) 200 Mg Tablet, 1 TAB PO DAILY for BLOOD PRESSURE, #90 TAB 1 Refill 11/23/20 Discontinued Reported Medications Risperidone (RISPERIDONE) 0.5 Mg Tablet, 1 TAB PO QHS for antipsychotic, #30 TAB 2 Refills 11/23/20 Potassium Chloride (KLOR-CON M20) 20 Meq Tab.er.prt, 20 MEQ PO DAILY for potassium, TAB.SR 11/23/20 Metoprolol Succinate (METOPROLOL SUCCINATE ( XL )) 25 Mg Tab.er.24h, 25 MG PO HS for FOR HYPERTENSION, #30 TAB 0 Refills 11/23/20 Metformin HCl (Metformin HCl) 500 Mg/5 Ml Solution, 500 MG PO BID for blood sugar, MISC 11/23/20 Duloxetine Hcl (CYMBALTA) 30 Mg Capsule., 30 MG PO DAILY for antidepressant, CAP 11/23/20 Atorvastatin Calcium (Atorvastatin Calcium) 80 Mg Tablet, 80 MG PO QHS for FOR HIGH CHOLESTEROL, TAB 11/23/20 MICHELLE KANG MD Nov 25, 2020 12:00
--- NOTE | 2020-11-25 12:14 | NUR ---
Videoswallow Evaluation completed. Please refer to full report in intervention section for additional information. Impressions: Mild to mild-moderate oropharyngeal dysphagia w/ delayed A-P transit of boluses and lingual aggregation of puree and solids. Decreased BOT retraction, hyolaryngeal excursion and absent epiglottic inversion noted followed by BOT residue, trace posterior pharyngeal wall residue and mild to moderate vallecular residue, and trace residue in pyriforms. No penetration or aspiration was observed during the videoswallow. Earlier today's coughing after drinking via straw was noted w/ pt at approximately 80* upright, therefore consideration to positioning in presence of delayed/weak swallow may increase risk of aspiration. Pt appears at low risk of aspiration w/ sitting upright and swallow precautions for regular diet and thin liquids. Unknown etiology of oropharyngeal dysphagia, possibly overall weakness a contributor. Recommendations: Regular diet w/ thin liquids, swallow precautions including sitting upright at 90* and alternating liquids and solids, ST f/u for dysphagia, nutrition f/u w/ report of ongoing decreased intake.
--- NOTE | 2020-11-25 13:43 | NUR ---
Pharmacy Warfarin Dosing Note S:Pharmacy consulted to assist with anticoagulation therapy started with target INR: 2 -3 O:EZEQUIEL SILVER is a 64 year old M with Atrial Fibrillation DVT/PE NEW DVT AND BILATERAL PE LABS: Last INR: 1.6 Last HGB: 15.3 Last HCT: 47.8 Last PLT: 126 Last dose of given on at Previous Regimen: Vitamin K given: N Drug Interaction Changes: Same Interacting Drug Ongoing Drug Interactions: amiodarone A:INR of 1.6 is below desired range. Target range for this patient is: 2 -3 P: Warfarin dose: 3 mg Today at 1600 Bridge Therapy: Heparin Therapeutic CONT Next INR due IN AM Pharmacy anticoagulation service will continue to follow. JOE SERRANO [facility], 11/25/20 [id number]
--- NOTE | 2020-11-25 13:55 | PDOC2 ---
NEUROLOGY CONSULT Date of Service DOS: DATE: 11/25/20 TIME: 13:47 Reason for Consult Reason for Consult: Altered mental status Referring Physician Referring Physician: Dr. Hyman Source Source: Caregiver (Son), Chart review, Patient History of Present Illness History of Present Illness The patient is a 64-year-old right-handed male admitted with dizziness, weakness, short of breath, found to have a pulmonary embolus. Patient's son says the patient has had cognitive problems ever since a series of strokes 5 years ago. He had been staying with his family and [place], was admitted to the AL there and then discharged home, that was failing to thrive. Family was planning to send to the fdc, but instead son brought him here. Son discovered he could not care for the patient. Patient gets around with a walker. He has had increased edema in his legs. He feels like his pacemaker defibrillator has been firing a lot. He has had no recent strokes. There is no history of seizure or head injury. Past Medical History Cardiovascular: AFIB, CAD, HTN, Other (Peripheral vascular disease, cardiomyopathy) Pulmonary: COPD, Other (Pulmonary embolism) CENTRAL NERVOUS SYSTEM: CVA Past Surgical History Past Surgical History: Pacemaker (Defibrillator) Family History Family History: Cancer Social History Social History , no alcohol or tobacco, living arrangements as listed in history of present illness Current Medications Current Medications Current Medications Enoxaparin Sodium (Lovenox Per Pharmacy Treatment Dosing) 1 each PRN DAILY PRN MC SEE COMMENTS; Start 11/17/20 at 19:00; Stop 11/19/20 at 09:23; Status DC Ondansetron HCl (Zofran) 4 mg PRN Q8HRS PRN IVP NAUSEA/VOMITING Last administered on 11/18/20at 09:05; Start 11/17/20 at 19:00; Stop 11/18/20 at 11:29; Status DC Ceftriaxone Sodium (Rocephin) 2 gm Q24H IVP Last administered on 11/23/20at 16:05; Start 11/18/20 at 14:00; Stop 11/24/20 at 13:31; Status DC Azithromycin (Zithromax) 250 mg DAILY PO ; Start 11/18/20 at 09:00; Stop 11/18/20 at 08:37; Status DC Enoxaparin Sodium (Lovenox 100mg Syringe) 90 mg Q12H SQ Last administered on 11/18/20at 06:04; Start 11/18/20 at 06:00; Stop 11/18/20 at 13:34; Status DC Doxycycline Hyclate (Vibra-Tab) 100 mg BID PO ; Start 11/18/20 at 09:00; Stop 11/18/20 at 09:13; Status DC Pantoprazole Sodium (Protonix) 40 mg DAILYAC PO ; Start 11/18/20 at 09:00; Stop 11/18/20 at 09:21; Status DC Albuterol/ Ipratropium (Duoneb) 3 ml RTQID NEB Last administered on 11/25/20at 12:09; Start 11/18/20 at 12:00 Budesonide (Pulmicort) 0.5 mg RTBID NEB Last administered on 11/25/20at 07:32; Start 11/18/20 at 20:00 Budesonide (Pulmicort) 0.5 mg 1X ONCE NEB Last administered on 11/18/20at 12:39; Start 11/18/20 at 09:30; Stop 11/18/20 at 09:31; Status DC Doxycycline Hyclate 100 mg/ Dextrose 100 ml @ 50 mls/hr Q12HR IV Last administered on 11/24/20at 08:15; Start 11/18/20 at 10:00; Stop 11/24/20 at 13:31; Status DC Pantoprazole Sodium (PROTONIX VIAL for IV PUSH) 40 mg DAILYAC IVP Last administered on 11/25/20at 09:53; Start 11/18/20 at 10:00 Amino Acids/ Glycerin/ Electrolytes 1,000 ml @ 80 mls/hr [id number] ONCE IV Last administered on 11/18/20at 09:44; Start 11/18/20 at 09:30; Stop 11/18/20 at 21:59; Status DC Furosemide (Lasix) 80 mg DAILY IVP Last administered on 11/25/20at 09:53; Start 11/18/20 at 11:00 Lactulose (Lactulose) 20 gm PRN DAILY PRN PO CONSTIPATION; Start 11/18/20 at 11:00 Metoclopramide HCl (Reglan Vial) 10 mg PRN Q6HRS PRN IVP NAUSEA/VOMITING, 2ND CHOICE Last administered on 11/18/20at 11:40; Start 11/18/20 at 11:30 Ondansetron HCl (Zofran) 4 mg PRN Q4HRS PRN IVP NAUSEA/VOMITING, 1ST CHOICE; Start 11/18/20 at 11:30 Enoxaparin Sodium (Lovenox 80mg Syringe) 80 mg Q12HR SQ Last administered on 11/19/20at 08:05; Start 11/18/20 at 21:00; Stop 11/19/20 at 09:23; Status DC Lactobacillus Rhamnosus (Culturelle) 1 cap BID PO Last administered on 11/25/20 09:53; Start 11/18/20 at 21:00 Amino Acids/ Glycerin/ Electrolytes 1,000 ml @ 80 mls/hr [id number] IV Last administered on 11/18/20at 23:04; Start 11/18/20 at 22:15; Stop 11/19/20 at 09:01; Status DC Heparin Sodium/ Dextrose 250 ml @ 0 mls/hr CONT PRN IV PER PROTOCOL Last administered on 11/23/20at 18:22; Start 11/19/20 at 21:00; Stop 11/24/20 at 19:49; Status DC Heparin Sodium (Porcine) (Heparin Sodium) 2,600 unit PRN Q6HRS PRN IV FOR UFH LEVEL LESS THAN 0.2 Last administered on 11/24/20 12:40; Start 11/19/20 at 21:00; Stop 11/24/20 at 17:57; Status DC Heparin Sodium (Porcine) (Heparin Sodium) 1,300 unit PRN Q6HRS PRN IV FOR UFH LEVEL 0.2 - 0.29 Last administered on 11/23/20 12:45; Start 11/19/20 at 21:00; Stop 11/24/20 at 17:57; Status DC Amino Acids/ Glycerin/ Electrolytes 1,000 ml @ 40 mls/hr Q24H IV Last administered on 11/24/20 16:51; Start 11/19/20 at 17:15 Info (Anti-Coagulation Monitoring By Pharmacy) 1 each PRN DAILY PRN MC PER PROTOCOL Last administered on 11/21/20at 09:06; Start 11/21/20 at 09:15; Stop 11/24/20 at 17:57; Status DC Potassium Chloride/Water 100 ml @ 100 mls/hr Q1H IV Last administered on 11/22/20at 14:05; Start 11/22/20 at 10:00; Stop 11/22/20 at 13:59; Status DC Magnesium Sulfate 50 ml @ 25 mls/hr 1X ONCE IV Last administered on 11/22/20at 15:33; Start 11/22/20 at 15:00; Stop 11/22/20 at 16:59; Status DC Atorvastatin Calcium (Lipitor) 40 mg QHS PO Last administered on 11/24/20at 21:30; Start 11/22/20 at 21:00 Aspirin (Ecotrin) 81 mg DAILYWBKFT PO Last administered on 11/25/20at 09:53; Start 11/23/20 at 08:00 Amiodarone HCl (Cordarone) 200 mg DAILY PO Last administered on 11/25/20at 09:54; Start 11/23/20 at 15:00 Warfarin Sodium (Coumadin Per Pharmacy) 1 each PRN DAILY PRN MC SEE COMMENTS Last administered on 11/25/20at 13:38; Start 11/24/20 at 13:45 Warfarin Sodium (Coumadin) 2.5 mg 1X WARF ONCE PO Last administered on 11/24/20at 16:51; Start 11/24/20 at 16:00; Stop 11/24/20 at 16:01; Status DC Barium Sulfate (Varibar Thin Liquid Apple) 148 gm 1X ONCE PO Last administered on 11/25/20at 10:52; Start 11/25/20 at 11:00; Stop 11/25/20 at 11:01; Status DC Warfarin Sodium (Coumadin) 3 mg 1X WARF ONCE PO ; Start 11/25/20 at 16:00; Stop 11/25/20 at 16:01 Active Scripts Active Lovenox (Enoxaparin Sodium) 80 Mg/0.8 Ml Disp.syrin 85 Mg SQ Q 12 HRS 7 Days Lactulose 20 Gm/30 Ml Solution 20 Gm PO PRN DAILY PRN 30 Days Furosemide 10 Mg/1 Ml Vial 80 Mg IVP DAILY 10 Days Budesonide 0.5 Mg/2 Ml Ampul.neb 0.5 Mg NEB RTBID 30 Days Culturelle (Lactobacillus Rhamnosus Gg) 1 Each Cap.sprink 1 Cap PO BID 30 Days [Warfarin Per Pharmacy] 1 EACH Each 1 Each MC PRN DAILY PRN 10 Days Duoneb 0.5-3(2.5) Mg/3 Ml (Albuterol/Ipratropium) 3 Ml Ampul.neb 3 Ml NEB RTQID 30 Days Reported Warfarin Sodium 2.5 Mg Tablet 2.5 Mg PO DAILY Ranexa (Ranolazine) 500 Mg Tab.er.12h 500 Mg PO BID Pantoprazole Sodium (Pantoprazole Sodium) 40 Mg Tablet.dr 40 Mg PO DAILYAC Atorvastatin Calcium 40 Mg Tablet 1 Tab PO DAILY Children's Aspirin (Aspirin) 81 Mg Tab.chew 1 Tab PO DAILY 30 Days Amiodarone Hcl 200 Mg Tablet 1 Tab PO DAILY Allergies Allergies: Coded Allergies: No Known Drug Allergies (Unverified , 11/17/20) ROS Review of System Negative for fever, chills, weight loss, shortness of breath, chest pain, indigestion, hematochezia, melena, and dysuria. Full 14-point review of systems is negative. Physical Exam Physical Examination General: Well-developed, well-nourished white male in no acute distress HEENT: Normocephalic andatraumatic. Tympanic membranes clear.Temporal arteriespulsatile and nontender.Fundoscopic exam unremarkable Neck: Supple without bruit, no meningismus Musculoskeletal: Stability:see neurologic. Gait exam:see neurologic. Tone:see neurologic.S trength:see neurologic. Neurological: Mental Status: orientation, memory, attention span/concentration, language, fund of knowledge: Does not know the name of the hospital, knows the month but that is it for the date, does not know president, names and repeats, follows simple commands but not complex. Cranial Nerves:Pupils equal and reactive to light, extraocular movements areintact, visual miguel are full to confrontation. Facial sensation is normal. There is no facial asymmetry. Vestibulo-ocular refle x is intact. Palate elevates and tongue protrudes in midline. All other cranial related problems are negative except as mentioned before.Reflexes:1+ and symmetric with flexor plantar responses. Motor:4/5 strength with normal tone and bulk. Coordination:Finger-nose finger and [id number]-[id number] testing are normal. Rapid alternating movements and fine finger movements are intact. Gait:Not tested. Sensory:Stocking loss. Vitals VITALS Vital Signs Date Time Temp Pulse Resp B/P (MAP) Pulse Ox O2 Delivery O2 Flow Rate FiO2 11/25/20 12:10 93 Nasal Cannula 3.0 11/25/20 10:28 97.9 72 16 119/75 (90) 97.9 Labs Labs Laboratory Tests Test 11/23/20 20:30 11/24/20 04:45 11/24/20 11:59 11/24/20 14:10 Heparin Anti-Xa Act, Unfractionated 0.52 IU/mL (0.30-0.70) 0.13 IU/mL (0.30-0.70) 0.11 IU/mL (0.30-0.70) Sodium Level 134 mmol/L (136-145) Potassium Level 4.0 mmol/L (3.5-5.1) Chloride Level 92 mmol/L (98-107) Carbon Dioxide Level 38 mmol/L (21-32) Anion Gap 4 (6-14) Blood Urea Nitrogen 38 mg/dL (8-26) Creatinine 1.1 mg/dL (0.7-1.3) Estimated GFR (Cockcroft-Gault) 67.8 Glucose Level 122 mg/dL (70-99) Calcium Level 8.1 mg/dL (8.5-10.1) Prothrombin Time 18.5 SEC (11.7-14.0) Prothromb Time International Ratio 1.6 (0.8-1.1) Ammonia < 10 mcmol/L (11-34) Test 11/24/20 14:15 11/24/20 18:40 11/25/20 06:30 O2 Saturation 92 % (92-99) Arterial Blood pH 7.45 (7.35-7.45) Arterial Blood pCO2 at Patient Temp 55 mmHg (35-46) Arterial Blood pO2 at Patient Temp 60 mmHg (65-108) Arterial Blood HCO3 37 mmol/L (21-28) Arterial Blood Base Excess 11 mmol/L (-3-3) Oxyhemoglobin 90.4 % Methemoglobin 0.4 % (0.0-1.9) Carbon Monoxide, Quantitative 1.3 % (0.0-1.9) FiO2 32% Heparin Anti-Xa Act, Unfractionated 0.15 IU/mL (0.30-0.70) Prothrombin Time 18.5 SEC (11.7-14.0) Prothromb Time International Ratio 1.6 (0.8-1.1) Sodium Level 135 mmol/L (136-145) Potassium Level 3.8 mmol/L (3.5-5.1) Chloride Level 94 mmol/L (98-107) Carbon Dioxide Level 41 mmol/L (21-32) Anion Gap 0 (6-14) Blood Urea Nitrogen 34 mg/dL (8-26) Creatinine 0.9 mg/dL (0.7-1.3) Estimated GFR (Cockcroft-Gault) 85.5 Glucose Level 102 mg/dL (70-99) Calcium Level 8.2 mg/dL (8.5-10.1) Laboratory Tests Test 11/24/20 14:10 11/24/20 14:15 11/24/20 18:40 11/25/20 06:30 Prothrombin Time 18.5 SEC (11.7-14.0) 18.5 SEC (11.7-14.0) Prothromb Time International Ratio 1.6 (0.8-1.1) 1.6 (0.8-1.1) Ammonia < 10 mcmol/L (11-34) O2 Saturation 92 % (92-99) Arterial Blood pH 7.45 (7.35-7.45) Arterial Blood pCO2 at Patient Temp 55 mmHg (35-46) Arterial Blood pO2 at Patient Temp 60 mmHg (65-108) Arterial Blood HCO3 37 mmol/L (21-28) Arterial Blood Base Excess 11 mmol/L (-3-3) Oxyhemoglobin 90.4 % Methemoglobin 0.4 % (0.0-1.9) Carbon Monoxide, Quantitative 1.3 % (0.0-1.9) FiO2 32% Heparin Anti-Xa Act, Unfractionated 0.15 IU/mL (0.30-0.70) Sodium Level 135 mmol/L (136-145) Potassium Level 3.8 mmol/L (3.5-5.1) Chloride Level 94 mmol/L (98-107) Carbon Dioxide Level 41 mmol/L (21-32) Anion Gap 0 (6-14) Blood Urea Nitrogen 34 mg/dL (8-26) Creatinine 0.9 mg/dL (0.7-1.3) Estimated GFR (Cockcroft-Gault) 85.5 Glucose Level 102 mg/dL (70-99) Calcium Level 8.2 mg/dL (8.5-10.1) Images Images CT HEAD/BRAIN WO Date: 11/24/2020 2:16 PM Clinical Indication: confusion Comparison: None. Technique: 5 mm axial tomographic images were obtained of the head without contrast. These were viewed on brain and bone windows. One or more of the following dose reduction techniques were utilized: Automated exposure control (AEC), Adjustment of mA and/or kV according to patient size, Use of iterative reconstruction technique such as ASiR, CT scan done according to ALARA and image gently/image wisely Findings: Mild generalized cerebral and cerebellar volume loss. Mild nonspecific periventricular hypoattenuation, most commonly seen with chronic small vessel ischemic disease. Calcified atherosclerosis of the bilateral cavernous and paraclinoid internal carotid arteries and intracranial vertebral arteries. No intra- or extra-axial mass or fluid collection. No acute hemorrhage. The ventricles are normal in size, shape, and morphology. The martinez-white matter junction is normal. The subarachnoid cisterns are patent. The visualized paranasal sinuses are normal. The visualized portions of the orbits and globes are normal. Trace bilateral mastoid fluid. The qa internship topogram shows no lytic lesion or fracture. Impression: No acute intracranial process. Mild cerebral volume loss. Mild chronic small vessel ischemic disease. Assessment/Plan Assessment/Plan Impression: Multi-infarct dementia, no evidence of acute new stroke Diabetic neuropathy Multiple medical issues including pulmonary embolism, pneumonia, respiratory failure, pleural effusion, coronary artery disease, cardiomyopathy and heart failure, atrial fibrillation, acute kidney injury, transaminitis, peripheral vascular disease Note elevated TSH, normal T4 Recommendations: Treat medical issues senior care unit placement. Discussed with son including the fact that he may continue to decline given his overall medical issues. Thank you for letting me help with the patient's care. VICKY CHICAS MD Nov 25, 2020 13:55
--- NOTE | 2020-11-25 14:37 | PDOC ---
PROGRESS NOTES Date of Service DATE: 11/25/20 TIME: 14:34 Subjective Subjective Patient seen and examined Objective Objective Vital Signs Date Time Temp Pulse Resp B/P (MAP) Pulse Ox O2 Delivery O2 Flow Rate FiO2 11/25/20 12:10 93 Nasal Cannula 3.0 11/25/20 10:28 97.9 72 16 119/75 (90) 97.9 Intake and Output 11/25/20 07:00 Intake Total 60 ml Output Total 2825 ml Balance -2765 ml Intake Oral 60 ml Output Urine Total 2825 ml Physical Exam Abdomen: Normal bowel sounds Heart: Regular rate General: No acute distress Lungs: Other (Slightly decreased breath sounds) Assessment Assessment Acute respiratory failure; multifactorial with acute PE, A/c CHF, and pleural effusion- s/p thoracentesis with 1.3L. Has continued to improve. Continue present medications. [facility] Discussed with the patient's family. PAFIB; Rate controlled. on anticoagulation. Acute on chronic systolic CHF. Compensated. Follow-up as above. Ischemic cardiomyopathy; s/p AICD (alaTesttronic). Device shows normal function. No VT. Echo with LVEF 20%. Per record review, echo 02/08 with LVEF 20-25% CAD s/p CABG 1994; Follows with [facility]. Cath 08/31 with Patent SVG to RCA, SVG to diagonal, and BENJAMIN to LAD. SVG to circ occluded, which was known Hypertension DEO on CKD; Cr improved Tobaccoism; discussed/ encouraged cessation Hypothyroidism; TSH not on goal per PCP Comment Review of Relevant I have reviewed the following items florecita (where applicable) has been applied. Labs Laboratory Tests Test 11/23/20 20:30 11/24/20 04:45 11/24/20 11:59 11/24/20 14:10 Heparin Anti-Xa Act, Unfractionated 0.52 IU/mL (0.30-0.70) 0.13 IU/mL (0.30-0.70) 0.11 IU/mL (0.30-0.70) Sodium Level 134 mmol/L (136-145) Potassium Level 4.0 mmol/L (3.5-5.1) Chloride Level 92 mmol/L (98-107) Carbon Dioxide Level 38 mmol/L (21-32) Anion Gap 4 (6-14) Blood Urea Nitrogen 38 mg/dL (8-26) Creatinine 1.1 mg/dL (0.7-1.3) Estimated GFR (Cockcroft-Gault) 67.8 Glucose Level 122 mg/dL (70-99) Calcium Level 8.1 mg/dL (8.5-10.1) Prothrombin Time 18.5 SEC (11.7-14.0) Prothromb Time International Ratio 1.6 (0.8-1.1) Ammonia < 10 mcmol/L (11-34) Test 11/24/20 14:15 11/24/20 18:40 11/25/20 06:30 O2 Saturation 92 % (92-99) Arterial Blood pH 7.45 (7.35-7.45) Arterial Blood pCO2 at Patient Temp 55 mmHg (35-46) Arterial Blood pO2 at Patient Temp 60 mmHg (65-108) Arterial Blood HCO3 37 mmol/L (21-28) Arterial Blood Base Excess 11 mmol/L (-3-3) Oxyhemoglobin 90.4 % Methemoglobin 0.4 % (0.0-1.9) Carbon Monoxide, Quantitative 1.3 % (0.0-1.9) FiO2 32% Heparin Anti-Xa Act, Unfractionated 0.15 IU/mL (0.30-0.70) Prothrombin Time 18.5 SEC (11.7-14.0) Prothromb Time International Ratio 1.6 (0.8-1.1) Sodium Level 135 mmol/L (136-145) Potassium Level 3.8 mmol/L (3.5-5.1) Chloride Level 94 mmol/L (98-107) Carbon Dioxide Level 41 mmol/L (21-32) Anion Gap 0 (6-14) Blood Urea Nitrogen 34 mg/dL (8-26) Creatinine 0.9 mg/dL (0.7-1.3) Estimated GFR (Cockcroft-Gault) 85.5 Glucose Level 102 mg/dL (70-99) Calcium Level 8.2 mg/dL (8.5-10.1) Laboratory Tests Test 11/24/20 18:40 11/25/20 06:30 Heparin Anti-Xa Act, Unfractionated 0.15 IU/mL (0.30-0.70) Prothrombin Time 18.5 SEC (11.7-14.0) Prothromb Time International Ratio 1.6 (0.8-1.1) Sodium Level 135 mmol/L (136-145) Potassium Level 3.8 mmol/L (3.5-5.1) Chloride Level 94 mmol/L (98-107) Carbon Dioxide Level 41 mmol/L (21-32) Anion Gap 0 (6-14) Blood Urea Nitrogen 34 mg/dL (8-26) Creatinine 0.9 mg/dL (0.7-1.3) Estimated GFR (Cockcroft-Gault) 85.5 Glucose Level 102 mg/dL (70-99) Calcium Level 8.2 mg/dL (8.5-10.1) Microbiology 11/21/20 Gram Stain - Final, Resulted 11/21/20 Aerobic and Anaerobic Culture - Preliminary, Resulted Medications Current Medications Enoxaparin Sodium (Lovenox Per Pharmacy Treatment Dosing) 1 each PRN DAILY PRN MC SEE COMMENTS; Start 11/17/20 at 19:00; Stop 11/19/20 at 09:23; Status DC Ondansetron HCl (Zofran) 4 mg PRN Q8HRS PRN IVP NAUSEA/VOMITING Last administ ered on 11/18/20at 09:05; Start 11/17/20 at 19:00; Stop 11/18/20 at 11:29; Status DC Ceftriaxone Sodium (Rocephin) 2 gm Q24H IVP Last administered on 11/23/20at 16:05; Start 11/18/20 at 14:00; Stop 11/24/20 at 13:31; Status DC Azithromycin (Zithromax) 250 mg DAILY PO ; Start 11/18/20 at 09:00; Stop 11/18/20 at 08:37; Status DC Enoxaparin Sodium (Lovenox 100mg Syringe) 90 mg Q12H SQ Last administered on 11/18/20at 06:04; Start 11/18/20 at 06:00; Stop 11/18/20 at 13:34; Status DC Doxycycline Hyclate (Vibra-Tab) 100 mg BID PO ; Start 11/18/20 at 09:00; Stop 11/18/20 at 09:13; Status DC Pantoprazole Sodium (Protonix) 40 mg DAILYAC PO ; Start 11/18/20 at 09:00; Stop 11/18/20 at 09:21; Status DC Albuterol/ Ipratropium (Duoneb) 3 ml RTQID NEB Last administered on 11/25/20 12:09; Start 11/18/20 at 12:00 Budesonide (Pulmicort) 0.5 mg RTBID NEB Last administered on 11/25/20 07:32; Start 11/18/20 at 20:00 Budesonide (Pulmicort) 0.5 mg 1X ONCE NEB Last administered on 11/18/20at 12:39; Start 11/18/20 at 09:30; Stop 11/18/20 at 09:31; Status DC Doxycycline Hyclate 100 mg/ Dextrose 100 ml @ 50 mls/hr Q12HR IV Last administered on 11/24/20 08:15; Start 11/18/20 at 10:00; Stop 11/24/20 at 13:31; Status DC Pantoprazole Sodium (PROTONIX VIAL for IV PUSH) 40 mg DAILYAC IVP Last administered on 11/25/20 09:53; Start 11/18/20 at 10:00 Amino Acids/ Glycerin/ Electrolytes 1,000 ml @ 80 mls/hr [id number] ONCE IV Last administered on 11/18/20 09:44; Start 11/18/20 at 09:30; Stop 11/18/20 at 21:59; Status DC Furosemide (Lasix) 80 mg DAILY IVP Last administered on 11/25/20 09:53; Start 11/18/20 at 11:00 Lactulose (Lactulose) 20 gm PRN DAILY PRN PO CONSTIPATION; Start 11/18/20 at 11:00 Metoclopramide HCl (Reglan Vial) 10 mg PRN Q6HRS PRN IVP NAUSEA/VOMITING, 2ND CHOICE Last administered on 11/18/20at 11:40; Start 11/18/20 at 11:30 Ondansetron HCl (Zofran) 4 mg PRN Q4HRS PRN IVP NAUSEA/VOMITING, 1ST CHOICE; Start 11/18/20 at 11:30 Enoxaparin Sodium (Lovenox 80mg Syringe) 80 mg Q12HR SQ Last administered on 11/19/20at 08:05; Start 11/18/20 at 21:00; Stop 11/19/20 at 09:23; Status DC Lactobacillus Rhamnosus (Culturelle) 1 cap BID PO Last administered on 11/25/20at 09:53; Start 11/18/20 at 21:00 Amino Acids/ Glycerin/ Electrolytes 1,000 ml @ 80 mls/hr [id number] IV Last administered on 11/18/20at 23:04; Start 11/18/20 at 22:15; Stop 11/19/20 at 09:01; Status DC Heparin Sodium/ Dextrose 250 ml @ 0 mls/hr CONT PRN IV PER PROTOCOL Last administered on 11/23/20at 18:22; Start 11/19/20 at 21:00; Stop 11/24/20 at 19:49; Status DC Heparin Sodium (Porcine) (Heparin Sodium) 2,600 unit PRN Q6HRS PRN IV FOR UFH LEVEL LESS THAN 0.2 Last administered on 11/24/20at 12:40; Start 11/19/20 at 21:00; Stop 11/24/20 at 17:57; Status DC Heparin Sodium (Porcine) (Heparin Sodium) 1,300 unit PRN Q6HRS PRN IV FOR UFH LEVEL 0.2 - 0.29 Last administered on 11/23/20at 12:45; Start 11/19/20 at 21:00; Stop 11/24/20 at 17:57; Status DC Amino Acids/ Glycerin/ Electrolytes 1,000 ml @ 40 mls/hr Q24H IV Last administered on 11/24/20at 16:51; Start 11/19/20 at 17:15 Info (Anti-Coagulation Monitoring By Pharmacy) 1 each PRN DAILY PRN MC PER PROTOCOL Last administered on 11/21/20at 09:06; Start 11/21/20 at 09:15; Stop 11/24/20 at 17:57; Status DC Potassium Chloride/Water 100 ml @ 100 mls/hr Q1H IV Last administered on 11/22/20at 14:05; Start 11/22/20 at 10:00; Stop 11/22/20 at 13:59; Status DC Magnesium Sulfate 50 ml @ 25 mls/hr 1X ONCE IV Last administered on 11/22/20at 15:33; Start 11/22/20 at 15:00; Stop 11/22/20 at 16:59; Status DC Atorvastatin Calcium (Lipitor) 40 mg QHS PO Last administered on 11/24/20at 21:30; Start 11/22/20 at 21:00 Aspirin (Ecotrin) 81 mg DAILYWBKFT PO Last administered on 11/25/20at 09:53; Start 11/23/20 at 08:00 Amiodarone HCl (Cordarone) 200 mg DAILY PO Last administered on 11/25/20at 09:54; Start 11/23/20 at 15:00 Warfarin Sodium (Coumadin Per Pharmacy) 1 each PRN DAILY PRN MC SEE COMMENTS Last administered on 11/25/20 13:38; Start 11/24/20 at 13:45 Warfarin Sodium (Coumadin) 2.5 mg 1X WARF ONCE PO Last administered on 11/24/20at 16:51; Start 11/24/20 at 16:00; Stop 11/24/20 at 16:01; Status DC Barium Sulfate (Varibar Thin Liquid Apple) 148 gm 1X ONCE PO Last administered on 11/25/20at 10:52; Start 11/25/20 at 11:00; Stop 11/25/20 at 11:01; Status DC Warfarin Sodium (Coumadin) 3 mg 1X WARF ONCE PO ; Start 11/25/20 at 16:00; Stop 11/25/20 at 16:01 Active Scripts Active Lovenox (Enoxaparin Sodium) 80 Mg/0.8 Ml Disp.syrin 85 Mg SQ Q 12 HRS 7 Days Lactulose 20 Gm/30 Ml Solution 20 Gm PO PRN DAILY PRN 30 Days Furosemide 10 Mg/1 Ml Vial 80 Mg IVP DAILY 10 Days Budesonide 0.5 Mg/2 Ml Ampul.neb 0.5 Mg NEB RTBID 30 Days Culturelle (Lactobacillus Rhamnosus Gg) 1 Each Cap.sprink 1 Cap PO BID 30 Days [Warfarin Per Pharmacy] 1 EACH Each 1 Each MC PRN DAILY PRN 10 Days Duoneb 0.5-3(2.5) Mg/3 Ml (Albuterol/Ipratropium) 3 Ml Ampul.neb 3 Ml NEB RTQID 30 Days Reported Warfarin Sodium 2.5 Mg Tablet 2.5 Mg PO DAILY Ranexa (Ranolazine) 500 Mg Tab.er.12h 500 Mg PO BID Pantoprazole Sodium (Pantoprazole Sodium) 40 Mg Tablet.dr 40 Mg PO DAILYAC Atorvastatin Calcium 40 Mg Tablet 1 Tab PO DAILY Children's Aspirin (Aspirin) 81 Mg Tab.chew 1 Tab PO DAILY 30 Days Amiodarone Hcl 200 Mg Tablet 1 Tab PO DAILY Vitals/I & O Vital Sign - Last 24 Hours 11/24/20 11/24/20 11/24/20 11/24/20 16:04 19:05 20:00 20:21 Temp 98.0 98.0 Pulse 62 Resp 16 B/P (MAP) 100/67 (78) Pulse Ox 94 92 93 O2 Delivery Nasal Cannula Nasal Cannula Nasal Cannula Nasal Cannula O2 Flow Rate 3.0 3.0 3.0 3.0 11/24/20 11/24/20 11/25/20 11/25/20 20:21 23:20 03:15 07:05 Temp 97.9 97.7 97.6 97.9 97.7 97.6 Pulse 60 59 60 Resp 14 16 16 B/P (MAP) 98/66 (77) 105/67 (80) 110/64 (79) Pulse Ox 93 92 96 96 O2 Delivery Nasal Cannula Nasal Cannula Nasal Cannula Nasal Cannula O2 Flow Rate 3.0 3.0 3.0 3.0 11/25/20 11/25/20 11/25/20 11/25/20 07:32 08:00 09:54 10:28 Temp 97.9 97.9 Pulse 76 72 Resp 16 B/P (MAP) 110/64 119/75 (90) Pulse Ox 95 91 O2 Delivery Nasal Cannula Nasal Cannula Nasal Cannula O2 Flow Rate 3.0 3.0 3.0 11/25/20 12:10 Pulse Ox 93 O2 Delivery Nasal Cannula O2 Flow Rate 3.0 Intake and Output 11/24/20 11/24/20 11/25/20 15:00 23:00 07:00 Intake Total 60 ml Output Total 1500 ml 1125 ml 200 ml Balance -1500 ml -1125 ml -140 ml Justifications for Admission Other Justification Nutrition Consultation Dietary Evaluation: Recommendations by RD: Dietary education by RD, PPN/TPN Comments: continue Cardiac diet, honor food preferencs and offer snacks/ supplements from unit prn. REC continue PPN for short term non - oral nutrition until appetite/ po intake improves / Will start Ensure TID with meals and fresh fruit with lunch and dinner per food preferences taken. Encourage p.o. intake. Day 5 of PPN (less than 10 days of PPN is recommended) Expected Outcomes/Goals: to meet >50% est nutr needs via po intake Malnutrition Findings: Weight Status: Appropriate Fluid Accumulation (Non-Severe: Mild depletion JIM GRAFF MD Nov 25, 2020 14:37
[2020-11-25 15:21] VITALS: BP 104/72
[2020-11-25] MEDS ORDERED: WARFARIN 3 MG TABLET. PO ONE (16:00)
[2020-11-25] MEDS: AMINO AC 3%/ELECTROLYTE/GLYCER 1,000 ML IV SCH (17:52)
[2020-11-25 19:54] VITALS: BP 123/75
[2020-11-25] MEDS: ATORVASTATIN CALCIUM 40 MG TABLET. PO SCH (21:43)
[2020-11-25 22:53] VITALS: BP 112/70
[2020-11-26 03:05] VITALS: BP 128/74
--- NOTE | 2020-11-26 06:55 | PDOC ---
PULMONARY PROGRESS NOTES DATE: 11/26/20 TIME: 06:53 Subjective Remains on 3 liters NC feels stronger has stronger cough refused bipap poor po intake per nursing S/P thoracentesis 11/21/20 Vitals Vital Signs Date Time Temp Pulse Resp B/P (MAP) Pulse Ox O2 Delivery O2 Flow Rate FiO2 11/26/20 03:05 97.4 65 20 128/74 (92) 95 Nasal Cannula 3.0 97.4 ROS: No Nausea, No Chest Pain, No Abdominal Pain, No Increase Cough General: Alert, Oriented X4 Lungs: Crackles Cardiovascular: S1, S2 Abdomen: Soft, Non-tender, Other (obese no mass) Neuro Exam: Alert Extremities: Other (edema, and erythema bilateral lower extremities) Skin: Warm Labs Laboratory Tests Test 11/24/20 11:59 11/24/20 14:10 11/24/20 14:15 11/24/20 18:40 Heparin Anti-Xa Act, Unfractionated 0.11 IU/mL (0.30-0.70) 0.15 IU/mL (0.30-0.70) Prothrombin Time 18.5 SEC (11.7-14.0) Prothromb Time International Ratio 1.6 (0.8-1.1) Ammonia < 10 mcmol/L (11-34) O2 Saturation 92 % (92-99) Arterial Blood pH 7.45 (7.35-7.45) Arterial Blood pCO2 at Patient Temp 55 mmHg (35-46) Arterial Blood pO2 at Patient Temp 60 mmHg (65-108) Arterial Blood HCO3 37 mmol/L (21-28) Arterial Blood Base Excess 11 mmol/L (-3-3) Oxyhemoglobin 90.4 % Methemoglobin 0.4 % (0.0-1.9) Carbon Monoxide, Quantitative 1.3 % (0.0-1.9) FiO2 32% Test 11/25/20 06:30 Prothrombin Time 18.5 SEC (11.7-14.0) Prothromb Time International Ratio 1.6 (0.8-1.1) Sodium Level 135 mmol/L (136-145) Potassium Level 3.8 mmol/L (3.5-5.1) Chloride Level 94 mmol/L (98-107) Carbon Dioxide Level 41 mmol/L (21-32) Anion Gap 0 (6-14) Blood Urea Nitrogen 34 mg/dL (8-26) Creatinine 0.9 mg/dL (0.7-1.3) Estimated GFR (Cockcroft-Gault) 85.5 Glucose Level 102 mg/dL (70-99) Calcium Level 8.2 mg/dL (8.5-10.1) Medications Active Scripts Medications Dose Route/Sig Max Daily Dose Days Date Category Warfarin Sodium 2.5 Mg Tablet 2.5 Mg PO DAILY 11/23/20 Reported Risperidone 0.5 Mg Tablet 1 Tab PO QHS 11/23/20 Reported Ranexa (Ranolazine) 500 Mg Tab.er.12h 500 Mg PO BID 11/23/20 Reported Klor-Con M20 (Potassium Chloride) 20 Meq Tab.er.prt 20 Meq PO DAILY 11/23/20 Reported Pantoprazole Sodium (Pantoprazole Sodium) 40 Mg Tablet.dr 40 Mg PO DAILYAC 11/23/20 Reported Metoprolol Succinate ( Xl ) (Metoprolol Succinate) 25 Mg Tab.er.24h 25 Mg PO HS 11/23/20 Reported Metformin HCl 500 Mg/5 Ml Solution 500 Mg PO BID 11/23/20 Reported Cymbalta (Duloxetine Hcl) 30 Mg Capsule.dr 30 Mg PO DAILY 11/23/20 Reported Atorvastatin Calcium 80 Mg Tablet 80 Mg PO QHS 11/23/20 Reported Atorvastatin Calcium 40 Mg Tablet 1 Tab PO DAILY 11/23/20 Reported Children's Aspirin (Aspirin) 81 Mg Tab.chew 1 Tab PO DAILY 30 11/23/20 Reported Amiodarone Hcl 200 Mg Tablet 1 Tab PO DAILY 11/23/20 Reported Comments Chest x-ray reviewed bilateral infiltrates stable left-sided opacity questionable effusion ECHO <Conclusion> The Left Ventricle is borderline dilated. The systolic function is severely impaired. The Ejection Fraction is estimated at 20%. There is severe global hypokinesis of the left ventricle. There is borderline to mild concentric left ventricular hypertrophy. There is a device lead in the right ventricle. Doppler and Color Flow revealed no significant aortic regurgitation. There is no significant aortic valvular stenosis. Doppler and Color-flow revealed mild mitral regurgitation. Doppler and Color Flow revealed mild tricuspid regurgitation with an estimated PAP of 46 mmHg. cytology LEFT PLEURAL FLUID NEGATIVE FOR MALIGNANT CELLS. REACTIVE MESOTHELIAL CELLS PRESENT WITHIN A BACKGROUND OF ACUTE AND CHRONIC INFLAMMATORY CELLS. THIS INTERPRETATION INCLUDES EVALUATION OF A CELL BLOCK. Impression . IMPRESSION: 1. Acute hypoxemic respiratory failure, multifactorial --improved 2. Abnormal chest x-ray. Left-sided effusion--S/P thoracentesis 11/21 3. Acute pulmonary embolism. 4. Chronic obstructive pulmonary disease. 5. Acute systolic versus diastolic congestive heart failure. 6. Obstructive sleep apnea/hypopnea syndrome. 7. Tobacco habituation. 8. Atrial fibrillation. 9. Coronary artery disease, status post CABG. 10. Negative SARS Covid 2 11. Encephalopathy--improving 12. debility Bilateral lower extremity venous Dopplers 11/18 IMPRESSION: Partially occlusive DVT is seen involving the posterior tibial veins within the right calf. Plan . UPDATED 11/26/2020 02 titration to keep oxygen saturations 90%, currently on 3 L nasal cannula not on home 02 elevate hob maxim the importance of tx discussed bipap q hs opv 11/25, no aspiration cxr in am Physical therapy/Occupational Therapy off heparin gtt transition to Oral anticoagulation with coumadin S/P left thoracentesis with removal 1.3 liters of fluid on 11/21/20 cytology neg Continue bronchodilators and ICS, Pulmicort monitor off abx Follow cardiology recommendations---The Ejection Fraction is estimated at 20%. Follow nephrology recommendations Follow GI recs Continue PPN for nutritional support DVT/GI prophylaxis Social work following-- [facility]s to go to [facility], pt. has been accepted at [facility] Discussed with RN, pt UPDATED 11/23/2020 Continue supplemental oxygen to keep oxygen saturations greater than 92%, currently on 2 L nasal cannula Remains on heparin gtt continue, will D/W PCP tomorrow the plan for transition to Oral anticoagulation S/P left thoracentesis with removal 1.3 liters of fluid on 11/21/20 Continue bronchodilators including Pulmicort Continue antibiotics: Rocephin, doxy Follow cardiology recommendations---The Ejection Fraction is estimated at 20%. Follow nephrology recommendations Follow GI recs Continue PPN for nutritional support DVT/GI prophylaxis Physical therapy/Occupational Therapy Social work following-- recs to go to [facility], pt. has been accepted at [facility] Discussed with RN UPDATED 11/22/2020 Continue supplemental oxygen to keep oxygen saturations greater than 92%, currently on 2 L nasal cannula S/P left thoracentesis with removal 1.3 liters of fluid on 11/21/20 Continue bronchodilators including Pulmicort Continue antibiotics: Rocephin, doxy Follow cardiology recommendations---The Ejection Fraction is estimated at 20%. Follow nephrology recommendations DVT/GI prophylaxis Physical therapy/Occupational Therapy Discussed with RN UPDATED 11/21/2020 Continue supplemental oxygen to keep oxygen saturations greater than 92%, currently on 2 L nasal cannula Okay to pause heparin 3 hours prior to left-sided thoracentesis Continue bronchodilators including Pulmicort IR consulted, plan for left-sided thoracentesis today Continue antibiotics: Rocephin, doxy Follow cardiology recommendations---The Ejection Fraction is estimated at 20%. Follow nephrology recommendations DVT/GI prophylaxis Physical therapy/Occupational Therapy Discussed with HOA CALLOWAY MD Nov 26, 2020 06:55
[2020-11-26 07:00] VITALS: BP 114/71
[2020-11-26 07:10] LABS: PROTHROMBIN TIME PATIENT 18.1 SEC (11.7-14.0)
[2020-11-26] MEDS: BUDESONIDE 0.5 MG/2 ML NEBU. NEB SCH ×2 (07:17→21:17)
[2020-11-26] MEDS: IPRATRPIUM/ALBUTEROL 0.5/2.5MG 3 ML NEBU. NEB SCH ×4 (07:17→21:17)
[2020-11-26] MEDS: FUROSEMIDE 100 MG/10 ML VIAL. IVP SCH (09:16)
[2020-11-26] MEDS: LACTOBACILLUS RHAMNOSUS GG 1 CAPSULE. PO SCH ×2 (09:16→23:26)
[2020-11-26] MEDS: ASPIRIN ENTERIC COATED 81 MG TABLET.DR. PO SCH (09:16)
[2020-11-26] MEDS: PANTOPRAZOLE IV PUSH 40 MG VIAL. IVP SCH (09:16)
[2020-11-26] MEDS: AMIODARONE HCL 200 MG TABLET. PO SCH (09:17)
[2020-11-26 10:47] VITALS: BP 113/77
--- NOTE | 2020-11-26 11:12 | PDOC ---
PROGRESS NOTES Date of Service DATE: 11/26/20 TIME: 11:10 Subjective Subjective Patient seen and examined Objective Objective Vital Signs Date Time Temp Pulse Resp B/P (MAP) Pulse Ox O2 Delivery O2 Flow Rate FiO2 11/26/20 10:47 97.7 74 22 113/77 (89) 94 Nasal Cannula 3.0 97.7 Intake and Output 11/26/20 07:00 Intake Total 180 ml Output Total 2350 ml Balance -2170 ml Intake Oral 180 ml Output Urine Total 2350 ml Physical Exam Abdomen: Normal bowel sounds Heart: Regular rate General: No acute distress Lungs: Other (Mildly decreased breath sounds) Assessment Assessment Acute respiratory failure; multifactorial with acute PE, A/c CHF, and pleural effusion- s/p thoracentesis with 1.3L. Has continued to improve. Continue present medications. [facility] PAFIB; Rate controlled. on anticoagulation. Acute on chronic systolic CHF. Compensated. Follow-up as above. Ischemic cardiomyopathy; s/p AICD ([employer]). Device shows normal function. No VT. Echo with LVEF 20%. Per record review, echo 02/08 with LVEF 20-25% CAD s/p CABG 1994; Follows with [facility]. Cath 08/31 with Patent SVG to RCA, SVG to diagonal, and BENJAMIN to LAD. SVG to circ occluded, which was known Hypertension DOE on CKD; Cr improved Tobaccoism; discussed/ encouraged cessation Hypothyroidism; TSH not on goal per PCP Comment Review of Relevant I have reviewed the following items florecita (where applicable) has been applied. Labs Laboratory Tests Test 11/24/20 11:59 11/24/20 14:10 11/24/20 14:15 11/24/20 18:40 Heparin Anti-Xa Act, Unfractionated 0.11 IU/mL (0.30-0.70) 0.15 IU/mL (0.30-0.70) Prothrombin Time 18.5 SEC (11.7-14.0) Prothromb Time International Ratio 1.6 (0.8-1.1) Ammonia < 10 mcmol/L (11-34) O2 Saturation 92 % (92-99) Arterial Blood pH 7.45 (7.35-7.45) Arterial Blood pCO2 at Patient Temp 55 mmHg (35-46) Arterial Blood pO2 at Patient Temp 60 mmHg (65-108) Arterial Blood HCO3 37 mmol/L (21-28) Arterial Blood Base Excess 11 mmol/L (-3-3) Oxyhemoglobin 90.4 % Methemoglobin 0.4 % (0.0-1.9) Carbon Monoxide, Quantitative 1.3 % (0.0-1.9) FiO2 32% Test 11/25/20 06:30 11/26/20 06:50 Prothrombin Time 18.5 SEC (11.7-14.0) 18.1 SEC (11.7-14.0) Prothromb Time International Ratio 1.6 (0.8-1.1) 1.5 (0.8-1.1) Sodium Level 135 mmol/L (136-145) Potassium Level 3.8 mmol/L (3.5-5.1) Chloride Level 94 mmol/L (98-107) Carbon Dioxide Level 41 mmol/L (21-32) Anion Gap 0 (6-14) Blood Urea Nitrogen 34 mg/dL (8-26) Creatinine 0.9 mg/dL (0.7-1.3) Estimated GFR (Cockcroft-Gault) 85.5 Glucose Level 102 mg/dL (70-99) Calcium Level 8.2 mg/dL (8.5-10.1) Laboratory Tests Test 11/26/20 06:50 Prothrombin Time 18.1 SEC (11.7-14.0) Prothromb Time International Ratio 1.5 (0.8-1.1) Microbiology 11/21/20 Gram Stain - Final, Resulted 11/21/20 Aerobic and Anaerobic Culture - Preliminary, Resulted Medications Current Medications Enoxaparin Sodium (Lovenox Per Pharmacy Treatment Dosing) 1 each PRN DAILY PRN MC SEE COMMENTS; Start 11/17/20 at 19:00; Stop 11/19/20 at 09:23; Status DC Ondansetron HCl (Zofran) 4 mg PRN Q8HRS PRN IVP NAUSEA/VOMITING Last administered on 11/18/20at 09:05; Start 11/17/20 at 19:00; Stop 11/18/20 at 11:29; Status DC Ceftriaxone Sodium (Rocephin) 2 gm Q24H IVP Last administered on 11/23/20at 16:05; Start 11/18/20 at 14:00; Stop 11/24/20 at 13:31; Status DC Azithromycin (Zithromax) 250 mg DAILY PO ; Start 11/18/20 at 09:00; Stop 11/18/20 at 08:37; Status DC Enoxaparin Sodium (Lovenox 100mg Syringe) 90 mg Q12H SQ Last administered on 11/18/20at 06:04; Start 11/18/20 at 06:00; Stop 11/18/20 at 13:34; Status DC Doxycycline Hyclate (Vibra-Tab) 100 mg BID PO ; Start 11/18/20 at 09:00; Stop 11/18/20 at 09:13; Status DC Pantoprazole Sodium (Protonix) 40 mg DAILYAC PO ; Start 11/18/20 at 09:00; Stop 11/18/20 at 09:21; Status DC Albuterol/ Ipratropium (Duoneb) 3 ml RTQID NEB Last administered on 11/26/20at 07:17; Start 11/18/20 at 12:00 Budesonide (Pulmicort) 0.5 mg RTBID NEB Last administered on 11/26/20at 07:17; Start 11/18/20 at 20:00 Budesonide (Pulmicort) 0.5 mg 1X ONCE NEB Last administered on 11/18/20at 12:39; Start 11/18/20 at 09:30; Stop 11/18/20 at 09:31; Status DC Doxycycline Hyclate 100 mg/ Dextrose 100 ml @ 50 mls/hr Q12HR IV Last administered on 11/24/20at 08:15; Start 11/18/20 at 10:00; Stop 11/24/20 at 13:31; Status DC Pantoprazole Sodium (PROTONIX VIAL for IV PUSH) 40 mg DAILYAC IVP Last administered on 11/26/20at 09:16; Start 11/18/20 at 10:00 Amino Acids/ Glycerin/ Electrolytes 1,000 ml @ 80 mls/hr [id number] ONCE IV Last administered on 11/18/20at 09:44; Start 11/18/20 at 09:30; Stop 11/18/20 at 21:59; Status DC Furosemide (Lasix) 80 mg DAILY IVP Last administered on 11/26/20at 09:16; Start 11/18/20 at 11:00 Lactulose (Lactulose) 20 gm PRN DAILY PRN PO CONSTIPATION; Start 11/18/20 at 11:00 Metoclopramide HCl (Reglan Vial) 10 mg PRN Q6HRS PRN IVP NAUSEA/VOMITING, 2ND C HOICE Last administered on 11/18/20at 11:40; Start 11/18/20 at 11:30 Ondansetron HCl (Zofran) 4 mg PRN Q4HRS PRN IVP NAUSEA/VOMITING, 1ST CHOICE; Start 11/18/20 at 11:30 Enoxaparin Sodium (Lovenox 80mg Syringe) 80 mg Q12HR SQ Last administered on 11/19/20at 08:05; Start 11/18/20 at 21:00; Stop 11/19/20 at 09:23; Status DC Lactobacillus Rhamnosus (Culturelle) 1 cap BID PO Last administered on 11/26/20at 09:16; Start 11/18/20 at 21:00 Amino Acids/ Glycerin/ Electrolytes 1,000 ml @ 80 mls/hr [id number] IV Last administered on 11/18/20at 23:04; Start 11/18/20 at 22:15; Stop 11/19/20 at 09:01; Status DC Heparin Sodium/ Dextrose 250 ml @ 0 mls/hr CONT PRN IV PER PROTOCOL Last administered on 11/23/20at 18:22; Start 11/19/20 at 21:00; Stop 11/24/20 at 19:49; Status DC Heparin Sodium (Porcine) (Heparin Sodium) 2,600 unit PRN Q6HRS PRN IV FOR UFH LEVEL LESS THAN 0.2 Last administered on 11/24/20at 12:40; Start 11/19/20 at 21:00; Stop 11/24/20 at 17:57; Status DC Heparin Sodium (Porcine) (Heparin Sodium) 1,300 unit PRN Q6HRS PRN IV FOR UFH LEVEL 0.2 - 0.29 Last administered on 11/23/20at 12:45; Start 11/19/20 at 21:00; Stop 11/24/20 at 17:57; Status DC Amino Acids/ Glycerin/ Electrolytes 1,000 ml @ 40 mls/hr Q24H IV Last administered on 11/25/20at 17:52; Start 11/19/20 at 17:15 Info (Anti-Coagulation Monitoring By Pharmacy) 1 each PRN DAILY PRN MC PER PROTOCOL Last administered on 11/21/20at 09:06; Start 11/21/20 at 09:15; Stop 11/24/20 at 17:57; Status DC Potassium Chloride/Water 100 ml @ 100 mls/hr Q1H IV Last administered on 11/22/20at 14:05; Start 11/22/20 at 10:00; Stop 11/22/20 at 13:59; Status DC Magnesium Sulfate 50 ml @ 25 mls/hr 1X ONCE IV Last administered on 11/22/20at 15:33; Start 11/22/20 at 15:00; Stop 11/22/20 at 16:59; Status DC Atorvastatin Calcium (Lipitor) 40 mg QHS PO Last administered on 11/25/20 21:43; Start 11/22/20 at 21:00 Aspirin (Ecotrin) 81 mg DAILYWBKFT PO Last administered on 11/26/20 09:16; Start 11/23/20 at 08:00 Amiodarone HCl (Cordarone) 200 mg DAILY PO Last administered on 11/26/20 09:17; Start 11/23/20 at 15:00 Warfarin Sodium (Coumadin Per Pharmacy) 1 each PRN DAILY PRN MC SEE COMMENTS Last administered on 11/25/20at 13:38; Start 11/24/20 at 13:45 Warfarin Sodium (Coumadin) 2.5 mg 1X WARF ONCE PO Last administered on 11/24/20 16:51; Start 11/24/20 at 16:00; Stop 11/24/20 at 16:01; Status DC Barium Sulfate (Varibar Thin Liquid Apple) 148 gm 1X ONCE PO Last administered on 11/25/20 10:52; Start 11/25/20 at 11:00; Stop 11/25/20 at 11:01; Status DC Warfarin Sodium (Coumadin) 3 mg 1X WARF ONCE PO Last administered on 11/25/20at 17:53; Start 11/25/20 at 16:00; Stop 11/25/20 at 16:01; Status DC Active Scripts Active Lovenox (Enoxaparin Sodium) 80 Mg/0.8 Ml Disp.syrin 85 Mg SQ Q 12 HRS 7 Days Lactulose 20 Gm/30 Ml Solution 20 Gm PO PRN DAILY PRN 30 Days Furosemide 10 Mg/1 Ml Vial 80 Mg IVP DAILY 10 Days Budesonide 0.5 Mg/2 Ml Ampul.neb 0.5 Mg NEB RTBID 30 Days Culturelle (Lactobacillus Rhamnosus Gg) 1 Each Cap.sprink 1 Cap PO BID 30 Days [Warfarin Per Pharmacy] 1 EACH Each 1 Each MC PRN DAILY PRN 10 Days Duoneb 0.5-3(2.5) Mg/3 Ml (Albuterol/Ipratropium) 3 Ml Ampul.neb 3 Ml NEB RTQID 30 Days Reported Warfarin Sodium 2.5 Mg Tablet 2.5 Mg PO DAILY Ranexa (Ranolazine) 500 Mg Tab.er.12h 500 Mg PO BID Pantoprazole Sodium (Pantoprazole Sodium) 40 Mg Tablet.dr 40 Mg PO DAILYAC Atorvastatin Calcium 40 Mg Tablet 1 Tab PO DAILY Children's Aspirin (Aspirin) 81 Mg Tab.chew 1 Tab PO DAILY 30 Days Amiodarone Hcl 200 Mg Tablet 1 Tab PO DAILY Vitals/I & O Vital Sign - Last 24 Hours 11/25/20 11/25/20 11/25/20 11/25/20 12:10 15:21 16:00 19:40 Temp 98.2 98.2 Pulse 68 Resp 16 B/P (MAP) 104/72 (83) Pulse Ox 93 94 96 98 O2 Delivery Nasal Cannula Nasal Cannula Nasal Cannula Nasal Cannula O2 Flow Rate 3.0 3.0 3.0 3.0 11/25/20 11/25/20 11/25/20 11/26/20 19:54 20:00 22:53 03:05 Temp 98.3 98.2 97.4 98.3 98.2 97.4 Pulse 72 67 65 Resp 20 18 20 B/P (MAP) 123/75 (91) 112/70 (84) 128/74 (92) Pulse Ox 92 96 95 O2 Delivery Nasal Cannula Nasal Cannula Nasal Cannula Nasal Cannula O2 Flow Rate 3.0 3.0 3.0 3.0 11/26/20 11/26/20 11/26/20 11/26/20 07:00 07:18 09:17 10:47 Temp 97.7 97.7 97.7 97.7 Pulse 76 76 74 Resp 20 22 B/P (MAP) 114/71 (85) 114/71 113/77 (89) Pulse Ox 93 95 94 O2 Delivery Nasal Cannula Nasal Cannula Nasal Cannula O2 Flow Rate 3.0 3.0 3.0 Intake and Output 11/25/20 11/25/20 11/26/20 15:00 23:00 07:00 Intake Total 180 ml Output Total 1550 ml 800 ml Balance -1550 ml -620 ml Justifications for Admission Other Justification Nutrition Consultation Dietary Evaluation: Recommendations by RD: Dietary education by RD, PPN/TPN Comments: continue Cardiac diet, honor food preferencs and offer snacks/ supplements from unit prn. REC continue PPN for short term non - oral nutrition until appetite/ po intake improves 11/23 Will start Ensure TID with meals and fresh fruit with lunch and dinner per food preferences taken. Encourage p.o. intake. Day 5 of PPN (less than 10 days of PPN is recommended) Expected Outcomes/Goals: to meet >50% est nutr needs via po intake Malnutrition Findings: Weight Status: Appropriate Fluid Accumulation (Non-Severe: Mild depletion JIM GRAFF MD Nov 26, 2020 11:12
--- NOTE | 2020-11-26 11:14 | PDOC ---
PROGRESS NOTES Date of Service: DATE: 11/26/20 TIME: 11:14 Chief Complaint Chief Complaint impression Acute bilateral Pulmonary embolism - will transition from lovenox to heparin GTT in anticipation of consideration of thoracentesis Acute pneumonia - rocephin + doxy acute metabolic encephalopathy Sepsis - due to above Acute hypoxic respiratory failure - due to PE, CHF Stable large left pleural effusion CAD s/p CABG 1993 Acute on chronic systolic CHF with prior known 3+ pitting edema for months, BNP 15k. S/p AICD - cont diuresis Atrial fibrillation - [employer]tr[employer] pacer interrogated at [facility]. Was on eliquis but had been off for 2 weeks prior to admit DOE - creatinine 1.4 - likely vasomotor nephropathy Transaminits - likely congestive hepatopathy, no ETOH or cirrhosis per patient. Bilirubin is elevated at 4.6. INR 1.9 PVD, US artery LUE neg at [facility], poor pulses, cool feet, consult vasc, Nausea and vomiting - KUB ordered, no SBO, reglan helped microhematuria ECHO systolic function is severely impaired. Ejection Fraction is estimated at 20%. severe global hypokinesis of the left ventricle. FEN - Cardiac PPX - lovenox FULL CODE Dispo - ICU pulm consult renal sono CC time 42 minutes History of Present Illness History of Present Illness Mr Galindo is a 64-year-old male visiting from [place] w/ PMHx A-Fib, GERD, High Cholesterol, Hypertension, Hypothyroid, CHF s/p AICD placement presents with dizziness, weakness, short of breath. Patient son brought him in and he has been staying with his son. Son states patient has not taken his medications for 2 weeks. Patient denies chest pain. Patient states "I feel like my pacemaker is firing". Patient has 3+ pitting edema on bilateral legs. Patient's left arm is cool to the touch, red. Denies fever, cough. Found on CTPA with multiple left lower lobe pulmonary emboli and moderate large pleural effusion on left and multifocal pneumonia. Accepted for transfer to ICU [facility]. 11/18: Afebrile. Vomiting this morning. States he feels a little better today. Bilirubin up to 4. INR 2.1. COVID negative. BP low Afebrile. Still weak. Sitting in chair. PICC placed for IV access. K 4.7, BUN 27, Cr 1.5, Alk phos 21, Bili 4.1. BP improved. 5-31 PPX - lovenox FULL CODE Dispo - ICU History of bypass surgery. Probable superimposed heart failure. Acute bilateral Pulmonary embolism - will transition from lovenox to heparin GTT in anticipation of consideration of thoracentesis Acute pneumonia - rocephin + doxy Sepsis - due to above Acute hypoxic respiratory failure - due to PE, CHF CAD s/p CABG 1993 pulm consult elevated lft's , sono and GI consult PSA Acute on chronic systolic CHF with prior known 3+ pitting edema for months, BNP 15k. S/p AICD - cont diuresis Atrial fibrillation - [employer] pacer interrogated at [facility]. Was on eliquis but had been off for 2 weeks prior to admit, cardiology consulted DOE - creatinine 1.4 - likely vasomotor nephropathy microhematuria , renal sono, follow ua The Ejection Fraction is estimated at 20%. severe global hypokinesis of the left ventricle. mild concentric left ventricular hypertrophy. mild tricuspid r egurgitation with an estimated PAP of 46 mmHg. H/o biliary stone disease so retained stone possible. ABD SONO PENDING CC time 34 minutes 11/21 PPX - lovenox FULL CODE Dispo - ICU History of bypass surgery. Probable superimposed heart failure. Acute bilateral Pulmonary embolism - will transition from lovenox to heparin GTT in anticipation of consideration of thoracentesis Acute pneumonia - rocephin + doxy Sepsis - due to above Acute hypoxic respiratory failure - due to PE, CHF CAD s/p CABG 1993 pulm consult elevated lft's , sono and GI consult PSA Acute on chronic systolic CHF with prior known 3+ pitting edema for months, BNP 15k. S/p AICD - cont diuresis Atrial fibrillation - [employer] pacer interrogated at [facility]. Was on eliquis but had been off for 2 weeks prior to admit, cardiology consulted DOE - creatinine 1.4 - likely vasomotor nephropathy microhematuria , renal sono, follow ua The Ejection Fraction is estimated at 20%. severe global hypokinesis of the left ventricle. mild concentric left ventricular hypertrophy. mild tricuspid regurgitation with an estimated PAP of 46 mmHg. H/o biliary stone disease so retained stone possible. ABD SONO reviewed CC time 35 minutes 11/22 PPX - lovenox FULL CODE Dispo - ICU History of bypass surgery. Probable superimposed heart failure. Acute bilateral Pulmonary embolism - will transition from lovenox to heparin GTT in anticipation of consideration of thoracentesis Acute pneumonia - rocephin + doxy Sepsis - due to above Acute hypoxic respiratory failure - due to PE, CHF CAD s/p CABG 1993 pulm consult elevated lft's , sono and GI consult PSA Acute on chronic systolic CHF with prior known 3+ pitting edema for months, BNP 15k. S/p AICD - cont diuresis Atrial fibrillation - [employer] pacer interrogated at [facility]. Was on eliquis but had been off for 2 weeks prior to admit, cardiology consulted DOE - creatinine 1.4 - likely vasomotor nephropathy microhematuria , renal sono, follow ua The Ejection Fraction is estimated at 20%. severe global hypokinesis of the left ventricle. mild concentric left ventricular hypertrophy. mild tricuspid regurgitation with an estimated PAP of 46 mmHg. H/o biliary stone disease so retained stone possible. ABD SONO reviewed CC time 33 minutes 11/23 PE's, on AC. Jaundice; numbers have improved with diuresis. PPX - lovenox FULL CODE Dispo - ICU History of bypass surgery. Probable superimposed heart failure. Acute bilateral Pulmonary embolism - will transition from lovenox to heparin GTT in anticipation of consideration of thoracentesis Acute pneumonia - rocephin + doxy Sepsis - due to above Acute hypoxic respiratory failure - due to PE, CHF CAD s/p CABG 1993 pulm consult elevated lft's , sono and GI consult PSA Acute on chronic systolic CHF with prior known 3+ pitting edema for months, BNP 15k. S/p AICD - cont diuresis Atrial fibrillation - [employer] pacer interrogated at [facility]. Was on eliquis but had been off for 2 weeks prior to admit, cardiology consulted DOE - creatinine 1.4 - likely vasomotor nephropathy microhematuria , renal sono, follow ua The Ejection Fraction is estimated at 20%. severe global hypokinesis of the left ventricle. mild concentric left ventricular hypertrophy. mild tricuspid regurgitation with an estimated PAP of 46 mmHg. H/o biliary stone disease so retained stone possible. ABD SONO reviewed remains very weak and confused PPN AT 80 CC / HR, poor oral intake Discharge Recommendations * Alf Unit Discharge Recommendation - DME * Rolling Walker needed * in order to complete ADLs CC time 32 minutes 11/24 less confused, knows year and month, denies alcohol intake will check ct head, abg, consult neurology, for encephalopathy, ammonia level eating 25% of meals acute metabolic encephalopathy, improving PE's, on AC. Jaundice; numbers have improved with diuresis. PPX - lovenox FULL CODE Dispo - ICU History of bypass surgery. Probable superimposed heart failure. Acute bilateral Pulmonary embolism - will transition from lovenox to heparin GTT in anticipation of consideration of thoracentesis Acute pneumonia - rocephin + doxy Successful ultrasound guided left thoracentesis with removal 1.3 liters of fluid. Sepsis - due to above Acute hypoxic respiratory failure - due to PE, CHF CAD s/p CABG 1993 pulm consult elevated lft's , sono and GI consult PSA Acute on chronic systolic CHF with prior known 3+ pitting edema for months, BNP 15k. S/p AICD - cont diuresis Atrial fibrillation - [employer] pacer interrogated at [facility]. Was on eliquis but had been off for 2 weeks prior to admit, cardiology consulted DOE - creatinine 1.4 - likely vasomotor nephropathy microhematuria , renal sono, follow ua The Ejection Fraction is estimated at 20%. severe global hypokinesis of the left ventricle. mild concentric left ventricular hypertrophy. mild tricuspid regurgitation with an estimated PAP of 46 mmHg. H/o biliary stone disease so retained stone possible. ABD SONO reviewed remains weak and less confused PPN AT 80 CC / HR, poor oral intake 11-24 ovoid opacity in the right upper lobe may represent rib overlying increased pulmonary vascular congestion, mass cannot be excluded. plan cross-sectional imaging or repeat plain film imaging once symptoms has resolved as this may be fluid on the fissure. hopefully to SNF 11-25 Discharge Recommendations * Alf Unit Discharge Recommendation - DME * Rolling Walker needed * in order to complete ADLs CC time 33 minutes 11/25 speech concerned re aspiration, desires videoswallow this AM, passed swallow without berhane aspiration less confused, knows year and month, denies alcohol intake will check ct head, abg, consult neurology, for encephalopathy, ammonia level eating 25% of meals acute metabolic encephalopathy, improving PE's, on AC. Jaundice; numbers have improved with diuresis. PPX - lovenox FULL CODE Dispo - ICU History of bypass surgery. Probable superimposed heart failure. Acute bilateral Pulmonary embolism - will transition from lovenox to heparin GTT in anticipation of consideration of thoracentesis Acute pneumonia - rocephin + doxy Successful ultrasound guided left thoracentesis with removal 1.3 liters of fluid. Sepsis - due to above Acute hypoxic respiratory failure - due to PE, CHF CAD s/p CABG 1993 pulm consult elevated lft's , sono and GI consult PSA Acute on chronic systolic CHF with prior known 3+ pitting edema for months, BNP 15k. S/p AICD - cont diuresis Atrial fibrillation - [employer]tr[employer] pacer interrogated at [facility]. Was on eliquis but had been off for 2 weeks prior to admit, cardiology consulted DOE - creatinine 1.4 - likely vasomotor nephropathy microhematuria , renal sono, follow ua The Ejection Fraction is estimated at 20%. severe global hypokinesis of the left ventricle. mild concentric left ventricular hypertrophy. mild tricuspid regurgitation with an estimated PAP of 46 mmHg. H/o biliary stone disease so retained stone possible. ABD SONO reviewed remains weak and less confused PPN AT 80 CC / HR, poor oral intake 6- ovoid opacity in the right upper lobe may represent rib overlying increased pulmonary vascular congestion, mass cannot be excluded. plan cross-sectional imaging or repeat plain film imaging once symptoms has resolved as this may be fluid on the fissure. hopefully to SNF 6-05 d/c planning 36 min Discharge Recommendations * Alf Unit Discharge Recommendation - DME * Rolling Walker needed * in order to complete ADLs * * * * 11/26 more alert today speech concerned re aspiration, desires video swallow // passed swallow without berhane aspiration less confused, knows year and month, denies alcohol intake will check ct head, abg, consult neurology, for encephalopathy, ammonia level eating 25% of meals acute metabolic encephalopathy, improving PE's, on AC. Jaundice; numbers have improved with diuresis. PPX - lovenox FULL CODE Dispo - ICU History of bypass surgery. Probable superimposed heart failure. Acute bilateral Pulmonary embolism - will transition from lovenox to heparin GTT in anticipation of consideration of thoracentesis Acute pneumonia - rocephin + doxy Successful ultrasound guided left thoracentesis with removal 1.3 liters of flu id. Sepsis - due to above Acute hypoxic respiratory failure - due to PE, CHF CAD s/p CABG 1993 pulm consult elevated lft's , sono and GI consult PSA Acute on chronic systolic CHF with prior known 2+ pitting edema for months, BNP 15k. S/p AICD - cont diuresis Atrial fibrillation - [employer]tr[employer] pacer interrogated at [facility]. Was on eliquis but had been off for 2 weeks prior to admit, cardiology consulted DOE - creatinine 1.4 - likely vasomotor nephropathy microhematuria , renal sono, follow ua The Ejection Fraction is estimated at 20%. severe global hypokinesis of the left ventricle. mild concentric left ventricular hypertrophy. mild tricuspid regurgitation with an estimated PAP of 46 mmHg. H/o biliary stone disease so retained stone possible. ABD SONO reviewed remains weak and less confused PPN AT 80 CC / HR, poor oral intake 11-24 ovoid opacity in the right upper lobe may represent rib overlying increased pulmonary vascular congestion, mass cannot be excluded. plan cross-sectional imaging or repeat plain film imaging once symptoms has resolved as this may be fluid on the fissure. hopefully to SNF 11-25 d/c planning 26 min Discharge Recommendations * Alf Unit 11-27 Discharge Recommendation - DME * Rolling Walker needed * in order to complete ADLs Vitals Vitals Vital Signs Date Time Temp Pulse Resp B/P (MAP) Pulse Ox O2 Delivery O2 Flow Rate FiO2 11/26/20 10:47 97.7 74 22 113/77 (89) 94 Nasal Cannula 3.0 97.7 Physical Exam Physical Exam HEENT: PERRLA Heart: no murmurs, irregularly irregular, other Abdomen: Normal bowel sounds, No tenderness Rectal Exam: not examined Extremities: Other (4+ edema, cold feet and swollen, pulses palpable but faint, cyanosis, ) Skin: Other Neuro: Normal speech, Sensation intact General: No acute distress Heart: Regular rate Lungs: Crackles Abdomen: Normal bowel sounds Extremities: Other (4+ edema, cold feet and swollen, pulses palpable but faint, cyanosis, ) Skin: Other Labs LABS Laboratory Tests Test 11/26/20 06:50 Prothrombin Time 18.1 SEC (11.7-14.0) Prothromb Time International Ratio 1.5 (0.8-1.1) Comment Review of Relevant I have reviewed the following items flroecita (where applicable) has been applied. Labs Laboratory Tests Test 11/24/20 11:59 11/24/20 14:10 11/24/20 14:15 11/24/20 18:40 Heparin Anti-Xa Act, Unfractionated 0.11 IU/mL (0.30-0.70) 0.15 IU/mL (0.30-0.70) Prothrombin Time 18.5 SEC (11.7-14.0) Prothromb Time International Ratio 1.6 (0.8-1.1) Ammonia < 10 mcmol/L (11-34) O2 Saturation 92 % (92-99) Arterial Blood pH 7.45 (7.35-7.45) Arterial Blood pCO2 at Patient Temp 55 mmHg (35-46) Arterial Blood pO2 at Patient Temp 60 mmHg (65-108) Arterial Blood HCO3 37 mmol/L (21-28) Arterial Blood Base Excess 11 mmol/L (-3-3) Oxyhemoglobin 90.4 % Methemoglobin 0.4 % (0.0-1.9) Carbon Monoxide, Quantitative 1.3 % (0.0-1.9) FiO2 32% Test 11/25/20 06:30 11/26/20 06:50 Prothrombin Time 18.5 SEC (11.7-14.0) 18.1 SEC (11.7-14.0) Prothromb Time International Ratio 1.6 (0.8-1.1) 1.5 (0.8-1.1) Sodium Level 135 mmol/L (136-145) Potassium Level 3.8 mmol/L (3.5-5.1) Chloride Level 94 mmol/L (98-107) Carbon Dioxide Level 41 mmol/L (21-32) Anion Gap 0 (6-14) Blood Urea Nitrogen 34 mg/dL (8-26) Creatinine 0.9 mg/dL (0.7-1.3) Estimated GFR (Cockcroft-Gault) 85.5 Glucose Level 102 mg/dL (70-99) Calcium Level 8.2 mg/dL (8.5-10.1) Laboratory Tests Test 11/26/20 06:50 Prothrombin Time 18.1 SEC (11.7-14.0) Prothromb Time International Ratio 1.5 (0.8-1.1) Microbiology 11/21/20 Gram Stain - Final, Resulted 11/21/20 Aerobic and Anaerobic Culture - Preliminary, Resulted Medications Current Medications Enoxaparin Sodium (Lovenox Per Pharmacy Treatment Dosing) 1 each PRN DAILY PRN MC SEE COMMENTS; Start 11/17/20 at 19:00; Stop 11/19/20 at 09:23; Status DC Ondansetron HCl (Zofran) 4 mg PRN Q8HRS PRN IVP NAUSEA/VOMITING Last administered on 11/18/20at 09:05; Start 11/17/20 at 19:00; Stop 11/18/20 at 11:29; Status DC Ceftriaxone Sodium (Rocephin) 2 gm Q24H IVP Last administered on 11/23/20at 16:05; Start 11/18/20 at 14:00; Stop 11/24/20 at 13:31; Status DC Azithromycin (Zithromax) 250 mg DAILY PO ; Start 11/18/20 at 09:00; Stop 11/18/20 at 08:37; Status DC Enoxaparin Sodium (Lovenox 100mg Syringe) 90 mg Q12H SQ Last administered on 11/18/20at 06:04; Start 11/18/20 at 06:00; Stop 11/18/20 at 13:34; Status DC Doxycycline Hyclate (Vibra-Tab) 100 mg BID PO ; Start 11/18/20 at 09:00; Stop 11/18/20 at 09:13; Status DC Pantoprazole Sodium (Protonix) 40 mg DAILYAC PO ; Start 11/18/20 at 09:00; Stop 11/18/20 at 09:21; Status DC Albuterol/ Ipratropium (Duoneb) 3 ml RTQID NEB Last administered on 11/26/20at 07:17; Start 11/18/20 at 12:00 Budesonide (Pulmicort) 0.5 mg RTBID NEB Last administered on 11/26/20at 07:17; Start 11/18/20 at 20:00 Budesonide (Pulmicort) 0.5 mg 1X ONCE NEB Last administered on 11/18/20at 12:39; Start 11/18/20 at 09:30; Stop 11/18/20 at 09:31; Status DC Doxycycline Hyclate 100 mg/ Dextrose 100 ml @ 50 mls/hr Q12HR IV Last administered on 11/24/20 08:15; Start 11/18/20 at 10:00; Stop 11/24/20 at 13:31; Status DC Pantoprazole Sodium (PROTONIX VIAL for IV PUSH) 40 mg DAILYAC IVP Last administered on 11/26/20 09:16; Start 11/18/20 at 10:00 Amino Acids/ Glycerin/ Electrolytes 1,000 ml @ 80 mls/hr [id number] ONCE IV Last administered on 11/18/20 09:44; Start 11/18/20 at 09:30; Stop 11/18/20 at 21:59; Status DC Furosemide (Lasix) 80 mg DAILY IVP Last administered on 11/26/20 09:16; Start 11/18/20 at 11:00 Lactulose (Lactulose) 20 gm PRN DAILY PRN PO CONSTIPATION; Start 11/18/20 at 11:00 Metoclopramide HCl (Reglan Vial) 10 mg PRN Q6HRS PRN IVP NAUSEA/VOMITING, 2ND CHOICE Last administered on 11/18/20at 11:40; Start 11/18/20 at 11:30 Ondansetron HCl (Zofran) 4 mg PRN Q4HRS PRN IVP NAUSEA/VOMITING, 1ST CHOICE; Start 11/18/20 at 11:30 Enoxaparin Sodium (Lovenox 80mg Syringe) 80 mg Q12HR SQ Last administered on 11/19/20at 08:05; Start 11/18/20 at 21:00; Stop 11/19/20 at 09:23; Status DC Lactobacillus Rhamnosus (Culturelle) 1 cap BID PO Last administered on 11/26/20 09:16; Start 11/18/20 at 21:00 Amino Acids/ Glycerin/ Electrolytes 1,000 ml @ 80 mls/hr [id number] IV Last administered on 11/18/20at 23:04; Start 11/18/20 at 22:15; Stop 11/19/20 at 09:01; Status DC Heparin Sodium/ Dextrose 250 ml @ 0 mls/hr CONT PRN IV PER PROTOCOL Last administered on 11/23/20at 18:22; Start 11/19/20 at 21:00; Stop 11/24/20 at 19:49; Status DC Heparin Sodium (Porcine) (Heparin Sodium) 2,600 unit PRN Q6HRS PRN IV FOR UFH LEVEL LESS THAN 0.2 Last administered on 11/24/20at 12:40; Start 11/19/20 at 21:00; Stop 11/24/20 at 17:57; Status DC Heparin Sodium (Porcine) (Heparin Sodium) 1,300 unit PRN Q6HRS PRN IV FOR UFH LEVEL 0.2 - 0.29 Last administered on 11/23/20at 12:45; Start 11/19/20 at 21:00; Stop 11/24/20 at 17:57; Status DC Amino Acids/ Glycerin/ Electrolytes 1,000 ml @ 40 mls/hr Q24H IV Last administered on 11/25/20at 17:52; Start 11/19/20 at 17:15 Info (Anti-Coagulation Monitoring By Pharmacy) 1 each PRN DAILY PRN MC PER PROTOCOL Last administered on 11/21/20 09:06; Start 11/21/20 at 09:15; Stop 11/24/20 at 17:57; Status DC Potassium Chloride/Water 100 ml @ 100 mls/hr Q1H IV Last administered on 11/22/20at 14:05; Start 11/22/20 at 10:00; Stop 11/22/20 at 13:59; Status DC Magnesium Sulfate 50 ml @ 25 mls/hr 1X ONCE IV Last administered on 11/22/20at 15:33; Start 11/22/20 at 15:00; Stop 11/22/20 at 16:59; Status DC Atorvastatin Calcium (Lipitor) 40 mg QHS PO Last administered on 11/25/20at 21:43; Start 11/22/20 at 21:00 Aspirin (Ecotrin) 81 mg DAILYWBKFT PO Last administered on 11/26/20 09:16; Start 11/23/20 at 08:00 Amiodarone HCl (Cordarone) 200 mg DAILY PO Last administered on 11/26/20at 09:17; Start 11/23/20 at 15:00 Warfarin Sodium (Coumadin Per Pharmacy) 1 each PRN DAILY PRN MC SEE COMMENTS Last administered on 11/25/20at 13:38; Start 11/24/20 at 13:45 Warfarin Sodium (Coumadin) 2.5 mg 1X WARF ONCE PO Last administered on 11/24/20at 16:51; Start 11/24/20 at 16:00; Stop 11/24/20 at 16:01; Status DC Barium Sulfate (Varibar Thin Liquid Apple) 148 gm 1X ONCE PO Last administered on 11/25/20at 10:52; Start 11/25/20 at 11:00; Stop 11/25/20 at 11:01; Status DC Warfarin Sodium (Coumadin) 3 mg 1X WARF ONCE PO Last administered on 11/25/20at 17:53; Start 11/25/20 at 16:00; Stop 11/25/20 at 16:01; Status DC Active Scripts Active Lovenox (Enoxaparin Sodium) 80 Mg/0.8 Ml Disp.syrin 85 Mg SQ Q 12 HRS 7 Days Lactulose 20 Gm/30 Ml Solution 20 Gm PO PRN DAILY PRN 30 Days Furosemide 10 Mg/1 Ml Vial 80 Mg IVP DAILY 10 Days Budesonide 0.5 Mg/2 Ml Ampul.neb 0.5 Mg NEB RTBID 30 Days Culturelle (Lactobacillus Rhamnosus Gg) 1 Each Cap.sprink 1 Cap PO BID 30 Days [Warfarin Per Pharmacy] 1 EACH Each 1 Each MC PRN DAILY PRN 10 Days Duoneb 0.5-3(2.5) Mg/3 Ml (Albuterol/Ipratropium) 3 Ml Ampul.neb 3 Ml NEB RTQID 30 Days Reported Warfarin Sodium 2.5 Mg Tablet 2.5 Mg PO DAILY Ranexa (Ranolazine) 500 Mg Tab.er.12h 500 Mg PO BID Pantoprazole Sodium (Pantoprazole Sodium) 40 Mg Tablet.dr 40 Mg PO DAILYAC Atorvastatin Calcium 40 Mg Tablet 1 Tab PO DAILY Children's Aspirin (Aspirin) 81 Mg Tab.chew 1 Tab PO DAILY 30 Days Amiodarone Hcl 200 Mg Tablet 1 Tab PO DAILY Vitals/I & O Vital Sign - Last 24 Hours 11/25/20 11/25/20 11/25/20 11/25/20 12:10 15:21 16:00 19:40 Temp 98.2 98.2 Pulse 68 Resp 16 B/P (MAP) 104/72 (83) Pulse Ox 93 94 96 98 O2 Delivery Nasal Cannula Nasal Cannula Nasal Cannula Nasal Cannula O2 Flow Rate 3.0 3.0 3.0 3.0 11/25/20 11/25/20 11/25/20 11/26/20 19:54 20:00 22:53 03:05 Temp 98.3 98.2 97.4 98.3 98.2 97.4 Pulse 72 67 65 Resp 20 18 20 B/P (MAP) 123/75 (91) 112/70 (84) 128/74 (92) Pulse Ox 92 96 95 O2 Delivery Nasal Cannula Nasal Cannula Nasal Cannula Nasal Cannula O2 Flow Rate 3.0 3.0 3.0 3.0 11/26/20 11/26/20 11/26/20 11/26/20 07:00 07:18 09:17 10:47 Temp 97.7 97.7 97.7 97.7 Pulse 76 76 74 Resp 20 22 B/P (MAP) 114/71 (85) 114/71 113/77 (89) Pulse Ox 93 95 94 O2 Delivery Nasal Cannula Nasal Cannula Nasal Cannula O2 Flow Rate 3.0 3.0 3.0 Intake and Output 11/25/20 11/25/20 11/26/20 15:00 23:00 07:00 Intake Total 180 ml Output Total 1550 ml 800 ml Balance -1550 ml -620 ml Nutrition Consultation Dietary Evaluation: Recommendations by RD: Dietary education by RD, PPN/TPN Comments: continue Cardiac diet, honor food preferencs and offer snacks/ supplements from unit prn. REC continue PPN for short term non - oral nutrition until appetite/ po intake improves 6/3 Will start Ensure TID with meals and fresh fruit with lunch and dinner per food preferences taken. Encourage p.o. intake. Day 5 of PPN (less than 10 days of PPN is recommended) Expected Outcomes/Goals: to meet >50% est nutr needs via po intake Malnutrition Findings: Weight Status: Appropriate Fluid Accumulation (Non-Severe: Mild depletion Justicifation of Admission Dx: Justifications for Admission: Justification of Admission Dx: Yes Altered Mental Status: Altered Mental Status MICHELLE KANG MD Nov 26, 2020 11:14
--- NOTE | 2020-11-26 11:21 | NUR ---
[facility] unable to take patient today. hold discharge until Friday
--- NOTE | 2020-11-26 13:24 | NUR ---
Pharmacy Warfarin Dosing Note S:Pharmacy consulted to assist with anticoagulation therapy started with target INR: 2 -3 O:EZEQUIEL SILVER is a 64 year old M with Atrial Fibrillation DVT/PE NEW DVT AND BILATERAL PE LABS: Last INR: 1.5 Last HGB: 15.3 Last HCT: 47.8 Last PLT: 126 Last dose of 3 mg given on 11/25/20 at 1700 Previous Regimen: Vitamin K given: N Drug Interaction Changes: Same Interacting Drug Ongoing Drug Interactions: amiodarone A:INR of 1.5 is below desired range. Target range for this patient is: 2 -3 P: Warfarin dose: 4 mg Today at 1600 Bridge Therapy: Heparin Therapeutic CONT Next INR due IN AM Pharmacy anticoagulation service will continue to follow. JOE SERRANO RPH, 11/26/20 [id number]
[2020-11-26 14:28] VITALS: BP 104/72
[2020-11-26] MEDS ORDERED: WARFARIN 4 MG TABLET. PO ONE (16:00)
[2020-11-26 19:00] VITALS: BP 117/67
[2020-11-26 22:30] VITALS: BP 112/81
[2020-11-26] MEDS: ATORVASTATIN CALCIUM 40 MG TABLET. PO SCH (23:26)
[2020-11-27 02:45] VITALS: BP 116/78
[2020-11-27 07:05] LABS: BASO # 0.1 x10^3/uL (0.0-0.2); BASO % 1 % (0-3); EOS % 1 % (0-3); HEMATOCRIT 41.7 % (39.0-53.0); HEMOGLOBIN 13.5 g/dL (13.0-17.5); LYMPH # 0.3 x10^3/uL (1.0-4.8); LYMPH % 4 % (24-48); MEAN CORPUSCULAR HEMOGLOBIN 28 pg (25-35); MEAN CORPUSCULAR HGB CONC 32 g/dL (31-37); MEAN CORPUSCULAR VOLUME 85 fL (79-100); MONO # 0.8 x10^3/uL (0.0-1.1); MONO % 10 % (0-9); NEUT # 6.2 x10^3/uL (1.8-7.7); NEUT % 84 % (31-73); PLATELET COUNT 105 x10^3/uL (140-400); RED BLOOD COUNT 4.91 x10^6/uL (4.30-5.70); RED CELL DISTRIBUTION WIDTH 19.6 % (11.5-14.5); WHITE BLOOD COUNT 7.4 x10^3/uL (4.0-11.0)
[2020-11-27 07:17] LABS: ALBUMIN 2.4 g/dL (3.4-5.0); ALBUMIN/GLOBULIN RATIO 0.8 (1.0-1.7); ALK PHOS 217 U/L (46-116); ALT (SGPT) 17 U/L (16-63); AST (SGOT) 23 U/L (15-37); BLOOD UREA NITROGEN 29 mg/dL (8-26); BUN/CREATININE RATIO 32 (6-20); CALCIUM 8.6 mg/dL (8.5-10.1); CARBON DIOXIDE 44 mmol/L (21-32); CHLORIDE 94 mmol/L (98-107); CREATININE 0.9 mg/dL (0.7-1.3); GFR 85.5; GLUCOSE 109 mg/dL (70-99); POTASSIUM 3.7 mmol/L (3.5-5.1); SODIUM 136 mmol/L (136-145); TOTAL BILIRUBIN 2.1 mg/dL (0.2-1.0); TOTAL PROTEIN 5.3 g/dL (6.4-8.2)
[2020-11-27 07:42] VITALS: BP 114/78
[2020-11-27] MEDS: IPRATRPIUM/ALBUTEROL 0.5/2.5MG 3 ML NEBU. NEB SCH ×4 (07:57→20:04)
[2020-11-27] MEDS: BUDESONIDE 0.5 MG/2 ML NEBU. NEB SCH ×2 (07:57→20:04)
--- NOTE | 2020-11-27 08:38 | RAD ---
EXAM: Chest, single view. HISTORY: Pleural effusion. COMPARISON: 11/24/2020 FINDINGS: A frontal view of the chest is obtained. There has been interval increase in a moderate lef t pleural effusion. There is a stable small right pleural effusion. There is stable diffuse interstit ial and alveolar infiltrate with suspected increasing partial consolidation within the right upper lo be. There is cardiomegaly and evidence of prior CABG. There is a cardiac pacemaker defibrillator. The re is a right PICC with the tip in the superior cavoatrial junction. There is no pneumothorax. IMPRESSION: 1. Moderate left pleural effusion, slightly increased compared to the prior exam. 2. Stable small right pleural effusion. 3. Diffuse interstitial infiltrate. 4. Cardiomegaly. Electronically signed by: Fernanda Rios MD (11/27/2020 8:36 AM) [id number]
--- NOTE | 2020-11-27 09:19 | PDOC ---
PROGRESS NOTES Date of Service DATE: 11/27/20 TIME: 09:17 Assessment Multi-infarct dementia, no evidence of acute new stroke Diabetic neuropathy Multiple medical issues including pulmonary embolism, pneumonia, respiratory failure, pleural effusion, coronary artery disease, cardiomyopathy and heart failure, atrial fibrillation, acute kidney injury, transaminitis, peripheral vascular disease Note elevated TSH, normal T4 Plan Treat medical issues snf unit placement. Subjective No complaints Objective Vital Signs Date Time Temp Pulse Resp B/P (MAP) Pulse Ox O2 Delivery O2 Flow Rate FiO2 11/27/20 08:02 92 Nasal Cannula 2.5 11/27/20 07:42 97.9 72 22 114/78 (90) 97.9 Intake and Output 11/27/20 07:00 Intake Total 320 ml Output Total 2050 ml Balance -1730 ml Intake Oral 320 ml Output Urine Total 2050 ml PHYSICAL EXAM Alert. Oriented to "hospital" and the month PERRL. EOMI. CN: no focal findings. Muscle tone: normal. Muscle strength: 4/5 DTR: 1+ Plantar reflex: Flexor Gait: not examined in bed. Sensory exam: Stocking loss No cerebellar signs elicited. Review of Relevant I have reviewed the following items florecita (where applicable) has been applied. Labs Laboratory Tests Test 11/26/20 06:50 11/27/20 06:50 Prothrombin Time 18.1 SEC (11.7-14.0) Prothromb Time International Ratio 1.5 (0.8-1.1) White Blood Count 7.4 x10^3/uL (4.0-11.0) Red Blood Count 4.91 x10^6/uL (4.30-5.70) Hemoglobin 13.5 g/dL (13.0-17.5) Hematocrit 41.7 % (39.0-53.0) Mean Corpuscular Volume 85 fL (79-100) Mean Corpuscular Hemoglobin 28 pg (25-35) Mean Corpuscular Hemoglobin Concent 32 g/dL (31-37) Red Cell Distribution Width 19.6 % (11.5-14.5) Platelet Count 105 x10^3/uL (140-400) Neutrophils (%) (Auto) 84 % (31-73) Lymphocytes (%) (Auto) 4 % (24-48) Monocytes (%) (Auto) 10 % (0-9) Eosinophils (%) (Auto) 1 % (0-3) Basophils (%) (Auto) 1 % (0-3) Neutrophils # (Auto) 6.2 x10^3/uL (1.8-7.7) Lymphocytes # (Auto) 0.3 x10^3/uL (1.0-4.8) Monocytes # (Auto) 0.8 x10^3/uL (0.0-1.1) Eosinophils # (Auto) 0.0 x10^3/uL (0.0-0.7) Basophils # (Auto) 0.1 x10^3/uL (0.0-0.2) Sodium Level 136 mmol/L (136-145) Potassium Level 3.7 mmol/L (3.5-5.1) Chloride Level 94 mmol/L (98-107) Carbon Dioxide Level 44 mmol/L (21-32) Anion Gap (6-14) Blood Urea Nitrogen 29 mg/dL (8-26) Creatinine 0.9 mg/dL (0.7-1.3) Estimated GFR (Cockcroft-Gault) 85.5 BUN/Creatinine Ratio 32 (6-20) Glucose Level 109 mg/dL (70-99) Calcium Level 8.6 mg/dL (8.5-10.1) Total Bilirubin 2.1 mg/dL (0.2-1.0) Aspartate Amino Transf (AST/SGOT) 23 U/L (15-37) Alanine Aminotransferase (ALT/SGPT) 17 U/L (16-63) Alkaline Phosphatase 217 U/L (46-116) Total Protein 5.3 g/dL (6.4-8.2) Albumin 2.4 g/dL (3.4-5.0) Albumin/Globulin Ratio 0.8 (1.0-1.7) Laboratory Tests Test 11/27/20 06:50 White Blood Count 7.4 x10^3/uL (4.0-11.0) Red Blood Count 4.91 x10^6/uL (4.30-5.70) Hemoglobin 13.5 g/dL (13.0-17.5) Hematocrit 41.7 % (39.0-53.0) Mean Corpuscular Volume 85 fL (79-100) Mean Corpuscular Hemoglobin 28 pg (25-35) Mean Corpuscular Hemoglobin Concent 32 g/dL (31-37) Red Cell Distribution Width 19.6 % (11.5-14.5) Platelet Count 105 x10^3/uL (140-400) Neutrophils (%) (Auto) 84 % (31-73) Lymphocytes (%) (Auto) 4 % (24-48) Monocytes (%) (Auto) 10 % (0-9) Eosinophils (%) (Auto) 1 % (0-3) Basophils (%) (Auto) 1 % (0-3) Neutrophils # (Auto) 6.2 x10^3/uL (1.8-7.7) Lymphocytes # (Auto) 0.3 x10^3/uL (1.0-4.8) Monocytes # (Auto) 0.8 x10^3/uL (0.0-1.1) Eosinophils # (Auto) 0.0 x10^3/uL (0.0-0.7) Basophils # (Auto) 0.1 x10^3/uL (0.0-0.2) Sodium Level 136 mmol/L (136-145) Potassium Level 3.7 mmol/L (3.5-5.1) Chloride Level 94 mmol/L (98-107) Carbon Dioxide Level 44 mmol/L (21-32) Anion Gap (6-14) Blood Urea Nitrogen 29 mg/dL (8-26) Creatinine 0.9 mg/dL (0.7-1.3) Estimated GFR (Cockcroft-Gault) 85.5 BUN/Creatinine Ratio 32 (6-20) Glucose Level 109 mg/dL (70-99) Calcium Level 8.6 mg/dL (8.5-10.1) Total Bilirubin 2.1 mg/dL (0.2-1.0) Aspartate Amino Transf (AST/SGOT) 23 U/L (15-37) Alanine Aminotransferase (ALT/SGPT) 17 U/L (16-63) Alkaline Phosphatase 217 U/L (46-116) Total Protein 5.3 g/dL (6.4-8.2) Albumin 2.4 g/dL (3.4-5.0) Albumin/Globulin Ratio 0.8 (1.0-1.7) Microbiology 11/21/20 Gram Stain - Final, Resulted 11/21/20 Aerobic and Anaerobic Culture - Preliminary, Resulted Medications Current Medications Enoxaparin Sodium (Lovenox Per Pharmacy Treatment Dosing) 1 each PRN DAILY PRN MC SEE COMMENTS; Start 11/17/20 at 19:00; Stop 11/19/20 at 09:23; Status DC Ondansetron HCl (Zofran) 4 mg PRN Q8HRS PRN IVP NAUSEA/VOMITING Last adm inistered on 11/18/20at 09:05; Start 11/17/20 at 19:00; Stop 11/18/20 at 11:29; Status DC Ceftriaxone Sodium (Rocephin) 2 gm Q24H IVP Last administered on 11/23/20at 16:05; Start 11/18/20 at 14:00; Stop 11/24/20 at 13:31; Status DC Azithromycin (Zithromax) 250 mg DAILY PO ; Start 11/18/20 at 09:00; Stop 11/18/20 at 08:37; Status DC Enoxaparin Sodium (Lovenox 100mg Syringe) 90 mg Q12H SQ Last administered on 11/18/20at 06:04; Start 11/18/20 at 06:00; Stop 11/18/20 at 13:34; Status DC Doxycycline Hyclate (Vibra-Tab) 100 mg BID PO ; Start 11/18/20 at 09:00; Stop 11/18/20 at 09:13; Status DC Pantoprazole Sodium (Protonix) 40 mg DAILYAC PO ; Start 11/18/20 at 09:00; Stop 11/18/20 at 09:21; Status DC Albuterol/ Ipratropium (Duoneb) 3 ml RTQID NEB Last administered on 11/27/20at 07:57; Start 11/18/20 at 12:00 Budesonide (Pulmicort) 0.5 mg RTBID NEB Last administered on 11/27/20at 07:57; S tart 11/18/20 at 20:00 Budesonide (Pulmicort) 0.5 mg 1X ONCE NEB Last administered on 11/18/20at 12:39; Start 11/18/20 at 09:30; Stop 11/18/20 at 09:31; Status DC Doxycycline Hyclate 100 mg/ Dextrose 100 ml @ 50 mls/hr Q12HR IV Last administered on 11/24/20 08:15; Start 11/18/20 at 10:00; Stop 11/24/20 at 13:31; Status DC Pantoprazole Sodium (PROTONIX VIAL for IV PUSH) 40 mg DAILYAC IVP Last administered on 11/26/20at 09:16; Start 11/18/20 at 10:00; Stop 11/26/20 at 13:16; Status DC Amino Acids/ Glycerin/ Electrolytes 1,000 ml @ 80 mls/hr [id number] ONCE IV Last administered on 11/18/20at 09:44; Start 11/18/20 at 09:30; Stop 11/18/20 at 21:59; Status DC Furosemide (Lasix) 80 mg DAILY IVP Last administered on 11/26/20 09:16; Start 11/18/20 at 11:00 Lactulose (Lactulose) 20 gm PRN DAILY PRN PO CONSTIPATION; Start 11/18/20 at 11:00 Metoclopramide HCl (Reglan Vial) 10 mg PRN Q6HRS PRN IVP NAUSEA/VOMITING, 2ND CHOICE Last administered on 11/18/20at 11:40; Start 11/18/20 at 11:30 Ondansetron HCl (Zofran) 4 mg PRN Q4HRS PRN IVP NAUSEA/VOMITING, 1ST CHOICE; Start 11/18/20 at 11:30 Enoxaparin Sodium (Lovenox 80mg Syringe) 80 mg Q12HR SQ Last administered on 11/19/20at 08:05; Start 11/18/20 at 21:00; Stop 11/19/20 at 09:23; Status DC Lactobacillus Rhamnosus (Culturelle) 1 cap BID PO Last administered on 11/26/20 23:26; Start 11/18/20 at 21:00 Amino Acids/ Glycerin/ Electrolytes 1,000 ml @ 80 mls/hr [id number] IV Last administered on 11/18/20at 23:04; Start 11/18/20 at 22:15; Stop 11/19/20 at 09:01; Status DC Heparin Sodium/ Dextrose 250 ml @ 0 mls/hr CONT PRN IV PER PROTOCOL Last administered on 11/23/20at 18:22; Start 11/19/20 at 21:00; Stop 11/24/20 at 19:49; Status DC Heparin Sodium (Porcine) (Heparin Sodium) 2,600 unit PRN Q6HRS PRN IV FOR UFH LEVEL LESS THAN 0.2 Last administered on 11/24/20at 12:40; Start 11/19/20 at 21:00; Stop 11/24/20 at 17:57; Status DC Heparin Sodium (Porcine) (Heparin Sodium) 1,300 unit PRN Q6HRS PRN IV FOR UFH LEVEL 0.2 - 0.29 Last administered on 11/23/20at 12:45; Start 11/19/20 at 21:00; Stop 11/24/20 at 17:57; Status DC Amino Acids/ Glycerin/ Electrolytes 1,000 ml @ 40 mls/hr Q24H IV Last administered on 11/25/20 17:52; Start 11/19/20 at 17:15; Stop 11/26/20 at 17:23; Status DC Info (Anti-Coagulation Monitoring By Pharmacy) 1 each PRN DAILY PRN MC PER PROTOCOL Last administered on 11/21/20at 09:06; Start 11/21/20 at 09:15; Stop 11/24/20 at 17:57; Status DC Potassium Chloride/Water 100 ml @ 100 mls/hr Q1H IV Last administered on 11/22/20at 14:05; Start 11/22/20 at 10:00; Stop 11/22/20 at 13:59; Status DC Magnesium Sulfate 50 ml @ 25 mls/hr 1X ONCE IV Last administered on 11/22/20at 15:33; Start 11/22/20 at 15:00; Stop 11/22/20 at 16:59; Status DC Atorvastatin Calcium (Lipitor) 40 mg QHS PO Last administered on 11/26/20 23:26; Start 11/22/20 at 21:00 Aspirin (Ecotrin) 81 mg [id number] PO Last administered on 11/26/20 09:16; Start 11/23/20 at 08:00 Amiodarone HCl (Cordarone) 200 mg DAILY PO Last administered on 11/26/20 09:17; Start 11/23/20 at 15:00 Warfarin Sodium (Coumadin Per Pharmacy) 1 each PRN DAILY PRN MC SEE COMMENTS Last administered on 11/26/20at 13:23; Start 11/24/20 at 13:45 Warfarin Sodium (Coumadin) 2.5 mg 1X WARF ONCE PO Last administered on 11/24/20at 16:51; Start 11/24/20 at 16:00; Stop 11/24/20 at 16:01; Status DC Barium Sulfate (Varibar Thin Liquid Apple) 148 gm 1X ONCE PO Last administered on 11/25/20at 10:52; Start 11/25/20 at 11:00; Stop 11/25/20 at 11:01; Status DC Warfarin Sodium (Coumadin) 3 mg 1X WARF ONCE PO Last administered on 11/25/20at 17:53; Start 11/25/20 at 16:00; Stop 11/25/20 at 16:01; Status DC Warfarin Sodium (Coumadin) 4 mg 1X WARF ONCE PO Last administered on 11/26/20at 18:24; Start 11/26/20 at 16:00; Stop 11/26/20 at 16:01; Status DC Pantoprazole Sodium (Protonix) 40 mg DAILYAC PO ; Start 11/27/20 at 07:30 Active Scripts Active Lovenox (Enoxaparin Sodium) 80 Mg/0.8 Ml Disp.syrin 85 Mg SQ Q 12 HRS 7 Days Lactulose 20 Gm/30 Ml Solution 20 Gm PO PRN DAILY PRN 30 Days Furosemide 10 Mg/1 Ml Vial 80 Mg IVP DAILY 10 Days Budesonide 0.5 Mg/2 Ml Ampul.neb 0.5 Mg NEB RTBID 30 Days Culturelle (Lactobacillus Rhamnosus Gg) 1 Each Cap.sprink 1 Cap PO BID 30 Days [Warfarin Per Pharmacy] 1 EACH Each 1 Each MC PRN DAILY PRN 10 Days Duoneb 0.5-3(2.5) Mg/3 Ml (Albuterol/Ipratropium) 3 Ml Ampul.neb 3 Ml NEB RTQID 30 Days Reported Warfarin Sodium 2.5 Mg Tablet 2.5 Mg PO DAILY Ranexa (Ranolazine) 500 Mg Tab.er.12h 500 Mg PO BID Pantoprazole Sodium (Pantoprazole Sodium) 40 Mg Tablet.dr 40 Mg PO DAILYAC Atorvastatin Calcium 40 Mg Tablet 1 Tab PO DAILY Children's Aspirin (Aspirin) 81 Mg Tab.chew 1 Tab PO DAILY 30 Days Amiodarone Hcl 200 Mg Tablet 1 Tab PO DAILY Vitals/I & O Vital Sign - Last 24 Hours 11/26/20 11/26/20 11/26/20 11/26/20 10:47 12:42 14:28 16:15 Temp 97.7 97.8 97.7 97.8 Pulse 74 68 Resp 22 B/P (MAP) 113/77 (89) 104/72 (83) Pulse Ox 94 93 95 94 O2 Delivery Nasal Cannula Nasal Cannula Nasal Cannula Nasal Cannula O2 Flow Rate 3.0 3.0 3.0 3.0 11/26/20 11/26/20 11/26/20 11/26/20 19:00 20:00 21:17 22:30 Temp 97.9 97.7 97.9 97.7 Pulse 78 69 Resp B/P (MAP) 117/67 (84) 112/81 (91) Pulse Ox 94 95 94 O2 Delivery Nasal Cannula Nasal Cannula Nasal Cannula Nasal Cannula O2 Flow Rate 3.0 3.0 3.0 3.0 11/27/20 11/27/20 11/27/20 11/27/20 02:45 07:42 07:58 08:02 Temp 98.1 97.9 98.1 97.9 Pulse 72 72 Resp B/P (MAP) 116/78 (91) 114/78 (90) Pulse Ox 93 95 92 92 O2 Delivery Nasal Cannula Nasal Cannula Nasal Cannula Nasal Cannula O2 Flow Rate 3.0 3.0 2.5 2.5 Intake and Output 11/26/20 11/26/20 11/27/20 15:00 23:00 07:00 Intake Total 120 ml 200 ml Output Total 850 ml 650 ml 550 ml Balance -730 ml -650 ml -350 ml Justicifation of Admission Dx: Justifications for Admission: Justification of Admission Dx: Yes Altered Mental Status: Altered Mental Status VICKY CHICAS MD Nov 27, 2020 09:19
--- NOTE | 2020-11-27 09:38 | PDOC ---
PULMONARY PROGRESS NOTES DATE: 11/27/20 TIME: 09:38 Subjective Remains on 3 liters NC more awake S/P thoracentesis 11/21/20 no overnight events Vitals Vital Signs Date Time Temp Pulse Resp B/P (MAP) Pulse Ox O2 Delivery O2 Flow Rate FiO2 11/27/20 08:02 92 Nasal Cannula 2.5 11/27/20 07:42 97.9 72 22 114/78 (90) 97.9 ROS: No Nausea, No Chest Pain, No Abdominal Pain, No Increase Cough General: Alert, Oriented X4 Lungs: Crackles Cardiovascular: S1, S2 Abdomen: Soft, Non-tender, Other (obese no mass) Neuro Exam: Alert Extremities: Other (edema, and erythema bilateral lower extremities) Skin: Warm Labs Laboratory Tests Test 11/26/20 06:50 11/27/20 06:50 Prothrombin Time 18.1 SEC (11.7-14.0) Prothromb Time International Ratio 1.5 (0.8-1.1) White Blood Count 7.4 x10^3/uL (4.0-11.0) Red Blood Count 4.91 x10^6/uL (4.30-5.70) Hemoglobin 13.5 g/dL (13.0-17.5) Hematocrit 41.7 % (39.0-53.0) Mean Corpuscular Volume 85 fL (79-100) Mean Corpuscular Hemoglobin 28 pg (25-35) Mean Corpuscular Hemoglobin Concent 32 g/dL (31-37) Red Cell Distribution Width 19.6 % (11.5-14.5) Platelet Count 105 x10^3/uL (140-400) Neutrophils (%) (Auto) 84 % (31-73) Lymphocytes (%) (Auto) 4 % (24-48) Monocytes (%) (Auto) 10 % (0-9) Eosinophils (%) (Auto) 1 % (0-3) Basophils (%) (Auto) 1 % (0-3) Neutrophils # (Auto) 6.2 x10^3/uL (1.8-7.7) Lymphocytes # (Auto) 0.3 x10^3/uL (1.0-4.8) Monocytes # (Auto) 0.8 x10^3/uL (0.0-1.1) Eosinophils # (Auto) 0.0 x10^3/uL (0.0-0.7) Basophils # (Auto) 0.1 x10^3/uL (0.0-0.2) Sodium Level 136 mmol/L (136-145) Potassium Level 3.7 mmol/L (3.5-5.1) Chloride Level 94 mmol/L (98-107) Carbon Dioxide Level 44 mmol/L (21-32) Anion Gap (6-14) Blood Urea Nitrogen 29 mg/dL (8-26) Creatinine 0.9 mg/dL (0.7-1.3) Estimated GFR (Cockcroft-Gault) 85.5 BUN/Creatinine Ratio 32 (6-20) Glucose Level 109 mg/dL (70-99) Calcium Level 8.6 mg/dL (8.5-10.1) Total Bilirubin 2.1 mg/dL (0.2-1.0) Aspartate Amino Transf (AST/SGOT) 23 U/L (15-37) Alanine Aminotransferase (ALT/SGPT) 17 U/L (16-63) Alkaline Phosphatase 217 U/L (46-116) Total Protein 5.3 g/dL (6.4-8.2) Albumin 2.4 g/dL (3.4-5.0) Albumin/Globulin Ratio 0.8 (1.0-1.7) Laboratory Tests Test 11/27/20 06:50 White Blood Count 7.4 x10^3/uL (4.0-11.0) Red Blood Count 4.91 x10^6/uL (4.30-5.70) Hemoglobin 13.5 g/dL (13.0-17.5) Hematocrit 41.7 % (39.0-53.0) Mean Corpuscular Volume 85 fL (79-100) Mean Corpuscular Hemoglobin 28 pg (25-35) Mean Corpuscular Hemoglobin Concent 32 g/dL (31-37) Red Cell Distribution Width 19.6 % (11.5-14.5) Platelet Count 105 x10^3/uL (140-400) Neutrophils (%) (Auto) 84 % (31-73) Lymphocytes (%) (Auto) 4 % (24-48) Monocytes (%) (Auto) 10 % (0-9) Eosinophils (%) (Auto) 1 % (0-3) Basophils (%) (Auto) 1 % (0-3) Neutrophils # (Auto) 6.2 x10^3/uL (1.8-7.7) Lymphocytes # (Auto) 0.3 x10^3/uL (1.0-4.8) Monocytes # (Auto) 0.8 x10^3/uL (0.0-1.1) Eosinophils # (Auto) 0.0 x10^3/uL (0.0-0.7) Basophils # (Auto) 0.1 x10^3/uL (0.0-0.2) Sodium Level 136 mmol/L (136-145) Potassium Level 3.7 mmol/L (3.5-5.1) Chloride Level 94 mmol/L (98-107) Carbon Dioxide Level 44 mmol/L (21-32) Anion Gap (6-14) Blood Urea Nitrogen 29 mg/dL (8-26) Creatinine 0.9 mg/dL (0.7-1.3) Estimated GFR (Cockcroft-Gault) 85.5 BUN/Creatinine Ratio 32 (6-20) Glucose Level 109 mg/dL (70-99) Calcium Level 8.6 mg/dL (8.5-10.1) Total Bilirubin 2.1 mg/dL (0.2-1.0) Aspartate Amino Transf (AST/SGOT) 23 U/L (15-37) Alanine Aminotransferase (ALT/SGPT) 17 U/L (16-63) Alkaline Phosphatase 217 U/L (46-116) Total Protein 5.3 g/dL (6.4-8.2) Albumin 2.4 g/dL (3.4-5.0) Albumin/Globulin Ratio 0.8 (1.0-1.7) Medications Active Scripts Medications Dose Route/Sig Max Daily Dose Days Date Category Warfarin Sodium 2.5 Mg Tablet 2.5 Mg PO DAILY 11/23/20 Reported Risperidone 0.5 Mg Tablet 1 Tab PO QHS 11/23/20 Reported Ranexa (Ranolazine) 500 Mg Tab.er.12h 500 Mg PO BID 11/23/20 Reported Klor-Con M20 (Potassium Chloride) 20 Meq Tab.er.prt 20 Meq PO DAILY 11/23/20 Reported Pantoprazole Sodium (Pantoprazole Sodium) 40 Mg Tablet.dr 40 Mg PO DAILYAC 11/23/20 Reported Metoprolol Succinate ( Xl ) (Metoprolol Succinate) 25 Mg Tab.er.24h 25 Mg PO HS 11/23/20 Reported Metformin HCl 500 Mg/5 Ml Solution 500 Mg PO BID 11/23/20 Reported Cymbalta (Duloxetine Hcl) 30 Mg Capsule.dr 30 Mg PO DAILY 11/23/20 Reported Atorvastatin Calcium 80 Mg Tablet 80 Mg PO QHS 11/23/20 Reported Atorvastatin Calcium 40 Mg Tablet 1 Tab PO DAILY 11/23/20 Reported Children's Aspirin (Aspirin) 81 Mg Tab.chew 1 Tab PO DAILY 30 11/23/20 Reported Amiodarone Hcl 200 Mg Tablet 1 Tab PO DAILY 11/23/20 Reported Comments Chest x-ray reviewed bilateral infiltrates stable left-sided opacity questionable effusion ECHO <Conclusion> The Left Ventricle is borderline dilated. The systolic function is severely impaired. The Ejection Fraction is estimated at 20%. There is severe global hypokinesis of the left ventricle. There is borderline to mild concentric left ventricular hypertrophy. There is a device lead in the right ventricle. Doppler and Color Flow revealed no significant aortic regurgitation. There is no significant aortic valvular stenosis. Doppler and Color-flow revealed mild mitral regurgitation. Doppler and Color Flow revealed mild tricuspid regurgitation with an estimated PAP of 46 mmHg. cytology LEFT PLEURAL FLUID NEGATIVE FOR MALIGNANT CELLS. REACTIVE MESOTHELIAL CELLS PRESENT WITHIN A BACKGROUND OF ACUTE AND CHRONIC INFLAMMATORY CELLS. THIS INTERPRETATION INCLUDES EVALUATION OF A CELL BLOCK. Impression . IMPRESSION: 1. Acute hypoxemic respiratory failure, multifactorial --improved 2. Abnormal chest x-ray. Left-sided effusion--S/P thoracentesis 11/21 3. Acute pulmonary embolism. 4. Chronic obstructive pulmonary disease. 5. Acute systolic versus diastolic congestive heart failure. 6. Obstructive sleep apnea/hypopnea syndrome. 7. Tobacco habituation. 8. Atrial fibrillation. 9. Coronary artery disease, status post CABG. 10. Negative SARS Covid 2 11. Encephalopathy--improving 12. debility Bilateral lower extremity venous Dopplers 11/18 IMPRESSION: Partially occlusive DVT is seen involving the posterior tibial veins within the right calf. Plan . UPDATED 11/27/2020 Continue supplemental oxygen currently on 3 L nasal cannula Continue coumadin-- Monitor INR S/P left thoracentesis with removal 1.3 liters of fluid on 11/21/20--- cytology neg Continue bronchodilators and ICS, Pulmicort Off ABX Follow cardiology recommendations---The Ejection Fraction is estimated at 20%. Follow nephrology recommendations Follow GI recs DVT/GI prophylaxis Physical therapy/Occupational Therapy Social work following-- Discharge to [facility] Discussed with RN, and OMID Bhandari MD Nov 27, 2020 09:38
[2020-11-27] MEDS: LACTOBACILLUS RHAMNOSUS GG 1 CAPSULE. PO SCH ×2 (09:52→20:41)
[2020-11-27] MEDS: ASPIRIN ENTERIC COATED 81 MG TABLET.DR. PO SCH (09:52)
[2020-11-27] MEDS: PANTOPRAZOLE 40 MG TABLET.DR. PO SCH (09:53)
[2020-11-27] MEDS: FUROSEMIDE 100 MG/10 ML VIAL. IVP SCH (09:53)
[2020-11-27] MEDS: AMIODARONE HCL 200 MG TABLET. PO SCH (09:53)
[2020-11-27 10:07] VITALS: BP 118/72
[2020-11-27 10:26] LABS: PROTHROMBIN TIME PATIENT 17.1 SEC (11.7-14.0)
--- NOTE | 2020-11-27 11:17 | NUR ---
Pharmacy Warfarin Dosing Note S:Pharmacy consulted to assist with anticoagulation therapy started with target INR: 2 -3 O:EZEQUIEL SILVER is a 64 year old M with Atrial FibrillationD; NEW DVT AND BILATERAL PE LABS: Last INR: 1.4 Last HGB: 13.5 Last HCT: 41.7 Last PLT: 105 Last dose of 4 mg given on 11/26/20 at 1824 Vitamin K given: N Drug Interaction Changes: Same Interacting Drug Ongoing Drug Interactions: amiodarone A:INR of 1.4 is below desired range. Target range for this patient is: 2 -3 P: Warfarin dose: 5 mg Today at 1600 Bridge Therapy: none Next INR due 11/28/20 Pharmacy anticoagulation service will continue to follow. MOON LEMUS RPH, 11/27/20 1965
--- NOTE | 2020-11-27 12:49 | PDOC ---
[employer] 11/27/20 1249: CARDIO Progress Notes Date and Time Date of Service 11/27/20 Time of Evaluation 1245 Subjective Subjective: No Chest Pain, No shortness of breath, No Palpitations, Other (bottom sore ) Vitals Vitals Vital Signs Date Time Temp Pulse Resp B/P (MAP) Pulse Ox O2 Delivery O2 Flow Rate FiO2 11/27/20 12:01 97 Nasal Cannula 2.5 11/27/20 10:07 97.8 68 20 118/72 (87) 97.8 Weight Weight [ ] Input and Output Intake and Output Intake and Output 11/27/20 07:00 Intake Total 320 ml Output Total 2050 ml Balance -1730 ml Intake Oral 320 ml Output Urine Total 2050 ml Laboratory Labs Laboratory Tests Test 11/27/20 06:50 11/27/20 10:10 White Blood Count 7.4 x10^3/uL (4.0-11.0) Red Blood Count 4.91 x10^6/uL (4.30-5.70) Hemoglobin 13.5 g/dL (13.0-17.5) Hematocrit 41.7 % (39.0-53.0) Mean Corpuscular Volume 85 fL (79-100) Mean Corpuscular Hemoglobin 28 pg (25-35) Mean Corpuscular Hemoglobin Concent 32 g/dL (31-37) Red Cell Distribution Width 19.6 % (11.5-14.5) Platelet Count 105 x10^3/uL (140-400) Neutrophils (%) (Auto) 84 % (31-73) Lymphocytes (%) (Auto) 4 % (24-48) Monocytes (%) (Auto) 10 % (0-9) Eosinophils (%) (Auto) 1 % (0-3) Basophils (%) (Auto) 1 % (0-3) Neutrophils # (Auto) 6.2 x10^3/uL (1.8-7.7) Lymphocytes # (Auto) 0.3 x10^3/uL (1.0-4.8) Monocytes # (Auto) 0.8 x10^3/uL (0.0-1.1) Eosinophils # (Auto) 0.0 x10^3/uL (0.0-0.7) Basophils # (Auto) 0.1 x10^3/uL (0.0-0.2) Sodium Level 136 mmol/L (136-145) Potassium Level 3.7 mmol/L (3.5-5.1) Chloride Level 94 mmol/L (98-107) Carbon Dioxide Level 44 mmol/L (21-32) Anion Gap (6-14) Blood Urea Nitrogen 29 mg/dL (8-26) Creatinine 0.9 mg/dL (0.7-1.3) Estimated GFR (Cockcroft-Gault) 85.5 BUN/Creatinine Ratio 32 (6-20) Glucose Level 109 mg/dL (70-99) Calcium Level 8.6 mg/dL (8.5-10.1) Total Bilirubin 2.1 mg/dL (0.2-1.0) Aspartate Amino Transf (AST/SGOT) 23 U/L (15-37) Alanine Aminotransferase (ALT/SGPT) 17 U/L (16-63) Alkaline Phosphatase 217 U/L (46-116) Total Protein 5.3 g/dL (6.4-8.2) Albumin 2.4 g/dL (3.4-5.0) Albumin/Globulin Ratio 0.8 (1.0-1.7) Prothrombin Time 17.1 SEC (11.7-14.0) Prothromb Time International Ratio 1.4 (0.8-1.1) Microbiology Micro Microbiology 11/21/20 Gram Stain - Final, Complete 11/21/20 Aerobic and Anaerobic Culture - Final, Complete Physical Exam HEENT: Neck Supple W Full Motion Chest: Symmetric LUNGS: Other (diminished bases) Heart: irregularly irregular (AFIB) Abdomen: Soft N/T Extremities: Other (anasarca) Neurology: alert, oriented, follow commands Assessment Assessment 1. Acute respiratory failure; multifactorial with acute PE, A/c CHF, and p leural effusion- s/p thoracentesis with 1.3L off. Warfarin therapy initiated. INR 1.4 2. PAFIB; on Eliquis at home, but has not taken recently. presently AFIB with controlled rate. 3. Acute on chronic systolic CHF 4. Ischemic cardiomyopathy; s/p AICD ([employer]). Device shows normal function. No VT. Echo with LVEF 20%. Per record review, echo 02/08 with LVEF 20-25% 5. CAD s/p CABG 1994; Follows with [facility]. Cath 08/31 with Patent SVG to RCA, SVG to diagonal, and BENJAMIN to LAD. SVG to circ occluded, which was known 6. Hypertension; low end 7. SHILPI; non compliant with CPAP 8. DOE on CKD; resolved 9. Tobaccoism; discussed/ encouraged cessation 10. H/o SDH secondary to fall in 2017. 11. Hypothyroidism; has been off therapy 12. Noncompliance; has been off all meds for the last couple of months. Recommendations Ongoing diuresis Add Toprol Add ACEi if BP remains consistently adequate Amiodarone therapy Consider outpatient CV if he remains in AFIB Secondary prevention Ongoing lung optimization, treatment of PE Supportive care Will need to establish cardiology care through [facility] Justicifation of Admission Dx: Justifications for Admission: Justification of Admission Dx: Yes Altered Mental Status: Altered Mental Status FARIBA CALDERA MD 11/27/20 1639: CARDIO Progress Notes Plan Plan The patient was seen and interviewed as well as examined at the bedside. The chart was reviewed. The case was discussed. Agree with the plan of care. FRAN GALVAN APRN Nov 27, 2020 12:49 FARIBA CALDERA MD Nov 27, 2020 16:39
[2020-11-27 14:17] VITALS: BP 112/82
--- NOTE | 2020-11-27 15:08 | PDOC ---
G I PROGRESS NOTE Subjective No GI complaints. Says eating better. Physical Exam Lungs clear. IRRR Abdomen soft, not tender nor distended. Left arm edematous. Review of Relevant I have reviewed the following items florecita (where applicable) has been applied. Labs Laboratory Tests Test 11/26/20 06:50 11/27/20 06:50 11/27/20 10:10 Prothrombin Time 18.1 SEC (11.7-14.0) 17.1 SEC (11.7-14.0) Prothromb Time International Ratio 1.5 (0.8-1.1) 1.4 (0.8-1.1) White Blood Count 7.4 x10^3/uL (4.0-11.0) Red Blood Count 4.91 x10^6/uL (4.30-5.70) Hemoglobin 13.5 g/dL (13.0-17.5) Hematocrit 41.7 % (39.0-53.0) Mean Corpuscular Volume 85 fL (79-100) Mean Corpuscular Hemoglobin 28 pg (25-35) Mean Corpuscular Hemoglobin Concent 32 g/dL (31-37) Red Cell Distribution Width 19.6 % (11.5-14.5) Platelet Count 105 x10^3/uL (140-400) Neutrophils (%) (Auto) 84 % (31-73) Lymphocytes (%) (Auto) 4 % (24-48) Monocytes (%) (Auto) 10 % (0-9) Eosinophils (%) (Auto) 1 % (0-3) Basophils (%) (Auto) 1 % (0-3) Neutrophils # (Auto) 6.2 x10^3/uL (1.8-7.7) Lymphocytes # (Auto) 0.3 x10^3/uL (1.0-4.8) Monocytes # (Auto) 0.8 x10^3/uL (0.0-1.1) Eosinophils # (Auto) 0.0 x10^3/uL (0.0-0.7) Basophils # (Auto) 0.1 x10^3/uL (0.0-0.2) Sodium Level 136 mmol/L (136-145) Potassium Level 3.7 mmol/L (3.5-5.1) Chloride Level 94 mmol/L (98-107) Carbon Dioxide Level 44 mmol/L (21-32) Anion Gap (6-14) Blood Urea Nitrogen 29 mg/dL (8-26) Creatinine 0.9 mg/dL (0.7-1.3) Estimated GFR (Cockcroft-Gault) 85.5 BUN/Creatinine Ratio 32 (6-20) Glucose Level 109 mg/dL (70-99) Calcium Level 8.6 mg/dL (8.5-10.1) Total Bilirubin 2.1 mg/dL (0.2-1.0) Aspartate Amino Transf (AST/SGOT) 23 U/L (15-37) Alanine Aminotransferase (ALT/SGPT) 17 U/L (16-63) Alkaline Phosphatase 217 U/L (46-116) Total Protein 5.3 g/dL (6.4-8.2) Albumin 2.4 g/dL (3.4-5.0) Albumin/Globulin Ratio 0.8 (1.0-1.7) Laboratory Tests Test 11/27/20 06:50 11/27/20 10:10 White Blood Count 7.4 x10^3/uL (4.0-11.0) Red Blood Count 4.91 x10^6/uL (4.30-5.70) Hemoglobin 13.5 g/dL (13.0-17.5) Hematocrit 41.7 % (39.0-53.0) Mean Corpuscular Volume 85 fL (79-100) Mean Corpuscular Hemoglobin 28 pg (25-35) Mean Corpuscular Hemoglobin Concent 32 g/dL (31-37) Red Cell Distribution Width 19.6 % (11.5-14.5) Platelet Count 105 x10^3/uL (140-400) Neutrophils (%) (Auto) 84 % (31-73) Lymphocytes (%) (Auto) 4 % (24-48) Monocytes (%) (Auto) 10 % (0-9) Eosinophils (%) (Auto) 1 % (0-3) Basophils (%) (Auto) 1 % (0-3) Neutrophils # (Auto) 6.2 x10^3/uL (1.8-7.7) Lymphocytes # (Auto) 0.3 x10^3/uL (1.0-4.8) Monocytes # (Auto) 0.8 x10^3/uL (0.0-1.1) Eosinophils # (Auto) 0.0 x10^3/uL (0.0-0.7) Basophils # (Auto) 0.1 x10^3/uL (0.0-0.2) Sodium Level 136 mmol/L (136-145) Potassium Level 3.7 mmol/L (3.5-5.1) Chloride Level 94 mmol/L (98-107) Carbon Dioxide Level 44 mmol/L (21-32) Anion Gap (6-14) Blood Urea Nitrogen 29 mg/dL (8-26) Creatinine 0.9 mg/dL (0.7-1.3) Estimated GFR (Cockcroft-Gault) 85.5 BUN/Creatinine Ratio 32 (6-20) Glucose Level 109 mg/dL (70-99) Calcium Level 8.6 mg/dL (8.5-10.1) Total Bilirubin 2.1 mg/dL (0.2-1.0) Aspartate Amino Transf (AST/SGOT) 23 U/L (15-37) Alanine Aminotransferase (ALT/SGPT) 17 U/L (16-63) Alkaline Phosphatase 217 U/L (46-116) Total Protein 5.3 g/dL (6.4-8.2) Albumin 2.4 g/dL (3.4-5.0) Albumin/Globulin Ratio 0.8 (1.0-1.7) Prothrombin Time 17.1 SEC (11.7-14.0) Prothromb Time International Ratio 1.4 (0.8-1.1) Microbiology 11/21/20 Gram Stain - Final, Complete 11/21/20 Aerobic and Anaerobic Culture - Final, Complete Vitals/I & O Vital Sign - Last 24 Hours 11/26/20 11/26/20 11/26/20 11/26/20 16:15 19:00 20:00 21:17 Temp 97.9 97.9 Pulse 78 Resp 22 B/P (MAP) 117/67 (84) Pulse Ox 94 94 95 O2 Delivery Nasal Cannula Nasal Cannula Nasal Cannula Nasal Cannula O2 Flow Rate 3.0 3.0 3.0 3.0 11/26/20 11/27/20 11/27/20 11/27/20 22:30 02:45 07:42 07:58 Temp 97.7 98.1 97.9 97.7 98.1 97.9 Pulse 69 72 72 Resp 22 22 22 B/P (MAP) 112/81 (91) 116/78 (91) 114/78 (90) Pulse Ox 94 93 95 92 O2 Delivery Nasal Cannula Nasal Cannula Nasal Cannula Nasal Cannula O2 Flow Rate 3.0 3.0 3.0 2.5 11/27/20 11/27/20 11/27/20 11/27/20 08:00 08:02 09:53 10:07 Temp 97.8 97.8 Pulse 72 68 Resp 20 B/P (MAP) 114/78 118/72 (87) Pulse Ox 92 94 O2 Delivery Nasal Cannula Nasal Cannula Nasal Cannula O2 Flow Rate 3.0 2.5 3.0 11/27/20 11/27/20 12:01 14:17 Temp 97.9 97.9 Pulse 71 Resp 18 B/P (MAP) 112/82 (92) Pulse Ox 97 96 O2 Delivery Nasal Cannula Nasal Cannula O2 Flow Rate 2.5 3.0 Intake and Output 11/26/20 11/26/20 11/27/20 15:00 23:00 07:00 Intake Total 120 ml 200 ml Output Total 850 ml 650 ml 550 ml Balance -730 ml -650 ml -350 ml Assessment Non-specific jaundice/abnormal LFT's, improved from admission. Likely due to "innocent bystander" effects on liver. Plan of Care Note Continue as now. Justicifation of Admission Dx: Justifications for Admission: Justification of Admission Dx: Yes Altered Mental Status: Altered Mental Status BRITTANY MCDERMOTT MD Nov 27, 2020 15:08
--- NOTE | 2020-11-27 15:31 | NUR ---
SS following up with discharge planning. SS reviewed pt chart and discussed with pt RN. Pt is currently requiring oxygen at three liters nasal canula. COVID19 negative. PT/OT recommended halfway unit. Pt accepted at [facility], ; fax [phone]. Possible discharge to facility tomorrow. SS will continue to follow for discharge planning.
[2020-11-27] MEDS: METOPROLOL SUCC 24HR ER 25 MG TAB.ER.24H. PO SCH (15:33)
--- NOTE | 2020-11-27 15:43 | PDOC ---
[facility] PROGRESS NOTE Date of Service DOS: DATE: 11/27/20 TIME: 15:40 Chief Complaint Chief Complaint impression Acute bilateral Pulmonary embolism - will transition from lovenox to heparin GTT in anticipation of consideration of thoracentesis Acute pneumonia - rocephin + doxy acute metabolic encephalopathy Sepsis - due to above Acute hypoxic respiratory failure - due to PE, CHF Stable large left pleural effusion CAD s/p CABG 1993 Acute on chronic systolic CHF with prior known 3+ pitting edema for months, BNP 15k. S/p AICD - cont diuresis Atrial fibrillation - Medtronic pacer interrogated at [facility]. Was on eliquis but had been off for 2 weeks prior to admit DOE - creatinine 1.4 - likely vasomotor nephropathy Transaminits - likely congestive hepatopathy, no ETOH or cirrhosis per patient. Bilirubin is elevated at 4.6. INR 1.9 PVD, US artery LUE neg at [facility], poor pulses, cool feet, consult vasc, Nausea and vomiting - KUB ordered, no SBO, reglan helped microhematuria ECHO systolic function is severely impaired. Ejection Fraction is estimated at 20%. severe global hypokinesis of the left ventricle. FEN - Cardiac PPX - lovenox FULL CODE Dispo - ICU pulm consult renal sono CC time 42 minutes History of Present Illness History of Present Illness Mr Galindo is a 64-year-old male visiting from [place] w/ PMHx A-Fib, GERD, High Cholesterol, Hypertension, Hypothyroid, CHF s/p AICD placement presents with dizziness, weakness, short of breath. Patient son brought him in and he has been staying with his son. Son states patient has not taken his medications for 2 weeks. Patient denies chest pain. Patient states "I feel like my pacemaker is firing". Patient has 3+ pitting edema on bilateral legs. Patient's left arm is cool to the touch, red. Denies fever, cough. Found on CTPA with multiple left lower lobe pulmonary emboli and moderate large pleural effusion on left and multifocal pneumonia. Accepted for transfer to ICU [facility] 11/18: Afebrile. Vomiting this morning. States he feels a little better today. Bilirubin up to 4. INR 2.1. COVID negative. BP low Afebrile. Still weak. Sitting in chair. PICC placed for IV access. K 4.7, BUN 27, Cr 1.5, Alk phos 21, Bili 4.1. BP improved. 5-31 PPX - lovenox FULL CODE Dispo - ICU History of bypass surgery. Probable superimposed heart failure. Acute bilateral Pulmonary embolism - will transition from lovenox to heparin GTT in anticipation of consideration of thoracentesis Acute pneumonia - rocephin + doxy Sepsis - due to above Acute hypoxic respiratory failure - due to PE, CHF CAD s/p CABG 1993 pulm consult elevated lft's , sono and GI consult PSA Acute on chronic systolic CHF with prior known 3+ pitting edema for months, BNP 15k. S/p AICD - cont diuresis Atrial fibrillation - Medtronic pacer interrogated at [facility]. Was on eliquis but had been off for 2 weeks prior to admit, cardiology consulted DOE - creatinine 1.4 - likely vasomotor nephropathy microhematuria , renal sono, follow ua The Ejection Fraction is estimated at 20%. severe global hypokinesis of the left ventricle. mild concentric left ventricular hypertrophy. mild tricuspid regurgitation with an estimated PAP of 46 mmHg. H/o biliary stone disease so retained stone possible. ABD SONO PENDING CC time 34 minutes 11/21 PPX - lovenox FULL CODE Dispo - ICU History of bypass surgery. Probable superimposed heart failure. Acute bilateral Pulmonary embolism - will transition from lovenox to heparin GTT in anticipation of consideration of thoracentesis Acute pneumonia - rocephin + doxy Sepsis - due to above Acute hypoxic respiratory failure - due to PE, CHF CAD s/p CABG 1993 pulm consult elevated lft's , sono and GI consult PSA Acute on chronic systolic CHF with prior known 3+ pitting edema for months, BNP 15k. S/p AICD - cont diuresis Atrial fibrillation - Medtronic pacer interrogated at [facility]. Was on eliquis but had been off for 2 weeks prior to admit, cardiology consulted DOE - creatinine 1.4 - likely vasomotor nephropathy microhematuria , renal sono, follow ua The Ejection Fraction is estimated at 20%. severe global hypokinesis of the left ventricle. mild concentric left ventricular hypertrophy. mild tricuspid regurgitation with an estimated PAP of 46 mmHg. H/o biliary stone disease so retained stone possible. ABD SONO reviewed CC time 35 minutes 11/22 PPX - lovenox FULL CODE Dispo - ICU History of bypass surgery. Probable superimposed heart failure. Acute bilateral Pulmonary embolism - will transition from lovenox to heparin GTT in anticipation of consideration of thoracentesis Acute pneumonia - rocephin + doxy Sepsis - due to above Acute hypoxic respiratory failure - due to PE, CHF CAD s/p CABG 1993 pulm consult elevated lft's , sono and GI consult PSA Acute on chronic systolic CHF with prior known 3+ pitting edema for months, BNP 15k. S/p AICD - cont diuresis Atrial fibrillation - Medtronic pacer interrogated at [facility]. Was on eliquis but had been off for 2 weeks prior to admit, cardiology consulted DOE - creatinine 1.4 - likely vasomotor nephropathy microhematuria , renal sono, follow ua The Ejection Fraction is estimated at 20%. severe global hypokinesis of the left ventricle. mild concentric left ventricular hypertrophy. mild tricuspid regurgitation with an estimated PAP of 46 mmHg. H/o biliary stone disease so retained stone possible. ABD SONO reviewed CC time 33 minutes 11/23 PE's, on AC. Jaundice; numbers have improved with diuresis. PPX - lovenox FULL CODE Dispo - ICU History of bypass surgery. Probable superimposed heart failure. Acute bilateral Pulmonary embolism - will transition from lovenox to heparin GTT in anticipation of consideration of thoracentesis Acute pneumonia - rocephin + doxy Sepsis - due to above Acute hypoxic respiratory failure - due to PE, CHF CAD s/p CABG 1993 pulm consult elevated lft's , sono and GI consult PSA Acute on chronic systolic CHF with prior known 3+ pitting edema for months, BNP 15k. S/p AICD - cont diuresis Atrial fibrillation - Medtronic pacer interrogated at [facility]. Was on eliquis but had been off for 2 weeks prior to admit, cardiology consulted DOE - creatinine 1.4 - likely vasomotor nephropathy microhematuria , renal sono, follow ua The Ejection Fraction is estimated at 20%. severe global hypokinesis of the left ventricle. mild concentric left ventricular hypertrophy. mild tricuspid regurgitation with an estimated PAP of 46 mmHg. H/o biliary stone disease so retained stone possible. ABD SONO reviewed remains very weak and confused PPN AT 80 CC / HR, poor oral intake Discharge Recommendations * Half-Way Unit Discharge Recommendation - DME * Rolling Walker needed * in order to complete ADLs CC time 32 minutes 11/24 less confused, knows year and month, denies alcohol intake will check ct head, abg, consult neurology, for encephalopathy, ammonia level eating 25% of meals acute metabolic encephalopathy, improving PE's, on AC. Jaundice; numbers have improved with diuresis. PPX - lovenox FULL CODE Dispo - ICU History of bypass surgery. Probable superimposed heart failure. Acute bilateral Pulmonary embolism - will transition from lovenox to heparin GTT in anticipation of consideration of thoracentesis Acute pneumonia - rocephin + doxy Successful ultrasound guided left thoracentesis with removal 1.3 liters of fluid. Sepsis - due to above Acute hypoxic respiratory failure - due to PE, CHF CAD s/p CABG 1993 pulm consult elevated lft's , sono and GI consult PSA Acute on chronic systolic CHF with prior known 3+ pitting edema for months, BNP 15k. S/p AICD - cont diuresis Atrial fibrillation - Medtronic pacer interrogated at [facility]. Was on eliquis but had been off for 2 weeks prior to admit, cardiology consulted DOE - creatinine 1.4 - likely vasomotor nephropathy microhematuria , renal sono, follow ua The Ejection Fraction is estimated at 20%. severe global hypokinesis of the left ventricle. mild concentric left ventricular hypertrophy. mild tricuspid regurgitation with an estimated PAP of 46 mmHg. H/o biliary stone disease so retained stone possible. ABD SONO reviewed remains weak and less confused PPN AT 80 CC / HR, poor oral intake 11-24 ovoid opacity in the right upper lobe may represent rib overlying increased pulmonary vascular congestion, mass cannot be excluded. plan cross-sectional imaging or repeat plain film imaging once symptoms has resolved as this may be fluid on the fissure. hopefully to SNF 11-25 Discharge Recommendations * Half-Way Unit Discharge Recommendation - DME * Rolling Walker needed * in order to complete ADLs CC time 33 minutes 11/25 speech concerned re aspiration, desires videoswallow this AM, passed swallow without berhane aspiration less confused, knows year and month, denies alcohol intake will check ct head, abg, consult neurology, for encephalopathy, ammonia level eating 25% of meals acute metabolic encephalopathy, improving PE's, on AC. Jaundice; numbers have improved with diuresis. PPX - lovenox FULL CODE Dispo - ICU History of bypass surgery. Probable superimposed heart failure. Acute bilateral Pulmonary embolism - will transition from lovenox to heparin GTT in anticipation of consideration of thoracentesis Acute pneumonia - rocephin + doxy Successful ultrasound guided left thoracentesis with removal 1.3 liters of fluid. Sepsis - due to above Acute hypoxic respiratory failure - due to PE, CHF CAD s/p CABG 1993 pulm consult elevated lft's , sono and GI consult PSA Acute on chronic systolic CHF with prior known 3+ pitting edema for months, BNP 15k. S/p AICD - cont diuresis Atrial fibrillation - Medtronic pacer interrogated at [facility]. Was on eliquis but had been off for 2 weeks prior to admit, cardiology consulted DOE - creatinine 1.4 - likely vasomotor nephropathy microhematuria , renal sono, follow ua The Ejection Fraction is estimated at 20%. severe global hypokinesis of the left ventricle. mild concentric left ventricular hypertrophy. mild tricuspid regu rgitation with an estimated PAP of 46 mmHg. H/o biliary stone disease so retained stone possible. ABD SONO reviewed remains weak and less confused PPN AT 80 CC / HR, poor oral intake 6 ovoid opacity in the right upper lobe may represent rib overlying increased pulmonary vascular congestion, mass cannot be excluded. plan cross-sectional imaging or repeat plain film imaging once symptoms has resolved as this may be fluid on the fissure. hopefully to SNF 6-05 d/c planning 36 min Discharge Recommendations * Half-Way Unit Discharge Recommendation - DME * Rolling Walker needed * in order to complete ADLs * * * * 11/26 more alert today speech concerned re aspiration, desires video swallow // passed swallow without berhane aspiration less confused, knows year and month, denies alcohol intake will check ct head, abg, consult neurology, for encephalopathy, ammonia level eating 25% of meals acute metabolic encephalopathy, improving PE's, on AC. Jaundice; numbers have improved with diuresis. PPX - lovenox FULL CODE Dispo - ICU History of bypass surgery. Probable superimposed heart failure. Acute bilateral Pulmonary embolism - will transition from lovenox to heparin GTT in anticipation of consideration of thoracentesis Acute pneumonia - rocephin + doxy Successful ultrasound guided left thoracentesis with removal 1.3 liters of fluid. Sepsis - due to above Acute hypoxic respiratory failure - due to PE, CHF CAD s/p CABG 1993 pulm consult elevated lft's , sono and GI consult PSA Acute on chronic systolic CHF with prior known 2+ pitting edema for months, B CLOTH REELER 15k. S/p AICD - cont diuresis Atrial fibrillation - Medtronic pacer interrogated at [facility]. Was on eliquis but had been off for 2 weeks prior to admit, cardiology consulted DOE - creatinine 1.4 - likely vasomotor nephropathy microhematuria , renal sono, follow ua The Ejection Fraction is estimated at 20%. severe global hypokinesis of the left ventricle. mild concentric left ventricular hypertrophy. mild tricuspid regurgitation with an estimated PAP of 46 mmHg. H/o biliary stone disease so retained stone possible. ABD SONO reviewed remains weak and less confused PPN AT 80 CC / HR, poor oral intake 11-24 ovoid opacity in the right upper lobe may represent rib overlying increased pulmonary vascular congestion, mass cannot be excluded. plan cross-sectional imaging or repeat plain film imaging once symptoms has resolved as this may be fluid on the fissure. hopefully to SNF 11-25 d/c planning 26 min Discharge Recommendations * Half-Way Unit 11-27 Discharge Recommendation - DME * Rolling Walker needed * in order to complete ADLs 11/27/2020: Patient afebrile, currently breathing on 3 L nasal cannula. Denies any chest pain. Discussed with pulmonology, patient may discharge on Coumadin 5 mg daily and have INR checked [facility]. Greater than 30 minutes was spent managing the discharge of this patient. Vitals/I&O Vitals/I&O: Vital Signs Date Time Temp Pulse Resp B/P (MAP) Pulse Ox O2 Delivery O2 Flow Rate FiO2 11/27/20 15:33 71 112/82 11/27/20 14:17 97.9 18 96 Nasal Cannula 3.0 97.9 I & O 11/26/20 11/26/20 11/27/20 15:00 23:00 07:00 Intake Total 120 ml 200 ml Output Total 850 ml 650 ml 550 ml Balance -730 ml -650 ml -350 ml Physical Exam Physical Exam: HEENT: PERRLA Heart: no murmurs, irregularly irregular, other Abdomen: Normal bowel sounds, No tenderness Rectal Exam: not examined Extremities: Other (4+ edema, cold feet and swollen, pulses palpable but faint, cyanosis, ) Skin: Other Neuro: Normal speech, Sensation intact General: No acute distress Heart: Regular rate Lungs: Crackles Abdomen: Normal bowel sounds Extremities: Other (4+ edema, cold feet and swollen, pulses palpable but faint, cyanosis, ) Skin: Other Labs Labs: Laboratory Tests Test 11/27/20 06:50 11/27/20 10:10 White Blood Count 7.4 x10^3/uL (4.0-11.0) Red Blood Count 4.91 x10^6/uL (4.30-5.70) Hemoglobin 13.5 g/dL (13.0-17.5) Hematocrit 41.7 % (39.0-53.0) Mean Corpuscular Volume 85 fL (79-100) Mean Corpuscular Hemoglobin 28 pg (25-35) Mean Corpuscular Hemoglobin Concent 32 g/dL (31-37) Red Cell Distribution Width 19.6 % (11.5-14.5) Platelet Count 105 x10^3/uL (140-400) Neutrophils (%) (Auto) 84 % (31-73) Lymphocytes (%) (Auto) 4 % (24-48) Monocytes (%) (Auto) 10 % (0-9) Eosinophils (%) (Auto) 1 % (0-3) Basophils (%) (Auto) 1 % (0-3) Neutrophils # (Auto) 6.2 x10^3/uL (1.8-7.7) Lymphocytes # (Auto) 0.3 x10^3/uL (1.0-4.8) Monocytes # (Auto) 0.8 x10^3/uL (0.0-1.1) Eosinophils # (Auto) 0.0 x10^3/uL (0.0-0.7) Basophils # (Auto) 0.1 x10^3/uL (0.0-0.2) Sodium Level 136 mmol/L (136-145) Potassium Level 3.7 mmol/L (3.5-5.1) Chloride Level 94 mmol/L (98-107) Carbon Dioxide Level 44 mmol/L (21-32) Anion Gap (6-14) Blood Urea Nitrogen 29 mg/dL (8-26) Creatinine 0.9 mg/dL (0.7-1.3) Estimated GFR (Cockcroft-Gault) 85.5 BUN/Creatinine Ratio 32 (6-20) Glucose Level 109 mg/dL (70-99) Calcium Level 8.6 mg/dL (8.5-10.1) Total Bilirubin 2.1 mg/dL (0.2-1.0) Aspartate Amino Transf (AST/SGOT) 23 U/L (15-37) Alanine Aminotransferase (ALT/SGPT) 17 U/L (16-63) Alkaline Phosphatase 217 U/L (46-116) Total Protein 5.3 g/dL (6.4-8.2) Albumin 2.4 g/dL (3.4-5.0) Albumin/Globulin Ratio 0.8 (1.0-1.7) Prothrombin Time 17.1 SEC (11.7-14.0) Prothromb Time International Ratio 1.4 (0.8-1.1) Comment Review of Relevant I have reviewed the following items florecita (where applicable) has been applied. Medications: Current Medications Medications (Trade) Dose Ordered Sig/Grace Route PRN Reason Start Time Stop Time Status Last Admin Dose Admin Warfarin Sodium (Coumadin) 4 mg 1X WARF ONCE PO 11/26/20 16:00 11/26/20 16:01 DC 11/26/20 18:24 Pantoprazole Sodium (Protonix) 40 mg DAILYAC PO 11/27/20 07:30 11/27/20 09:53 Warfarin Sodium (Coumadin) 5 mg 1X WARF ONCE PO 11/27/20 16:00 11/27/20 16:01 11/27/20 15:37 Metoprolol Succinate (Toprol Xl) 25 mg DAILY PO 11/27/20 15:00 11/27/20 15:33 Justifications for Admission Other Justification NAOMIE BAUTISTA MD Nov 27, 2020 15:42
--- NOTE | 2020-11-27 15:45 | SNU/HH DC ---
DISCHARGE ORDERS DISCHARGE INFORMATION: DISCHARGE DATE: Nov 27, 2020 CONDITION ON DISCHARGE: Guarded CODE STATUS: Code Status: Full SNF: SNF STAY <30 DAYS: Yes POST DISCHARGE ORDERS: ACTIVITY ORDERS: Activity as tolerated WEIGHT BEARING STATUS: As tolerated DIET AFTER DISCHARGE: Cardiac CHECKS AFTER DISCHARGE: CHECKS AFTER DISCHARGE: Check blood press - daily FOLLOW-UP: PHYSICIAN FOLLOW-UP: cardiology 2 weeks, PCP AT SNF TODAY LAB ORDERS FOR FOLLOW-UP: Have INR checked within the next 2-3 days TREATMENT/EQUIPMENT ORDERS: ADAPTIVE EQUIPMENT NEEDED: Front wheeled walker RESPIRATORY EQUIPMENT NEEDED: Oxygen, Nebulizer Physical Therapy For: Evalulation/Treatment Occupational Therapy For: Evaluation/Treatment Speech Language Pathology For: Evaluation/Treatment DISCHARGE MEDICATIONS: Home Meds Active Scripts Enoxaparin Sodium (LOVENOX) 80 Mg/0.8 Ml Disp.syrin, 85 MG SQ q 12 hrs for ANTI- COAGULANT for 7 Days, #14 DIS.SYR Prov:MICHELLE KANG MD 11/25/20 Lactulose (LACTULOSE) 20 Gm/30 Ml Solution, 20 GM PO PRN DAILY PRN for CONSTIPA TION for 30 Days, #120 MISC Prov:MICHELLE KANG MD 11/25/20 Furosemide (FUROSEMIDE) 10 Mg/1 Ml Vial, 80 MG IVP DAILY for chf for 10 Days, #10 EACH Prov:MICHELLE KANG MD 11/25/20 Budesonide (BUDESONIDE) 0.5 Mg/2 Ml Ampul.neb, 0.5 MG NEB RTBID for copd for 30 Days, #60 EACH Prov:MICHELLE KANG MD 11/25/20 Lactobacillus Rhamnosus Gg (CULTURELLE) 1 Each Cap.sprink, 1 CAP PO BID for supplement for 30 Days, #60 CAP Prov:MICHELLE KANG MD 11/25/20 [Warfarin Per Pharmacy] 1 EACH EACH No Conflict Check, 1 EACH MC PRN DAILY PRN for SEE COMMENTS for 10 Days, #14 Prov:MICHELLE KANG MD 11/25/20 Ipratropium/Albuterol Sulfate (DUONEB 0.5-3(2.5) MG/3 ML) 3 Ml Ampul.neb, 3 ML NEB RTQID for copd for 30 Days, #120 EACH Prov:MICHELLE KANG MD 11/25/20 Reported Medications Warfarin Sodium (WARFARIN SODIUM) 2.5 Mg Tablet, 2.5 MG PO DAILY for anticoag, TAB 11/23/20 Ranolazine (RANEXA) 500 Mg Tab.er.12h, 500 MG PO BID for angina, TAB.SR 11/23/20 Pantoprazole Sodium (PANTOPRAZOLE SODIUM ) 40 Mg Tablet.dr, 40 MG PO DAILYAC for GERD, TAB 11/23/20 Atorvastatin Calcium (ATORVASTATIN CALCIUM) 40 Mg Tablet, 1 TAB PO DAILY for cholesterol, #30 TAB 5 Refills 11/23/20 Aspirin (Children's Aspirin) 81 Mg Tab.chew, 1 TAB PO DAILY for anti coag for 30 Days, #30 TAB 0 Refills 11/23/20 Amiodarone Hcl (AMIODARONE HCL) 200 Mg Tablet, 1 TAB PO DAILY for BLOOD PRESSURE, #90 TAB 1 Refill 11/23/20 Discontinued Reported Medications Risperidone (RISPERIDONE) 0.5 Mg Tablet, 1 TAB PO QHS for antipsychotic, #30 TAB 2 Refills 11/23/20 Potassium Chloride (KLOR-CON M20) 20 Meq Tab.er.prt, 20 MEQ PO DAILY for potassium, TAB.SR 11/23/20 Metoprolol Succinate (METOPROLOL SUCCINATE ( XL )) 25 Mg Tab.er.24h, 25 MG PO HS for FOR HYPERTENSION, #30 TAB 0 Refills 11/23/20 Metformin HCl (Metformin HCl) 500 Mg/5 Ml Solution, 500 MG PO BID for blood sugar, MISC 11/23/20 Duloxetine Hcl (CYMBALTA) 30 Mg Capsule.dr, 30 MG PO DAILY for antidepressant, CAP 11/23/20 Atorvastatin Calcium (Atorvastatin Calcium) 80 Mg Tablet, 80 MG PO QHS for FOR HIGH CHOLESTEROL, TAB 11/23/20 NAOMIE BAUTISTA MD Nov 27, 2020 15:45
[2020-11-27] MEDS ORDERED: WARFARIN 5 MG TABLET. PO ONE (16:00)
--- NOTE | 2020-11-27 16:25 | NUR ---
SS following up with discharge planning. Discharge orders received and phoned and faxed to [facility], ; fax [phone]. [facility] reported that they can take pt tomorrow morning at 1000. SS left voicemail for [facility] transportation, [id number], requesting transportation for the morning. SS will continue to follow for discharge planning.
[2020-11-27 19:15] VITALS: BP 100/55
[2020-11-27] MEDS: ATORVASTATIN CALCIUM 40 MG TABLET. PO SCH (20:42)
[2020-11-27 23:00] VITALS: BP 104/65
[2020-11-28 02:35] VITALS: BP 96/69
[2020-11-28 06:19] LABS: PROTHROMBIN TIME PATIENT 19.6 SEC (11.7-14.0)
[2020-11-28] MEDS: BUDESONIDE 0.5 MG/2 ML NEBU. NEB SCH (07:24)
[2020-11-28] MEDS: IPRATRPIUM/ALBUTEROL 0.5/2.5MG 3 ML NEBU. NEB SCH (07:24)
[2020-11-28 07:55] VITALS: BP 105/67
--- NOTE | 2020-11-28 08:31 | NUR ---
SS following up with discharge planning. Discharge orders phoned and faxed to [facility], ; fax [phone]. Pt will discharge today and go to [facility] at 1000 via [facility] transport, [id number], at 1000. Pt, pt's family, and pt's RN notified.
[2020-11-28] MEDS: LACTOBACILLUS RHAMNOSUS GG 1 CAPSULE. PO SCH (08:51)
[2020-11-28] MEDS: FUROSEMIDE 100 MG/10 ML VIAL. IVP SCH (08:51)
[2020-11-28] MEDS: ASPIRIN ENTERIC COATED 81 MG TABLET.DR. PO SCH (08:51)
[2020-11-28] MEDS: PANTOPRAZOLE 40 MG TABLET.DR. PO SCH (08:51)
[2020-11-28 08:52] VITALS: BP 105/67
[2020-11-28] MEDS: AMIODARONE HCL 200 MG TABLET. PO SCH (08:52)
[2020-11-28] MEDS: METOPROLOL SUCC 24HR ER 25 MG TAB.ER.24H. PO SCH (08:52)
[2020-11-28] MEDS ORDERED: LISINOPRIL 5 MG TABLET. PO SCH (09:00)
--- NOTE | 2020-11-28 09:59 | PDOC ---
[employer] PROGRESS NOTE Date of Service DOS: DATE: 11/28/20 TIME: 09:57 Chief Complaint Chief Complaint impression Acute bilateral Pulmonary embolism - will transition from lovenox to heparin GTT in anticipation of consideration of thoracentesis Acute pneumonia - rocephin + doxy acute metabolic encephalopathy Sepsis - due to above Acute hypoxic respiratory failure - due to PE, CHF Stable large left pleural effusion CAD s/p CABG 1993 Acute on chronic systolic CHF with prior known 3+ pitting edema for months, BNP 15k. S/p AICD - cont diuresis Atrial fibrillation - [employer] pacer interrogated at [facility]. Was on eliquis but had been off for 2 weeks prior to admit DOE - creatinine 1.4 - likely vasomotor nephropathy Transaminits - likely congestive hepatopathy, no ETOH or cirrhosis per patient. Bilirubin is elevated at 4.6. INR 1.9 PVD, US artery LUE neg at [facility], poor pulses, cool feet, consult vasc, Nausea and vomiting - KUB ordered, no SBO, reglan helped microhematuria ECHO systolic function is severely impaired. Ejection Fraction is estimated at 20%. severe global hypokinesis of the left ventricle. FEN - Cardiac PPX - lovenox FULL CODE Dispo - ICU pulm consult renal sono CC time 42 minutes History of Present Illness History of Present Illness Mr Galindo is a 64-year-old male visiting from [place] w/ PMHx A-Fib, GERD, High Cholesterol, Hypertension, Hypothyroid, CHF s/p AICD placement presents with dizziness, weakness, short of breath. Patient son brought him in and he has been staying with his son. Son states patient has not taken his medications for 2 weeks. Patient denies chest pain. Patient states "I feel like my pacemaker is firing". Patient has 3+ pitting edema on bilateral legs. Patient's left arm is cool to the touch, red. Denies fever, cough. Found on CTPA with multiple left lower lobe pulmonary emboli and moderate large pleural effusion on left and multifocal pneumonia. Accepted for transfer to ICU [facility]. 11/18: Afebrile. Vomiting this morning. States he feels a little better today. Bilirubin up to 4. INR 2.1. COVID negative. BP low Afebrile. Still weak. Sitting in chair. PICC placed for IV access. K 4.7, BUN 27, Cr 1.5, Alk phos 21, Bili 4.1. BP improved. 5-31 PPX - lovenox FULL CODE Dispo - ICU History of bypass surgery. Probable superimposed heart failure. Acute bilateral Pulmonary embolism - will transition from lovenox to heparin GTT in anticipation of consideration of thoracentesis Acute pneumonia - rocephin + doxy Sepsis - due to above Acute hypoxic respiratory failure - due to PE, CHF CAD s/p CABG 1993 pulm consult elevated lft's , sono and GI consult PSA Acute on chronic systolic CHF with prior known 3+ pitting edema for months, BNP 15k. S/p AICD - cont diuresis Atrial fibrillation - [employer] pacer interrogated at [facility]. Was on eliquis but had been off for 2 weeks prior to admit, cardiology consulted DOE - creatinine 1.4 - likely vasomotor nephropathy microhematuria , renal sono, follow ua The Ejection Fraction is estimated at 20%. severe global hypokinesis of the left ventricle. mild concentric left ventricular hypertrophy. mild tricuspid regurgitation with an estimated PAP of 46 mmHg. H/o biliary stone disease so retained stone possible. ABD SONO PENDING CC time 34 minutes 11/21 PPX - lovenox FULL CODE Dispo - ICU History of bypass surgery. Probable superimposed heart failure. Acute bilateral Pulmonary embolism - will transition from lovenox to heparin GTT in anticipation of consideration of thoracentesis Acute pneumonia - rocephin + doxy Sepsis - due to above Acute hypoxic respiratory failure - due to PE, CHF CAD s/p CABG 1993 pulm consult elevated lft's , sono and GI consult PSA Acute on chronic systolic CHF with prior known 3+ pitting edema for months, BNP 15k. S/p AICD - cont diuresis Atrial fibrillation - [employer] pacer interrogated at [facility]. Was on eliquis but had been off for 2 weeks prior to admit, cardiology consulted DOE - creatinine 1.4 - likely vasomotor nephropathy microhematuria , renal sono, follow ua The Ejection Fraction is estimated at 20%. severe global hypokinesis of the left ventricle. mild concentric left ventricular hypertrophy. mild tricuspid regurgitation with an estimated PAP of 46 mmHg. H/o biliary stone disease so retained stone possible. ABD SONO reviewed CC time 35 minutes 11/22 PPX - lovenox FULL CODE Dispo - ICU History of bypass surgery. Probable superimposed heart failure. Acute bilateral Pulmonary embolism - will transition from lovenox to heparin GTT in anticipation of consideration of thoracentesis Acute pneumonia - rocephin + doxy Sepsis - due to above Acute hypoxic respiratory failure - due to PE, CHF CAD s/p CABG 1993 pulm consult elevated lft's , sono and GI consult PSA Acute on chronic systolic CHF with prior known 3+ pitting edema for months, BNP 15k. S/p AICD - cont diuresis Atrial fibrillation - [employer] pacer interrogated at [facility]. Was on eliquis but had been off for 2 weeks prior to admit, cardiology consulted DOE - creatinine 1.4 - likely vasomotor nephropathy microhematuria , renal sono, follow ua The Ejection Fraction is estimated at 20%. severe global hypokinesis of the left ventricle. mild concentric left ventricular hypertrophy. mild tricuspid regurgitation with an estimated PAP of 46 mmHg. H/o biliary stone disease so retained stone possible. ABD SONO reviewed CC time 33 minutes 11/23 PE's, on AC. Jaundice; numbers have improved with diuresis. PPX - lovenox FULL CODE Dispo - ICU History of bypass surgery. Probable superimposed heart failure. Acute bilateral Pulmonary embolism - will transition from lovenox to heparin GTT in anticipation of consideration of thoracentesis Acute pneumonia - rocephin + doxy Sepsis - due to above Acute hypoxic respiratory failure - due to PE, CHF CAD s/p CABG 1993 pulm consult elevated lft's , sono and GI consult PSA Acute on chronic systolic CHF with prior known 3+ pitting edema for months, BNP 15k. S/p AICD - cont diuresis Atrial fibrillation - [employer] pacer interrogated at [facility]. Was on eliquis but had been off for 2 weeks prior to admit, cardiology consulted DOE - creatinine 1.4 - likely vasomotor nephropathy microhematuria , renal sono, follow ua The Ejection Fraction is estimated at 20%. severe global hypokinesis of the left ventricle. mild concentric left ventricular hypertrophy. mild tricuspid regurgitation with an estimated PAP of 46 mmHg. H/o biliary stone disease so retained stone possible. ABD SONO reviewed remains very weak and confused PPN AT 80 CC / HR, poor oral intake Discharge Recommendations * Intermediate Unit Discharge Recommendation - DME * Rolling Walker needed * in order to complete ADLs CC time 32 minutes 11/24 less confused, knows year and month, denies alcohol intake will check ct head, abg, consult neurology, for encephalopathy, ammonia level eating 25% of meals acute metabolic encephalopathy, improving PE's, on AC. Jaundice; numbers have improved with diuresis. PPX - lovenox FULL CODE Dispo - ICU History of bypass surgery. Probable superimposed heart failure. Acute bilateral Pulmonary embolism - will transition from lovenox to heparin GTT in anticipation of consideration of thoracentesis Acute pneumonia - rocephin + doxy Successful ultrasound guided left thoracentesis with removal 1.3 liters of fluid. Sepsis - due to above Acute hypoxic respiratory failure - due to PE, CHF CAD s/p CABG 1993 pulm consult elevated lft's , sono and GI consult PSA Acute on chronic systolic CHF with prior known 3+ pitting edema for months, BNP 15k. S/p AICD - cont diuresis Atrial fibrillation - [employer] pacer interrogated at [facility]. Was on eliquis but had been off for 2 weeks prior to admit, cardiology consulted DOE - creatinine 1.4 - likely vasomotor nephropathy microhematuria , renal sono, follow ua The Ejection Fraction is estimated at 20%. severe global hypokinesis of the left ventricle. mild concentric left ventricular hypertrophy. mild tricuspid regurgitation with an estimated PAP of 46 mmHg. H/o biliary stone disease so retained stone possible. ABD SONO reviewed remains weak and less confused PPN AT 80 CC / HR, poor oral intake 11-24 ovoid opacity in the right upper lobe may represent rib overlying increased pulmonary vascular congestion, mass cannot be excluded. plan cross-sectional imaging or repeat plain film imaging once symptoms has resolved as this may be fluid on the fissure. hopefully to SNF 11-25 Discharge Recommendations * Intermediate Unit Discharge Recommendation - DME * Rolling Walker needed * in order to complete ADLs CC time 33 minutes 11/25 speech concerned re aspiration, desires videoswallow this AM, passed swallow without berhane aspiration less confused, knows year and month, denies alcohol intake will check ct head, abg, consult neurology, for encephalopathy, ammonia level eating 25% of meals acute metabolic encephalopathy, improving PE's, on AC. Jaundice; numbers have improved with diuresis. PPX - lovenox FULL CODE Dispo - ICU History of bypass surgery. Probable superimposed heart failure. Acute bilateral Pulmonary embolism - will transition from lovenox to heparin GTT in anticipation of consideration of thoracentesis Acute pneumonia - rocephin + doxy Successful ultrasound guided left thoracentesis with removal 1.3 liters of fluid. Sepsis - due to above Acute hypoxic respiratory failure - due to PE, CHF CAD s/p CABG 1993 pulm consult elevated lft's , sono and GI consult PSA Acute on chronic systolic CHF with prior known 3+ pitting edema for months, BNP 15k. S/p AICD - cont diuresis Atrial fibrillation - [employer] pacer interrogated at [facility]. Was on eliquis but had been off for 2 weeks prior to admit, cardiology consulted DOE - creatinine 1.4 - likely vasomotor nephropathy microhematuria , renal sono, follow ua The Ejection Fraction is estimated at 20%. severe global hypokinesis of the left ventricle. mild concentric left ventricular hypertrophy. mild tricuspid regu rgitation with an estimated PAP of 46 mmHg. H/o biliary stone disease so retained stone possible. ABD SONO reviewed remains weak and less confused PPN AT 80 CC / HR, poor oral intake 6 ovoid opacity in the right upper lobe may represent rib overlying increased pulmonary vascular congestion, mass cannot be excluded. plan cross-sectional imaging or repeat plain film imaging once symptoms has resolved as this may be fluid on the fissure. hopefully to SNF 6-05 d/c planning 36 min Discharge Recommendations * Intermediate Unit Discharge Recommendation - DME * Rolling Walker needed * in order to complete ADLs * * * * 11/26 more alert today speech concerned re aspiration, desires video swallow // passed swallow without berhane aspiration less confused, knows year and month, denies alcohol intake will check ct head, abg, consult neurology, for encephalopathy, ammonia level eating 25% of meals acute metabolic encephalopathy, improving PE's, on AC. Jaundice; numbers have improved with diuresis. PPX - lovenox FULL CODE Dispo - ICU History of bypass surgery. Probable superimposed heart failure. Acute bilateral Pulmonary embolism - will transition from lovenox to heparin GTT in anticipation of consideration of thoracentesis Acute pneumonia - rocephin + doxy Successful ultrasound guided left thoracentesis with removal 1.3 liters of fluid. Sepsis - due to above Acute hypoxic respiratory failure - due to PE, CHF CAD s/p CABG 1993 pulm consult elevated lft's , sono and GI consult PSA Acute on chronic systolic CHF with prior known 2+ pitting edema for months, B [employer] 15k. S/p AICD - cont diuresis Atrial fibrillation - [employer] pacer interrogated at [facility]. Was on eliquis but had been off for 2 weeks prior to admit, cardiology consulted DOE - creatinine 1.4 - likely vasomotor nephropathy microhematuria , renal sono, follow ua The Ejection Fraction is estimated at 20%. severe global hypokinesis of the left ventricle. mild concentric left ventricular hypertrophy. mild tricuspid regurgitation with an estimated PAP of 46 mmHg. H/o biliary stone disease so retained stone possible. ABD SONO reviewed remains weak and less confused PPN AT 80 CC / HR, poor oral intake 11-24 ovoid opacity in the right upper lobe may represent rib overlying increased pulmonary vascular congestion, mass cannot be excluded. plan cross-sectional imaging or repeat plain film imaging once symptoms has resolved as this may be fluid on the fissure. hopefully to SNF 11-25 d/c planning 26 min Discharge Recommendations * Intermediate Unit 11-27 Discharge Recommendation - DME * Rolling Walker needed * in order to complete ADLs 11/27/2020: Patient afebrile, currently breathing on 3 L nasal cannula. Denies any chest pain. Discussed with pulmonology, patient may discharge on Coumadin 5 mg daily and have INR checked [facility]. Greater than 30 minutes was spent managing the discharge of this patient. 11/28/2020: Afebrile, no acute events overnight. Patient did not discharge prep and states yesterday because they do not accept patients after 4 PM. INR 1.7, still not yet therapeutic (23). He will be discharged today to [facility] where his INR can continue to be monitored and warfarin adjusted as needed. Greater than 30 minutes spent managing the discharge of this patient. Vitals/I&O Vitals/I&O: Vital Signs Date Time Temp Pulse Resp B/P (MAP) Pulse Ox O2 Delivery O2 Flow Rate FiO2 11/28/20 08:52 60 105/67 11/28/20 07:55 97.9 20 96 Nasal Cannula 3.0 97.9 I & O 11/27/20 11/27/20 11/28/20 15:00 23:00 07:00 Intake Total 480 ml 200 ml Output Total 1350 ml Balance 480 ml -1150 ml Physical Exam Physical Exam: HEENT: PERRLA Heart: no murmurs, irregularly irregular, other Abdomen: Normal bowel sounds, No tenderness Rectal Exam: not examined Extremities: Other (4+ edema, cold feet and swollen, pulses palpable but faint, cyanosis, ) Skin: Other Neuro: Normal speech, Sensation intact General: No acute distress Heart: Regular rate Lungs: Crackles Abdomen: Normal bowel sounds Extremities: Other (4+ edema, cold feet and swollen, pulses palpable but faint , cyanosis, ) Skin: Other Labs Labs: Laboratory Tests Test 11/27/20 10:10 11/28/20 06:00 Prothrombin Time 17.1 SEC (11.7-14.0) 19.6 SEC (11.7-14.0) Prothromb Time International Ratio 1.4 (0.8-1.1) 1.7 (0.8-1.1) Comment Review of Relevant I have reviewed the following items florecita (where applicable) has been applied. Medications: Current Medications Medications (Trade) Dose Ordered Sig/Grace Route PRN Reason Start Time Stop Time Status Last Admin Dose Admin Warfarin Sodium (Coumadin) 5 mg 1X WARF ONCE PO 11/27/20 16:00 11/27/20 16:01 DC 11/27/20 15:37 Metoprolol Succinate (Toprol Xl) 25 mg DAILY PO 11/27/20 15:00 11/28/20 08:52 Justifications for Admission Other Justification NAOMIE BAUTISTA MD Nov 28, 2020 09:59
--- NOTE | 2020-11-28 10:02 | PDOC ---
PULMONARY PROGRESS NOTES DATE: 11/28/20 TIME: 10:02 Subjective Remains on 3 liters NC more awake S/P thoracentesis 11/21/20 no overnight events Vitals Vital Signs Date Time Temp Pulse Resp B/P (MAP) Pulse Ox O2 Delivery O2 Flow Rate FiO2 11/28/20 08:52 60 105/67 11/28/20 07:55 97.9 20 96 Nasal Cannula 3.0 97.9 ROS: No Nausea, No Chest Pain, No Abdominal Pain, No Increase Cough General: Alert, Oriented X4 Lungs: Crackles Cardiovascular: S1, S2 Abdomen: Soft, Non-tender, Other (obese no mass) Neuro Exam: Alert Extremities: Other (edema, and erythema bilateral lower extremities) Skin: Warm Labs Laboratory Tests Test 11/27/20 06:50 11/27/20 10:10 11/28/20 06:00 White Blood Count 7.4 x10^3/uL (4.0-11.0) Red Blood Count 4.91 x10^6/uL (4.30-5.70) Hemoglobin 13.5 g/dL (13.0-17.5) Hematocrit 41.7 % (39.0-53.0) Mean Corpuscular Volume 85 fL (79-100) Mean Corpuscular Hemoglobin 28 pg (25-35) Mean Corpuscular Hemoglobin Concent 32 g/dL (31-37) Red Cell Distribution Width 19.6 % (11.5-14.5) Platelet Count 105 x10^3/uL (140-400) Neutrophils (%) (Auto) 84 % (31-73) Lymphocytes (%) (Auto) 4 % (24-48) Monocytes (%) (Auto) 10 % (0-9) Eosinophils (%) (Auto) 1 % (0-3) Basophils (%) (Auto) 1 % (0-3) Neutrophils # (Auto) 6.2 x10^3/uL (1.8-7.7) Lymphocytes # (Auto) 0.3 x10^3/uL (1.0-4.8) Monocytes # (Auto) 0.8 x10^3/uL (0.0-1.1) Eosinophils # (Auto) 0.0 x10^3/uL (0.0-0.7) Basophils # (Auto) 0.1 x10^3/uL (0.0-0.2) Sodium Level 136 mmol/L (136-145) Potassium Level 3.7 mmol/L (3.5-5.1) Chloride Level 94 mmol/L (98-107) Carbon Dioxide Level 44 mmol/L (21-32) Anion Gap (6-14) Blood Urea Nitrogen 29 mg/dL (8-26) Creatinine 0.9 mg/dL (0.7-1.3) Estimated GFR (Cockcroft-Gault) 85.5 BUN/Creatinine Ratio 32 (6-20) Glucose Level 109 mg/dL (70-99) Calcium Level 8.6 mg/dL (8.5-10.1) Total Bilirubin 2.1 mg/dL (0.2-1.0) Aspartate Amino Transf (AST/SGOT) 23 U/L (15-37) Alanine Aminotransferase (ALT/SGPT) 17 U/L (16-63) Alkaline Phosphatase 217 U/L (46-116) Total Protein 5.3 g/dL (6.4-8.2) Albumin 2.4 g/dL (3.4-5.0) Albumin/Globulin Ratio 0.8 (1.0-1.7) Prothrombin Time 17.1 SEC (11.7-14.0) 19.6 SEC (11.7-14.0) Prothromb Time International Ratio 1.4 (0.8-1.1) 1.7 (0.8-1.1) Laboratory Tests Test 11/27/20 10:10 11/28/20 06:00 Prothrombin Time 17.1 SEC (11.7-14.0) 19.6 SEC (11.7-14.0) Prothromb Time International Ratio 1.4 (0.8-1.1) 1.7 (0.8-1.1) Medications Active Scripts Medications Dose Route/Sig Max Daily Dose Days Date Category Warfarin Sodium 2.5 Mg Tablet 2.5 Mg PO DAILY 11/23/20 Reported Risperidone 0.5 Mg Tablet 1 Tab PO QHS 11/23/20 Reported Ranexa (Ranolazine) 500 Mg Tab.er.12h 500 Mg PO BID 11/23/20 Reported Klor-Con M20 (Potassium Chloride) 20 Meq Tab.er.prt 20 Meq PO DAILY 11/23/20 Reported Pantoprazole Sodium (Pantoprazole Sodium) 40 Mg Tablet.dr 40 Mg PO DAILYAC 11/23/20 Reported Metoprolol Succinate ( Xl ) (Metoprolol Succinate) 25 Mg Tab.er.24h 25 Mg PO HS 11/23/20 Reported Metformin HCl 500 Mg/5 Ml Solution 500 Mg PO BID 11/23/20 Reported Cymbalta (Duloxetine Hcl) 30 Mg Capsule.dr 30 Mg PO DAILY 11/23/20 Reported Atorvastatin Calcium 80 Mg Tablet 80 Mg PO QHS 11/23/20 Reported Atorvastatin Calcium 40 Mg Tablet 1 Tab PO DAILY 11/23/20 Reported Children's Aspirin (Aspirin) 81 Mg Tab.chew 1 Tab PO DAILY 30 11/23/20 Reported Amiodarone Hcl 200 Mg Tablet 1 Tab PO DAILY 11/23/20 Reported Comments Chest x-ray reviewed bilateral infiltrates stable left-sided opacity questionable effusion ECHO <Conclusion> The Left Ventricle is borderline dilated. The systolic function is severely impaired. The Ejection Fraction is estimated at 20%. There is severe global hypokinesis of the left ventricle. There is borderline to mild concentric left ventricular hypertrophy. There is a device lead in the right ventricle. Doppler and Color Flow revealed no significant aortic regurgitation. There is no significant aortic valvular stenosis. Doppler and Color-flow revealed mild mitral regurgitation. Doppler and Color Flow revealed mild tricuspid regurgitation with an estimated PAP of 46 mmHg. cytology LEFT PLEURAL FLUID NEGATIVE FOR MALIGNANT CELLS. REACTIVE MESOTHELIAL CELLS PRESENT WITHIN A BACKGROUND OF ACUTE AND CHRONIC INFLAMMATORY CELLS. THIS INTERPRETATION INCLUDES EVALUATION OF A CELL BLOCK. Impression . IMPRESSION: 1. Acute hypoxemic respiratory failure, multifactorial --improved 2. Abnormal chest x-ray. Left-sided effusion--S/P thoracentesis 11/21 3. Acute pulmonary embolism. 4. Chronic obstructive pulmonary disease. 5. Acute systolic versus diastolic congestive heart failure. 6. Obstructive sleep apnea/hypopnea syndrome. 7. Tobacco habituation. 8. Atrial fibrillation. 9. Coronary artery disease, status post CABG. 10. Negative SARS Covid 2 11. Encephalopathy--improving 12. debility Bilateral lower extremity venous Dopplers 11/18 IMPRESSION: Partially occlusive DVT is seen involving the posterior tibial veins within the right calf. Plan . UPDATED 11/27/2020 Continue supplemental oxygen currently on 3 L nasal cannula Continue coumadin-- Monitor INR S/P left thoracentesis with removal 1.3 liters of fluid on 11/21/20--- cytology neg Continue bronchodilators and ICS, Pulmicort Off ABX Follow cardiology recommendations---The Ejection Fraction is estimated at 20%. Follow nephrology recommendations Follow GI recs DVT/GI prophylaxis Physical therapy/Occupational Therapy Social work following-- Discharge to [facility] Discussed with RN, and OMID Bhandari MD Nov 28, 2020 10:02
[2020-11-28] MEDS ORDERED: METF500T16 PO ×2 (10:10→10:12)
--- NOTE | 2020-11-28 10:25 | NUR ---
PT WAS DISCHARGED WITH RT UA DL PICC AND BRADSHAW - ALL INTACT.
--- NOTE | 2020-11-28 10:25 | NUR ---
Discharge Note: [facility] Discharge instructions and discharge home medications reviewed with Home Care Nurse/Telephone and a copy given. All questions have been answered and understanding verbalized. The following instructions and handouts were given: Discontinued lines and drains: Patient discharged to [facility] with Self via Wheelchair
[2020-12-04] MEDS ORDERED: FURO80TA72 PO (13:20)
== END 2020-11-28 10:25 | DRG 871 ==
LOC: 1 WEST ICU 18:41 → 2 SOUTH 11-22 16:03
PROVIDERS: ADMIT Internal Medicine; ATTEND Internal Medicine
PROC: 02HV33Z Insertion of Infusion Device into Superior Vena Cava, Percutaneous Approach (ICD-10-PCS; 2020-11-18)
PROC: 5A09357 Assistance with Respiratory Ventilation, Less than 24 Consecutive Hours, Continuous Positive Airway Pressure (ICD-10-PCS; 2020-11-18)
PROC: 0W9B3ZZ Drainage of Left Pleural Cavity, Percutaneous Approach (ICD-10-PCS; principal; 2020-11-20)
DX: A41.9 Sepsis, unspecified organism (principal); J18.9 Pneumonia, unspecified organism; I26.99 Other pulmonary embolism without acute cor pulmonale; G93.41 Metabolic encephalopathy; I50.43 Acute on chronic combined systolic (congestive) and diastolic (congestive) heart failure; N17.0 Acute kidney failure with tubular necrosis; J96.01 Acute respiratory failure with hypoxia; I13.0 Hypertensive heart and chronic kidney disease with heart failure and stage 1 through stage 4 chronic kidney disease, or unspecified chronic kidney disease; I82.441 Acute embolism and thrombosis of right tibial vein; E87.1 Hypo-osmolality and hyponatremia; R17 Unspecified jaundice; J91.8 Pleural effusion in other conditions classified elsewhere; E03.9 Hypothyroidism, unspecified; E27.8 Other specified disorders of adrenal gland; E78.00 Pure hypercholesterolemia, unspecified; E78.5 Hyperlipidemia, unspecified; E83.42 Hypomagnesemia; E87.6 Hypokalemia; F01.50 Vascular dementia, unspecified severity, without behavioral disturbance, psychotic disturbance, mood disturbance, and anxiety; G47.33 Obstructive sleep apnea (adult) (pediatric); I25.10 Atherosclerotic heart disease of native coronary artery without angina pectoris; I25.5 Ischemic cardiomyopathy; I48.0 Paroxysmal atrial fibrillation; I73.9 Peripheral vascular disease, unspecified; J43.9 Emphysema, unspecified; K21.9 Gastro-esophageal reflux disease without esophagitis; N18.9 Chronic kidney disease, unspecified; N28.1 Cyst of kidney, acquired; N40.0 Benign prostatic hyperplasia without lower urinary tract symptoms; R31.29 Other microscopic hematuria; Z20.822 Contact with and (suspected) exposure to COVID-19; Z53.20 Procedure and treatment not carried out because of patient's decision for unspecified reasons; Z79.01 Long term (current) use of anticoagulants; Z82.49 Family history of ischemic heart disease and other diseases of the circulatory system; Z90.49 Acquired absence of other specified parts of digestive tract; Z91.19 Patient's noncompliance with other medical treatment and regimen; Z95.1 Presence of aortocoronary bypass graft; Z95.810 Presence of automatic (implantable) cardiac defibrillator; M19.90 Unspecified osteoarthritis, unspecified site; R62.7 Adult failure to thrive; Z87.891 Personal history of nicotine dependence; E11.40 Type 2 diabetes mellitus with diabetic neuropathy, unspecified; E66.9 Obesity, unspecified; R94.5 Abnormal results of liver function studies
CPT/HCPCS: 32555; 36415; 36569; 36600; 70450; 71045; 74018; 74230; 76700; 80048; 80053; 81001; 82140; 82805; 83615; 83735; 83986; 84157; 84439; 84443; 84484; 85007; 85025; 85520; 85610; 86705; 86709; 86803; 87071; 87075; 87340; 87426; 88112; 88305; 93306; 93970; 94640; 94660; 94760; C9113; G0103; J0696; J1644; J1650; J1940; J2405; J2765; J3475; J3480; J3490; J7060; 92526-GN; 92610-GN; 92611-GN; 97110-GO; 97116-GP; 97530-GO; 97530-GP; 97535-GO; G0378; J7626